=== PATIENT | female | born 1970 | race Caucasian/White ===

== ENCOUNTER 2017-06-13 10:42 | Inpatient (IN) | payer OTHER ==
--- NOTE | 2017-06-13 11:16 | PDOC ---
History of Present Illness - General History Source: Alf Records Exam Limitations: Clinical Condition (MR, Downs syndrome) - History of Present Illness Initial Comments: 06/13/17 12:10 The patient is a 47 year old female with a significant PMH of profound MR, Downs syndrome, OCD, pica, hypothyroidism, CKD III, non-alcoholic fatty liver disease, COPD, hypertriglyceridemia, osteopenia, GERD, and lactose intolerance who presents to the emergency department after being sent in from [facility] for evaluation of hypoxia. As per senior care and records, the patients O2 sat. was 84% in the senior care despite Duoneb treatment. As per records, the patients baseline O2 sat. is in the low 90s on room air. The patient also presents with a productive cough. The patient has severe MR and is nonverbal at baseline. Allergies: Cefuroxime axetil. Ceftin. Cephalosporins. Past surgical history: None reported. Social history: No reported cigarette, alcohol, or drug use. PCP: Dr. Erickson <Norris Lugo - Last Filed: 06/13/17 12:14> <Sydney Laird - Last Filed: 06/13/17 16:14> - General Chief Complaint: Shortness of Breath Stated Complaint: SOB Time Seen by Provider: 06/13/17 11:12 Past History <Norris Lugo - Last Filed: 06/13/17 12:14> - Past Medical History COPD: Yes Disorders: Yes (CHRONIC KIDNEY DISEASE, GERD) Hypercholesterolemia: Yes Thyroid Disease: Yes (Hypothyroidism) - Immunization History Immunization Up to Date: Yes - Suicide/Smoking/Psychosocial Hx Smoking Status: No Smoking History: Never smoked Number of Cigarettes Smoked Daily: 0 Hx Alcohol Use: No Substance Use Type: None <Sydney Laird - Last Filed: 06/13/17 16:14> - Past Medical History Allergies/Adverse Reactions: Allergies Allergy/AdvReac Type Severity Reaction Status Date / Time cefuroxime axetil Allergy Mild Rash Verified 06/13/17 10:59 [From Ceftin] Cephalosporins Allergy Mild Rash Verified 06/13/17 10:59 Home Medications: Ambulatory Orders Budesonide [Pulmicort] 0.5 mg NEB BID 11/28/12 Calcium Carb, Citrate/Vit D3 [Citracal + D ER Tablet] 1 tab PO BID 11/28/12 Escitalopram Oxalate [Lexapro] 20 mg PO DAILY 11/28/12 Ipratropium 0.02% Nebulizer [Atrovent *Nebulizer*] 0.5 mg IH TID 11/28/12 Levothyroxine [Synthroid] 125 mcg PO DAILY 11/28/12 Omeprazole Magnesium [Prilosec (OTC)] 20 mg PO BID 11/28/12 Fexofenadine HCl [Purvi] 180 mg PO HS 01/10/15 Cholecalciferol (Vitamin D3) [Vitamin D3] 400 unit PO DAILY 06/13/17 Ferrous Sulfate 325 mg PO DAILY 06/13/17 Fluticasone Furoate [Flonase Sensimist] 9.9 ml NS DAILY 06/13/17 Folic Acid/Mv,Fe,Min/Lutein [Certa Plus Tablet] 1 each PO DAILY 06/13/17 Review of Systems - Review of Systems Able to Perform ROS?: No Comments:: 06/13/17 12:10 As noted in HPI. <Norris Lugo - Last Filed: 06/13/17 12:14> *Physical Exam - Vital Signs Last Vital Signs Temp Pulse Resp BP Pulse Ox 101.2 F H 107 H 26 H 118/67 93 L 06/13/17 10:59 06/13/17 11:37 06/13/17 11:37 06/13/17 11:37 06/13/17 12:03 - Physical Exam Comments: 06/13/17 12:10 GENERAL: Awake, alert, and fully oriented, in no acute distress HEAD: No signs of trauma EYES: PERRLA, EOMI, sclera anicteric, conjunctiva clear ENT: (+) Micrognathia. Auricles normal inspection, hearing grossly normal, nares patent, oropharynx clear without exudates. Moist mucosa NECK: Normal ROM, supple, no lymphadenopathy, JVD, or masses LUNGS: Breath sounds equal, clear to auscultation bilaterally. No wheezes, and no crackles HEART: Regular rate and rhythm, normal S1 and S2, no murmurs, rubs or gallops ABDOMEN: Soft, nontender, normoactive bowel sounds. No guarding, no rebound. No masses EXTREMITIES: Normal range of motion, no edema. No clubbing or cyanosis. No cords, erythema, or tenderness NEUROLOGICAL: Cranial nerves II through XII grossly intact. SKIN: Warm, Dry, normal turgor, no rashes or lesions noted. <Norris Lugo - Last Filed: 06/13/17 12:14> - Vital Signs Last Vital Signs Temp Pulse Resp BP Pulse Ox 101.2 F H 125 H 38 H 118/69 78 L 06/13/17 10:59 06/13/17 10:59 06/13/17 10:59 06/13/17 10:59 06/13/17 10:59 <Sydney Laird - Last Filed: 06/13/17 16:14> ED Treatment Course - LABORATORY CBC & Chemistry Diagram: 06/13/17 11:20 06/13/17 11:20 - ADDITIONAL ORDERS Additional order review: Laboratory Results 06/13/17 06/13/17 11:20 11:20 Sodium 133 L Potassium 5.4 H D Chloride 98 Carbon Dioxide 30 Anion Gap 5 L BUN 13 Creatinine 1.1 H D Creat Clearance w eGFR 53.01 Random Glucose 128 H D Lactic Acid 2.3 H* Calcium 8.0 L Total Bilirubin 0.4 D AST 69 H D ALT 47 D Alkaline Phosphatase 156 H D Total Protein 7.7 Albumin 2.9 L 06/13/17 11:35 Influenza Types A,B Antigen (GENESIS) - Final Nasopharyngeal Swab - Final 06/13/17 11:20 RBC 3.95 MCV 101.1 H MCHC 33.4 RDW 15.2 MPV 7.7 Neutrophils % 81.0 Lymphocytes % 12.8 Monocytes % 5.8 Eosinophils % 0.0 D Basophils % 0.4 - Medications Given in the ED: ED Medications Discontinued Medications Generic Name Dose Route Start Last Admin Trade Name Erikq PRN Reason Stop Dose Admin Acetaminophen 1,000 mg 06/13/17 11:26 06/13/17 11:35 Ofirmev Injection - IVPB 06/13/17 11:27 1,000 mg ONCE ONE Administration Methylprednisolone Sodium Succinate 125 mg 06/13/17 11:18 06/13/17 11:24 Solu-Medrol - IVPUSH 06/13/17 11:19 125 mg ONCE ONE Administration <Norris Lugo - Last Filed: 06/13/17 12:14> - LABORATORY CBC & Chemistry Diagram: 06/13/17 11:20 06/13/17 11:20 <Sydney Laird - Last Filed: 06/13/17 16:14> Medical Decision Making - Medical Decision Making 06/13/17 13:02 Pt presents to the ED after sent in for hypoxia in her senior care. patient has a history of down syndrome and is chronically hypoxic, but oxygen saturation is lower than usual today. Febrile in the Ed. Labs show elevated WBC count. questionable PNA on cxr. Will admit to medicine for PNA, start levaquin. <Sydney Laird - Last Filed: 06/13/17 16:14> *DC/Admit/Observation/Transfer - Attestations Scribe Attestion: 06/13/17 12:11 Documentation prepared by Norris Lugo, acting as medical administrative specialist for Sydney Laird MD. <Norris Lugo - Last Filed: 06/13/17 12:14> - Discharge Dispostion Admit: Yes <Sydney Laird - Last Filed: 06/13/17 16:14> Diagnosis at time of Disposition: Pneumonia Qualifiers: Pneumonia type: due to unspecified organism Laterality: bilateral Lung location : lower lobe of lung Qualified Code(s): J18.9 - Pneumonia, unspecified organism - Discharge Dispostion Condition at time of disposition: Good
[2017-06-13] MEDS ORDERED: methylPREDNISolone NA SUCC 125 MG/2 ML VIAL IVPUSH ONE (11:18)
[2017-06-13] MEDS: ALBUTEROL SO4 2.5/IPRATROPIUM 0.5 INH SOL 3 ML VIAL.NEB. NEB SCH ×3 (11:24→17:15)
[2017-06-13] MEDS ORDERED: ACETAMINOPHEN 1000 MG/100 ML VIAL (NON FORMULARY) IVPB ONE (11:26)
[2017-06-13] MEDS ORDERED: methylPREDNISolone NA SUCC 125 MG/2 ML VIAL ONE (11:29)
[2017-06-13] MEDS ORDERED: ACETAMINOPHEN INJECTION 100 ML IVPB ONE (11:29)
[2017-06-13] MEDS ORDERED: LEVOFLOXACIN 500 MG IVPB 500 MG/100 ML BAG IVPB ONE ×2 (11:31→11:52)
[2017-06-13 11:37] LABS: BASOPHIL 0.4 % (0-2.0); MCH 33.7 pg (25.7-33.7); MCHC 33.4 g/dl (32.0-36.0); MEAN CELL VOLUME 101.1 fl (80-96); MEAN PLT VOLUME 7.7 fl (7.5-11.1); PLATELET COUNT 342 K/MM3 (134-434); RDW 15.2 % (11.6-15.6); WHITE BLOOD COUNT 18.8 K/mm3 (4.0-10.0)
[2017-06-13 11:53] LABS: ALBUMIN 2.9 g/dl (3.4-5.0); ALK PHOS 156 U/L (45-117); ANION GAP 5 (8-16); BILIRUBIN,TOTAL 0.4 mg/dL (0.2-1.0); CO2 30 mmol/L (21-32); CREATININE 1.1 mg/dL (0.55-1.02); GLUCOSE,RANDOM 128 mg/dL (74-106); SGPT/ALT 47 U/L (12-78); TOT PROT 7.7 g/dl (6.4-8.2)
[2017-06-13 11:57] LABS: SGOT/AST 69 U/L (15-37)
[2017-06-13] MEDS ORDERED: SODIUM CHLORIDE 250 ML IV ONE (13:35)
--- NOTE | 2017-06-13 13:39 | HP ---
CC: Sent from [place] for low O2 sat. 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 Patient is non- verbal at baseline but aid was at bedside and provided some limited information. Per chart from [place] and the aid, patient has chronic cough but never able to cough up the phlegm, at baseline she has good appetite and sleeps well at night. However, this morning nurse noted patient's eating less, tachypenic(30 pm), tachycardic (121bpm). Her O2 was 84% on ambient air and she' s unresponsive to O2 via NC and duoneb treatment. Patient was treated for pneumonia and E. coli UTI 1 year ago. Per chart and aid, patient does not have fever, chills, chest pain, n/v, hemoptysis, urinary, bowel symptoms. 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 Down's syndrome, CKD Stage III and COPD PSH: Vertical scar on abd but no surgical history in patient's chart Social History: resident at [facility]; Never smoked, drank or used drug Family History: non-contributory Allergy: cephalosporins - rash Home Meds: Budesonide [Pulmicort] 0.5 mg NEB BID 11/28/12 Calcium Carb, Citrate/Vit D3 [Citracal + D ER Tablet] 1 tab PO BID 11/28/12 Escitalopram Oxalate [Lexapro] 20 mg PO DAILY 11/28/12 Ipratropium 0.02% Nebulizer [Atrovent *Nebulizer*] 0.5 mg IH TID 11/28/12 Levothyroxine [Synthroid] 125 mcg PO DAILY 11/28/12 Omeprazole Magnesium [Prilosec (OTC)] 20 mg PO BID 11/28/12 Fexofenadine HCl [Purvi] 180 mg PO HS 01/10/15 Cholecalciferol (Vitamin D3) [Vitamin D3] 400 unit PO DAILY 06/13/17 Ferrous Sulfate 325 mg PO DAILY 06/13/17 Fluticasone Furoate [Flonase Sensimist] 9.9 ml NS DAILY 06/13/17 Folic Acid/Mv,Fe,Min/Lutein [Certa Plus Tablet] 1 each PO DAILY 06/13/17 ROS: Non-verbal and mentally retarded at baseline, unable to obtain Physical Examination Last Vital Signs Temp Pulse Resp BP Pulse Ox 101.2 F H 96 H 18 127/74 94 L 06/13/17 10:59 06/13/17 13:01 06/13/17 13:01 06/13/17 13:01 06/13/17 13:48 General: Patient wearing BiPAP, coughing and sitting up in bed in mild respiratory distress. Typical Down's facies. Eyes: Unable to perform due to baseline mental status ENT: Unable to perform due to baseline mental status. Neck: Supple with no LAD or masses. Lymph Nodes: No cervical or inguinal LAD. Cardiovascular: RRR, S1 and S2 normal, no m/g/r. Lungs: Coarse breath sounds due to BiPAP, occasional inspiratory wheezes in upper lung rodríguez Abdomen: Obese, moderately distended, Normoactive bowel sounds. No tenderness even upon deep palpation, no guarding/rebound Extremeties: No peripheral edema CBCD WBC 18.8 K/mm3 (4.0-10.0) H D 06/13/17 11:20 RBC 3.95 M/mm3 (3.60-5.2) 06/13/17 11:20 Hgb 13.3 GM/dL (10.7-15.3) 06/13/17 11:20 Hct 40.0 % (32.4-45.2) 06/13/17 11:20 MCV 101.1 fl (80-96) H 06/13/17 11:20 MCHC 33.4 g/dl (32.0-36.0) 06/13/17 11:20 RDW 15.2 % (11.6-15.6) 06/13/17 11:20 Plt Count 342 K/MM3 (134-434) 06/13/17 11:20 MPV 7.7 fl (7.5-11.1) 06/13/17 11:20 CMP Sodium 133 mmol/L (136-145) L 06/13/17 11:20 Potassium 5.4 mmol/L (3.5-5.1) H D 06/13/17 11:20 Chloride 98 mmol/L (98-107) 06/13/17 11:20 Carbon Dioxide 30 mmol/L (21-32) 06/13/17 11:20 Anion Gap 5 (8-16) L 06/13/17 11:20 BUN 13 mg/dL (7-18) 06/13/17 11:20 Creatinine 1.1 mg/dL (0.55-1.02) H D 06/13/17 11:20 Creat Clearance w eGFR 53.01 (>60) 06/13/17 11:20 Calcium 8.0 mg/dL (8.5-10.1) L 06/13/17 11:20 Total Bilirubin 0.4 mg/dL (0.2-1.0) D 06/13/17 11:20 AST 69 U/L (15-37) H D 06/13/17 11:20 ALT 47 U/L (12-78) D 06/13/17 11:20 Alkaline Phosphatase 156 U/L (45-117) H D 06/13/17 11:20 Total Protein 7.7 g/dl (6.4-8.2) 06/13/17 11:20 Albumin 2.9 g/dl (3.4-5.0) L 06/13/17 11:20 Microbiology 06/13/17 11:35 Nasopharyngeal Swab Influenza Types A,B Antigen negative Imaging: CXR on 06/13: bibasal and L mid to lower lobe atelectic change and infiltrate. A/P: 47 yo F admitted to med-surg for severe sepsis. Severe sepsis - Likely 2/2 pneumonia, cannot r/o urinary source - f/u UA, urine legionella ag and RSV ag - Received levaquin 500mg IV x 1 dose - Start zosyn to cover HAP * theoretically cross-reaction 3% with cephalosporin * closely monitor for allergic reaction - IV bolus NS 250ml x 1 * 1 more liter of NS at 100cc/hr - Trend lactate - ID consult Acute respiratory distress - Likely 2/2 severe sepsis in the setting of COPD and PNA - Chronic productive cough at baseline * Start chest PT - Supplemental O2 maintain sat > 90%, BiPAP PRN - Cont. atrovent and pulmicort - Pulmonary consult IRENA on CKD Stage IIIA - Normal baseline - Cont. gentle hydration Hyperkalemia - Mild, with no EKG change - Kayexalate 15mg - Recheck BMP Pica syndrome - 1:1 observation for foreign object ingestion risk Hypothyrodism - Cont. synthroid OCD - Cont. lexapro FEN - Received 1 bolus of 250ml, 1 more liter of NS @ 100cc/hr - Replete lytes prn, monitor Na+ and K+ - NPO on BiPAP ( Was on 1.5k calorie weight reduction low fat, low phos, ground diet, liquids regular consistency, lactaid milk) Prophylaxis - DVT: Heparin TID - GI: on home PPI Dispo - Cont. to monitor on med-surg [facility] PGY2 Pager: [phone] Visit type - Emergency Visit Emergency Visit: Yes ED Registration Date: 06/13/17 Care time: The patient presented to the Emergency Department on the above date and was hospitalized for further evaluation of their emergent condition. - New Patient This patient is new to me today: Yes Date on this admission: 06/13/17 - Critical Care Critical Care patient: No
[2017-06-13] MEDS ORDERED: AZITHROMYCIN IVPB 250 MG in DEXTROSE 5%-WATER - 250 ML IVPB SCH (13:45)
[2017-06-13] MEDS ORDERED: IPRATROPIUM BR 0.02% 0.5 MG/2.5 ML VIAL.NEB. NEB SCH ×2 (14:00→22:00)
[2017-06-13] MEDS ORDERED: SODIUM POLYSTYRENE SULFONATE 15 GM/60 ML BOTTLE PO ONE (14:12)
[2017-06-13] MEDS ORDERED: ALBUTEROL SO4 2.5/IPRATROPIUM 0.5 INH SOL 3 ML VIAL.NEB. NEB PRN (14:14)
[2017-06-13] MEDS ORDERED: SODIUM CHLORIDE 1,000 ML IV SCH (15:00)
[2017-06-13 15:38] LABS: URINE APPEARANCE CLEAR; URINE BILIRUBIN NEGATIVE (NEGATIVE); URINE BLOOD NEGATIVE (NEGATIVE); URINE COLOR LTYELLOW; URINE GLUCOSE (UA) NEGATIVE (NEGATIVE); URINE KETONE NEGATIVE (NEGATIVE); URINE LEUK ESTERASE NEGATIVE (NEGATIVE); URINE NITRITE POSITIVE (NEGATIVE); URINE PROTEIN NEGATIVE (NEGATIVE); URINE UROBILINOGEN NEGATIVE mg/dL (0.2-1.0)
[2017-06-13] MEDS ORDERED: SODIUM POLYSTYRENE SULFONATE 15 GM/60 ML BOTTLE ONE (15:41)
[2017-06-13] MEDS ORDERED: HEPARIN NA (PORCINE) 5,000 UNITS/ML 1ML VIAL ONE (15:41)
[2017-06-13 15:47] LABS: URINE BACTERIA MODERATE /hpf (NONE SEEN); URINE RBC <1 /hpf (0-3); URINE WBC 1 /hpf (3-5)
[2017-06-13] MEDS: HEPARIN NA (PORCINE) 5,000 UNITS/ML 1ML VIAL SQ SCH ×2 (15:47→21:27)
--- NOTE | 2017-06-13 16:32 | CONSULT ---
Consultation: REQUESTING PROVIDER: CONSULT REQUEST: We have been asked to medically evaluate this patient for respiratory distress 2/2 PNA. HISTORY OF PRESENT ILLNESS: 47F w/ hx of MR 2/2 Down's syndrome, CKD Stage III and COPD, [facility]. Patient is non-verbal at baseline. Per chart from [place] and the aid, patient has a chronic cough but is unable to cough up sputum. This morning, the nurse noted that the pt has had decreased po intake, tachypnea, and tachycardia, and her O2 was 84% on room air. Per chart and aid, patient does not have fever, chills, chest pain, n/v, hemoptysis, urinary, bowel symptoms. Patient was treated for pneumonia and E. coli UTI 1 year ago. 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 Down's syndrome, CKD Stage III and COPD PSH: no surgical history in patient's chart Social History: [facility]; no toxic habits Family History: non-contributory Allergy: cephalosporins - rash REVIEW OF SYSTEMS: CONSTITUTIONAL: Absent: fever, chills, diaphoresis, generalized weakness, malaise, weight change present: loss of appetite HEENT: Absent: rhinorrhea, nasal congestion, throat pain, throat swelling, difficulty swallowing, mouth swelling, ear pain, eye pain, visual changes CARDIOVASCULAR: Absent: chest pain, syncope, palpitations, lightheadedness, peripheral edema present: tachycardia RESPIRATORY: Absent: wheezing, stridor, hemoptysis present: cough, tachypnea GASTROINTESTINAL: Absent: abdominal pain, abdominal distension, nausea, vomiting, diarrhea, constipation, melena, hematochezia GENITOURINARY: Absent: dysuria, frequency, urgency, hesitancy, hematuria, flank pain, genital pain MUSCULOSKELETAL: Absent: myalgia, arthralgia, joint swelling, back pain, neck pain SKIN: Absent: rash, itching, pallor HEMATOLOGIC/IMMUNOLOGIC: Absent: easy bleeding, easy bruising, lymphadenopathy, frequent infections ENDOCRINE: Absent: unexplained weight gain, unexplained weight loss, heat intolerance, cold intolerance NEUROLOGIC: Absent: headache, focal weakness or paresthesias, dizziness, unsteady gait, seizure, mental status changes, bladder or bowel incontinence PSYCHIATRIC: Absent: anxiety, depression, suicidal or homicidal ideation, hallucinations. PHYSICAL EXAMINATION Vital Signs - 24 hr 06/13/17 06/13/17 06/13/17 10:59 11:35 11:36 Temperature 101.2 F H Pulse Rate 125 H Pulse Rate [ Apical] Respiratory 38 H Rate Blood Pressure 118/69 Blood Pressure [Right Arm] O2 Sat by Pulse 78 L 87 L 84 L Oximetry (%) 06/13/17 06/13/17 06/13/17 11:37 12:03 13:01 Temperature Pulse Rate Pulse Rate [ 107 H 96 H Apical] Respiratory 26 H 18 Rate Blood Pressure Blood Pressure 118/67 127/74 [Right Arm] O2 Sat by Pulse 84 L 93 L Oximetry (%) 06/13/17 06/13/17 06/13/17 13:48 15:31 15:34 Temperature 99.8 F H Pulse Rate Pulse Rate [ 90 Apical] Respiratory 20 Rate Blood Pressure Blood Pressure 97/51 [Right Arm] O2 Sat by Pulse 94 L 96 96 Oximetry (%) GENERAL: middle aged female with MR, on Bipap, lying down in NAD HEENT: NC, AT NECK: Normal range of motion, supple without lymphadenopathy, JVD, or masses. LUNGS: diffuse rhonchi HEART: Regular rate and rhythm, normal S1 and S2 without murmur, rub or gallop. ABDOMEN: Soft, nontender, not distended, normoactive bowel sounds, no guarding, no rebound, no masses. No hepatomegaly or splenomegaly. MUSCULOSKELETAL: trace LE edema SKIN: Warm, dry, normal turgor, no rashes or lesions noted. Laboratory Results - last 24 hr 06/13/17 06/13/17 06/13/17 11:20 11:20 11:20 WBC 18.8 H D RBC 3.95 Hgb 13.3 Hct 40.0 MCV 101.1 H MCH 33.7 MCHC 33.4 RDW 15.2 Plt Count 342 MPV 7.7 Neutrophils % 81.0 Lymphocytes % 12.8 Monocytes % 5.8 Eosinophils % 0.0 D Basophils % 0.4 Sodium 133 L Potassium 5.4 H D Chloride 98 Carbon Dioxide 30 Anion Gap 5 L BUN 13 Creatinine 1.1 H D Creat Clearance w eGFR 53.01 Random Glucose 128 H D Lactic Acid 2.3 H* Calcium 8.0 L Total Bilirubin 0.4 D AST 69 H D ALT 47 D Alkaline Phosphatase 156 H D Total Protein 7.7 Albumin 2.9 L Serum , Qual Urine Color Urine Appearance Urine pH Ur Specific [place] Urine Protein Urine Glucose (UA) Urine Ketones Urine Blood Urine Nitrite Urine Bilirubin Urine Urobilinogen Urine WBC (Auto) Urine RBC (Auto) Ur Epithelial Cells Urine Bacteria 06/13/17 06/13/17 06/13/17 11:35 15:15 15:20 WBC RBC Hgb Hct MCV MCH MCHC RDW Plt Count MPV Neutrophils % Lymphocytes % Monocytes % Eosinophils % Basophils % Sodium Potassium Chloride Carbon Dioxide Anion Gap BUN Creatinine Creat Clearance w eGFR Random Glucose Lactic Acid 3.0 H* Calcium Total Bilirubin AST ALT Alkaline Phosphatase Total Protein Albumin Serum , Qual Negative Urine Color Ltyellow Urine Appearance Clear Urine pH 6.0 Ur Specific [place] 1.006 Urine Protein Negative Urine Glucose (UA) Negative Urine Ketones Negative Urine Blood Negative Urine Nitrite Positive Urine Bilirubin Negative Urine Urobilinogen Negative Urine WBC (Auto) 1 Urine RBC (Auto) <1 Ur Epithelial Cells Rare Urine Bacteria Moderate Active Medications Generic Name Dose Route Start Last Admin Trade Name Freq PRN Reason Stop Dose Admin Budesonide 1 amp 06/13/17 22:00 Pulmicort 0.5 Mg Nebulizer - NEB BID CARLOS Cholecalciferol 400 unit 06/14/17 10:00 Vitamin D3 - PO DAILY [facility] Escitalopram Oxalate 20 mg 06/14/17 10:00 Lexapro - PO DAILY CARLOS Ferrous Sulfate 325 mg 06/14/17 10:00 Feosol - PO DAILY CARLOS Heparin Sodium (Porcine) 5,000 unit 06/13/17 14:15 06/13/17 15:47 Heparin - SQ 5,000 unit TID CARLOS Administration Sodium Chloride 1,000 mls @ 100 mls/hr 06/13/17 15:00 06/13/17 15:47 Normal Saline - IV 06/14/17 00:59 100 mls/hr ASDIR CARLOS Administration Ipratropium [place] 1 amp 06/13/17 22:00 Atrovent 0.02% Nebulizer - NEB TIDR CARLOS Levothyroxine Sodium 125 mcg 06/14/17 10:00 Synthroid - PO DAILY CARLOS Loratadine 10 mg 06/13/17 22:00 Claritin - PO HS CARLOS Non-Formulary Medication 1 tab 06/13/17 22:00 Calcium Carb, Citrate/Vit D3 [Citracal + D Er Tablet] PO BID CARLOS Non-Formulary Medication 9.9 ml 06/14/17 10:00 Fluticasone Furoate [Flonase Sensimist] NS DAILY CARLOS Non-Formulary Medication 1 each 06/14/17 10:00 Folic Acid/Mv,Fe,Min/Lutein [Certa Plus Tablet] PO DAILY CARLOS Pantoprazole Sodium 20 mg 06/13/17 22:00 Protonix - PO BID CARLOS CXR: interval bibasal and left mid to lower lung atelectatic changes with infiltrates. ASSESSMENT/PLAN: 47F w/ hx of MR 2/2 Down's syndrome, CKD Stage III and COPD, [facility]. #hypoxia -2/2 severe sepsis with fever, leukocytosis, and lactic acidosis likely 2/2 PNA -abx per ID -duonebs -incentive spirometry -O2 via Bipap -trend wbc count and temps Rest of care per medical team Plan discussed with attending, Dr. Almeida. Dispo: We will continue to follow the patient. Thank you for this consultative opportunity. -Isaac Jaramillo MD PGY1 Pulmonology Team Visit type - Emergency Visit Emergency Visit: Yes ED Registration Date: 06/13/17 Care time: The patient presented to the Emergency Department on the above date and was hospitalized for further evaluation of their emergent condition. - New Patient This patient is new to me today: Yes Date on this admission: 06/13/17 - Critical Care Critical Care patient: No
--- NOTE | 2017-06-13 17:19 | PN ---
Teaching Attending Note Name of Resident: Isaac Jaramillo ATTENDING PHYSICIAN STATEMENT I saw and evaluated the patient. I reviewed the resident's note and discussed the case with the resident. I agree with the resident's findings and plan as documented. PULMONARY IMP ACUTE HYPOXEMIC RESPIRATORY FAILURE PNEUMONIA SIRS DOWNS SYNDROME MENTAL RETARDATION HYPOTHYROIDISM GERD LACTIC ACIDOSIS PLAN O2 BIPAP ANTIBIOTICS SHORT COURSE OF STEROIDS INHALED BRONCHODILATORS CULTURES TREND LACTATE IVF F/U CHEST X-RAY DR CHENG Problem List - Problems (1) Acute hypoxemic respiratory failure Code(s): J96.01 - ACUTE RESPIRATORY FAILURE WITH HYPOXIA (2) Pneumonia Code(s): J18.9 - PNEUMONIA, UNSPECIFIED ORGANISM Qualifiers: Pneumonia type: due to unspecified organism Laterality: bilateral Lung location: lower lobe of lung Qualified Code(s): J18.9 - Pneumonia, unspecified organism (3) Down's syndrome Code(s): Q90.9 - DOWN SYNDROME, UNSPECIFIED (4) SIRS (systemic inflammatory response syndrome) Code(s): R65.10 - SIRS OF NON-INFECTIOUS ORIGIN W/O ACUTE ORGAN DYSFUNCTION (5) Mental retardation Code(s): F79 - UNSPECIFIED INTELLECTUAL DISABILITIES (6) Sepsis Code(s): A41.9 - SEPSIS, UNSPECIFIED ORGANISM (7) Lactate blood increased Code(s): R79.89 - OTHER SPECIFIED ABNORMAL FINDINGS OF BLOOD CHEMISTRY
[2017-06-13] MEDS ORDERED: ALBUTEROL SO4 0.083% IH SOL 2.5 MG/3 ML VIAL.NEB. NEB PRN (17:26)
--- NOTE | 2017-06-13 17:57 | PN ---
Teaching Attending Note Name of Resident: Praveen Cedeno ATTENDING PHYSICIAN STATEMENT I saw and evaluated the patient. I reviewed the resident's note and discussed the case with the resident. I agree with the resident's findings and plan as documented. SUBJECTIVE: Patient is a 47yo female with hx of mental retardation, Down's syndrome, CKD Stage III and COPD was sent from [facility] due to low O2 saturation. Patient is non-verbal at baseline. Patient was treated for pneumonia and E. coli UTI 1 year ago. Per chart and aid, patient does not have fever, chills, chest pain, n/v, hemoptysis, urinary, bowel symptoms. But patient is not eating and this is not her baseline, patient loves to eat in general. OBJECTIVE: Vital Signs Temperature 99.8 F H 06/13/17 15:31 Pulse Rate 90 06/13/17 15:31 Respiratory Rate 20 06/13/17 15:31 Blood Pressure 97/51 06/13/17 15:31 O2 Sat by Pulse Oximetry (%) 94 L 06/13/17 16:46 CBCD WBC 18.8 K/mm3 (4.0-10.0) H D 06/13/17 11:20 RBC 3.95 M/mm3 (3.60-5.2) 06/13/17 11:20 Hgb 13.3 GM/dL (10.7-15.3) 06/13/17 11:20 Hct 40.0 % (32.4-45.2) 06/13/17 11:20 MCV 101.1 fl (80-96) H 06/13/17 11:20 MCHC 33.4 g/dl (32.0-36.0) 06/13/17 11:20 RDW 15.2 % (11.6-15.6) 06/13/17 11:20 Plt Count 342 K/MM3 (134-434) 06/13/17 11:20 MPV 7.7 fl (7.5-11.1) 06/13/17 11:20 CMP Sodium 133 mmol/L (136-145) L 06/13/17 11:20 Potassium 5.4 mmol/L (3.5-5.1) H D 06/13/17 11:20 Chloride 98 mmol/L (98-107) 06/13/17 11:20 Carbon Dioxide 30 mmol/L (21-32) 06/13/17 11:20 Anion Gap 5 (8-16) L 06/13/17 11:20 BUN 13 mg/dL (7-18) 06/13/17 11:20 Creatinine 1.1 mg/dL (0.55-1.02) H D 06/13/17 11:20 Creat Clearance w eGFR 53.01 (>60) 06/13/17 11:20 Random Glucose 128 mg/dL (74-106) H D 06/13/17 11:20 Calcium 8.0 mg/dL (8.5-10.1) L 06/13/17 11:20 Total Bilirubin 0.4 mg/dL (0.2-1.0) D 06/13/17 11:20 AST 69 U/L (15-37) H D 06/13/17 11:20 ALT 47 U/L (12-78) D 06/13/17 11:20 Alkaline Phosphatase 156 U/L (45-117) H D 06/13/17 11:20 Total Protein 7.7 g/dl (6.4-8.2) 06/13/17 11:20 Albumin 2.9 g/dl (3.4-5.0) L 06/13/17 11:20 Current Medications Generic Name Dose Route Start Last Admin Trade Name Freq PRN Reason Stop Dose Admin Budesonide 1 amp 06/13/17 22:00 Pulmicort 0.5 Mg Nebulizer - NEB BID [facility] Cholecalciferol 400 unit 06/14/17 10:00 Vitamin D3 - PO DAILY [facility] Escitalopram Oxalate 20 mg 06/14/17 10:00 Lexapro - PO DAILY [facility] Ferrous Sulfate 325 mg 06/14/17 10:00 Feosol - PO DAILY [facility] Heparin Sodium (Porcine) 5,000 unit 06/13/17 14:15 06/13/17 15:47 Heparin - SQ 5,000 unit TID [facility] Administration Sodium Chloride 1,000 mls @ 100 mls/hr 06/13/17 15:00 06/13/17 15:47 Normal Saline - IV 06/14/17 00:59 100 mls/hr ASDIR [facility] Administration Ipratropium Balsam 1 amp 06/13/17 22:00 Atrovent 0.02% Nebulizer - NEB TIDR [facility] Levothyroxine Sodium 125 mcg 06/14/17 10:00 Synthroid - PO DAILY [facility] Loratadine 10 mg 06/13/17 22:00 Claritin - PO HS [facility] Non-Formulary Medication 1 tab 06/13/17 22:00 Calcium Carb, Citrate/Vit D3 [Citracal + D Er Tablet] PO BID [facility] Non-Formulary Medication 9.9 ml 06/14/17 10:00 Fluticasone Furoate [Flonase Sensimist] NS DAILY [facility] Non-Formulary Medication 1 each 06/14/17 10:00 Folic Acid/Mv,Fe,Min/Lutein [Certa Plus Tablet] PO DAILY [facility] Pantoprazole Sodium 20 mg 06/13/17 22:00 Protonix - PO BID [facility] Home Medications Medication Instructions Recorded Budesonide [Pulmicort] 0.5 mg NEB BID 11/28/12 Calcium Carb, Citrate/Vit D3 1 tab PO BID 11/28/12 [Citracal + D ER Tablet] Escitalopram Oxalate [Lexapro] 20 mg PO DAILY 11/28/12 Ipratropium 0.02% Nebulizer 0.5 mg IH TID 11/28/12 [Atrovent *Nebulizer*] Levothyroxine [Synthroid] 125 mcg PO DAILY 11/28/12 Omeprazole Magnesium [Prilosec 20 mg PO BID 11/28/12 (OTC)] Fexofenadine HCl [Purvi] 180 mg PO HS 01/10/15 Cholecalciferol (Vitamin D3) 400 unit PO DAILY 06/13/17 [Vitamin D3] Ferrous Sulfate 325 mg PO DAILY 06/13/17 Fluticasone Furoate [Flonase 9.9 ml NS DAILY 06/13/17 Sensimist] Folic Acid/Mv,Fe,Min/Lutein [Certa 1 each PO DAILY 06/13/17 Plus Tablet] PE: per resident's note Comfortable, down syndrome features CHEST: decreased BS at the basis, on Bipap Heart: S1S2 positive abdomen: soft, NT, positive for BS ASSESSMENT AND PLAN: Patient is a 47 yo female with PMHX of mental retardation; Down's syndrome, CKD Stage III and COPD ,was sent from [facility] for having low O2 saturation. # Acute respiratory failure on Bipap continue , Pulmonary consult. # Questionable Pneumonia on bipap, Patient is allergic to cephalosporin; panculture; on empiric vanco/ aztreonam/ zithromax, flu/rsv/sputum cs ordered. # ACute leukocytosis will monitor #Profound MR; down Syndrome DVT Px: Heparin
[2017-06-13] MEDS ORDERED: ALBUTEROL SO4 2.5/IPRATROPIUM 0.5 INH SOL 3 ML VIAL.NEB. NEB SCH (18:00)
--- NOTE | 2017-06-13 18:12 | PN ---
Progress Note (short form) - Note Progress Note: ID Consult dictated Viral pneumonitis with probable bacterial superinfection ? Staph Respiratory failure Marked leukocytosis Profound MR Cephalosporin allergy Await c/s Empiric vanco/ aztreonam/ zithromax
[2017-06-13 18:38] LABS: URINE LEUK ESTERASE Negative (NEGATIVE)
[2017-06-13] MEDS ORDERED: PT OWN MED DRAWER 7, Y5N ONE (21:09)
[2017-06-13] MEDS: methylPREDNISolone NA SUCC 40 MG/1 ML VIAL IVPUSH SCH (21:23)
[2017-06-13] MEDS: LORATADINE 10 MG TABLET PO SCH ×2 (21:27→22:59)
[2017-06-13] MEDS: PANTOPRAZOLE 20 MG TABLET (FP) PO SCH ×2 (21:27→22:58)
[2017-06-13] MEDS: AZTREONAM 1 GRAM SYRINGE 1 GM/10 ML DISP.SYRIN IVPUSH SCH (21:47)
[2017-06-13] MEDS: VANCOMYCIN 1,000 MG in DEXTROSE 5%-WATER - 250 ML IVPB SCH (22:35)
--- NOTE | 2017-06-13 23:01 | HOSP ---
Physical Examination Vital Signs: Vital Signs Temperature 99.8 F H 06/13/17 15:31 Pulse Rate 97 H 06/13/17 18:05 Respiratory Rate 20 06/13/17 18:05 Blood Pressure 107/72 06/13/17 18:05 O2 Sat by Pulse Oximetry (%) 92 L 06/13/17 18:44 Constitutional: Yes: Well Nourished, No Distress HENT: Yes: Atraumatic, Normocephalic Neck: Yes: Supple, Trachea Midline Cardiovascular: Yes: Regular Rate and Rhythm. No: Murmur Respiratory: Yes: On BiPap, Rhonchi (Mild in Right lower lung), Wheezes (Mild in danny upper lungs) Gastrointestinal: Yes: Soft. No: Tenderness Labs: CBC, BMP 06/13/17 11:20 06/13/17 11:20 Hospitalist Encounter Assessment: Nurse reported a critical value of Lactic Acid 2.9 at 20:00. Pt receiving NS @ 100 ml/hr x 1 bag currently, scheduled to end at 1am. Upon physical exam, pt appears stable as compared to earlier this evening. An additional Liter of NS @ 100 ml/hr ordered. F/u Lactic Acid ordered for midnight. Will follow. Visit type - Emergency Visit Emergency Visit: Yes ED Registration Date: 06/13/17 Care time: The patient presented to the Emergency Department on the above date and was hospitalized for further evaluation of their emergent condition. - New Patient This patient is new to me today: Yes Date on this admission: 06/13/17 - Critical Care Critical Care patient: No
[2017-06-14] MEDS: ALBUTEROL SO4 2.5/IPRATROPIUM 0.5 INH SOL 3 ML VIAL.NEB. NEB SCH ×5 (00:40→23:13)
[2017-06-14] MEDS ORDERED: SODIUM CHLORIDE 1,000 ML IV SCH (01:00)
[2017-06-14] MEDS: AZTREONAM 1 GRAM SYRINGE 1 GM/10 ML DISP.SYRIN IVPUSH SCH ×3 (01:41→17:52)
[2017-06-14] MEDS: methylPREDNISolone NA SUCC 40 MG/1 ML VIAL IVPUSH SCH ×4 (02:35→22:34)
[2017-06-14 03:10] VITALS: BMI 28.1
[2017-06-14] MEDS: HEPARIN NA (PORCINE) 5,000 UNITS/ML 1ML VIAL SQ SCH ×3 (06:10→22:34)
[2017-06-14] MEDS: VANCOMYCIN 1,000 MG in DEXTROSE 5%-WATER - 250 ML IVPB SCH ×2 (06:10→19:00)
[2017-06-14 09:10] LABS: BASOPHIL 0.4 % (0-2.0); EOSINOPHIL 0.2 % (0-4.5); MCH 33.2 pg (25.7-33.7); MCHC 33.1 g/dl (32.0-36.0); MEAN CELL VOLUME 100.4 fl (80-96); NEUTROPHILS 91.7 % (42.8-82.8); PLATELET COUNT 265 K/MM3 (134-434); RDW 15.2 % (11.6-15.6); WHITE BLOOD COUNT 18.8 K/mm3 (4.0-10.0)
--- NOTE | 2017-06-14 09:35 | PN ---
Physical Exam: SUBJECTIVE: Patient seen and examined Patient is feeling better today. more active. OBJECTIVE: Vital Signs Temperature 97.6 F 06/14/17 05:15 Pulse Rate 82 06/14/17 05:15 Respiratory Rate 18 06/14/17 05:15 Blood Pressure 106/64 06/14/17 05:15 O2 Sat by Pulse Oximetry (%) 96 06/14/17 03:00 GENERAL: The patient is awake, in no acute distress. MR with down syndrome HEAD: Normal with no signs of trauma. EYES: PERRL, extraocular movements intact, sclera anicteric, conjunctiva clear. ENT: moist mucous membranes. NECK: Trachea midline, full range of motion, supple. LUNGS: Breath sounds equal, positive for Rhonchi to auscultation bilaterally. HEART: Regular rate and rhythm, S1, S2 without murmur, rub or gallop. ABDOMEN: Soft, nontender, nondistended, normoactive bowel sounds, no guarding, no rebound, no hepatosplenomegaly, no masses. EXTREMITIES: 2+ pulses, warm, well-perfused, no edema. NEUROLOGICAL: Cranial nerves II through XII grossly intact. Normal speech, gait not observed. PSYCH: can't access due to MR; down syndrome SKIN: Warm, dry, normal turgor, no rashes or lesions noted CBCD WBC 18.8 K/mm3 (4.0-10.0) H 06/14/17 08:35 RBC 3.75 M/mm3 (3.60-5.2) 06/14/17 08:35 Hgb 12.5 GM/dL (10.7-15.3) 06/14/17 08:35 Hct 37.7 % (32.4-45.2) 06/14/17 08:35 MCV 100.4 fl (80-96) H 06/14/17 08:35 MCHC 33.1 g/dl (32.0-36.0) 06/14/17 08:35 RDW 15.2 % (11.6-15.6) 06/14/17 08:35 Plt Count 265 K/MM3 (134-434) D 06/14/17 08:35 MPV 8.0 fl (7.5-11.1) 06/14/17 08:35 CMP Sodium 133 mmol/L (136-145) L 06/13/17 11:20 Potassium 5.4 mmol/L (3.5-5.1) H D 06/13/17 11:20 Chloride 98 mmol/L (98-107) 06/13/17 11:20 Carbon Dioxide 30 mmol/L (21-32) 06/13/17 11:20 Anion Gap 5 (8-16) L 06/13/17 11:20 BUN 13 mg/dL (7-18) 06/13/17 11:20 Creatinine 1.1 mg/dL (0.55-1.02) H D 06/13/17 11:20 Creat Clearance w eGFR 53.01 (>60) 06/13/17 11:20 Random Glucose 128 mg/dL (74-106) H D 06/13/17 11:20 Calcium 8.0 mg/dL (8.5-10.1) L 06/13/17 11:20 Total Bilirubin 0.4 mg/dL (0.2-1.0) D 06/13/17 11:20 AST 69 U/L (15-37) H D 06/13/17 11:20 ALT 47 U/L (12-78) D 06/13/17 11:20 Alkaline Phosphatase 156 U/L (45-117) H D 06/13/17 11:20 Total Protein 7.7 g/dl (6.4-8.2) 06/13/17 11:20 Albumin 2.9 g/dl (3.4-5.0) L 06/13/17 11:20 Active Medications Generic Name Dose Route Start Last Admin Trade Name Freq PRN Reason Stop Dose Admin Albuterol Sulfate 1 amp 06/13/17 17:26 Ventolin 0.083% Nebulizer Soln - NEB Q4H PRN SHORT OF BREATH/WHEEZING Albuterol/Ipratropium 1 amp 06/13/17 18:00 06/14/17 06:00 Duoneb - NEB 1 amp QIDR [facility] Administration Budesonide 1 amp 06/13/17 22:00 06/14/17 00:00 Pulmicort 0.5 Mg Nebulizer - NEB 1 amp BID [facility] Administration Cholecalciferol 400 unit 06/14/17 10:00 Vitamin D3 - PO DAILY [facility] Escitalopram Oxalate 20 mg 06/14/17 10:00 Lexapro - PO DAILY [facility] Ferrous Sulfate 325 mg 06/14/17 10:00 Feosol - PO DAILY [facility] Heparin Sodium (Porcine) 5,000 unit 06/13/17 14:15 06/14/17 06:10 Heparin - SQ 5,000 unit TID [facility] Administration Vancomycin HCl 1,000 mg/ 250 mls @ 200 mls/hr 06/13/17 18:15 06/14/17 06:10 Dextrose IVPB 200 mls/hr Q12H [facility] Administration Aztreonam 1 gm in 10 mls @ 100 mls/hr 06/13/17 18:15 06/14/17 01:41 Azactam (Restricted To Id) - IVPUSH 100 mls/hr Q8H-IV [facility] Administration Protocol Azithromycin 500 mg/ Dextrose 250 mls @ 250 mls/hr 06/14/17 10:00 IVPB DAILY [facility] Sodium Chloride 1,000 mls @ 100 mls/hr 06/14/17 01:00 06/14/17 01:40 Normal Saline - IV 06/14/17 10:59 100 mls/hr ASDIR [facility]OS Administration Levothyroxine Sodium 125 mcg 06/14/17 10:00 Synthroid - PO DAILY [facility] Loratadine 10 mg 06/13/17 22:00 06/13/17 22:59 Claritin - PO Not Given HS [facility] Methylprednisolone Sodium Succinate 40 mg 06/13/17 21:00 06/14/17 02:35 Solu-Medrol - IVPUSH 40 mg Q6H-IV [facility] Administration Non-Formulary Medication 1 tab 06/13/17 22:00 Calcium Carb, Citrate/Vit D3 [Citracal + D Er Tablet] PO BID [facility] Non-Formulary Medication 9.9 ml 06/14/17 10:00 Fluticasone Furoate [Flonase Sensimist] NS DAILY [facility] Non-Formulary Medication 1 each 06/14/17 10:00 Folic Acid/Mv,Fe,Min/Lutein [Certa Plus Tablet] PO DAILY [facility] Pantoprazole Sodium 20 mg 06/13/17 22:00 06/13/17 22:58 Protonix - PO Not Given BID [facility] Home Medications Medication Instructions Recorded Budesonide [Pulmicort] 0.5 mg NEB BID 11/28/12 Calcium Carb, Citrate/Vit D3 1 tab PO BID 11/28/12 [Citracal + D ER Tablet] Escitalopram Oxalate [Lexapro] 20 mg PO DAILY 11/28/12 Ipratropium 0.02% Nebulizer 0.5 mg IH TID 11/28/12 [Atrovent *Nebulizer*] Levothyroxine [Synthroid] 125 mcg PO DAILY 11/28/12 Omeprazole Magnesium [Prilosec 20 mg PO BID 11/28/12 (OTC)] Fexofenadine HCl [Purvi] 180 mg PO HS 01/10/15 Cholecalciferol (Vitamin D3) 400 unit PO DAILY 06/13/17 [Vitamin D3] Ferrous Sulfate 325 mg PO DAILY 06/13/17 Fluticasone Furoate [Flonase 9.9 ml NS DAILY 06/13/17 Sensimist] Folic Acid/Mv,Fe,Min/Lutein [Certa 1 each PO DAILY 06/13/17 Plus Tablet] Laboratory Tests 06/13/17 06/14/17 06/15/17 11:20 08:35 07:00 WBC 18.8 H D 18.8 H 16.4 H Neutrophils % 81.0 91.7 H Neutrophils % (Manual) 84.0 H ASSESSMENT AND PLAN: Patient is a 47 yo female with PMHX of mental retardation; Down's syndrome, CKD Stage III and COPD ,was sent from [facility] for having low O2 saturation. # Acute respiratory failure improving on NC now off Bipap , Pulmonary consult. # RSV positive with questionable superimposed Pneumonia , Patient is allergic to cephalosporin; panculture; on empiric vanco/ aztreonam/zithromax. continue supportive care as well. Neubulizer txments, Soulmedrol IV # Acute leukocytosis improving also can be due to steroids IV , will monitor #Profound MR; down Syndrome # HX of Hypothyroidism continue l-thyroxine IV 62.5mcg IV= 125mcg po synthroid # Hx of depression on Lexapro continue DVT Px: Heparin Visit type - Emergency Visit Emergency Visit: Yes ED Registration Date: 06/13/17 Care time: The patient presented to the Emergency Department on the above date and was hospitalized for further evaluation of their emergent condition. - New Patient This patient is new to me today: No - Critical Care Critical Care patient: No
[2017-06-14] MEDS ORDERED: ESCITALOPRAM OXALATE 10 MG TABLET (FP) ONE (09:44)
[2017-06-14 09:48] LABS: ALBUMIN 2.7 g/dl (3.4-5.0); ANION GAP 11 (8-16); CALCIUM 7.9 mg/dL (8.5-10.1); CO2 28 mmol/L (21-32); GLUCOSE,RANDOM 130 mg/dL (74-106)
[2017-06-14 09:52] LABS: ALK PHOS 141 U/L (45-117); BILIRUBIN,TOTAL 0.3 mg/dL (0.2-1.0); CREATININE 0.9 mg/dL (0.55-1.02); PHOSPHOROUS 3.1 mg/dL (2.5-4.9); SGOT/AST 30 U/L (15-37); SGPT/ALT 66 U/L (12-78)
[2017-06-14] MEDS: ESCITALOPRAM OXALATE 20 MG TABLET (FP) PO SCH (09:56)
[2017-06-14] MEDS: CHOLECALCIFEROL (VITAMIN D3) 400 UNIT TABLET (FP) PO SCH ×2 (09:57→10:38)
[2017-06-14] MEDS: LEVOTHYROXINE NA 125 MCG TABLET (FP) PO SCH ×2 (09:57→11:00)
[2017-06-14] MEDS: FERROUS SO4 325 MG TABLET (FP) PO SCH ×2 (09:57→10:38)
[2017-06-14] MEDS: PANTOPRAZOLE 20 MG TABLET (FP) PO SCH ×2 (09:57→10:24)
[2017-06-14] MEDS ORDERED: DEXTROSE 5% IVPB SCH (10:00)
[2017-06-14] MEDS ORDERED: AZITHROMYCIN IVPB SCH (10:00)
[2017-06-14] MEDS ORDERED: LEVOFLOXACIN 500 MG IVPB 500 MG/100 ML BAG IVPB SCH (10:00)
[2017-06-14] MEDS ORDERED: WATER IVPB SCH (10:00)
[2017-06-14] MEDS: MULTIVITAMINS THER W-MINERALS COMBO TABLET (FP) PO SCH (10:24)
[2017-06-14] MEDS: BUDESONIDE 0.5 MG/2 ML INH SUSP VIAL NEB SCH ×3 (11:00→21:25)
--- NOTE | 2017-06-14 11:38 | CONS ---
INFECTIOUS DISEASE CONSULTATION DATE OF CONSULTATION: DATE OF DICTATION: 06/14/2017 HISTORY OF PRESENT ILLNESS: The patient is a 47-year-old female, resident of [facility], with a history of profound mental retardation, trisomy 21, COPD. She was admitted from the nursing facility with worsening shortness of breath and anorexia. She was found to be in respiratory distress at the center. Her O2 saturation was 84%. She was transferred to the emergency room where the patient was febrile to 101.2, white blood cell count elevated at 18,000. Chest x-ray shows bibasilar atelectasis and probable infiltrates. An RSV rapid antigen was performed and is positive. The patient is nonverbal at baseline. She normally ambulates independently at the center. No recent febrile illness or respiratory tract syndrome reported. PAST MEDICAL HISTORY: Positive for Down syndrome, mental retardation, hypothyroidism, chronic kidney disease, COPD. ALLERGIES: CEPHALOSPORINS (rash). MEDICATIONS: Pulmicort, Lexapro, Synthroid, Prilosec. SOCIAL HISTORY: She resides at a shelter facility. Nonsmoker, nondrinker. SYSTEMS REVIEW: Neurologic: Positive for mental retardation. Respiratory: As per HPI. Cardiac: Negative chest pain or palpitations. Gastrointestinal: Negative vomiting or diarrhea. Genitourinary: Negative for urinary tract infection. LABORATORY DATA: White count 18.8 with normal differential. BUN 13, creatinine 1.1. Lactic acid 2.3. Urinalysis: One white cell. PHYSICAL EXAMINATION: General: She is awake. She is in moderate respiratory distress on BiPAP mask. Vital Signs: Temperature 99.8, T-max 101.2; blood pressure 97/50; pulse 90, regular; respirations 22 per minute; O2 saturation 96%. HEENT: Sclerae are anicteric. Oropharynx not visualized secondary to BiPAP mask. Heart: Sounds S1, S2. Tachycardic. Lungs: Diminished breath sounds bilaterally. Abdomen: Obese, soft, nontender. Healed surgical scar. Extremities: Edema 1+. IMPRESSION: A 47-year-old female admitted from [facility] with respiratory distress, now found to have a fever, leukocytosis, and positive respiratory syncytial virus antigen. 1. Probable viral pneumonitis with secondary bacterial superinfection. 2. Respiratory failure. 3. Marked leukocytosis. 4. Profound mental retardation. 5. CEPHALOSPORIN ALLERGY. RECOMMENDATIONS: Await culture results; obtain sputum culture, urine, legionella, and pneumococcal antigens. Empiric antibiotic coverage for possible bacterial superinfection of viral pneumonitis with vancomycin, aztreonam, and Zithromax. Would continue empiric coverage for staphylococcus in light of probable post-viral pneumonitis. Continue ventilatory support. Will follow. Thank you for the kind referral. ALEX MA M.D. [id number]
[2017-06-14] MEDS: AZITHROMYCIN IVPB 500 MG in DEXTROSE 5%-WATER - 250 ML IVPB SCH (12:29)
--- NOTE | 2017-06-14 14:31 | PN ---
Progress Note (short form) - Note Progress Note: PULMONARY On BiPAP but poorly fitting. No fevers recorded since admission. Last Vital Signs Temp Pulse Resp BP Pulse Ox 97.5 F L 92 H 22 98/59 95 06/14/17 08:00 06/14/17 08:00 06/14/17 08:00 06/14/17 08:00 06/14/17 09:00 Gen: mildly tachypneic on BiPAP Heart: RRR Lung: bilateral rhonchi, wheezes Abd: soft, nontender Ext: no edema CBC, BMP 06/14/17 08:35 06/14/17 08:35 Active Medications Albuterol Sulfate (Ventolin 0.083% Nebulizer Soln -) 1 amp NEB Q4H PRN PRN Reason: SHORT OF BREATH/WHEEZING Albuterol/Ipratropium (Duoneb -) 1 amp NEB QIDR [facility] Last Admin: 06/14/17 12:40 Dose: 1 amp Budesonide (Pulmicort 0.5 Mg Nebulizer -) 1 amp NEB BID [facility] Last Admin: 06/14/17 11:00 Dose: 1 amp Cholecalciferol (Vitamin D3 -) 400 unit PO DAILY [facility] Last Admin: 06/14/17 10:38 Dose: Not Given Escitalopram Oxalate (Lexapro -) 20 mg PO DAILY [facility] Last Admin: 06/14/17 09:56 Dose: 20 mg Ferrous Sulfate (Feosol -) 325 mg PO DAILY [facility] Last Admin: 06/14/17 10:38 Dose: Not Given Heparin Sodium (Porcine) (Heparin -) 5,000 unit SQ TID [facility] Last Admin: 06/14/17 06:10 Dose: 5,000 unit Vancomycin HCl 1,000 mg/ (Dextrose) 250 mls @ 200 mls/hr IVPB Q12H [facility] Last Admin: 06/14/17 06:10 Dose: 200 mls/hr Aztreonam (Azactam (Restricted To Id) -) 1 gm in 10 mls @ 100 mls/hr IVPUSH Q8H -IV [facility] PRN Reason: Protocol Last Admin: 06/14/17 09:55 Dose: 100 mls/hr Azithromycin 500 mg/ Dextrose 250 mls @ 250 mls/hr IVPB DAILY [facility] Last Admin: 06/14/17 12:29 Dose: 250 mls/hr Levothyroxine Sodium (Synthroid Injection -) 62.5 mcg IVPUSH DAILY [facility] Loratadine (Claritin -) 10 mg PO HS [facility] Last Admin: 06/13/17 22:59 Dose: Not Given Methylprednisolone Sodium Succinate (Solu-Medrol -) 40 mg IVPUSH Q6H-IV [facility] Last Admin: 06/14/17 09:55 Dose: 40 mg Multivitamins/Minerals (Theragran-M) 1 each PO DAILY [facility] Last Admin: 06/14/17 10:24 Dose: Not Given Non-Formulary Medication (Calcium Carb, Citrate/Vit D3 [Citracal + D Er Tablet] ) 1 tab PO BID [facility] Non-Formulary Medication (Fluticasone Furoate [Flonase Sensimist]) 9.9 ml NS DAILY [facility] Pantoprazole Sodium (Protonix -) 20 mg PO BID [facility] Last Admin: 06/14/17 10:24 Dose: Not Given A/P Acute Hypoxic Respiratory Failure Pneumonia Sepsis Lactic Acidosis Down Syndrome Mental Retardation Hypothyroidism - continue antibiotics - f/u cultures - continue medrol at current dose - inhaled bronchodilators - O2 to keep SpO2 >90% - can change BiPAP to ventimask as mask is too large for her - DVT prophylaxis
--- NOTE | 2017-06-14 14:57 | PN ---
Progress Note (short form) - Note Progress Note: awake [facility] staff reports her behavior is at baseline Vital Signs Period Temp Pulse Resp BP Sys/[place]er Pulse Ox Last 24 Hr 97.5 F-99.8 F 79-97 18-22 97-111/51-72 92-97 cor-rrr lungs decreased bs at bases abd soft,nt ext no edema CBC, BMP 06/14/17 08:35 06/14/17 08:35 Microbiology 06/13/17 11:25 Blood - Peripheral Venous Blood Culture - Preliminary NO GROWTH OBTAINED AFTER 24 HOURS, INCUBATION TO CONTINUE FOR 4 DAYS. 06/13/17 11:20 Blood - Peripheral Venous Blood Culture - Preliminary NO GROWTH OBTAINED AFTER 24 HOURS, INCUBATION TO CONTINUE FOR 4 DAYS. 06/13/17 15:20 Urine - Urine - Catheterized Legionella Antigen - Final 06/13/17 15:20 Urine - Urine - Catheterized Streptococcus pneumoniae Antigen (M - Final 06/13/17 15:20 Nasopharyngeal Swab Respiratory Syncytial Virus Ag - Final 06/13/17 11:35 Nasopharyngeal Swab Influenza Types A,B Antigen (GENESIS) - Final 06/13/17 11:35 Nasopharyngeal Swab - Final a/p RSV infection possible secondary bacterial pneumonia cephalosporin allergy isolation vanco/azactam/zithromax f/u cultures vancomycin trough
[2017-06-14] MEDS ORDERED: PT OWN MED DRAWER 7, Y5N ONE (17:47)
[2017-06-14] MEDS: SODIUM CHLORIDE 1,000 ML IV SCH (19:20)
[2017-06-14] MEDS: LORATADINE 10 MG TABLET PO SCH (22:34)
[2017-06-15] MEDS ORDERED: PT OWN MED DRAWER 7, Y5N ONE ×3 (02:02→17:56)
[2017-06-15] MEDS: AZTREONAM 1 GRAM SYRINGE 1 GM/10 ML DISP.SYRIN IVPUSH SCH ×3 (02:12→17:58)
[2017-06-15] MEDS: methylPREDNISolone NA SUCC 40 MG/1 ML VIAL IVPUSH SCH ×4 (02:12→21:47)
[2017-06-15] MEDS: HEPARIN NA (PORCINE) 5,000 UNITS/ML 1ML VIAL SQ SCH ×3 (05:17→21:47)
[2017-06-15] MEDS: ALBUTEROL SO4 2.5/IPRATROPIUM 0.5 INH SOL 3 ML VIAL.NEB. NEB SCH ×3 (06:41→18:12)
--- NOTE | 2017-06-15 07:17 | PN ---
Physical Exam: SUBJECTIVE: Patient seen and examined by me this AM - Pt sleeping, difficult to wake up on exam. Interval hx obtained from aide. Pt intermittently agitated during stay, pulling at lines and removing o2 mask/ bipap. - No cough, pain in chest/abdomen, significant changes in MS. Afebrile overnight. OBJECTIVE: Vital Signs Intake & Output 06/12/17 06/13/17 06/14/17 06/15/17 23:59 23:59 23:59 23:59 Intake Total 2800 1200 Balance 2800 1200 Weight 62.777 kg 61.099 kg Period Temp Pulse Resp BP Sys/Houser Pulse Ox Last 24 Hr 97.3 F-97.6 F 92-104 20-22 98-110/59-82 90-95 GENERAL: The patient is somnolent, difficult to arouse from sleep. Nonverbal HEAD: Down syndrome facial morphology (flat facies, upslanting palpebral fissures) EYES: sclera anicteric, conjunctiva clear. No ptosis. ENT: Ears normal, nares patent, oropharynx clear without exudates, moist mucous membranes. NECK: Trachea midline, full range of motion, supple. LUNGS: Course breath sounds. Significant upper airway congestion. Mild inspiratory wheeze in upper lung rodríguez. Trace crackles at bases BL. no accessory muscle use. HEART: Difficult to appreciate given breath sounds. Regular rate and rhythm, S1 , S2 without murmur, rub or gallop. ABDOMEN: Globular. Soft, nontender, nondistended, normoactive bowel sounds, no guarding, no rebound, no hepatosplenomegaly, no masses. Upper EXTREMITIES: 2+ pulses, warm, well-perfused, no edema. Lower extremities: 2+ DP, PT pulses, wwp, no edema NEUROLOGICAL: Unable to assess. PSYCH: Normal mood, normal affect. SKIN: Warm, dry, normal turgor Laboratory Results - last 24 hr CBC, BMP CBC, BMP 06/15/17 07:00 06/14/17 08:35 06/14/17 08:35 06/14/17 06/14/17 06/14/17 08:35 08:35 08:35 WBC 18.8 H RBC 3.75 Hgb 12.5 Hct 37.7 MCV 100.4 H MCH 33.2 MCHC 33.1 RDW 15.2 Plt Count 265 D MPV 8.0 Neutrophils % 91.7 H Lymphocytes % 5.9 L D Monocytes % 1.8 L Eosinophils % 0.2 D Basophils % 0.4 Sodium 140 Potassium 3.6 D Chloride 101 Carbon Dioxide 28 Anion Gap 11 BUN 14 Creatinine 0.9 Creat Clearance w eGFR > 60 Random Glucose 130 H Lactic Acid 3.2 H* Calcium 7.9 L Phosphorus 3.1 Total Bilirubin 0.3 D AST 30 D ALT 66 D Alkaline Phosphatase 141 H Total Protein 7.0 Albumin 2.7 L Vancomycin Pre-Dose 06/14/17 06/14/17 17:15 19:00 WBC RBC Hgb Hct MCV MCH MCHC RDW Plt Count MPV Neutrophils % Lymphocytes % Monocytes % Eosinophils % Basophils % Sodium Potassium Chloride Carbon Dioxide Anion Gap BUN Creatinine Creat Clearance w eGFR Random Glucose Lactic Acid 1.7 Calcium Phosphorus Total Bilirubin AST ALT Alkaline Phosphatase Total Protein Albumin Vancomycin Pre-Dose 15.368 H* Active Medications Generic Name Dose Route Start Last Admin Trade Name Freq PRN Reason Stop Dose Admin Albuterol Sulfate 1 amp 06/13/17 17:26 Ventolin 0.083% Nebulizer Soln - NEB Q4H PRN SHORT OF BREATH/WHEEZING Albuterol/Ipratropium 1 amp 06/13/17 18:00 06/15/17 06:41 Duoneb - NEB 1 amp QIDR CARLOS Administration Budesonide 1 amp 06/13/17 22:00 06/14/17 21:25 Pulmicort 0.5 Mg Nebulizer - NEB 1 amp BID CARLOS Administration Calcium Carbonate/Cholecalciferol 1 tab 06/15/17 10:00 Os-Wellington 500+D - PO BID CARLOS Cholecalciferol 400 unit 06/14/17 10:00 06/14/17 10:38 Vitamin D3 - PO Not Given DAILY [facility] Escitalopram Oxalate 20 mg 06/14/17 10:00 06/14/17 09:56 Lexapro - PO 20 mg DAILY CARLOS Administration Ferrous Sulfate 325 mg 06/14/17 10:00 06/14/17 10:38 Feosol - PO Not Given DAILY CARLOS Fluticasone Propionate 2 spray 06/15/17 10:00 Flonase - NS DAILY CARLOS Heparin Sodium (Porcine) 5,000 unit 06/13/17 14:15 06/15/17 05:17 Heparin - SQ 5,000 unit TID CARLOS Administration Vancomycin HCl 1,000 mg/ 250 mls @ 200 mls/hr 06/13/17 18:15 06/14/17 06:10 Dextrose IVPB 200 mls/hr Q12H CARLOS Administration Aztreonam 1 gm in 10 mls @ 100 mls/hr 06/13/17 18:15 06/15/17 02:12 Azactam (Restricted To Id) - IVPUSH 100 mls/hr Q8H-IV CARLOS Administration Protocol Azithromycin 500 mg/ Dextrose 250 mls @ 250 mls/hr 06/14/17 10:00 06/14/17 12 :29 IVPB 250 mls/hr DAILY CARLOS Administration Sodium Chloride 1,000 mls @ 100 mls/hr 06/14/17 18:30 06/14/17 19:20 Normal Saline - IV 06/16/17 04:29 100 mls/hr ASDIR CARLOS Administration Levothyroxine Sodium 62.5 mcg 06/15/17 10:00 Synthroid Injection - IVPUSH DAILY CARLOS Loratadine 10 mg 06/13/17 22:00 06/14/17 22:34 Claritin - PO Not Given HS CARLOS Methylprednisolone Sodium Succinate 40 mg 06/13/17 21:00 06/15/17 02:12 Solu-Medrol - IVPUSH 40 mg Q6H-IV CARLOS Administration Multivitamins/Minerals 1 each 06/14/17 10:00 06/14/17 10:24 Theragran-M PO Not Given DAILY CARLOS Pantoprazole Sodium 20 mg 06/13/17 22:00 06/14/17 10:24 Protonix - PO Not Given BID [facility] Microbiology 06/13/17 11:25 Blood - Peripheral Venous Blood Culture - Preliminary NO GROWTH OBTAINED AFTER 24 HOURS, INCUBATION TO CONTINUE FOR 4 DAYS. 06/13/17 11:20 Blood - Peripheral Venous Blood Culture - Preliminary NO GROWTH OBTAINED AFTER 24 HOURS, INCUBATION TO CONTINUE FOR 4 DAYS. 06/13/17 15:20 Urine - Urine - Catheterized Legionella Antigen - Final 06/13/17 15:20 Urine - Urine - Catheterized Streptococcus pneumoniae Antigen (M - Final 06/13/17 15:20 Nasopharyngeal Swab Respiratory Syncytial Virus Ag - Final - Positive for RSV 06/13/17 11:35 Nasopharyngeal Swab Influenza Types A,B Antigen (GENESIS) - Final 06/13/17 11:35 Nasopharyngeal Swab - Final Imaging: CXR 06/13 - Interval mild bibasal and left mid to lower lung atelectatic changes with probable infiltrates. CXR 06/14 - Imaging reveals progression of bilateral infiltrates mainly seen in the bases as well as in the right upper lobe. ASSESSMENT/PLAN: 47 yo woman w/ pmh of down's syndrome, CKD stage 3, COPD, hypothyroidism, pica, GERD who presented to ED in acute respiratory distress and severe sepsis secondary to PNA and/or COPD exacerbation. Pt is hemodynamically stable, improving with downtrending WBC and no fevers, + RSV. Still with signficant upper airway congestion and o2 requirements w/ venti-mask. Lactate normalized yesterday 3.2 -> 1.7, however LFTs uptrending. CXR with BL infiltrates, all cultures negative to date. Will continue abx regimen per ID and provide respiratory/fluid support. #Sepsis 2/2 PNA - WBC downtrending 18.8 -> 16.4 today. Afebrile overnight. All cultures neg. CXR signficant for BL infiltrates. RSV+ - Lactate 1.7 yesterday - Monitor BP - Trend WBC, fever curve - Day 3 vanc/aztreonam, Day 2 zithromax per ID - Vanc trough 15 - isolation room - F/u all pending cultures - ID following. Recs appreciated. #Acute on chronic COPD exacerbation - 90% on venti mask overnight. - Pulm following. Recs appreciated. - Duoneb 1 amp QIDR -Budesonide 1amp neb BID - Medrol 40mg IV Q6h - Claritin/flonase - Maintain sat >88%. O2 support as needed. On venti-mask, can escalate to BiPap if required. - Monitor sats #Transaminitis - LFTs elevated today - Trend LFTs #CKD Stage III - Cr 0.8 today - daily bmps. Trend cr - IVFs 100cc NS/hr #Hypothroidism - Synthroid 62.5 IV daily #OCD - Cont lexapro #Osteopenia - Calcium carbonate 1tab BID #Pica - No loose objects at bedside - 1to1 #FEN Fluids - 100cc NS Electrolytes - Daily BMPs, trend Cr, K Nutrition - NPO PPX Heparin subQ Protonix 20mg BID IV Plan discussed with attending, Dr. Megan Cedeno, PGY1 Visit type - Emergency Visit Emergency Visit: Yes ED Registration Date: 06/13/17 Care time: The patient presented to the Emergency Department on the above date and was hospitalized for further evaluation of their emergent condition. - New Patient This patient is new to me today: No - Critical Care Critical Care patient: No
[2017-06-15 08:10] LABS: MCH 33.3 pg (25.7-33.7); MCHC 32.9 g/dl (32.0-36.0); MEAN PLT VOLUME 7.7 fl (7.5-11.1); PLATELET COUNT 286 K/MM3 (134-434); RDW 15.2 % (11.6-15.6); WHITE BLOOD COUNT 16.4 K/mm3 (4.0-10.0)
[2017-06-15 08:41] LABS: ALBUMIN 2.6 g/dl (3.4-5.0); ANION GAP 8 (8-16); CALCIUM 7.7 mg/dL (8.5-10.1); CO2 27 mmol/L (21-32); CREATININE 0.8 mg/dL (0.55-1.02); GLUCOSE,RANDOM 138 mg/dL (74-106); SGPT/ALT 139 U/L (12-78)
[2017-06-15 08:43] LABS: ALK PHOS 143 U/L (45-117); BILIRUBIN,TOTAL 0.2 mg/dL (0.2-1.0); TOT PROT 6.7 g/dl (6.4-8.2)
[2017-06-15 08:53] LABS: SGOT/AST 75 U/L (15-37)
[2017-06-15] MEDS ORDERED: ESCITALOPRAM OXALATE 10 MG TABLET (FP) ONE (09:31)
[2017-06-15] MEDS: SODIUM CHLORIDE 1,000 ML IV SCH (09:35)
[2017-06-15] MEDS: FLUTICASONE PROP 0.05% 16 GM NASAL SPRAY NS SCH (09:36)
[2017-06-15] MEDS: ESCITALOPRAM OXALATE 20 MG TABLET (FP) PO SCH (09:36)
[2017-06-15] MEDS: AZITHROMYCIN IVPB 500 MG in DEXTROSE 5%-WATER - 250 ML IVPB SCH (09:37)
[2017-06-15] MEDS: MULTIVITAMINS THER W-MINERALS COMBO TABLET (FP) PO SCH (09:37)
[2017-06-15] MEDS: CALCIUM 500MG/VIT-D 200 UNITS COMBO TABLET (FP) PO SCH ×2 (09:37→21:38)
[2017-06-15] MEDS: LEVOTHYROXINE SODIUM 100 MCG VIAL IVPUSH SCH (09:38)
[2017-06-15 10:52] LABS: TOTAL CELLS COUNTED 100
[2017-06-15 10:53] LABS: PLATELET ESTIMATE ADEQUATE; REACTIVE LYMPHOCYTES 1 % (0-80)
[2017-06-15] MEDS: BUDESONIDE 0.5 MG/2 ML INH SUSP VIAL NEB SCH ×2 (11:00→22:34)
--- NOTE | 2017-06-15 11:23 | PN ---
Teaching Attending Note Name of Resident: Praveen Cedeno ATTENDING PHYSICIAN STATEMENT I saw and evaluated the patient. I reviewed the resident's note and discussed the case with the resident. I agree with the resident's findings and plan as documented. SUBJECTIVE: Patient is looking better on NC . OBJECTIVE: Vital Signs Temperature 97.5 F L 06/15/17 05:19 Pulse Rate 102 H 06/15/17 05:19 Respiratory Rate 20 06/15/17 05:19 Blood Pressure 110/82 06/15/17 05:19 O2 Sat by Pulse Oximetry (%) 90 L 06/14/17 22:31 CBCD WBC 16.4 K/mm3 (4.0-10.0) H 06/15/17 07:00 RBC 3.55 M/mm3 (3.60-5.2) L 06/15/17 07:00 Hgb 11.8 GM/dL (10.7-15.3) 06/15/17 07:00 Hct 35.9 % (32.4-45.2) 06/15/17 07:00 MCV 101.0 fl (80-96) H 06/15/17 07:00 MCHC 32.9 g/dl (32.0-36.0) 06/15/17 07:00 RDW 15.2 % (11.6-15.6) 06/15/17 07:00 Plt Count 286 K/MM3 (134-434) 06/15/17 07:00 MPV 7.7 fl (7.5-11.1) 06/15/17 07:00 CMP Sodium 143 mmol/L (136-145) 06/15/17 07:00 Potassium 4.2 mmol/L (3.5-5.1) 06/15/17 07:00 Chloride 108 mmol/L (98-107) H 06/15/17 07:00 Carbon Dioxide 27 mmol/L (21-32) 06/15/17 07:00 Anion Gap 8 (8-16) 06/15/17 07:00 BUN 18 mg/dL (7-18) D 06/15/17 07:00 Creatinine 0.8 mg/dL (0.55-1.02) 06/15/17 07:00 Creat Clearance w eGFR > 60 (>60) 06/15/17 07:00 Random Glucose 138 mg/dL (74-106) H 06/15/17 07:00 Calcium 7.7 mg/dL (8.5-10.1) L 06/15/17 07:00 Total Bilirubin 0.2 mg/dL (0.2-1.0) D 06/15/17 07:00 AST 75 U/L (15-37) H D 06/15/17 07:00 ALT 139 U/L (12-78) H D 06/15/17 07:00 Alkaline Phosphatase 143 U/L (45-117) H 06/15/17 07:00 Total Protein 6.7 g/dl (6.4-8.2) 06/15/17 07:00 Albumin 2.6 g/dl (3.4-5.0) L 06/15/17 07:00 Current Medications Generic Name Dose Route Start Last Admin Trade Name Freq PRN Reason Stop Dose Admin Albuterol Sulfate 1 amp 06/13/17 17:26 Ventolin 0.083% Nebulizer Soln - NEB Q4H PRN SHORT OF BREATH/WHEEZING Albuterol/Ipratropium 1 amp 06/13/17 18:00 06/15/17 06:41 Duoneb - NEB 1 amp QIDR CARLOS Administration Budesonide 1 amp 06/13/17 22:00 06/14/17 21:25 Pulmicort 0.5 Mg Nebulizer - NEB 1 amp BID CARLOS Administration Calcium Carbonate/Cholecalciferol 1 tab 06/15/17 10:00 06/15/17 09:37 Os-Wellington 500+D - PO Not Given BID CARLOS Cholecalciferol 400 unit 06/14/17 10:00 06/14/17 10:38 Vitamin D3 - PO Not Given DAILY [facility]OS Escitalopram Oxalate 20 mg 06/14/17 10:00 06/15/17 09:36 Lexapro - PO 20 mg DAILY CARLOS Administration Ferrous Sulfate 325 mg 06/14/17 10:00 06/14/17 10:38 Feosol - PO Not Given DAILY [facility] Fluticasone Propionate 2 spray 06/15/17 10:00 06/15/17 09:36 Flonase - NS 2 sprays DAILY CARLOS Administration Heparin Sodium (Porcine) 5,000 unit 06/13/17 14:15 06/15/17 05:17 Heparin - SQ 5,000 unit TID CARLOS Administration Vancomycin HCl 1,000 mg/ 250 mls @ 200 mls/hr 06/13/17 18:15 06/14/17 06:10 Dextrose IVPB 200 mls/hr Q12H CARLOS Administration Aztreonam 1 gm in 10 mls @ 100 mls/hr 06/13/17 18:15 06/15/17 09:36 Azactam (Restricted To Id) - IVPUSH 100 mls/hr Q8H-IV CARLOS Administration Protocol Azithromycin 500 mg/ Dextrose 250 mls @ 250 mls/hr 06/14/17 10:00 06/15/17 09 :37 IVPB 250 mls/hr DAILY CARLOS Administration Sodium Chloride 1,000 mls @ 100 mls/hr 06/14/17 18:30 06/15/17 09:35 Normal Saline - IV 06/16/17 04:29 100 mls/hr ASDIR CARLOS Administration Levothyroxine Sodium 62.5 mcg 06/15/17 10:00 06/15/17 09:38 Synthroid Injection - IVPUSH 62.5 mcg DAILY CARLOS Administration Loratadine 10 mg 06/13/17 22:00 06/14/17 22:34 Claritin - PO Not Given HS CARLOS Methylprednisolone Sodium Succinate 40 mg 06/13/17 21:00 06/15/17 09:36 Solu-Medrol - IVPUSH 40 mg Q6H-IV CRALOS Administration Multivitamins/Minerals 1 each 06/14/17 10:00 06/15/17 09:37 Theragran-M PO Not Given DAILY [facility]OS Pantoprazole Sodium 20 mg 06/13/17 22:00 06/14/17 10:24 Protonix - PO Not Given BID [facility] Home Medications Medication Instructions Recorded Budesonide [Pulmicort] 0.5 mg NEB BID 11/28/12 Calcium Carb, Citrate/Vit D3 1 tab PO BID 11/28/12 [Citracal + D ER Tablet] Escitalopram Oxalate [Lexapro] 20 mg PO DAILY 11/28/12 Ipratropium 0.02% Nebulizer 0.5 mg IH TID 11/28/12 [Atrovent *Nebulizer*] Levothyroxine [Synthroid] 125 mcg PO DAILY 11/28/12 Omeprazole Magnesium [Prilosec 20 mg PO BID 05/25/13 (OTC)] Fexofenadine HCl [Purvi] 180 mg PO HS 01/10/15 Cholecalciferol (Vitamin D3) 400 unit PO DAILY 06/13/17 [Vitamin D3] Ferrous Sulfate 325 mg PO DAILY 06/13/17 Fluticasone Furoate [Flonase 9.9 ml NS DAILY 06/13/17 Sensimist] Folic Acid/Mv,Fe,Min/Lutein [Certa 1 each PO DAILY 06/13/17 Plus Tablet] PE: per resident's note Microbiology 06/13/17 11:25 Blood - Peripheral Venous Blood Culture - Preliminary NO GROWTH OBTAINED AFTER 24 HOURS, INCUBATION TO CONTINUE FOR 4 DAYS. 06/13/17 11:20 Blood - Peripheral Venous Blood Culture - Preliminary NO GROWTH OBTAINED AFTER 24 HOURS, INCUBATION TO CONTINUE FOR 4 DAYS. 06/13/17 15:20 Urine - Urine - Catheterized Legionella Antigen - Final 06/13/17 15:20 Urine - Urine - Catheterized Streptococcus pneumoniae Antigen (M - Final 06/13/17 15:20 Nasopharyngeal Swab Respiratory Syncytial Virus Ag - Final 06/13/17 11:35 Nasopharyngeal Swab Influenza Types A,B Antigen (GENESIS) - Final 06/13/17 11:35 Nasopharyngeal Swab - Final ASSESSMENT AND PLAN: Patient is a 47 yo female with PMHX of mental retardation; Down's syndrome, CKD Stage III and COPD ,was sent from [facility] for having low O2 saturation. # RSV positive with questionable superimposed Pneumonia , Patient is allergic to cephalosporin; on empiric vanco/ aztreonam/zithromax. continue supportive care as well. Neubulizer txments, Soulmedrol IV. Blood culture neg. so far. # Acute respiratory failure improving on NC continue off Bipap , Pulmonary consult/ID on the case appreciated , on Solu Medrol IV continue. # Acute leukocytosis improving , patient is on steroids IV which can cause elevated WBC , will monitor #Profound MR; down Syndrome # HX of Hypothyroidism continue l-thyroxine IV 62.5mcg IV= 125mcg po synthroid # Hx of depression on Lexapro continue DVT Px: Heparin
--- NOTE | 2017-06-15 12:23 | PN ---
Progress Note (short form) - Note Progress Note: PULMONARY Saturating 92% on ventimask. No fevers recorded. Last Vital Signs Temp Pulse Resp BP Pulse Ox 97.6 F 94 H 18 105/78 95 06/15/17 08:00 06/15/17 08:00 06/15/17 08:00 06/15/17 08:00 06/15/17 09:00 Gen: mildly tachypneic on ventimask Heart: RRR Lung: bilateral rhonchi, wheezes Abd: soft, nontender Ext: no edema CBC, BMP 06/15/17 07:00 06/15/17 07:00 Active Medications Albuterol Sulfate (Ventolin 0.083% Nebulizer Soln -) 1 amp NEB Q4H PRN PRN Reason: SHORT OF BREATH/WHEEZING Albuterol/Ipratropium (Duoneb -) 1 amp NEB QIDR [facility] Last Admin: 06/15/17 06:41 Dose: 1 amp Budesonide (Pulmicort 0.5 Mg Nebulizer -) 1 amp NEB BID [facility] Last Admin: 06/14/17 21:25 Dose: 1 amp Calcium Carbonate/Cholecalciferol (Os-Wellington 500+D -) 1 tab PO BID [facility] Last Admin: 06/15/17 09:37 Dose: Not Given Cholecalciferol (Vitamin D3 -) 400 unit PO DAILY [facility] Last Admin: 06/14/17 10:38 Dose: Not Given Escitalopram Oxalate (Lexapro -) 20 mg PO DAILY [facility] [place] Last Admin: 06/15/17 09:36 Dose: 20 mg Ferrous Sulfate (Feosol -) 325 mg PO DAILY [facility] Last Admin: 06/14/17 10:38 Dose: Not Given Fluticasone Propionate (Flonase -) 2 spray NS DAILY [facility] Last Admin: 06/15/17 09:36 Dose: 2 sprays Heparin Sodium (Porcine) (Heparin -) 5,000 unit SQ TID [facility] Last Admin: 06/15/17 05:17 Dose: 5,000 unit Aztreonam (Azactam (Restricted To Id) -) 1 gm in 10 mls @ 100 mls/hr IVPUSH Q8H -IV CARLOS PRN Reason: Protocol Last Admin: 06/15/17 09:36 Dose: 100 mls/hr Azithromycin 500 mg/ Dextrose 250 mls @ 250 mls/hr IVPB DAILY [facility] [place] Last Admin: 06/15/17 09:37 Dose: 250 mls/hr Sodium Chloride (Normal Saline -) 1,000 mls @ 100 mls/hr IV ASDIR CARLOS Stop: 06/16/17 04:29 Last Admin: 06/15/17 09:35 Dose: 100 mls/hr Levothyroxine Sodium (Synthroid Injection -) 62.5 mcg IVPUSH DAILY [facility] [place] Last Admin: 06/15/17 09:38 Dose: 62.5 mcg Loratadine (Claritin -) 10 mg PO HS [facility] [place] Last Admin: 06/14/17 22:34 Dose: Not Given Methylprednisolone Sodium Succinate (Solu-Medrol -) 40 mg IVPUSH Q6H-IV [facility] Last Admin: 06/15/17 09:36 Dose: 40 mg Multivitamins/Minerals (Theragran-M) 1 each PO DAILY [facility] [place] Last Admin: 06/15/17 09:37 Dose: Not Given Pantoprazole Sodium (Protonix -) 20 mg PO BID [facility] [place] Last Admin: 06/14/17 10:24 Dose: Not Given Vancomycin HCl (Vancomycin (Pre-Docked)) 1,000 mg IVPB DAILY [facility] PRN Reason: Protocol A/P Acute Hypoxic Respiratory Failure Pneumonia Sepsis Lactic Acidosis Down Syndrome Mental Retardation Hypothyroidism - continue antibiotics - continue medrol at current dose - inhaled bronchodilators - O2 to keep SpO2 >90% - DVT prophylaxis
[2017-06-15] MEDS: LORATADINE 10 MG TABLET PO SCH (21:38)
[2017-06-16] MEDS: ALBUTEROL SO4 2.5/IPRATROPIUM 0.5 INH SOL 3 ML VIAL.NEB. NEB SCH ×4 (00:21→18:15)
[2017-06-16] MEDS ORDERED: PT OWN MED DRAWER 7, Y5N ONE ×3 (02:30→16:12)
[2017-06-16] MEDS: AZTREONAM 1 GRAM SYRINGE 1 GM/10 ML DISP.SYRIN IVPUSH SCH ×3 (02:36→17:06)
[2017-06-16] MEDS: methylPREDNISolone NA SUCC 40 MG/1 ML VIAL IVPUSH SCH ×4 (03:10→20:45)
[2017-06-16] MEDS: HEPARIN NA (PORCINE) 5,000 UNITS/ML 1ML VIAL SQ SCH ×3 (05:48→22:00)
[2017-06-16 07:18] LABS: MCH 33.7 pg (25.7-33.7); MCHC 33.2 g/dl (32.0-36.0); MEAN CELL VOLUME 101.5 fl (80-96); MEAN PLT VOLUME 7.8 fl (7.5-11.1); PLATELET COUNT 268 K/MM3 (134-434); RDW 15.6 % (11.6-15.6)
[2017-06-16 08:24] LABS: ANION GAP 9 (8-16); CALCIUM 8.2 mg/dL (8.5-10.1); CO2 28 mmol/L (21-32); CREATININE 0.7 mg/dL (0.55-1.02); GLUCOSE,RANDOM 122 mg/dL (74-106)
[2017-06-16] MEDS ORDERED: ESCITALOPRAM OXALATE 10 MG TABLET (FP) ONE (08:53)
--- NOTE | 2017-06-16 09:10 | PN ---
Teaching Attending Note Name of Resident: Praveen Cedeno ATTENDING PHYSICIAN STATEMENT I saw and evaluated the patient. I reviewed the resident's note and discussed the case with the resident. I agree with the resident's findings and plan as documented. SUBJECTIVE: Patient is lying in bed with no acute distress. on VM saturating well. OBJECTIVE: Vital Signs Temperature 97.7 F 06/16/17 08:10 Pulse Rate 69 06/16/17 08:10 Respiratory Rate 18 06/16/17 08:10 Blood Pressure 118/66 06/16/17 08:10 O2 Sat by Pulse Oximetry (%) 95 06/15/17 20:22 CBCD WBC 15.0 K/mm3 (4.0-10.0) H 06/16/17 06:20 RBC 3.51 M/mm3 (3.60-5.2) L 06/16/17 06:20 Hgb 11.8 GM/dL (10.7-15.3) 06/16/17 06:20 Hct 35.7 % (32.4-45.2) 06/16/17 06:20 MCV 101.5 fl (80-96) H 06/16/17 06:20 MCHC 33.2 g/dl (32.0-36.0) 06/16/17 06:20 RDW 15.6 % (11.6-15.6) 06/16/17 06:20 Plt Count 268 K/MM3 (134-434) 06/16/17 06:20 MPV 7.8 fl (7.5-11.1) 06/16/17 06:20 CMP Sodium 147 mmol/L (136-145) H 06/16/17 06:20 Potassium 3.9 mmol/L (3.5-5.1) 06/16/17 06:20 Chloride 110 mmol/L (98-107) H 06/16/17 06:20 Carbon Dioxide 28 mmol/L (21-32) 06/16/17 06:20 Anion Gap 9 (8-16) 06/16/17 06:20 BUN 21 mg/dL (7-18) H 06/16/17 06:20 Creatinine 0.7 mg/dL (0.55-1.02) 06/16/17 06:20 Creat Clearance w eGFR > 60 (>60) 06/15/17 07:00 Random Glucose 122 mg/dL (74-106) H 06/16/17 06:20 Calcium 8.2 mg/dL (8.5-10.1) L 06/16/17 06:20 Total Bilirubin 0.2 mg/dL (0.2-1.0) D 06/15/17 07:00 AST 75 U/L (15-37) H D 06/15/17 07:00 ALT 139 U/L (12-78) H D 06/15/17 07:00 Alkaline Phosphatase 143 U/L (45-117) H 06/15/17 07:00 Total Protein 6.7 g/dl (6.4-8.2) 06/15/17 07:00 Albumin 2.6 g/dl (3.4-5.0) L 06/15/17 07:00 Home Medication List Medication Instructions Recorded Confirmed Type Budesonide [Pulmicort] 0.5 mg NEB BID 11/28/12 06/13/17 History Calcium Carb, Citrate/Vit D3 1 tab PO BID 11/28/12 06/13/17 History [Citracal + D ER Tablet] Escitalopram Oxalate [Lexapro] 20 mg PO DAILY 11/28/12 06/13/17 History Ipratropium 0.02% Nebulizer 0.5 mg IH TID 11/28/12 06/13/17 History [Atrovent *Nebulizer*] Levothyroxine [Synthroid] 125 mcg PO DAILY 11/28/12 06/13/17 History Omeprazole Magnesium [Prilosec 20 mg PO BID 11/28/12 06/13/17 History (OTC)] Fexofenadine HCl [Purvi] 180 mg PO HS 01/10/15 06/13/17 History Cholecalciferol (Vitamin D3) 400 unit PO DAILY 06/13/17 06/13/17 History [Vitamin D3] Ferrous Sulfate 325 mg PO DAILY 06/13/17 06/13/17 History Fluticasone Furoate [Flonase 9.9 ml NS DAILY 06/13/17 06/13/17 History Sensimist] Folic Acid/Mv,Fe,Min/Lutein [Certa 1 each PO DAILY 06/13/17 06/13/17 History Plus Tablet] Active Medications Generic Name Dose Route Start Last Admin Trade Name Freq PRN Reason Stop Dose Admin Albuterol Sulfate 1 amp 06/13/17 17:26 Ventolin 0.083% Nebulizer Soln - NEB Q4H PRN SHORT OF BREATH/WHEEZING Albuterol/Ipratropium 1 amp 06/13/17 18:00 06/16/17 06:43 Duoneb - NEB 1 amp QIDR CARLOS Administration Budesonide 1 amp 06/13/17 22:00 06/15/17 22:34 Pulmicort 0.5 Mg Nebulizer - NEB 1 amp BID CARLOS Administration Calcium Carbonate/Cholecalciferol 1 tab 06/15/17 10:00 06/15/17 21:38 Os-Wellington 500+D - PO Not Given BID [facility] Cholecalciferol 400 unit 06/14/17 10:00 06/14/17 10:38 Vitamin D3 - PO Not Given DAILY [facility] Escitalopram Oxalate 20 mg 06/14/17 10:00 06/15/17 09:36 Lexapro - PO 20 mg DAILY CARLOS Administration Ferrous Sulfate 325 mg 06/14/17 10:00 06/14/17 10:38 Feosol - PO Not Given DAILY [facility]LOS Fluticasone Propionate 2 spray 06/15/17 10:00 06/15/17 09:36 Flonase - NS 2 sprays DAILY CARLOS Administration Heparin Sodium (Porcine) 5,000 unit 06/13/17 14:15 06/16/17 05:48 Heparin - SQ 5,000 unit TID CARLOS Administration Aztreonam 1 gm in 10 mls @ 100 mls/hr 06/13/17 18:15 06/16/17 02:36 Azactam (Restricted To Id) - IVPUSH 100 mls/hr Q8H-IV CARLOS Administration Protocol Azithromycin 500 mg/ Dextrose 250 mls @ 250 mls/hr 06/14/17 10:00 06/15/17 09 :37 IVPB 250 mls/hr DAILY CARLOS Administration Levothyroxine Sodium 62.5 mcg 06/15/17 10:00 06/15/17 09:38 Synthroid Injection - IVPUSH 62.5 mcg DAILY CARLOS Administration Loratadine 10 mg 06/13/17 22:00 06/15/17 21:38 Claritin - PO Not Given HS [facility] Methylprednisolone Sodium Succinate 40 mg 06/13/17 21:00 06/16/17 03:10 Solu-Medrol - IVPUSH 40 mg Q6H-IV CARLOS Administration Multivitamins/Minerals 1 each 06/14/17 10:00 06/15/17 09:37 Theragran-M PO Not Given DAILY [facility] Pantoprazole Sodium 20 mg 06/13/17 22:00 06/14/17 10:24 Protonix - PO Not Given BID [facility] Vancomycin HCl 1,000 mg 06/16/17 10:00 Vancomycin (Pre-Docked) IVPB DAILY [facility] Protocol PE: per resident's note Chest: positive for Rhonchi Microbiology 06/13/17 11:25 Blood - Peripheral Venous Blood Culture - Preliminary NO GROWTH OBTAINED AFTER 24 HOURS, INCUBATION TO CONTINUE FOR 4 DAYS. 06/13/17 11:20 Blood - Peripheral Venous Blood Culture - Preliminary NO GROWTH OBTAINED AFTER 24 HOURS, INCUBATION TO CONTINUE FOR 4 DAYS. 06/13/17 15:20 Urine - Urine - Catheterized Legionella Antigen - Final 06/13/17 15:20 Urine - Urine - Catheterized Streptococcus pneumoniae Antigen (M - Final 06/13/17 15:20 Nasopharyngeal Swab Respiratory Syncytial Virus Ag - Final 06/13/17 11:35 Nasopharyngeal Swab Influenza Types A,B Antigen (GENESIS) - Final 06/13/17 11:35 Nasopharyngeal Swab - Final ASSESSMENT AND PLAN: Patient is a 47 yo female with PMHX of mental retardation; Down's syndrome, CKD Stage III and COPD ,was sent from [facility] for having low O2 saturation. # RSV positive with questionable superimposed Pneumonia , Patient is allergic to cephalosporin; continue empiric vanco/ aztreonam/zithromax. continue supportive care as well. Neubulizer txments, Soulmedrol IV will start to taper, Blood culture neg. so far. # Acute respiratory failure improving on NC continue , off Bipap , Pulmonary consult/ID on the case appreciated , on Solu Medrol IV continue. # Acute leukocytosis improving , patient is on steroids IV which can cause elevated WBC , will monitor #Profound MR; down Syndrome # HX of Hypothyroidism continue l-thyroxine IV 62.5mcg IV= 125mcg po synthroid # Hx of depression on Lexapro continue DVT Px: Heparin
[2017-06-16] MEDS: LEVOTHYROXINE SODIUM 100 MCG VIAL IVPUSH SCH (10:00)
[2017-06-16] MEDS: FLUTICASONE PROP 0.05% 16 GM NASAL SPRAY NS SCH (10:00)
[2017-06-16] MEDS: MULTIVITAMINS THER W-MINERALS COMBO TABLET (FP) PO SCH (10:01)
[2017-06-16] MEDS: CALCIUM 500MG/VIT-D 200 UNITS COMBO TABLET (FP) PO SCH ×2 (10:01→22:00)
[2017-06-16] MEDS: ESCITALOPRAM OXALATE 20 MG TABLET (FP) PO SCH (10:01)
[2017-06-16] MEDS: AZITHROMYCIN IVPB 500 MG in DEXTROSE 5%-WATER - 250 ML IVPB SCH (10:02)
[2017-06-16 10:06] LABS: ACANTHOCYTES 0; ANISOCYTOSIS 0; BURR CELLS 0; CABBOT RINGS 0; HELMET CELLS 0; HOWELL-JOLLY BODIES 0; HYPOCHROMIA 0; MACROCYTOSIS 0; METAMYELOCYTE 0 % (0-2); MICROCYTOSIS 0; MYELOCYTE 3 % (0-2); OVALOCYTE 0; PLATELET ESTIMATE NORMAL; POIKILOCYTOSIS 0; POLYCHROMASIA 0; REACTIVE LYMPHOCYTES 0 % (0-80); SCHISTOCYTES 0; SPHEROCYTE 0; STOMATOCYTE 0; TARGET CELLS 0; TEAR DROP CELLS 0; TOXIC GRANULATION 0
[2017-06-16] MEDS: BUDESONIDE 0.5 MG/2 ML INH SUSP VIAL NEB SCH ×2 (10:50→22:40)
--- NOTE | 2017-06-16 11:04 | PN ---
Physical Exam: SUBJECTIVE: Patient seen and examined by me this AM - No major events overnight. Pt more alert today, responsive to name, unable to follow commands. - Aide reports no issues. Denies any pain/discomfort, coughing, vomiting, gross AMS. - Ordered for feeding today. Voiding/stooling in diaper. Urine Cx + for e coli. Will adjust abx per ID recs. OBJECTIVE: Vital Signs Intake & Output 06/13/17 06/14/17 06/15/17 06/16/17 23:59 23:59 23:59 23:59 Intake Total 2800 2300 Balance 2800 2300 Weight 62.777 kg 61.099 kg Period Temp Pulse Resp BP Sys/Houser Pulse Ox Last 24 Hr 97.6 F-98.3 F 62-96 18-20 101-140/45-74 92-95 GENERAL: The patient is more alert today. Nonverbal. Still on venti mask HEAD: Down syndrome facial morphology (flat facies, upslanting palpebral fissures) EYES: sclera anicteric, conjunctiva clear. No ptosis. ENT: Ears normal, nares patent, oropharynx clear without exudates, moist mucous membranes. NECK: Trachea midline, full range of motion, supple. LUNGS: Diffuse course breath sounds. Bibasilar rhonchi. Prominent upper airway congestion. Inspiratory wheeze in upper lung rodríguez. No accessory muscle use. HEART: Difficult to appreciate. Regular rate and rhythm, S1, S2 without murmur, rub or gallop. ABDOMEN: Globular. Midline healed surgical incision. Soft, nontender, nondistended, normoactive bowel sounds, no guarding, no rebound, no hepatosplenomegaly, no masses. Upper EXTREMITIES: 2+ pulses, warm, well-perfused, no edema. Lower extremities: 2+ DP, PT pulses, wwp, no edema NEUROLOGICAL: Limited due to MS. No gross motor deficits. Reflexes 2+ BL biceps , patellar. responsive to touch in all extremities. PSYCH: Normal mood, normal affect. nonverbal SKIN: Warm, dry, normal turgor Laboratory Results - last 24 hr CBC, BMP 06/16/17 06:20 06/16/17 06:20 06/15/17 06/16/17 06/16/17 07:00 06:20 06:20 WBC 15.0 H RBC 3.51 L Hgb 11.8 Hct 35.7 MCV 101.5 H MCH 33.7 MCHC 33.2 RDW 15.6 Plt Count 268 MPV 7.8 Total Counted 100 Neutrophils % No Result Required. Neutrophils % (Manual) 84.0 H 84.9 H Band Neutrophils % 6.0 1.0 Lymphocytes % No Result Required. Lymphocytes % (Manual) 6.0 L 10.1 D Monocytes % (Manual) 3 L 1 L Basophils % (Manual) 0.0 Myelocytes % (Man) 3 H Metamyelocytes 0 Hypochromia 0 Toxic Granulation 0 Dohle Bodies 0 Platelet Estimate Adequate Normal Polychromasia 0 Poikilocytosis 0 Basophilic Stippling 0 Anisocytosis 0 Microcytosis 0 Macrocytosis 0 Spherocytes 0 Sickle Cells 0 Target Cells 0 Tear Drop Cells 0 Ovalocytes 0 Stomatocytes 0 Helmet Cells 0 Vu-Earl Bodies 0 [place] Rings 0 [place] Cells 0 Acanthocytes (Spur) 0 Fragmented RBCs 0 Schistocytes 0 Sodium 147 H Potassium 3.9 Chloride 110 H Carbon Dioxide 28 Anion Gap 9 BUN 21 H Creatinine 0.7 Random Glucose 122 H Calcium 8.2 L Active Medications Generic Name Dose Route Start Last Admin Trade Name Freq PRN Reason Stop Dose Admin Albuterol Sulfate 1 amp 06/13/17 17:26 Ventolin 0.083% Nebulizer Soln - NEB Q4H PRN SHORT OF BREATH/WHEEZING Albuterol/Ipratropium 1 amp 06/13/17 18:00 06/16/17 06:43 Duoneb - NEB 1 amp QIDR [facility] Administration Budesonide 1 amp 06/13/17 22:00 06/15/17 22:34 Pulmicort 0.5 Mg Nebulizer - NEB 1 amp BID [facility] Administration Calcium Carbonate/Cholecalciferol 1 tab 06/15/17 10:00 06/16/17 10:01 Os-Wellington 500+D - PO Not Given BID [facility] Cholecalciferol 400 unit 06/14/17 10:00 06/14/17 10:38 Vitamin D3 - PO Not Given DAILY [facility] Escitalopram Oxalate 20 mg 06/14/17 10:00 06/16/17 10:01 Lexapro - PO 20 mg DAILY [facility] Administration Ferrous Sulfate 325 mg 06/14/17 10:00 06/14/17 10:38 Feosol - PO Not Given DAILY [facility] Fluticasone Propionate 2 spray 06/15/17 10:00 06/16/17 10:00 Flonase - NS 2 sprays DAILY [facility] Administration Heparin Sodium (Porcine) 5,000 unit 06/13/17 14:15 06/16/17 05:48 Heparin - SQ 5,000 unit TID [facility] Administration Aztreonam 1 gm in 10 mls @ 100 mls/hr 06/13/17 18:15 06/16/17 09:56 Azactam (Restricted To Id) - IVPUSH 100 mls/hr Q8H-IV [facility] Administration Protocol Azithromycin 500 mg/ Dextrose 250 mls @ 250 mls/hr 06/14/17 10:00 06/16/17 10 :02 IVPB 250 mls/hr DAILY [facility] Administration Levothyroxine Sodium 62.5 mcg 06/15/17 10:00 06/16/17 10:00 Synthroid Injection - IVPUSH 62.5 mcg DAILY [facility] Administration Loratadine 10 mg 06/13/17 22:00 06/15/17 21:38 Claritin - PO Not Given HS [facility] Methylprednisolone Sodium Succinate 40 mg 06/13/17 21:00 06/16/17 10:00 Solu-Medrol - IVPUSH 40 mg Q6H-IV [facility] Administration Multivitamins/Minerals 1 each 06/14/17 10:00 06/16/17 10:01 Theragran-M PO Not Given DAILY [facility] Pantoprazole Sodium 20 mg 06/13/17 22:00 06/14/17 10:24 Protonix - PO Not Given BID [facility] Vancomycin HCl 1,000 mg 06/16/17 10:00 Vancomycin (Pre-Docked) IVPB DAILY [facility] Protocol Microbiology 06/13/17 15:20 Urine - Urine - Catheterized Urine Culture - Final Escherichia Coli 06/13/17 11:25 Blood - Peripheral Venous Blood Culture - Preliminary NO GROWTH OBTAINED AFTER 48 HOURS, INCUBATION TO CONTINUE FOR 3 DAYS. 06/13/17 11:20 Blood - Peripheral Venous Blood Culture - Preliminary NO GROWTH OBTAINED AFTER 48 HOURS, INCUBATION TO CONTINUE FOR 3 DAYS. 06/13/17 15:20 Urine - Urine - Catheterized Legionella Antigen - Final 06/13/17 15:20 Urine - Urine - Catheterized Streptococcus pneumoniae Antigen (M - Final 06/13/17 15:20 Nasopharyngeal Swab Respiratory Syncytial Virus Ag - Final 06/13/17 11:35 Nasopharyngeal Swab Influenza Types A,B Antigen (GENESIS) - Final 06/13/17 11:35 Nasopharyngeal Swab - Final Imaging: CXR 06/13 - Interval mild bibasal and left mid to lower lung atelectatic changes with probable infiltrates. CXR 06/14 - Imaging reveals progression of bilateral infiltrates mainly seen in the bases as well as in the right upper lobe. CXR 06/16 - Bibasilar infiltrates. R perihilar prominence. ASSESSMENT/PLAN: 47 yo woman w/ pmh of down's syndrome, CKD stage 3, COPD, hypothyroidism, pica, GERD who presented to ED in acute respiratory distress and severe sepsis secondary to PNA and/or COPD exacerbation. Pt remains afebrile w/ downtrending WBC, + RSV, now with + urine cx for e coli. Diffuse rhonchi/upper airway congestion and o2 requirements w/ venti-mask. CXR 06/16 with BL infiltrates still. Will adapt abx per ID recs. #Sepsis 2/2 PNA - WBC downtrending 16.4-> 15 today. Afebrile overnight. Urine cx + for e coli. CXR signficant for BL infiltrates. RSV+ - Lactate 1.7 on 06/14. Normalized - Monitor BP - Trend WBC, fever curve - Day 4 vanc/aztreonam, Day 3 zithromax per ID - Repeat Vanc trough tomorrow AM - isolation room - Urine cx + for E. coli. Plan to adjust Abx per ID recs - ID following. Recs appreciated. #Acute on chronic COPD exacerbation - 92-95% on venti mask overnight. - Pulm following. Recs appreciated. - Duoneb 1 amp QIDR - Budesonide 1amp neb BID - Medrol 40mg IV Q6h - Claritin/flonase - Maintain sat >88%. O2 support as needed. On venti-mask, can escalate to BiPap if required. - Monitor sats #Transaminitis - LFTs elevated 06/15 - Trend LFTs #Mild Hypernatremia - 147 - Trend BMPs #CKD Stage III - Cr 0.7 today - daily bmps. Trend cr - IVFs 100cc NS/hr #Hypothroidism - Synthroid 62.5 IV daily #OCD - Cont lexapro #Osteopenia - Calcium carbonate 1tab BID #Pica - No loose objects at bedside - 1to1 #FEN Fluids - PO hydration Electrolytes - Daily BMPs, trend Cr, K Nutrition - NPO PPX Heparin subQ Protonix 20mg BID IV Plan discussed with attending, Dr. Megan Cedeno, PGY1 Visit type - Emergency Visit Emergency Visit: Yes ED Registration Date: 06/13/17 Care time: The patient presented to the Emergency Department on the above date and was hospitalized for further evaluation of their emergent condition. - New Patient This patient is new to me today: No - Critical Care Critical Care patient: No
--- NOTE | 2017-06-16 11:24 | PN ---
Progress Note (short form) - Note Progress Note: PULMONARY Remains on ventimask 50%. No fevers recorded. Last Vital Signs Temp Pulse Resp BP Pulse Ox 97.7 F 69 18 118/66 95 06/16/17 08:10 06/16/17 08:10 06/16/17 08:10 06/16/17 08:10 06/15/17 20:22 Gen: mildly tachypneic on ventimask, somnolent Heart: RRR Lung: bilateral rhonchi, wheezes Abd: soft, nontender Ext: no edema CBC, BMP 06/16/17 06:20 06/16/17 06:20 Active Medications Albuterol Sulfate (Ventolin 0.083% Nebulizer Soln -) 1 amp NEB Q4H PRN PRN Reason: SHORT OF BREATH/WHEEZING Albuterol/Ipratropium (Duoneb -) 1 amp NEB QIDR [facility] Last Admin: 06/16/17 06:43 Dose: 1 amp Budesonide (Pulmicort 0.5 Mg Nebulizer -) 1 amp NEB BID [facility] Last Admin: 06/15/17 22:34 Dose: 1 amp Calcium Carbonate/Cholecalciferol (Os-Wellington 500+D -) 1 tab PO BID [facility] Last Admin: 06/16/17 10:01 Dose: Not Given Cholecalciferol (Vitamin D3 -) 400 unit PO DAILY [facility] Last Admin: 06/14/17 10:38 Dose: Not Given Escitalopram Oxalate (Lexapro -) 20 mg PO DAILY [facility] Last Admin: 06/16/17 10:01 Dose: 20 mg Ferrous Sulfate (Feosol -) 325 mg PO DAILY [facility] Last Admin: 06/14/17 10:38 Dose: Not Given Fluticasone Propionate (Flonase -) 2 spray NS DAILY [facility] Last Admin: 06/16/17 10:00 Dose: 2 sprays Heparin Sodium (Porcine) (Heparin -) 5,000 unit SQ TID [facility] Last Admin: 06/16/17 05:48 Dose: 5,000 unit Aztreonam (Azactam (Restricted To Id) -) 1 gm in 10 mls @ 100 mls/hr IVPUSH Q8H -IV [facility] PRN Reason: Protocol Last Admin: 06/16/17 09:56 Dose: 100 mls/hr Azithromycin 500 mg/ Dextrose 250 mls @ 250 mls/hr IVPB DAILY [facility] Last Admin: 06/16/17 10:02 Dose: 250 mls/hr Levothyroxine Sodium (Synthroid Injection -) 62.5 mcg IVPUSH DAILY [facility] Last Admin: 06/16/17 10:00 Dose: 62.5 mcg Loratadine (Claritin -) 10 mg PO HS [facility] Last Admin: 06/15/17 21:38 Dose: Not Given Methylprednisolone Sodium Succinate (Solu-Medrol -) 40 mg IVPUSH Q6H-IV [facility] Last Admin: 06/16/17 10:00 Dose: 40 mg Multivitamins/Minerals (Theragran-M) 1 each PO DAILY [facility] Last Admin: 06/16/17 10:01 Dose: Not Given Pantoprazole Sodium (Protonix -) 20 mg PO BID [facility] Last Admin: 06/14/17 10:24 Dose: Not Given Vancomycin HCl (Vancomycin (Pre-Docked)) 1,000 mg IVPB DAILY [facility] PRN Reason: Protocol A/P Acute Hypoxic Respiratory Failure Pneumonia +RSV Sepsis Lactic Acidosis Down Syndrome Mental Retardation Hypothyroidism - continue antibiotics - continue medrol at current dose - inhaled bronchodilators - O2 to keep SpO2 >90% - DVT prophylaxis
[2017-06-16 11:35] LABS: TOTAL CELLS COUNTED 99
[2017-06-16] MEDS: VANCOMYCIN 1 GRAM (PRE-DOCKED) 1,000 MG/250 ML BAG IVPB SCH (11:59)
--- NOTE | 2017-06-16 12:11 | PN ---
Progress Note, Physician History of Present Illness: Awake, alert Breathing non-labored on room air Eating well- being fed by aide Hiral down- afebrile WBC improved Tolerating aztreonam - Current Medication List Current Medications: Active Medications Albuterol Sulfate (Ventolin 0.083% Nebulizer Soln -) 1 amp NEB Q4H PRN PRN Reason: SHORT OF BREATH/WHEEZING Albuterol/Ipratropium (Duoneb -) 1 amp NEB QIDR [facility] Last Admin: 06/16/17 06:43 Dose: 1 amp Budesonide (Pulmicort 0.5 Mg Nebulizer -) 1 amp NEB BID [facility] Last Admin: 06/15/17 22:34 Dose: 1 amp Calcium Carbonate/Cholecalciferol (Os-Wellington 500+D -) 1 tab PO BID [facility] Last Admin: 06/16/17 10:01 Dose: Not Given Cholecalciferol (Vitamin D3 -) 400 unit PO DAILY [facility] Last Admin: 06/14/17 10:38 Dose: Not Given Escitalopram Oxalate (Lexapro -) 20 mg PO DAILY [facility] Last Admin: 06/16/17 10:01 Dose: 20 mg Ferrous Sulfate (Feosol -) 325 mg PO DAILY [facility] Last Admin: 06/14/17 10:38 Dose: Not Given Fluticasone Propionate (Flonase -) 2 spray NS DAILY [facility] Last Admin: 06/16/17 10:00 Dose: 2 sprays Heparin Sodium (Porcine) (Heparin -) 5,000 unit SQ TID [facility] Last Admin: 06/16/17 05:48 Dose: 5,000 unit Aztreonam (Azactam (Restricted To Id) -) 1 gm in 10 mls @ 100 mls/hr IVPUSH Q8H -IV [facility] PRN Reason: Protocol Last Admin: 06/16/17 09:56 Dose: 100 mls/hr Levothyroxine Sodium (Synthroid Injection -) 62.5 mcg IVPUSH DAILY [facility] Last Admin: 06/16/17 10:00 Dose: 62.5 mcg Loratadine (Claritin -) 10 mg PO HS [facility] Last Admin: 06/15/17 21:38 Dose: Not Given Methylprednisolone Sodium Succinate (Solu-Medrol -) 40 mg IVPUSH Q6H-IV [facility] Last Admin: 06/16/17 10:00 Dose: 40 mg Multivitamins/Minerals (Theragran-M) 1 each PO DAILY [facility] Last Admin: 06/16/17 10:01 Dose: Not Given Pantoprazole Sodium (Protonix -) 20 mg PO BID [facility] Last Admin: 06/14/17 10:24 Dose: Not Given Vancomycin HCl (Vancomycin (Pre-Docked)) 1,000 mg IVPB DAILY [facility] PRN Reason: Protocol Last Admin: 06/16/17 11:59 Dose: 1,000 mg - Objective Vital Signs: Vital Signs Temperature 97.7 F 06/16/17 08:10 Pulse Rate 69 06/16/17 08:10 Respiratory Rate 18 06/16/17 08:10 Blood Pressure 118/66 06/16/17 08:10 O2 Sat by Pulse Oximetry (%) 95 06/15/17 20:22 Constitutional: Yes: No Distress, Obese Eyes: Yes: Conjunctiva Clear Cardiovascular: Yes: Regular Rate and Rhythm, S1, S2 Respiratory: Yes: Rhonchi, Other (mild wheeze bilaterally) Gastrointestinal: Yes: Normal Bowel Sounds, Soft, Abdomen, Obese. No: Tenderness Edema: Yes Labs: CBC, BMP 06/16/17 06:20 06/16/17 06:20 Assessment/Plan Bibasilar HCAP, possible bacterial superinfection Fever/ leukocytosis- improved + RSV ag Cephalosporin allergy Down's Syndrome Clinically improved Continue vanco/ aztreonam D/C zithromax
[2017-06-16] MEDS: LORATADINE 10 MG TABLET PO SCH (22:00)
[2017-06-16] MEDS: PANTOPRAZOLE 20 MG TABLET (FP) PO SCH (22:27)
[2017-06-17] MEDS ORDERED: PT OWN MED DRAWER 7, Y5N ONE ×4 (01:55→19:21)
[2017-06-17] MEDS: methylPREDNISolone NA SUCC 40 MG/1 ML VIAL IVPUSH SCH ×4 (02:28→22:06)
[2017-06-17] MEDS: AZTREONAM 1 GRAM SYRINGE 1 GM/10 ML DISP.SYRIN IVPUSH SCH ×3 (02:28→19:21)
[2017-06-17] MEDS: HEPARIN NA (PORCINE) 5,000 UNITS/ML 1ML VIAL SQ SCH ×3 (06:09→22:06)
[2017-06-17] MEDS: ALBUTEROL SO4 2.5/IPRATROPIUM 0.5 INH SOL 3 ML VIAL.NEB. NEB SCH ×5 (06:20→23:15)
--- NOTE | 2017-06-17 06:32 | PN ---
Physical Exam: SUBJECTIVE: Patient seen and examined by me this AM - No major overnight events. Pt more active this AM, responds to name, unable to follow commands. Started on regular diet yesterday. Seen by nutrition, recommend changing to soft diet -Afebrile, hemodynamically stable. Per aide, no cough, N/V, diarrhea, or changes in mental status. Still on venti mask, satting well (94-95%) OBJECTIVE: Vital Signs Intake & Output 06/14/17 06/15/17 06/16/17 06/17/17 23:59 23:59 23:59 23:59 Intake Total 2800 2300 850 Balance 2800 2300 850 Weight 61.099 kg Period Temp Pulse Resp BP Sys/Houser Pulse Ox Last 24 Hr 97.2 F-98.7 F 69-89 18-20 118-150/64-73 94-95 GENERAL: Patient is more active today. Nonverbal. Still on venti mask HEAD: Down syndrome facial morphology (flat facies, upslanting palpebral fissures) EYES: sclera anicteric, conjunctiva clear. No ptosis. ENT: Ears normal, nares patent, oropharynx clear without exudates, moist mucous membranes. NECK: Trachea midline, supple. LUNGS: Course breath sounds BL. Still w/ bibasilar rhonchi. Prominent upper airway congestion. No accessory muscle use. HEART: Regular rate and rhythm, S1, S2 without murmur, rub or gallop. ABDOMEN: Globular. Midline healed surgical incision. Soft, nontender, nondistended, hypoactive bowel sounds, no guarding, no rebound, no hepatosplenomegaly, no masses. Upper EXTREMITIES: 2+ pulses, warm, well-perfused, no edema. Lower extremities: 2+ DP, PT pulses, wwp, no edema NEUROLOGICAL: Limited due to MS. No gross motor deficits. Reflexes 2+ BL biceps , patellar. responsive to touch in all extremities. PSYCH: Normal mood, normal affect. Nonverbal SKIN: Warm, dry, normal turgor Laboratory Results - last 24 hr CBC, BMP CBC, BMP 06/17/17 07:45 06/17/17 07:45 06/16/17 06/16/17 06:20 06:20 WBC 15.0 H RBC 3.51 L Hgb 11.8 Hct 35.7 MCV 101.5 H MCH 33.7 MCHC 33.2 RDW 15.6 Plt Count 268 MPV 7.8 Total Counted 99 Neutrophils % No Result Required. Neutrophils % (Manual) 84.9 H Band Neutrophils % 1.0 Lymphocytes % No Result Required. Lymphocytes % (Manual) 10.1 D Monocytes % (Manual) 1 L Basophils % (Manual) 0.0 Myelocytes % (Man) 3 H Metamyelocytes 0 Hypochromia 0 Toxic Granulation 0 Dohle Bodies 0 Platelet Estimate Normal Polychromasia 0 Poikilocytosis 0 Basophilic Stippling 0 Anisocytosis 0 Microcytosis 0 Macrocytosis 0 Spherocytes 0 Sickle Cells 0 Target Cells 0 Tear Drop Cells 0 Ovalocytes 0 Stomatocytes 0 Helmet Cells 0 Vu-[place] Bodies 0 [place] Rings 0 [place] Cells 0 Acanthocytes (Spur) 0 Fragmented RBCs 0 Schistocytes 0 Sodium 147 H Potassium 3.9 Chloride 110 H Carbon Dioxide 28 Anion Gap 9 BUN 21 H Creatinine 0.7 Random Glucose 122 H Calcium 8.2 L Active Medications Generic Name Dose Route Start Last Admin Trade Name Freq PRN Reason Stop Dose Admin Albuterol Sulfate 1 amp 06/13/17 17:26 Ventolin 0.083% Nebulizer Soln - NEB Q4H PRN SHORT OF BREATH/WHEEZING Albuterol/Ipratropium 1 amp 06/13/17 18:00 06/17/17 00:00 Duoneb - NEB 1 amp QIDR [facility] Administration Budesonide 1 amp 06/13/17 22:00 06/16/17 22:40 Pulmicort 0.5 Mg Nebulizer - NEB 1 amp BID [facility] Administration Calcium Carbonate/Cholecalciferol 1 tab 06/15/17 10:00 06/16/17 22:00 Os-[place] 500+D - PO 1 tab BID [facility] Administration Cholecalciferol 400 unit 06/14/17 10:00 06/14/17 10:38 Vitamin D3 - PO Not Given DAILY [facility] Escitalopram Oxalate 20 mg 06/14/17 10:00 06/16/17 10:01 Lexapro - PO 20 mg DAILY [facility] Administration Ferrous Sulfate 325 mg 06/14/17 10:00 06/14/17 10:38 Feosol - PO Not Given DAILY [facility] Fluticasone Propionate 2 spray 06/15/17 10:00 06/16/17 10:00 Flonase - NS 2 sprays DAILY [facility] Administration Heparin Sodium (Porcine) 5,000 unit 06/13/17 14:15 06/17/17 06:09 Heparin - SQ 5,000 unit TID [facility] Administration Aztreonam 1 gm in 10 mls @ 100 mls/hr 06/13/17 18:15 06/17/17 02:28 Azactam (Restricted To Id) - IVPUSH 100 mls/hr Q8H-IV [facility] Administration Protocol Levothyroxine Sodium 62.5 mcg 06/15/17 10:00 06/16/17 10:00 Synthroid Injection - IVPUSH 62.5 mcg DAILY [facility] Administration Loratadine 10 mg 06/13/17 22:00 06/16/17 22:00 Claritin - PO 10 mg HS [facility] Administration Methylprednisolone Sodium Succinate 40 mg 06/13/17 21:00 06/17/17 02:28 Solu-Medrol - IVPUSH 40 mg Q6H-IV [facility] Administration Multivitamins/Minerals 1 each 06/14/17 10:00 06/16/17 10:01 Theragran-M PO Not Given DAILY [facility] Pantoprazole Sodium 20 mg 06/13/17 22:00 06/16/17 22:27 Protonix - PO 20 mg BID [facility] Administration Vancomycin HCl 1,000 mg 06/16/17 10:00 06/16/17 11:59 Vancomycin (Pre-Docked) IVPB 1,000 mg DAILY [facility] Administration Protocol Microbiology 06/13/17 11:25 Blood - Peripheral Venous Blood Culture - Preliminary NO GROWTH OBTAINED AFTER 72 HOURS, INCUBATION TO CONTINUE FOR 2 DAYS. 06/13/17 11:20 Blood - Peripheral Venous Blood Culture - Preliminary NO GROWTH OBTAINED AFTER 72 HOURS, INCUBATION TO CONTINUE FOR 2 DAYS. 06/13/17 15:20 Urine - Urine - Catheterized Urine Culture - Final Escherichia Coli 06/13/17 15:20 Urine - Urine - Catheterized Legionella Antigen - Final 06/13/17 15:20 Urine - Urine - Catheterized Streptococcus pneumoniae Antigen (M - Final 06/13/17 15:20 Nasopharyngeal Swab Respiratory Syncytial Virus Ag - Final 06/13/17 11:35 Nasopharyngeal Swab Influenza Types A,B Antigen (GENESIS) - Final 06/13/17 11:35 Nasopharyngeal Swab - Final Imaging: CXR 06/13 - Interval mild bibasal and left mid to lower lung atelectatic changes with probable infiltrates. CXR 06/14 - Imaging reveals progression of bilateral infiltrates mainly seen in the bases as well as in the right upper lobe. CXR 06/16 - Bibasilar infiltrates. R perihilar prominence. ASSESSMENT/PLAN: 47 yo woman w/ pmh of down's syndrome, CKD stage 3, COPD, hypothyroidism, pica, GERD who presented to ED in acute respiratory distress and severe sepsis secondary to PNA and/or COPD exacerbation. Pt still afebrile w/ elevated WBC count on steroids, tolerating venti-mask. CXR 06/16 with BL infiltrates still. Urine cx + for E. Coli. Per ID, d/c azithromycin, cont regimen. #Sepsis 2/ PNA - WBC stable (15.3) today on steroids. Afebrile overnight. Urine cx + for e coli. CXR signficant for BL infiltrates. RSV+ - Lactate 1.7 on 06/14. Normalized - Monitor BP - Trend WBC, fever curve - Day 5 vanc/aztreonam, zithromax d/c'ed - Vanc trough 7.2 this AM - isolation room - Urine cx + for E. coli. Continue current abx regimen - ID following. Recs appreciated. #Acute on chronic COPD exacerbation - 92-95% on venti mask overnight. - Pulm following. Recs appreciated. - Duoneb 1 amp QIDR - Budesonide 1amp neb BID - Medrol 40mg IV Q6h. Taper tomorrow per Pulm. - Claritin/flonase - Maintain sat >88%. O2 support as needed. On venti-mask, can escalate to BiPap if required. - Monitor sats #Transaminitis - LFTs elevated 06/15 - Trend LFTs #Mild Hypernatremia - 147 - Trend BMPs #CKD Stage III - Cr 0.7-> 1.0 today - daily bmps. Trend cr - fluids d/c'ed. PO hydration - K 3.6. f/u bmp tomorrow. #Hypothroidism - Synthroid 62.5 IV daily #OCD - Cont lexapro #Osteopenia - Calcium carbonate 1tab BID #Pica - No loose objects at bedside - 1to1 #FEN Fluids - PO hydration Electrolytes - Daily BMPs, trend Cr, K Nutrition - Soft Diet per nutrition PPX Heparin subQ Protonix 20mg BID IV Plan discussed with attending, Dr. Megan Cedeno, PGY1 Visit type - Emergency Visit Emergency Visit: Yes ED Registration Date: 06/13/17 Care time: The patient presented to the Emergency Department on the above date and was hospitalized for further evaluation of their emergent condition. - New Patient This patient is new to me today: No - Critical Care Critical Care patient: No
[2017-06-17] MEDS: PANTOPRAZOLE 20 MG TABLET (FP) PO SCH ×2 (09:10→22:05)
[2017-06-17] MEDS: CALCIUM 500MG/VIT-D 200 UNITS COMBO TABLET (FP) PO SCH ×2 (09:10→22:05)
[2017-06-17] MEDS: LACTOBACILLUS ACIDOPHILUS 1 EACH TAB (FP) PO SCH (09:10)
[2017-06-17] MEDS: MULTIVITAMINS THER W-MINERALS COMBO TABLET (FP) PO SCH (09:10)
[2017-06-17] MEDS: LEVOTHYROXINE SODIUM 100 MCG VIAL IVPUSH SCH (09:10)
[2017-06-17] MEDS: FLUTICASONE PROP 0.05% 16 GM NASAL SPRAY NS SCH (09:10)
[2017-06-17] MEDS: ESCITALOPRAM OXALATE 20 MG TABLET (FP) PO SCH (09:10)
[2017-06-17] MEDS: CHOLECALCIFEROL (VITAMIN D3) 400 UNIT TABLET (FP) PO SCH (09:10)
[2017-06-17] MEDS: FERROUS SO4 325 MG TABLET (FP) PO SCH (09:10)
[2017-06-17 09:16] LABS: MCH 33.4 pg (25.7-33.7); MEAN CELL VOLUME 101.2 fl (80-96); MEAN PLT VOLUME 7.7 fl (7.5-11.1); PLATELET COUNT 268 K/MM3 (134-434); RDW 15.6 % (11.6-15.6); WHITE BLOOD COUNT 15.3 K/mm3 (4.0-10.0)
[2017-06-17 10:01] LABS: ALBUMIN 2.7 g/dl (3.4-5.0); ALK PHOS 126 U/L (45-117); ANION GAP 7 (8-16); BILIRUBIN,TOTAL 0.1 mg/dL (0.2-1.0); CALCIUM 8.2 mg/dL (8.5-10.1); CO2 31 mmol/L (21-32); GLUCOSE,RANDOM 156 mg/dL (74-106); SGOT/AST 35 U/L (15-37); SGPT/ALT 191 U/L (12-78); TOT PROT 6.6 g/dl (6.4-8.2)
[2017-06-17] MEDS: BUDESONIDE 0.5 MG/2 ML INH SUSP VIAL NEB SCH ×2 (10:12→21:45)
--- NOTE | 2017-06-17 12:47 | PN ---
Progress Note (short form) - Note Progress Note: PULMONARY Remains on ventimask 50%. No fevers recorded. More alert, awake today. Last Vital Signs Temp Pulse Resp BP Pulse Ox 97.7 F 92 H 18 129/83 97 06/17/17 09:00 06/17/17 10:11 06/17/17 09:00 06/17/17 09:00 06/17/17 10:11 Gen: mildly tachypneic on ventimask, more alert, awake Heart: RRR Lung: bilateral rhonchi, wheezes Abd: soft, nontender Ext: no edema CBC, BMP 06/17/17 07:45 06/17/17 07:45 Active Medications Albuterol Sulfate (Ventolin 0.083% Nebulizer Soln -) 1 amp NEB Q4H PRN PRN Reason: SHORT OF BREATH/WHEEZING Albuterol/Ipratropium (Duoneb -) 1 amp NEB QIDR [facility] Last Admin: 06/17/17 11:44 Dose: 1 amp Budesonide (Pulmicort 0.5 Mg Nebulizer -) 1 amp NEB BID [facility] Last Admin: 06/17/17 10:12 Dose: 1 amp Calcium Carbonate/Cholecalciferol (Os-[place] 500+D -) 1 tab PO BID [facility] Last Admin: 06/17/17 09:10 Dose: 1 tab Cholecalciferol (Vitamin D3 -) 400 unit PO DAILY [facility] Last Admin: 06/17/17 09:10 Dose: 400 unit Escitalopram Oxalate (Lexapro -) 20 mg PO DAILY [facility] Last Admin: 06/17/17 09:10 Dose: 20 mg Ferrous Sulfate (Feosol -) 325 mg PO DAILY [facility] Last Admin: 06/17/17 09:10 Dose: 325 mg Fluticasone Propionate (Flonase -) 2 spray NS DAILY [facility] Last Admin: 06/17/17 09:10 Dose: 2 sprays Heparin Sodium (Porcine) (Heparin -) 5,000 unit SQ TID [facility] Last Admin: 06/17/17 06:09 Dose: 5,000 unit Aztreonam (Azactam (Restricted To Id) -) 1 gm in 10 mls @ 100 mls/hr IVPUSH Q8H -IV [facility] PRN Reason: Protocol Last Admin: 06/17/17 09:10 Dose: 100 mls/hr Lactobacillus Acidophilus (Bacid -) 1 tab PO DAILY [facility] Last Admin: 06/17/17 09:10 Dose: 1 tab Levothyroxine Sodium (Synthroid Injection -) 62.5 mcg IVPUSH DAILY [facility] Last Admin: 06/17/17 09:10 Dose: 62.5 mcg Loratadine (Claritin -) 10 mg PO HS [facility] Last Admin: 06/16/17 22:00 Dose: 10 mg Methylprednisolone Sodium Succinate (Solu-Medrol -) 40 mg IVPUSH Q6H-IV [facility] Last Admin: 06/17/17 09:10 Dose: 40 mg Multivitamins/Minerals (Theragran-M) 1 each PO DAILY [facility] Last Admin: 06/17/17 09:10 Dose: 1 each Pantoprazole Sodium (Protonix -) 20 mg PO BID [facility] Last Admin: 06/17/17 09:10 Dose: 20 mg Vancomycin HCl (Vancomycin (Pre-Docked)) 1,000 mg IVPB DAILY [facility] PRN Reason: Protocol Last Admin: 06/16/17 11:59 Dose: 1,000 mg A/P Acute Hypoxic Respiratory Failure Pneumonia +RSV Sepsis improving Lactic Acidosis improved Down Syndrome Mental Retardation Hypothyroidism - continue antibiotics - continue medrol at current dose - can decrease in AM if continues to improve - inhaled bronchodilators - taper FiO2 to keep SpO2 >90% - DVT prophylaxis
--- NOTE | 2017-06-17 14:43 | EKG ---
Test Reason : Blood Pressure : / mmHG Vent. Rate : 095 BPM Atrial Rate : 095 BPM P-R Int : 146 ms QRS Dur : 074 ms QT Int : 362 ms P-R-T Axes : 073 055 056 degrees QTc Int : 454 ms NORMAL SINUS RHYTHM POSSIBLE LEFT ATRIAL ENLARGEMENT BORDERLINE ECG WHEN COMPARED WITH ECG OF 13-APR-2016 12:52, FUSION COMPLEXES ARE NO LONGER PRESENT Confirmed by PLACIDO ZAMBRANO, KAYKAY ([id number]) on 06/17/2017 2:43:24 PM Referred By: Confirmed By:KAYKAY CUMMINS MD
[2017-06-17 14:46] LABS: ACANTHOCYTES 0; ANISOCYTOSIS 0; BURR CELLS 0; CABBOT RINGS 0; HELMET CELLS 0; HOWELL-JOLLY BODIES 0; HYPOCHROMIA 0; MACROCYTOSIS 0; METAMYELOCYTE 4 % (0-2); MICROCYTOSIS 0; MYELOCYTE 1 % (0-2); OVALOCYTE 0; PLATELET ESTIMATE NORMAL; POIKILOCYTOSIS 0; POLYCHROMASIA 0; REACTIVE LYMPHOCYTES 0 % (0-80); SCHISTOCYTES 0; SPHEROCYTE 0; STOMATOCYTE 0; TARGET CELLS 0; TEAR DROP CELLS 0; TOXIC GRANULATION 0
[2017-06-17 15:31] LABS: TOTAL CELLS COUNTED 100
--- NOTE | 2017-06-17 16:54 | PN ---
Progress Note, Physician History of Present Illness: Awake, alert Breathing non-labored on ventimask Temps down- afebrile WBC improved Tolerating aztreonam - Current Medication List Current Medications: Active Medications Albuterol Sulfate (Ventolin 0.083% Nebulizer Soln -) 1 amp NEB Q4H PRN PRN Reason: SHORT OF BREATH/WHEEZING Albuterol/Ipratropium (Duoneb -) 1 amp NEB QIDR [facility] Last Admin: 06/17/17 11:44 Dose: 1 amp Budesonide (Pulmicort 0.5 Mg Nebulizer -) 1 amp NEB BID [facility] Last Admin: 06/17/17 10:12 Dose: 1 amp Calcium Carbonate/Cholecalciferol (Os-W[place] 500+D -) 1 tab PO BID [facility] Last Admin: 06/17/17 09:10 Dose: 1 tab Cholecalciferol (Vitamin D3 -) 400 unit PO DAILY [facility] Last Admin: 06/17/17 09:10 Dose: 400 unit Escitalopram Oxalate (Lexapro -) 20 mg PO DAILY [facility] Last Admin: 06/17/17 09:10 Dose: 20 mg Ferrous Sulfate (Feosol -) 325 mg PO DAILY [facility] Last Admin: 06/17/17 09:10 Dose: 325 mg Fluticasone Propionate (Flonase -) 2 spray NS DAILY [facility] Last Admin: 06/17/17 09:10 Dose: 2 sprays Heparin Sodium (Porcine) (Heparin -) 5,000 unit SQ TID [facility] Last Admin: 06/17/17 14:44 Dose: 5,000 unit Aztreonam (Azactam (Restricted To Id) -) 1 gm in 10 mls @ 100 mls/hr IVPUSH Q8H -IV [facility] PRN Reason: Protocol Last Admin: 06/17/17 09:10 Dose: 100 mls/hr Lactobacillus Acidophilus (Bacid -) 1 tab PO DAILY [facility] Last Admin: 06/17/17 09:10 Dose: 1 tab Levothyroxine Sodium (Synthroid Injection -) 62.5 mcg IVPUSH DAILY [facility] Last Admin: 06/17/17 09:10 Dose: 62.5 mcg Loratadine (Claritin -) 10 mg PO HS [facility] Last Admin: 06/16/17 22:00 Dose: 10 mg Methylprednisolone Sodium Succinate (Solu-Medrol -) 40 mg IVPUSH Q6H-IV [facility] Last Admin: 06/17/17 14:44 Dose: 40 mg Multivitamins/Minerals (Theragran-M) 1 each PO DAILY [facility] Last Admin: 06/17/17 09:10 Dose: 1 each Pantoprazole Sodium (Protonix -) 20 mg PO BID [facility] Last Admin: 06/17/17 09:10 Dose: 20 mg Vancomycin HCl (Vancomycin (Pre-Docked)) 1,000 mg IVPB DAILY [facility] PRN Reason: Protocol Last Admin: 06/16/17 11:59 Dose: 1,000 mg - Objective Vital Signs: Vital Signs Temperature 97.7 F 06/17/17 14:00 Pulse Rate 87 06/17/17 14:00 Respiratory Rate 20 06/17/17 14:00 Blood Pressure 113/66 06/17/17 14:00 O2 Sat by Pulse Oximetry (%) 97 06/17/17 10:11 Constitutional: Yes: Obese Cardiovascular: Yes: Regular Rate and Rhythm, S1, S2 Respiratory: Yes: Rhonchi Gastrointestinal: Yes: Normal Bowel Sounds, Soft. No: Tenderness Labs: CBC, BMP 06/17/17 07:45 06/17/17 07:45 Assessment/Plan Bibasilar HCAP, possible bacterial superinfection Fever/ leukocytosis- improved + RSV ag Cephalosporin allergy Down's Syndrome Clinically improved
[2017-06-17] MEDS: VANCOMYCIN 1 GRAM (PRE-DOCKED) 1,000 MG/250 ML BAG IVPB SCH (17:13)
[2017-06-17] MEDS: LORATADINE 10 MG TABLET PO SCH (22:05)
--- NOTE | 2017-06-17 23:58 | PN ---
Teaching Attending Note Name of Resident: Praveen Cedeno ATTENDING PHYSICIAN STATEMENT I saw and evaluated the patient. I reviewed the resident's note and discussed the case with the resident. I agree with the resident's findings and plan as documented. SUBJECTIVE: Patient is feeling better , breathing better on nc continue. OBJECTIVE: Vital Signs Temperature 97.9 F 06/17/17 22:00 Pulse Rate 87 06/17/17 22:00 Respiratory Rate 20 06/17/17 22:00 Blood Pressure 111/62 06/17/17 22:00 O2 Sat by Pulse Oximetry (%) 97 06/17/17 10:11 CBCD WBC 15.3 K/mm3 (4.0-10.0) H 06/17/17 07:45 RBC 3.49 M/mm3 (3.60-5.2) L 06/17/17 07:45 Hgb 11.7 GM/dL (10.7-15.3) 06/17/17 07:45 Hct 35.3 % (32.4-45.2) 06/17/17 07:45 MCV 101.2 fl (80-96) H 06/17/17 07:45 MCHC 33.0 g/dl (32.0-36.0) 06/17/17 07:45 RDW 15.6 % (11.6-15.6) 06/17/17 07:45 Plt Count 268 K/MM3 (134-434) 06/17/17 07:45 MPV 7.7 fl (7.5-11.1) 06/17/17 07:45 CMP Sodium 147 mmol/L (136-145) H 06/17/17 07:45 Potassium 3.6 mmol/L (3.5-5.1) 06/17/17 07:45 Chloride 109 mmol/L (98-107) H 06/17/17 07:45 Carbon Dioxide 31 mmol/L (21-32) 06/17/17 07:45 Anion Gap 7 (8-16) L 06/17/17 07:45 BUN 20 mg/dL (7-18) H 06/17/17 07:45 Creatinine 1.0 mg/dL (0.55-1.02) D 06/17/17 07:45 Creat Clearance w eGFR 59.18 (>60) 06/17/17 07:45 Random Glucose 156 mg/dL (74-106) H D 06/17/17 07:45 Calcium 8.2 mg/dL (8.5-10.1) L 06/17/17 07:45 Total Bilirubin 0.1 mg/dL (0.2-1.0) L D 06/17/17 07:45 AST 35 U/L (15-37) D 06/17/17 07:45 ALT 191 U/L (12-78) H D 06/17/17 07:45 Alkaline Phosphatase 126 U/L (45-117) H 06/17/17 07:45 Total Protein 6.6 g/dl (6.4-8.2) 06/17/17 07:45 Albumin 2.7 g/dl (3.4-5.0) L 06/17/17 07:45 Current Medications Generic Name Dose Route Start Last Admin Trade Name Freq PRN Reason Stop Dose Admin Albuterol Sulfate 1 amp 06/13/17 17:26 Ventolin 0.083% Nebulizer Soln - NEB Q4H PRN SHORT OF BREATH/WHEEZING Albuterol/Ipratropium 1 amp 06/13/17 18:00 06/17/17 18:02 Duoneb - NEB 1 amp QIDR [facility] Administration Budesonide 1 amp 06/13/17 22:00 06/17/17 21:45 Pulmicort 0.5 Mg Nebulizer - NEB 1 amp BID [facility] Administration Calcium Carbonate/Cholecalciferol 1 tab 06/15/17 10:00 06/17/17 22:05 Os-Wellington 500+D - PO 1 tab BID [facility] Administration Cholecalciferol 400 unit 06/14/17 10:00 06/17/17 09:10 Vitamin D3 - PO 400 unit DAILY [facility] Administration Escitalopram Oxalate 20 mg 06/14/17 10:00 06/17/17 09:10 Lexapro - PO 20 mg DAILY [facility] Administration Ferrous Sulfate 325 mg 06/14/17 10:00 06/17/17 09:10 Feosol - PO 325 mg DAILY [facility] Administration Fluticasone Propionate 2 spray 06/15/17 10:00 06/17/17 09:10 Flonase - NS 2 sprays DAILY [facility] Administration Heparin Sodium (Porcine) 5,000 unit 06/13/17 14:15 06/17/17 22:06 Heparin - SQ 5,000 unit TID [facility] Administration Aztreonam 1 gm in 10 mls @ 100 mls/hr 06/13/17 18:15 06/17/17 19:21 Azactam (Restricted To Id) - IVPUSH 100 mls/hr Q8H-IV [facility] Administration Protocol Lactobacillus Acidophilus 1 tab 06/17/17 10:00 06/17/17 09:10 Bacid - PO 1 tab DAILY [facility] Administration Levothyroxine Sodium 62.5 mcg 06/15/17 10:00 06/17/17 09:10 Synthroid Injection - IVPUSH 62.5 mcg DAILY [facility] Administration Loratadine 10 mg 06/13/17 22:00 06/17/17 22:05 Claritin - PO 10 mg HS [facility] Administration Methylprednisolone Sodium Succinate 40 mg 06/13/17 21:00 06/17/17 22:06 Solu-Medrol - IVPUSH 40 mg Q6H-IV [facility] Administration Multivitamins/Minerals 1 each 06/14/17 10:00 06/17/17 09:10 Theragran-M PO 1 each DAILY [facility] Administration Pantoprazole Sodium 20 mg 06/13/17 22:00 06/17/17 22:05 Protonix - PO 20 mg BID [facility] Administration Vancomycin HCl 1,000 mg 06/16/17 10:00 06/17/17 17:13 Vancomycin (Pre-Docked) IVPB 1,000 mg DAILY [facility] Administration Protocol Home Medications Medication Instructions Recorded Budesonide [Pulmicort] 0.5 mg NEB BID 11/28/12 Calcium Carb, Citrate/Vit D3 1 tab PO BID 11/28/12 [Citracal + D ER Tablet] Escitalopram Oxalate [Lexapro] 20 mg PO DAILY 11/28/12 Ipratropium 0.02% Nebulizer 0.5 mg IH TID 11/28/12 [Atrovent *Nebulizer*] Levothyroxine [Synthroid] 125 mcg PO DAILY 11/28/12 Omeprazole Magnesium [Prilosec 20 mg PO BID 11/28/12 (OTC)] Fexofenadine HCl [Purvi] 180 mg PO HS 01/10/15 Cholecalciferol (Vitamin D3) 400 unit PO DAILY 06/13/17 [Vitamin D3] Ferrous Sulfate 325 mg PO DAILY 06/13/17 Fluticasone Furoate [Flonase 9.9 ml NS DAILY 06/13/17 Sensimist] Folic Acid/Mv,Fe,Min/Lutein [Certa 1 each PO DAILY 06/13/17 Plus Tablet] PE: per resident's note Chest: positive for Rhonchi Microbiology 06/13/17 11:25 Blood - Peripheral Venous Blood Culture - Preliminary NO GROWTH OBTAINED AFTER 24 HOURS, INCUBATION TO CONTINUE FOR 4 DAYS. 06/13/17 11:20 Blood - Peripheral Venous Blood Culture - Preliminary NO GROWTH OBTAINED AFTER 24 HOURS, INCUBATION TO CONTINUE FOR 4 DAYS. 06/13/17 15:20 Urine - Urine - Catheterized Legionella Antigen - Final 06/13/17 15:20 Urine - Urine - Catheterized Streptococcus pneumoniae Antigen (M - Final 06/13/17 15:20 Nasopharyngeal Swab Respiratory Syncytial Virus Ag - Final 06/13/17 11:35 Nasopharyngeal Swab Influenza Types A,B Antigen (GENESIS) - Final 06/13/17 11:35 Nasopharyngeal Swab - Final ASSESSMENT AND PLAN: Patient is a 47 yo female with PMHX of mental retardation; Down's syndrome, CKD Stage III and COPD ,was sent from [facility] for having low O2 saturation. # RSV positive with questionable superimposed Pneumonia , Patient is allergic to cephalosporin; continue empiric vanco/ aztreonam/zithromax. continue supportive care as well. Neubulizer txments,will start to taper Soulmedrol IV, Blood culture neg. so far. # Acute respiratory failure improving on NC continue Solu medrol on tapered dose , off Bipap , Pulmonary consult/ID on the case appreciated. # Acute leukocytosis improving , patient is on steroids IV which can cause elevated WBC , will monitor #Profound MR; down Syndrome # HX of Hypothyroidism will change back to po synthroid 125mcg daily since able to swallow, not lethargic # Hx of depression on Lexapro continue DVT Px: Heparin
[2017-06-18] MEDS ORDERED: PT OWN MED DRAWER 7, Y5N ONE ×4 (03:02→17:46)
[2017-06-18] MEDS: methylPREDNISolone NA SUCC 40 MG/1 ML VIAL IVPUSH SCH ×3 (03:07→17:43)
[2017-06-18] MEDS: AZTREONAM 1 GRAM SYRINGE 1 GM/10 ML DISP.SYRIN IVPUSH SCH ×3 (03:08→17:47)
[2017-06-18] MEDS: HEPARIN NA (PORCINE) 5,000 UNITS/ML 1ML VIAL SQ SCH ×3 (05:43→21:44)
--- NOTE | 2017-06-18 05:52 | PN ---
Physical Exam: SUBJECTIVE: Patient seen and examined by me this AM - No overnight events. Pt eating well, no cough, vomiting. Stooling/voiding in diaper. - ID contacted regarding transition to PO abx. Will f/u again tomorrow. - Attempt to taper O2, steroids. - Will need to contact [facility] for coordination of transfer back on D/c OBJECTIVE: Vital Signs Intake & Output 06/15/17 06/16/17 06/17/17 06/18/17 23:59 23:59 23:59 23:59 Intake Total 2300 850 900 Balance 2300 850 900 Period Temp Pulse Resp BP Sys/Houser Pulse Ox Last 24 Hr 97.7 F-97.9 F 87-92 18-20 111-129/62-83 92-97 GENERAL: Patient drowsy, seen early in AM. Nonverbal. Still on venti mask HEAD: Down syndrome facial morphology (flat facies, upslanting palpebral fissures) EYES: Sclera anicteric, conjunctiva clear. No ptosis. ENT: Ears normal, nares patent, oropharynx clear without exudates, moist mucous membranes. NECK: Trachea midline, supple. LUNGS: Course rales BL Still w/ significant upper airway congestion. No accessory muscle use. HEART: Regular rate and rhythm, S1, S2 without murmur, rub or gallop. ABDOMEN: Globular. Midline healed surgical incision. Soft, nontender, nondistended, hypoactive bowel sounds, no guarding, no rebound, no hepatosplenomegaly, no masses. Upper EXTREMITIES: 2+ pulses, warm, well-perfused, no edema. Lower extremities: 2+ DP, PT pulses, wwp, no edema NEUROLOGICAL: No gross motor deficits. Reflexes 2+ BL biceps, patellar. Responsive to touch in all extremities. PSYCH: Normal mood, normal affect. Nonverbal SKIN: Warm, dry, normal turgor Laboratory Results - last 24 hr CBC, BMP 06/18/17 08:10 06/18/17 08:10 06/17/17 06/17/17 06/17/17 07:45 07:45 07:45 WBC 15.3 H RBC 3.49 L Hgb 11.7 Hct 35.3 MCV 101.2 H MCH 33.4 MCHC 33.0 RDW 15.6 Plt Count 268 MPV 7.7 Total Counted 100 Neutrophils % No Result Required. Neutrophils % (Manual) 82.0 Band Neutrophils % 1.0 Lymphocytes % No Result Required. Lymphocytes % (Manual) 6.0 L D Monocytes % (Manual) 6 D Eosinophils % (Manual) 0.0 Basophils % (Manual) 0.0 Myelocytes % (Man) 1 D Metamyelocytes 4 H D Hypochromia 0 Toxic Granulation 0 Dohle Bodies 0 Platelet Estimate Normal Polychromasia 0 Poikilocytosis 0 Basophilic Stippling 0 Anisocytosis 0 Microcytosis 0 Macrocytosis 0 Spherocytes 0 Sickle Cells 0 Target Cells 0 Tear Drop Cells 0 Ovalocytes 0 Stomatocytes 0 Helmet Cells 0 Vu-[place] Bodies 0 Dierks Rings 0 [place] Cells 0 Acanthocytes (Spur) 0 Fragmented RBCs 0 Schistocytes 0 Sodium 147 H Potassium 3.6 Chloride 109 H Carbon Dioxide 31 Anion Gap 7 L BUN 20 H Creatinine 1.0 D Creat Clearance w eGFR 59.18 Random Glucose 156 H D Calcium 8.2 L Total Bilirubin 0.1 L D AST 35 D ALT 191 H D Alkaline Phosphatase 126 H Total Protein 6.6 Albumin 2.7 L Vancomycin Pre-Dose 7.235 Active Medications Generic Name Dose Route Start Last Admin Trade Name Freq PRN Reason Stop Dose Admin Albuterol Sulfate 1 amp 06/13/17 17:26 Ventolin 0.083% Nebulizer Soln - NEB Q4H PRN SHORT OF BREATH/WHEEZING Albuterol/Ipratropium 1 amp 06/13/17 18:00 06/17/17 23:15 Duoneb - NEB 1 amp QIDR [facility] Administration Budesonide 1 amp 06/13/17 22:00 06/17/17 21:45 Pulmicort 0.5 Mg Nebulizer - NEB 1 amp BID [facility] Administration Calcium Carbonate/Cholecalciferol 1 tab 06/15/17 10:00 06/17/17 22:05 Os-Wellington 500+D - PO 1 tab BID [facility] Administration Cholecalciferol 400 unit 06/14/17 10:00 06/17/17 09:10 Vitamin D3 - PO 400 unit DAILY [facility] Administration Escitalopram Oxalate 20 mg 06/14/17 10:00 06/17/17 09:10 Lexapro - PO 20 mg DAILY [facility] Administration Ferrous Sulfate 325 mg 06/14/17 10:00 06/17/17 09:10 Feosol - PO 325 mg DAILY [facility] Administration Fluticasone Propionate 2 spray 06/15/17 10:00 06/17/17 09:10 Flonase - NS 2 sprays DAILY [facility] Administration Heparin Sodium (Porcine) 5,000 unit 06/13/17 14:15 06/18/17 05:43 Heparin - SQ 5,000 unit TID [facility] Administration Aztreonam 1 gm in 10 mls @ 100 mls/hr 06/13/17 18:15 06/18/17 03:08 Azactam (Restricted To Id) - IVPUSH 100 mls/hr Q8H-IV [facility] Administration Protocol Lactobacillus Acidophilus 1 tab 06/17/17 10:00 06/17/17 09:10 Bacid - PO 1 tab DAILY [facility] Administration Levothyroxine Sodium 125 mcg 06/18/17 07:00 Synthroid - PO DAILY@0700 [facility] Loratadine 10 mg 06/13/17 22:00 06/17/17 22:05 Claritin - PO 10 mg HS [facility] Administration Methylprednisolone Sodium Succinate 40 mg 06/18/17 02:00 06/18/17 03:07 Solu-Medrol - IVPUSH 40 mg Q8H-IV [facility] Administration Multivitamins/Minerals 1 each 06/14/17 10:00 06/17/17 09:10 Theragran-M PO 1 each DAILY [facility] Administration Pantoprazole Sodium 20 mg 06/13/17 22:00 06/17/17 22:05 Protonix - PO 20 mg BID [facility] Administration Vancomycin HCl 1,000 mg 06/16/17 10:00 06/17/17 17:13 Vancomycin (Pre-Docked) IVPB 1,000 mg DAILY [facility] Administration Protocol Microbiology 06/13/17 11:25 Blood - Peripheral Venous Blood Culture - Preliminary NO GROWTH OBTAINED AFTER 96 HOURS, INCUBATION TO CONTINUE FOR 1 DAYS. 06/13/17 11:20 Blood - Peripheral Venous Blood Culture - Preliminary NO GROWTH OBTAINED AFTER 96 HOURS, INCUBATION TO CONTINUE FOR 1 DAYS. 06/13/17 15:20 Urine - Urine - Catheterized Urine Culture - Final Escherichia Coli 06/13/17 15:20 Urine - Urine - Catheterized Legionella Antigen - Final 06/13/17 15:20 Urine - Urine - Catheterized Streptococcus pneumoniae Antigen (M - Final 06/13/17 15:20 Nasopharyngeal Swab Respiratory Syncytial Virus Ag - Final 06/13/17 11:35 Nasopharyngeal Swab Influenza Types A,B Antigen (GENESIS) - Final 06/13/17 11:35 Nasopharyngeal Swab - Final Imaging: CXR 06/13 - Interval mild bibasal and left mid to lower lung atelectatic changes with probable infiltrates. CXR 06/14 - Imaging reveals progression of bilateral infiltrates mainly seen in the bases as well as in the right upper lobe. CXR 06/16 - Bibasilar infiltrates. R perihilar prominence. ASSESSMENT/PLAN: 47 yo woman w/ pmh of down's syndrome, CKD stage 3, COPD, hypothyroidism, pica, GERD who presented to ED in acute respiratory distress and severe sepsis secondary to PNA and/or COPD exacerbation. Pt afebrile, downtrending WBC (12.7) today on steroids, stable, no longer in respiratory distress. Will finish IV abx course tomorrow. F/u w/ ID as further tx. Will wean down O2 support today. #Sepsis 2/2 PNA - WBC downtrending 15.3 -> 12.7 today on steroids. Afebrile overnight. Urine cx + for e coli. CXR signficant for BL infiltrates. RSV+ - Monitor BP - Trend WBC, fever curve - Day 6 vanc/aztreonam, zithromax d/c'ed. Last dose tomorrow. - Isolation room - Urine cx + for E. coli. Continue current abx regimen - ID following. Recs appreciated. Will f/u for need for further abx or not. #Acute on chronic COPD exacerbation - 92-95% on venti mask overnight. - Pulm following. Recs appreciated. - Duoneb 1 amp QIDR - Budesonide 1amp neb BID - Medrol 40mg IV Q8h. F/u with pulm on PO meds for d/c - Claritin/flonase - Maintain sat >88% - Wean down o2 support. 3L NC today. monitor sats #Transaminitis - LFTs elevated 06/15 - Trend LFTs #CKD Stage III - Cr 0.7 today - daily bmps. Trend cr - PO hydration #Hypothroidism - Synthroid 125 PO daily #OCD - Cont lexapro #Osteopenia - Calcium carbonate 1tab BID #Pica/anemia - Ferrous sulfate 325 PO daily - No loose objects at bedside - 1to1 #FEN Fluids - PO hydration Electrolytes - Daily BMPs Nutrition - Soft Diet per nutrition PPX Heparin subQ Protonix 20mg BID IV Plan discussed with attending, Dr. Whitney Cedeno, PGY1 Visit type - Emergency Visit Emergency Visit: Yes ED Registration Date: 06/13/17 Care time: The patient presented to the Emergency Department on the above date and was hospitalized for further evaluation of their emergent condition. - New Patient This patient is new to me today: No - Critical Care Critical Care patient: No
[2017-06-18] MEDS: LEVOTHYROXINE NA 125 MCG TABLET (FP) PO SCH (06:05)
[2017-06-18] MEDS: ALBUTEROL SO4 2.5/IPRATROPIUM 0.5 INH SOL 3 ML VIAL.NEB. NEB SCH ×2 (06:56→11:11)
[2017-06-18 08:42] LABS: MCH 33.1 pg (25.7-33.7); MCHC 32.7 g/dl (32.0-36.0); MEAN CELL VOLUME 101.2 fl (80-96); MEAN PLT VOLUME 7.6 fl (7.5-11.1); PLATELET COUNT 227 K/MM3 (134-434); RDW 15.3 % (11.6-15.6); WHITE BLOOD COUNT 12.7 K/mm3 (4.0-10.0)
[2017-06-18 09:09] LABS: ALBUMIN 2.7 g/dl (3.4-5.0); ANION GAP 9 (8-16); CALCIUM 8.1 mg/dL (8.5-10.1); CO2 30 mmol/L (21-32); GLUCOSE,RANDOM 139 mg/dL (74-106)
[2017-06-18 09:13] LABS: ALK PHOS 101 U/L (45-117); BILIRUBIN,TOTAL 0.3 mg/dL (0.2-1.0); CREATININE 0.7 mg/dL (0.55-1.02); SGPT/ALT 178 U/L (12-78); TOT PROT 6.7 g/dl (6.4-8.2)
[2017-06-18 09:15] LABS: SGOT/AST 46 U/L (15-37)
[2017-06-18] MEDS: BUDESONIDE 0.5 MG/2 ML INH SUSP VIAL NEB SCH ×2 (10:00→23:43)
[2017-06-18] MEDS ORDERED: ESCITALOPRAM OXALATE 10 MG TABLET (FP) ONE ×2 (10:36→10:50)
[2017-06-18] MEDS: LACTOBACILLUS ACIDOPHILUS 1 EACH TAB (FP) PO SCH (10:42)
[2017-06-18] MEDS: CALCIUM 500MG/VIT-D 200 UNITS COMBO TABLET (FP) PO SCH ×2 (10:43→21:44)
[2017-06-18] MEDS: FERROUS SO4 325 MG TABLET (FP) PO SCH (10:43)
[2017-06-18] MEDS: MULTIVITAMINS THER W-MINERALS COMBO TABLET (FP) PO SCH (10:43)
[2017-06-18] MEDS: PANTOPRAZOLE 20 MG TABLET (FP) PO SCH ×2 (10:43→21:44)
[2017-06-18] MEDS: FLUTICASONE PROP 0.05% 16 GM NASAL SPRAY NS SCH (10:44)
[2017-06-18] MEDS: CHOLECALCIFEROL (VITAMIN D3) 400 UNIT TABLET (FP) PO SCH (10:44)
[2017-06-18] MEDS: ESCITALOPRAM OXALATE 20 MG TABLET (FP) PO SCH (10:51)
[2017-06-18] MEDS: VANCOMYCIN 1,000 MG in DEXTROSE 5%-WATER - 250 ML IVPB SCH (12:08)
--- NOTE | 2017-06-18 16:12 | PN ---
Progress Note, Physician History of Present Illness: PULMONARY AWAKE,ON 40% VM ,-RESP DISTRESS - Current Medication List Current Medications: Active Medications Albuterol Sulfate (Ventolin 0.083% Nebulizer Soln -) 1 amp NEB Q4H PRN PRN Reason: SHORT OF BREATH/WHEEZING Albuterol/Ipratropium (Duoneb -) 1 amp NEB QIDR [facility] Last Admin: 06/18/17 11:11 Dose: 1 amp Budesonide (Pulmicort 0.5 Mg Nebulizer -) 1 amp NEB BID [facility] Last Admin: 06/18/17 10:00 Dose: 1 amp Calcium Carbonate/Cholecalciferol (Os-Wellington 500+D -) 1 tab PO BID [facility] Last Admin: 06/18/17 10:43 Dose: 1 tab Cholecalciferol (Vitamin D3 -) 400 unit PO DAILY [facility] Last Admin: 06/18/17 10:44 Dose: 400 unit Escitalopram Oxalate (Lexapro -) 20 mg PO DAILY [facility] Last Admin: 06/18/17 10:51 Dose: 20 mg Ferrous Sulfate (Feosol -) 325 mg PO DAILY [facility] Last Admin: 06/18/17 10:43 Dose: 325 mg Fluticasone Propionate (Flonase -) 2 spray NS DAILY [facility] Last Admin: 06/18/17 10:44 Dose: 2 sprays Heparin Sodium (Porcine) (Heparin -) 5,000 unit SQ TID [facility] Last Admin: 06/18/17 15:03 Dose: 5,000 unit Aztreonam (Azactam (Restricted To Id) -) 1 gm in 10 mls @ 100 mls/hr IVPUSH Q8H -IV [facility] PRN Reason: Protocol Last Admin: 06/18/17 10:43 Dose: 100 mls/hr Vancomycin HCl 1,000 mg/ (Dextrose) 250 mls @ 166.667 mls/hr IVPB DAILY [facility] Last Admin: 06/18/17 12:08 Dose: 166.667 mls/hr Lactobacillus Acidophilus (Bacid -) 1 tab PO DAILY [facility] Last Admin: 06/18/17 10:42 Dose: 1 tab Levothyroxine Sodium (Synthroid -) 125 mcg PO DAILY@0700 [facility] Last Admin: 06/18/17 06:05 Dose: 125 mcg Loratadine (Claritin -) 10 mg PO HS [facility] Last Admin: 06/17/17 22:05 Dose: 10 mg Methylprednisolone Sodium Succinate (Solu-Medrol -) 40 mg IVPUSH Q8H-IV [facility] Last Admin: 06/18/17 10:43 Dose: 40 mg Multivitamins/Minerals (Theragran-M) 1 each PO DAILY [facility] Last Admin: 06/18/17 10:43 Dose: 1 each Pantoprazole Sodium (Protonix -) 20 mg PO BID [facility] Last Admin: 06/18/17 10:43 Dose: 20 mg - Objective Vital Signs: Vital Signs Temperature 97.5 F L 06/18/17 14:00 Pulse Rate 88 06/18/17 14:00 Respiratory Rate 20 06/18/17 14:00 Blood Pressure 112/85 06/18/17 14:00 O2 Sat by Pulse Oximetry (%) 97 06/18/17 10:56 Constitutional: Yes: Well Nourished, Calm Eyes: Yes: WNL HENT: Yes: WNL Neck: Yes: WNL Cardiovascular: Yes: Regular Rate and Rhythm, S1, S2 Respiratory: Yes: Rhonchi (FEW RHONCHI) Gastrointestinal: Yes: Normal Bowel Sounds, Soft Extremities: Yes: WNL Edema: No Labs: CBC, BMP 06/18/17 08:10 06/18/17 08:10 Problem List - Problems (1) Acute hypoxemic respiratory failure Code(s): J96.01 - ACUTE RESPIRATORY FAILURE WITH HYPOXIA (2) Pneumonia Code(s): J18.9 - PNEUMONIA, UNSPECIFIED ORGANISM Qualifiers: Pneumonia type: due to unspecified organism Laterality: bilateral Lung location: lower lobe of lung Qualified Code(s): J18.9 - Pneumonia, unspecified organism (3) Down's syndrome Code(s): Q90.9 - DOWN SYNDROME, UNSPECIFIED (4) SIRS (systemic inflammatory response syndrome) Code(s): R65.10 - SIRS OF NON-INFECTIOUS ORIGIN W/O ACUTE ORGAN DYSFUNCTION (5) Mental retardation Code(s): F79 - UNSPECIFIED INTELLECTUAL DISABILITIES (6) Sepsis Code(s): A41.9 - SEPSIS, UNSPECIFIED ORGANISM (7) Lactate blood increased Code(s): R79.89 - OTHER SPECIFIED ABNORMAL FINDINGS OF BLOOD CHEMISTRY Assessment/Plan IMP ACUTE HYPOXEMIC RESPIRATORY FAILURE IMPROVING PNEUMONIA SIRS DOWNS SYNDROME MENTAL RETARDATION HYPOTHYROIDISM GERD LACTIC ACIDOSIS IMPROVED PLAN O2 BIPAP PRN ANTIBIOTICS MEDROL SAME DOSE INHALED BRONCHODILATORS F/U CHEST X-RAYS DR CHENG Problem List - Problems (1) Acute hypoxemic respiratory failure Code(s): J96.01 - ACUTE RESPIRATORY FAILURE WITH HYPOXIA (2) Pneumonia Code(s): J18.9 - PNEUMONIA, UNSPECIFIED ORGANISM Qualifiers: Pneumonia type: due to unspecified organism Laterality: bilateral Lung location: lower lobe of lung Qualified Code(s): J18.9 - Pneumonia, unspecified organism (3) Down's syndrome Code(s): Q90.9 - DOWN SYNDROME, UNSPECIFIED (4) SIRS (systemic inflammatory response syndrome) Code(s): R65.10 - SIRS OF NON-INFECTIOUS ORIGIN W/O ACUTE ORGAN DYSFUNCTION (5) Mental retardation Code(s): F79 - UNSPECIFIED INTELLECTUAL DISABILITIES (6) Sepsis Code(s): A41.9 - SEPSIS, UNSPECIFIED ORGANISM (7) Lactate blood increased Code(s): R79.89 - OTHER SPECIFIED ABNORMAL FINDINGS OF BLOOD CHEMISTRY
--- NOTE | 2017-06-18 19:30 | PN ---
Teaching Attending Note Name of Resident: Praveen Cedeno ATTENDING PHYSICIAN STATEMENT I saw and evaluated the patient. I reviewed the resident's note and discussed the case with the resident. I agree with the resident's findings and plan as documented. SUBJECTIVE: No events over night OBJECTIVE: NAd, non verba; CV: RRR Lungs: course rales b/l lung rodríguez Abd: sfot, obese, NT, NL BS Ext: no edema ASSESSMENT AND PLAN: 47 y/o lady withh/o Down's sx and MR , , CKDIII, and COPD who presented with hypoxia and was found to have acute hypoxic resp failure 1- Acute hypoxic resp failure , due to aspiration PNA and possible COPD exacerbation - cont steroids , hopefully can swithc to po soon - day 6 of Abx, lekucotosis improved. off BIPAP . will cont probably 1-2 days - try to wean down Oxygen 2- h/o Hypothyroidism: cont synthroid 3- DVT PX dispo : possible dc in 1-2 days
[2017-06-18] MEDS: LORATADINE 10 MG TABLET PO SCH (21:44)
[2017-06-19] MEDS ORDERED: PT OWN MED DRAWER 7, Y5N ONE ×2 (01:18→10:19)
[2017-06-19] MEDS: AZTREONAM 1 GRAM SYRINGE 1 GM/10 ML DISP.SYRIN IVPUSH SCH ×2 (02:30→17:31)
[2017-06-19] MEDS: methylPREDNISolone NA SUCC 40 MG/1 ML VIAL IVPUSH SCH ×2 (02:30→10:44)
[2017-06-19] MEDS: LEVOTHYROXINE NA 125 MCG TABLET (FP) PO SCH (06:09)
[2017-06-19] MEDS: HEPARIN NA (PORCINE) 5,000 UNITS/ML 1ML VIAL SQ SCH ×3 (06:09→21:17)
--- NOTE | 2017-06-19 08:16 | PN ---
Physical Exam: SUBJECTIVE: Patient seen and examined by me this AM - No major overnight events. Pt calm, not agitated. No cough, vomiting. Breathing improved. Refusing NC, does not tolerated, on simple face mask currently. OBJECTIVE: Vital Signs Intake & Output 06/16/17 06/17/17 06/18/17 06/19/17 23:59 23:59 23:59 23:59 Intake Total 850 900 690 Balance 850 900 690 Period Temp Pulse Resp BP Sys/Houser Pulse Ox Last 24 Hr 97.2 F-98.3 F 70-90 18-20 112-138/62-85 97-97 GENERAL: Patient more alert in AM. Nonverbal. Still on venti mask HEAD: Down syndrome facial morphology (flat facies, upslanting palpebral fissures) EYES: Sclera anicteric, conjunctiva clear. No ptosis. ENT: Ears normal, nares patent, oropharynx clear without exudates, moist mucous membranes. NECK: Trachea midline, supple. LUNGS: Course rales BL. MIld upper airway congestion, improved since yesterday. No accessory muscle use. HEART: Regular rate and rhythm, S1, S2 without murmur, rub or gallop. ABDOMEN: protuberant. Midline healed surgical incision. Soft, nontender, nondistended, hypoactive bowel sounds, no guarding, no rebound, no hepatosplenomegaly, no masses. Upper EXTREMITIES: 2+ pulses, warm, well-perfused, no edema. Lower extremities: 2+ DP, PT pulses, wwp, no edema NEUROLOGICAL: No gross motor deficits. Reflexes 2+ BL biceps, patellar. Responsive to touch in all extremities. PSYCH: Normal mood, normal affect. Nonverbal SKIN: Warm, dry, normal turgor Laboratory Results - last 24 hr CBC, BMP 06/19/17 07:15 06/18/17 06/18/17 08:10 08:10 WBC 12.7 H RBC 3.66 Hgb 12.1 Hct 37.0 MCV 101.2 H MCH 33.1 MCHC 32.7 RDW 15.3 Plt Count 227 MPV 7.6 Sodium 142 Potassium 4.1 Chloride 103 Carbon Dioxide 30 Anion Gap 9 BUN 19 H Creatinine 0.7 D Creat Clearance w eGFR > 60 Random Glucose 139 H Calcium 8.1 L Total Bilirubin 0.3 D AST 46 H D ALT 178 H Alkaline Phosphatase 101 Total Protein 6.7 Albumin 2.7 L Active Medications Generic Name Dose Route Start Last Admin Trade Name Monty PRN Reason Stop Dose Admin Budesonide 1 amp 06/13/17 22:00 06/18/17 23:43 Pulmicort 0.5 Mg Nebulizer - NEB 1 amp BID CARLOS Administration Calcium Carbonate/Cholecalciferol 1 tab 06/15/17 10:00 06/18/17 21:44 Os-Wellington 500+D - PO 1 tab BID CARLOS Administration Cholecalciferol 400 unit 06/14/17 10:00 06/18/17 10:44 Vitamin D3 - PO 400 unit DAILY CARLOS Administration Escitalopram Oxalate 20 mg 06/14/17 10:00 06/18/17 10:51 Lexapro - PO 20 mg DAILY CARLOS Administration Ferrous Sulfate 325 mg 06/14/17 10:00 06/18/17 10:43 Feosol - PO 325 mg DAILY CARLOS Administration Fluticasone Propionate 2 spray 06/15/17 10:00 06/18/17 10:44 Flonase - NS 2 sprays DAILY CARLOS Administration Heparin Sodium (Porcine) 5,000 unit 06/13/17 14:15 06/19/17 06:09 Heparin - SQ 5,000 unit TID CARLOS Administration Aztreonam 1 gm in 10 mls @ 100 mls/hr 06/13/17 18:15 06/19/17 02:30 Azactam (Restricted To Id) - IVPUSH 100 mls/hr Q8H-IV CARLOS Administration Protocol Vancomycin HCl 1,000 mg/ 250 mls @ 166.667 mls/hr 06/18/17 11:30 06/18/17 12: 08 Dextrose IVPB 166.667 mls/hr DAILY CARLOS Administration Lactobacillus Acidophilus 1 tab 06/17/17 10:00 06/18/17 10:42 Bacid - PO 1 tab DAILY CARLOS Administration Levothyroxine Sodium 125 mcg 06/18/17 07:00 06/19/17 06:09 Synthroid - PO 125 mcg DAILY@0700 CARLOS Administration Loratadine 10 mg 06/13/17 22:00 06/18/17 21:44 Claritin - PO 10 mg HS CARLOS Administration Methylprednisolone Sodium Succinate 40 mg 06/18/17 02:00 06/19/17 02:30 Solu-Medrol - IVPUSH 40 mg Q8H-IV CARLOS Administration Multivitamins/Minerals 1 each 06/14/17 10:00 06/18/17 10:43 Theragran-M PO 1 each DAILY CARLOS Administration Pantoprazole Sodium 20 mg 06/13/17 22:00 06/18/17 21:44 Protonix - PO 20 mg BID CARLOS Administration Microbiology 06/13/17 11:25 Blood - Peripheral Venous Blood Culture - Final NO GROWTH AFTER 5 DAYS INCUBATION 06/13/17 11:20 Blood - Peripheral Venous Blood Culture - Final NO GROWTH AFTER 5 DAYS INCUBATION 06/13/17 15:20 Urine - Urine - Catheterized Urine Culture - Final Escherichia Coli 06/13/17 15:20 Urine - Urine - Catheterized Legionella Antigen - Final 06/13/17 15:20 Urine - Urine - Catheterized Streptococcus pneumoniae Antigen (M - Final 06/13/17 15:20 Nasopharyngeal Swab Respiratory Syncytial Virus Ag - Final 06/13/17 11:35 Nasopharyngeal Swab Influenza Types A,B Antigen (GENESIS) - Final 06/13/17 11:35 Nasopharyngeal Swab - Final Imaging: CXR 06/13 - Interval mild bibasal and left mid to lower lung atelectatic changes with probable infiltrates. CXR 06/14 - Imaging reveals progression of bilateral infiltrates mainly seen in the bases as well as in the right upper lobe. CXR 06/16 - Bibasilar infiltrates. R perihilar prominence. CXR: 06/19 - Since the prior study of 06/16/2017, there is still bibasilar increased markings but not quite to the same extent. There is also some increased markings noted in the right upper lobe. These are again suggestive of infiltrative changes. Follow-up recommended ASSESSMENT/PLAN: 47 yo woman w/ pmh of down's syndrome, CKD stage 3, COPD, hypothyroidism, pica, GERD who presented to ED in acute respiratory distress and severe sepsis secondary to PNA and/or COPD exacerbation. Pt clinically improved, with improved lung exam, afebrile, with mild WBC count on steroids. Per pulm, hypoxic on RA at rest to low 80s, recommend one more day in hospital and discharge on PO two week steroid taper. Finished 7 day course of vanc/aztreonam , transition to 3 day course of PO levaquin per ID. Likely discharge to [facility] tomorrow. #Sepsis 2/2 PNA - WBC downtrending 12.7 -> 13.6 today on steroids. Afebrile overnight. Urine cx + for e coli. CXR signficant for infiltrative changes. RSV+ - Monitor BP - Trend WBC, fever curve - last day of vanc/aztreonam, zithromax d/c'ed. 3 day course of levaquin starting tomorrow per ID - Isolation room - Urine cx + for E. coli. Continue current abx regimen - ID following. Recs appreciated #Acute on chronic COPD exacerbation - 92-95% on venti mask overnight. - Pre and post wiht sat of 91% at rest, desat to 84% on ambulation. Will require 3L O2 NC at home when ambulating. Dr. Taylor at [facility] informed, will notify again in AM. - Pulm following. Recs appreciated. - Duoneb 1 amp QIDR - Budesonide 1amp neb BID - Switched to PO prednisone today. Plan for two week taper per pulm recs - Claritin/flonase - Maintain sat >88% - Off O2 today. Tolerating moderately well. Pulm recommends one more day of inpt management #CKD Stage III - Cr 0.6 today - resolved #Hypothroidism - Synthroid 125 PO daily #OCD - Cont lexapro #Osteopenia - Calcium carbonate 1tab BID #Pica/anemia - Ferrous sulfate 325 PO daily - No loose objects at bedside - 1to1 #FEN Fluids - PO hydration Electrolytes - Daily BMPs Nutrition - Soft Diet per nutrition PPX Heparin subQ Protonix 20mg BID IV Dispo: Presumptive discharge to [facility] tomorrow. Plan discussed with attending, Dr. Whitney Cedeno, PGY1 Visit type - Emergency Visit Emergency Visit: Yes ED Registration Date: 06/13/17 Care time: The patient presented to the Emergency Department on the above date and was hospitalized for further evaluation of their emergent condition. - New Patient This patient is new to me today: No - Critical Care Critical Care patient: No
[2017-06-19 08:19] LABS: MCH 32.9 pg (25.7-33.7); MCHC 32.8 g/dl (32.0-36.0); MEAN CELL VOLUME 100.3 fl (80-96); MEAN PLT VOLUME 7.5 fl (7.5-11.1); PLATELET COUNT 227 K/MM3 (134-434); RDW 14.8 % (11.6-15.6); WHITE BLOOD COUNT 13.6 K/mm3 (4.0-10.0)
[2017-06-19 08:43] LABS: ANION GAP 7 (8-16); CALCIUM 8.3 mg/dL (8.5-10.1); CO2 35 mmol/L (21-32); CREATININE 0.6 mg/dL (0.55-1.02); GLUCOSE,RANDOM 111 mg/dL (74-106)
[2017-06-19] MEDS: BUDESONIDE 0.5 MG/2 ML INH SUSP VIAL NEB SCH ×2 (10:15→21:45)
[2017-06-19] MEDS: FLUTICASONE PROP 0.05% 16 GM NASAL SPRAY NS SCH (10:43)
[2017-06-19] MEDS: MULTIVITAMINS THER W-MINERALS COMBO TABLET (FP) PO SCH (10:44)
[2017-06-19] MEDS: LACTOBACILLUS ACIDOPHILUS 1 EACH TAB (FP) PO SCH (10:44)
[2017-06-19] MEDS: CALCIUM 500MG/VIT-D 200 UNITS COMBO TABLET (FP) PO SCH ×2 (10:44→21:18)
[2017-06-19] MEDS: VANCOMYCIN 1,000 MG in DEXTROSE 5%-WATER - 250 ML IVPB SCH (10:44)
[2017-06-19] MEDS: FERROUS SO4 325 MG TABLET (FP) PO SCH (10:44)
[2017-06-19] MEDS: PANTOPRAZOLE 20 MG TABLET (FP) PO SCH ×2 (10:44→21:18)
[2017-06-19] MEDS: ESCITALOPRAM OXALATE 20 MG TABLET (FP) PO SCH (10:44)
[2017-06-19] MEDS: CHOLECALCIFEROL (VITAMIN D3) 400 UNIT TABLET (FP) PO SCH (10:45)
[2017-06-19 12:59] LABS: PLATELET ESTIMATE ADEQUATE; TOTAL CELLS COUNTED 100
--- NOTE | 2017-06-19 15:27 | PN ---
Teaching Attending Note Name of Resident: Praveen Cedeno ATTENDING PHYSICIAN STATEMENT I saw and evaluated the patient. I reviewed the resident's note and discussed the case with the resident. I agree with the resident's findings and plan as documented. SUBJECTIVE: No events over night . Not able ot obtain hx OBJECTIVE: NAD, non verbal CV: RRR Lungs: course rales b/l lung rodríguez. Abd: soft, obese, NT, NL BS Ext: no edema ASSESSMENT AND PLAN: 47 y/o lady with h/o Down's sx and MR , , CKDIII, and COPD who presented with hypoxia and was found to have acute hypoxic resp failure 1- Acute hypoxic resp failure , due to aspiration PNA and possible COPD exacerbation - cont steroids ,will d/w Pulm to switch to po - day 7 of Abx, lekucotosis is likely due to steroids . off BIPAP . will d/w Id the possibility of stopping abx - pre-post amulatory pulse ox, with Sat 91 % on Ra at rest and 84 % with ambulation needing 3 L of O2 Via NC 2- h/o Hypothyroidism: cont synthroid 3- DVT PX Dispo : one we are able to switch to po steroids, and po or stop Abx , then can dc . hopefully today or in 24 hr
--- NOTE | 2017-06-19 15:32 | PN ---
Physical Exam: SUBJECTIVE: Patient seen and examined. Per direct care provider, pt has been comfortable without any abnormal behavior this am. Pt is non-verbal. She was found sitting up and eating a snack in NAD. OBJECTIVE: Vital Signs Period Temp Pulse Resp BP Sys/Houser Pulse Ox Last 24 Hr 97.2 F-98.3 F 74-100 18-20 113-138/60-75 91-97 GENERAL: non-verbal female, sitting up eating snack in NAD HEENT: EOMI NECK: Trachea midline, full range of motion, supple. LUNGS: harsh breath sounds, rhonchi, satting 80% on RA HEART: Regular rate and rhythm, S1, S2 without murmur, rub or gallop. ABDOMEN: Soft, nontender, nondistended, normoactive bowel sounds, no guarding, no rebound, no hepatosplenomegaly, no masses. EXTREMITIES: 2+ pulses, warm, well-perfused, no edema. SKIN: Warm, dry, normal turgor, no rashes or lesions noted Laboratory Results - last 24 hr 06/19/17 06/19/17 07:15 07:15 WBC 13.6 H RBC 3.69 Hgb 12.1 Hct 37.0 MCV 100.3 H MCH 32.9 MCHC 32.8 RDW 14.8 Plt Count 227 MPV 7.5 Total Counted 100 Neutrophils % No Result Required. Neutrophils % (Manual) 91.0 H* Lymphocytes % No Result Required. Lymphocytes % (Manual) 5.0 L Monocytes % (Manual) 4 Platelet Estimate Adequate Sodium 140 Potassium 4.0 Chloride 98 Carbon Dioxide 35 H Anion Gap 7 L BUN 21 H Creatinine 0.6 Random Glucose 111 H D Calcium 8.3 L Active Medications Generic Name Dose Route Start Last Admin Trade Name Freq PRN Reason Stop Dose Admin Budesonide 1 amp 06/13/17 22:00 06/19/17 10:15 Pulmicort 0.5 Mg Nebulizer - NEB 1 amp BID CARLOS Administration Calcium Carbonate/Cholecalciferol 1 tab 06/15/17 10:00 06/19/17 10:44 Os-Wellington 500+D - PO 1 tab BID CARLOS Administration Cholecalciferol 400 unit 06/14/17 10:00 06/19/17 10:45 Vitamin D3 - PO 400 unit DAILY CARLOS Administration Escitalopram Oxalate 20 mg 06/14/17 10:00 06/19/17 10:44 Lexapro - PO 20 mg DAILY CARLOS Administration Ferrous Sulfate 325 mg 06/14/17 10:00 06/19/17 10:44 Feosol - PO 325 mg DAILY CARLOS Administration Fluticasone Propionate 2 spray 06/15/17 10:00 06/19/17 10:43 Flonase - NS 2 sprays DAILY CARLOS Administration Heparin Sodium (Porcine) 5,000 unit 06/13/17 14:15 06/19/17 14:55 Heparin - SQ 5,000 unit TID CARLOS Administration Aztreonam 1 gm in 10 mls @ 100 mls/hr 06/13/17 18:15 06/19/17 02:30 Azactam (Restricted To Id) - IVPUSH 100 mls/hr Q8H-IV CARLOS Administration Protocol Vancomycin HCl 1,000 mg/ 250 mls @ 166.667 mls/hr 06/18/17 11:30 06/19/17 10: 44 Dextrose IVPB 166.667 mls/hr DAILY CARLOS Administration Lactobacillus Acidophilus 1 tab 06/17/17 10:00 06/19/17 10:44 Bacid - PO 1 tab DAILY CARLOS Administration Levothyroxine Sodium 125 mcg 06/18/17 07:00 06/19/17 06:09 Synthroid - PO 125 mcg DAILY@0700 CARLOS Administration Loratadine 10 mg 06/13/17 22:00 06/18/17 21:44 Claritin - PO 10 mg HS CARLOS Administration Methylprednisolone Sodium Succinate 40 mg 06/18/17 02:00 06/19/17 10:44 Solu-Medrol - IVPUSH 40 mg Q8H-IV CARLOS Administration Multivitamins/Minerals 1 each 06/14/17 10:00 06/19/17 10:44 Theragran-M PO 1 each DAILY CARLOS Administration Pantoprazole Sodium 20 mg 06/13/17 22:00 06/19/17 10:44 Protonix - PO 20 mg BID CARLOS Administration CXR: bibasilar increased markings, some increased markings in RUL. ASSESSMENT/PLAN: 47F w/ hx of Down's sx and MR, CKDIII, and COPD who presented with hypoxia and was found to have acute hypoxic resp failure. #acute hypoxic resp failure -improving, but still with b/l rhonchi, CXR showing persistent increased b/l markings, and pt desatted to 80% on RA -abx per ID -steroids -continue BD -O2 via BiPAP PRN -chest PT -pt would likely benefit from another 24 to 48 hours in the hospital. Rest of care per medical team. Plan discussed with attending, Dr. Wiley. -Isaac Jaramillo MD PGY1 Pulmonology Team Visit type - Emergency Visit Emergency Visit: Yes ED Registration Date: 06/13/17 Care time: The patient presented to the Emergency Department on the above date and was hospitalized for further evaluation of their emergent condition. - New Patient This patient is new to me today: Yes Date on this admission: 06/19/17 - Critical Care Critical Care patient: No
--- NOTE | 2017-06-19 15:44 | PN ---
Teaching Attending Note Name of Resident: Isaac Jaramillo ATTENDING PHYSICIAN STATEMENT I saw and evaluated the patient. I reviewed the resident's note and discussed the case with the resident. I agree with the resident's findings and plan as documented. Arslan CANO MD
--- NOTE | 2017-06-19 16:38 | PN ---
Progress Note, Physician History of Present Illness: Awake, alert Breathing non-labored Temps down- afebrile WBC improved Tolerating aztreonam - Current Medication List Current Medications: Active Medications Budesonide (Pulmicort 0.5 Mg Nebulizer -) 1 amp NEB BID [facility] Last Admin: 06/19/17 10:15 Dose: 1 amp Calcium Carbonate/Cholecalciferol (Os-Wellington 500+D -) 1 tab PO BID [facility] Last Admin: 06/19/17 10:44 Dose: 1 tab Cholecalciferol (Vitamin D3 -) 400 unit PO DAILY [facility] Last Admin: 06/19/17 10:45 Dose: 400 unit Escitalopram Oxalate (Lexapro -) 20 mg PO DAILY [facility] Last Admin: 06/19/17 10:44 Dose: 20 mg Ferrous Sulfate (Feosol -) 325 mg PO DAILY [facility] Last Admin: 06/19/17 10:44 Dose: 325 mg Fluticasone Propionate (Flonase -) 2 spray NS DAILY [facility] Last Admin: 06/19/17 10:43 Dose: 2 sprays Heparin Sodium (Porcine) (Heparin -) 5,000 unit SQ TID [facility] Last Admin: 06/19/17 14:55 Dose: 5,000 unit Aztreonam (Azactam (Restricted To Id) -) 1 gm in 10 mls @ 100 mls/hr IVPUSH Q8H -IV [facility] PRN Reason: Protocol Last Admin: 06/19/17 02:30 Dose: 100 mls/hr Vancomycin HCl 1,000 mg/ (Dextrose) 250 mls @ 166.667 mls/hr IVPB DAILY [facility] Last Admin: 06/19/17 10:44 Dose: 166.667 mls/hr Lactobacillus Acidophilus (Bacid -) 1 tab PO DAILY [facility] Last Admin: 06/19/17 10:44 Dose: 1 tab Levothyroxine Sodium (Synthroid -) 125 mcg PO DAILY@0700 [facility] Last Admin: 06/19/17 06:09 Dose: 125 mcg Loratadine (Claritin -) 10 mg PO HS [facility] Last Admin: 06/18/17 21:44 Dose: 10 mg Methylprednisolone Sodium Succinate (Solu-Medrol -) 40 mg IVPUSH Q8H-IV [facility] Last Admin: 06/19/17 10:44 Dose: 40 mg Multivitamins/Minerals (Theragran-M) 1 each PO DAILY [facility] Last Admin: 06/19/17 10:44 Dose: 1 each Pantoprazole Sodium (Protonix -) 20 mg PO BID [facility] Last Admin: 06/19/17 10:44 Dose: 20 mg - Objective Vital Signs: Vital Signs Temperature 97.3 F L 06/19/17 14:00 Pulse Rate 74 06/19/17 14:00 Respiratory Rate 20 06/19/17 14:00 Blood Pressure 125/75 06/19/17 14:00 O2 Sat by Pulse Oximetry (%) 91 L 06/19/17 12:48 Constitutional: Yes: No Distress, Obese Cardiovascular: Yes: Regular Rate and Rhythm, S1, S2 Respiratory: Yes: Rhonchi Gastrointestinal: Yes: Normal Bowel Sounds, Soft, Abdomen, Obese. No: Tenderness Labs: CBC, BMP 06/19/17 07:15 06/19/17 07:15 Assessment/Plan Bibasilar HCAP, possible bacterial superinfection Fever/ leukocytosis- improved + RSV ag Cephalosporin allergy Down's Syndrome E coli UTI-treated Clinically improved Substitute levaquin 500mg po qd x 3d
[2017-06-19] MEDS: predniSONE 20 MG TABLET (UD) PO SCH (21:18)
[2017-06-19] MEDS: LORATADINE 10 MG TABLET PO SCH (21:18)
[2017-06-20] MEDS: predniSONE 20 MG TABLET (UD) PO SCH ×2 (05:58→13:23)
[2017-06-20] MEDS: HEPARIN NA (PORCINE) 5,000 UNITS/ML 1ML VIAL SQ SCH ×2 (05:59→13:23)
[2017-06-20] MEDS: LEVOTHYROXINE NA 125 MCG TABLET (FP) PO SCH (06:02)
--- NOTE | 2017-06-20 08:50 | PN ---
Physical Exam: SUBJECTIVE: Patient seen and examined by me this AM - No overnight events. Tolerating being off O2. No cough, N/V, AMS, respiratory distress, diarrhea. Tolerating feeds OBJECTIVE: Vital Signs Intake & Output 06/17/17 06/18/17 06/19/17 06/20/17 23:59 23:59 23:59 23:59 Intake Total 900 690 550 Balance 900 690 550 Period Temp Pulse Resp BP Sys/Houser Pulse Ox Last 24 Hr 97.3 F-98.9 F 68-100 16-20 108-131/62-75 91-92 GENERAL: Lying in bed comfortably, off O2 HEAD: Down syndrome facial morphology (flat facies, upslanting palpebral fissures) EYES: Sclera anicteric, conjunctiva clear. No ptosis. ENT: Ears normal, nares patent, oropharynx clear without exudates, moist mucous membranes. NECK: Trachea midline, supple. LUNGS: Course rales BL, improved today. No accessory muscle use. HEART: Regular rate and rhythm, S1, S2 without murmur, rub or gallop. ABDOMEN: protuberant. Midline healed surgical incision. Soft, nontender, nondistended, hypoactive bowel sounds, no guarding, no rebound, no hepatosplenomegaly, no masses. Upper EXTREMITIES: 2+ pulses, warm, well-perfused, no edema. Lower extremities: 2+ DP, PT pulses, wwp, no edema. Frog-leg posturing NEUROLOGICAL: No gross motor deficits. Reflexes 2+ BL biceps, patellar. Responsive to touch in all extremities. PSYCH: Normal mood, normal affect. Nonverbal SKIN: Warm, dry, normal turgor Laboratory Results - last 24 hr CBC, BMP 06/19/17 07:15 06/19/17 07:15 06/19/17 06/19/17 07:15 07:15 Total Counted 100 Neutrophils % (Manual) 91.0 H* Lymphocytes % (Manual) 5.0 L Monocytes % (Manual) 4 Platelet Estimate Adequate Sodium 140 Potassium 4.0 Chloride 98 Carbon Dioxide 35 H Anion Gap 7 L BUN 21 H Creatinine 0.6 Random Glucose 111 H D Calcium 8.3 L Active Medications Generic Name Dose Route Start Last Admin Trade Name Freq PRN Reason Stop Dose Admin Budesonide 1 amp 06/13/17 22:00 06/19/17 21:45 Pulmicort 0.5 Mg Nebulizer - NEB 1 amp BID CARLOS Administration Calcium Carbonate/Cholecalciferol 1 tab 06/15/17 10:00 06/19/17 21:18 Os-Wellington 500+D - PO 1 tab BID CARLOS Administration Cholecalciferol 400 unit 06/14/17 10:00 06/19/17 10:45 Vitamin D3 - PO 400 unit DAILY CARLOS Administration Escitalopram Oxalate 20 mg 06/14/17 10:00 06/19/17 10:44 Lexapro - PO 20 mg DAILY CARLOS Administration Ferrous Sulfate 325 mg 06/14/17 10:00 06/19/17 10:44 Feosol - PO 325 mg DAILY CARLOS Administration Fluticasone Propionate 2 spray 06/15/17 10:00 06/19/17 10:43 Flonase - NS 2 sprays DAILY CARLOS Administration Heparin Sodium (Porcine) 5,000 unit 06/13/17 14:15 06/20/17 05:59 Heparin - SQ 5,000 unit TID CARLOS Administration Lactobacillus Acidophilus 1 tab 06/17/17 10:00 06/19/17 10:44 Bacid - PO 1 tab DAILY CARLOS Administration Levofloxacin 500 mg 06/20/17 11:00 Levaquin - PO DAILY@1100 CARLOS Levothyroxine Sodium 125 mcg 06/18/17 07:00 06/20/17 06:02 Synthroid - PO 125 mcg DAILY@0700 CARLOS Administration Loratadine 10 mg 06/13/17 22:00 06/19/17 21:18 Claritin - PO 10 mg HS CARLOS Administration Multivitamins/Minerals 1 each 06/14/17 10:00 06/19/17 10:44 Theragran-M PO 1 each DAILY CARLOS Administration Pantoprazole Sodium 20 mg 06/13/17 22:00 06/19/17 21:18 Protonix - PO 20 mg BID CARLOS Administration Prednisone 40 mg 06/19/17 22:00 06/20/17 05:58 Deltasone - PO 40 mg TID CARLOS Administration Microbiology 06/13/17 11:25 Blood - Peripheral Venous Blood Culture - Final NO GROWTH AFTER 5 DAYS INCUBATION 06/13/17 11:20 Blood - Peripheral Venous Blood Culture - Final NO GROWTH AFTER 5 DAYS INCUBATION 06/13/17 15:20 Urine - Urine - Catheterized Urine Culture - Final Escherichia Coli 12/08/17 15:20 Urine - Urine - Catheterized Legionella Antigen - Final 06/13/17 15:20 Urine - Urine - Catheterized Streptococcus pneumoniae Antigen (M - Final 06/13/17 15:20 Nasopharyngeal Swab Respiratory Syncytial Virus Ag - Final 06/13/17 11:35 Nasopharyngeal Swab Influenza Types A,B Antigen (GENESIS) - Final 06/13/17 11:35 Nasopharyngeal Swab - Final Imaging: CXR 06/13 - Interval mild bibasal and left mid to lower lung atelectatic changes with probable infiltrates. CXR 06/14 - Imaging reveals progression of bilateral infiltrates mainly seen in the bases as well as in the right upper lobe. CXR 06/16 - Bibasilar infiltrates. R perihilar prominence. CXR: 06/19 - Since the prior study of 06/16/2017, there is still bibasilar increased markings but not quite to the same extent. There is also some increased markings noted in the right upper lobe. These are again suggestive of infiltrative changes. Follow-up recommended ASSESSMENT/PLAN: 47 yo woman w/ pmh of down's syndrome, CKD stage 3, COPD, hypothyroidism, pica, GERD who presented to ED in acute respiratory distress and severe sepsis secondary to PNA and/or COPD exacerbation. Pt clinically improved, with improved lung exam, afebrile, with mild WBC count on steroids. Tolerating off O2 at rest, with sats in low 90s. Respiratory status improved, but will require 3L home O2 with ambulation. Junior wood MD informed of O2 requirements, cleared for transfer back today. Will receive oral steroid taper per pulm. Day 2 /3 of PO levaquin. #Sepsis 2/2 PNA - WBC 13.6 yesterday. Afebrile overnight again. - Monitor for signs of infection - Trend WBC, fever curve - Discharge with 3 day course of augmentin. EKG today with QTc of 464, recommend again levaquin. Completed 7 day course of vanc/aztreonam. - Isolation room - Urine cx + for E. coli. - Transfer today on 3 day course of augmentin. #Acute on chronic COPD exacerbation - High 80s to low 90s off O2 at rest. - Pre and post wiht sat of 91% at rest, desat to 84% on ambulation. Will require 3L O2 NC at home when ambulating. Covering at [facility] informed (Dr. Zeyad Zavala) - Duoneb 1 amp QIDR - Budesonide 1amp neb BID - Two week prednisone taper as outpt - Claritin/flonase - Maintain sat >88% #Hypothroidism - Synthroid 125 PO daily #OCD - Cont lexapro #Osteopenia - Calcium carbonate 1tab BID #Pica/anemia - Ferrous sulfate 325 PO daily - No loose objects at bedside #FEN Fluids - PO hydration Electrolytes - Daily BMPs Nutrition - Soft Diet per nutrition Dispo: Discharge to [facility] today. Plan discussed with attending, Dr. Whitney Cedeno, PGY1 Visit type - Emergency Visit Emergency Visit: Yes ED Registration Date: 06/13/17 Care time: The patient presented to the Emergency Department on the above date and was hospitalized for further evaluation of their emergent condition. - New Patient This patient is new to me today: No - Critical Care Critical Care patient: No
[2017-06-20] MEDS: BUDESONIDE 0.5 MG/2 ML INH SUSP VIAL NEB SCH (10:04)
[2017-06-20] MEDS ORDERED: AMOX TR/POT CLAV 875MG/125MG TABLETS (FP) PO ONE (10:15)
[2017-06-20] MEDS ORDERED: ESCITALOPRAM OXALATE 10 MG TABLET (FP) ONE (10:18)
[2017-06-20] MEDS ORDERED: PT OWN MED DRAWER 7, Y5N ONE (10:19)
[2017-06-20] MEDS: PANTOPRAZOLE 20 MG TABLET (FP) PO SCH (10:21)
[2017-06-20] MEDS: MULTIVITAMINS THER W-MINERALS COMBO TABLET (FP) PO SCH (10:21)
[2017-06-20] MEDS: CHOLECALCIFEROL (VITAMIN D3) 400 UNIT TABLET (FP) PO SCH (10:21)
[2017-06-20] MEDS: FERROUS SO4 325 MG TABLET (FP) PO SCH (10:21)
[2017-06-20] MEDS: ESCITALOPRAM OXALATE 20 MG TABLET (FP) PO SCH (10:21)
[2017-06-20] MEDS: LACTOBACILLUS ACIDOPHILUS 1 EACH TAB (FP) PO SCH (10:22)
[2017-06-20] MEDS: CALCIUM 500MG/VIT-D 200 UNITS COMBO TABLET (FP) PO SCH (10:22)
[2017-06-20] MEDS: FLUTICASONE PROP 0.05% 16 GM NASAL SPRAY NS SCH (10:22)
[2017-06-20] MEDS ORDERED: LEVOFLOXACIN 500 MG TABLET (FP) PO SCH (11:00)
[2017-06-20 14:18] VITALS: PULSE 91
[2017-06-20 15:33] VITALS: BP 128/72; TEMP 98.4
--- NOTE | 2017-06-20 15:55 | PN ---
Physical Exam: SUBJECTIVE: Patient seen and examined. Per direct care provider, pt appears comfortable, without cough or SOB. OBJECTIVE: Vital Signs Period Temp Pulse Resp BP Sys/Houser Pulse Ox Last 24 Hr 98.0 F-98.9 F 68-91 16-20 108-131/62-74 87-94 GENERAL: non-verbal female, sitting up in NAD HEENT: EOMI NECK: Trachea midline, full range of motion, supple. LUNGS: transmitted upper airway sounds HEART: Regular rate and rhythm, S1, S2 without murmur, rub or gallop. ABDOMEN: Soft, nontender, nondistended, normoactive bowel sounds, no guarding, no rebound, no hepatosplenomegaly, no masses. EXTREMITIES: 2+ pulses, warm, well-perfused, no edema. SKIN: Warm, dry, normal turgor, no rashes or lesions noted Active Medications Generic Name Dose Route Start Last Admin Trade Name Freq PRN Reason Stop Dose Admin Budesonide 1 amp 06/13/17 22:00 06/20/17 10:04 Pulmicort 0.5 Mg Nebulizer - NEB 1 amp BID CARLOS Administration Calcium Carbonate/Cholecalciferol 1 tab 06/15/17 10:00 06/20/17 10:22 Os-[place] 500+D - PO 1 tab BID CARLOS Administration Cholecalciferol 400 unit 06/14/17 10:00 06/20/17 10:21 Vitamin D3 - PO 400 unit DAILY CARLOS Administration Escitalopram Oxalate 20 mg 06/14/17 10:00 06/20/17 10:21 Lexapro - PO 20 mg DAILY CARLOS Administration Ferrous Sulfate 325 mg 06/14/17 10:00 06/20/17 10:21 Feosol - PO 325 mg DAILY CARLOS Administration Fluticasone Propionate 2 spray 06/15/17 10:00 06/20/17 10:22 Flonase - NS 2 sprays DAILY CARLOS Administration Lactobacillus Acidophilus 1 tab 06/17/17 10:00 06/20/17 10:22 Bacid - PO 1 tab DAILY CARLOS Administration Levofloxacin 500 mg 06/20/17 11:00 06/20/17 10:21 Levaquin - PO 500 mg DAILY@1100 CARLOS Administration Levothyroxine Sodium 125 mcg 06/18/17 07:00 06/20/17 06:02 Synthroid - PO 125 mcg DAILY@0700 CARLOS Administration Loratadine 10 mg 06/13/17 22:00 06/19/17 21:18 Claritin - PO 10 mg HS CARLOS Administration Multivitamins/Minerals 1 each 06/14/17 10:00 06/20/17 10:21 Theragran-M PO 1 each DAILY CARLOS Administration Pantoprazole Sodium 20 mg 06/13/17 22:00 06/20/17 10:21 Protonix - PO 20 mg BID CARLOS Administration Prednisone 40 mg 06/19/17 22:00 06/20/17 13:23 Deltasone - PO 40 mg TID CARLOS Administration ASSESSMENT/PLAN: 47F w/ hx of Down's sx and MR, CKDIII, and COPD who presented with hypoxia and was found to have acute hypoxic resp failure. #acute hypoxic resp failure -improving -abx per ID -steroid taper -BD -O2 PRN Rest of care per medical team. Plan discussed with attending, Dr. Wiley. -Isaac Jaramillo MD PGY1 Pulmonology Team Visit type - Emergency Visit Emergency Visit: Yes ED Registration Date: 06/13/17 Care time: The patient presented to the Emergency Department on the above date and was hospitalized for further evaluation of their emergent condition. - New Patient This patient is new to me today: No - Critical Care Critical Care patient: No
--- NOTE | 2017-06-20 18:47 | PN ---
Teaching Attending Note Name of Resident: Praveen Cedeno ATTENDING PHYSICIAN STATEMENT I saw and evaluated the patient. I reviewed the resident's note and discussed the case with the resident. I agree with the resident's findings and plan as documented. SUBJECTIVE: No events over nights OBJECTNAD, non verbal CV: RRR Lungs: course rales b/l lung rodríguez( improved ) Abd: soft, obese, NT, NL BS Ext: no edema ASSESSMENT AND PLAN: 47 y/o lady with h/o Down's sx and MR , , CKDIII, and COPD who presented with hypoxia and was found to have acute hypoxic resp failure 1- Acute hypoxic resp failure , due to aspiration PNA and possible COPD exacerbation - cont steroids taper - repeat EKG with prolonged Qtc, risky to give levaquin . will give augmentin x 3 more adys after dc - pre-post ambulatory pulse ox, repeated . she neds 2 L at rest and 3 with ambulation 2- h/o Hypothyroidism: cont synthroid 3-DC to [place]. dr. Zeyad Damon updated and accepted pt
--- NOTE | 2017-06-20 23:00 | DS ---
Physical Exam: SUBJECTIVE: Patient seen and examined by me this AM - No overnight events. Tolerating being off O2. No cough, N/V, AMS, respiratory distress, diarrhea. Tolerating feeds OBJECTIVE: Vital Signs Period Temp Pulse Resp BP Sys/Houser Pulse Ox Last 24 Hr 98.4 F-98.9 F 72-91 20-20 128-131/72-74 87-96 PHYSICAL EXAM GENERAL: Lying in bed comfortably, off O2 HEAD: Down syndrome facial morphology (flat facies, upslanting palpebral fissures) EYES: Sclera anicteric, conjunctiva clear. No ptosis. ENT: Ears normal, nares patent, oropharynx clear without exudates, moist mucous membranes. NECK: Trachea midline, supple. LUNGS: Course rales BL, improved today. No accessory muscle use. HEART: Regular rate and rhythm, S1, S2 without murmur, rub or gallop. ABDOMEN: protuberant. Midline healed surgical incision. Soft, nontender, nondistended, hypoactive bowel sounds, no guarding, no rebound, no hepatosplenomegaly, no masses. Upper EXTREMITIES: 2+ pulses, warm, well-perfused, no edema. Lower extremities: 2+ DP, PT pulses, wwp, no edema. Frog-leg posturing NEUROLOGICAL: No gross motor deficits. Reflexes 2+ BL biceps, patellar. Responsive to touch in all extremities. PSYCH: Normal mood, normal affect. Nonverbal SKIN: Warm, dry, normal turgor LABS CBC, BMP 06/19/17 07:15 06/19/17 07:15 Laboratory Last Values WBC 13.6 K/mm3 (4.0-10.0) H 06/19/17 07:15 RBC 3.69 M/mm3 (3.60-5.2) 06/19/17 07:15 Hgb 12.1 GM/dL (10.7-15.3) 06/19/17 07:15 Hct 37.0 % (32.4-45.2) 06/19/17 07:15 MCV 100.3 fl (80-96) H 06/19/17 07:15 MCH 32.9 pg (25.7-33.7) 06/19/17 07:15 MCHC 32.8 g/dl (32.0-36.0) 06/19/17 07:15 RDW 14.8 % (11.6-15.6) 06/19/17 07:15 Plt Count 227 K/MM3 (134-434) 06/19/17 07:15 MPV 7.5 fl (7.5-11.1) 06/19/17 07:15 Total Counted 100 06/19/17 07:15 Neutrophils % No Result Required. 06/19/17 07:15 Neutrophils % (Manual) 91.0 % (42.8-82.8) H* 06/19/17 07:15 Band Neutrophils % 1.0 % 06/17/17 07:45 Lymphocytes % No Result Required. 06/19/17 07:15 Lymphocytes % (Manual) 5.0 % (8-40) L 06/19/17 07:15 Monocytes % 1.8 % (3.8-10.2) L 06/14/17 08:35 Monocytes % (Manual) 4 % (3.8-10.2) 06/19/17 07:15 Eosinophils % 0.2 % (0-4.5) D 06/14/17 08:35 Eosinophils % (Manual) 0.0 % (0-4.5) 06/17/17 07:45 Basophils % 0.4 % (0-2.0) 06/14/17 08:35 Basophils % (Manual) 0.0 % (0-2.0) 06/17/17 07:45 Myelocytes % (Man) 1 % (0-2) D 06/17/17 07:45 Metamyelocytes 4 % (0-2) H D 06/17/17 07:45 Hypochromia 0 06/17/17 07:45 Toxic Granulation 0 06/17/17 07:45 Dohle Bodies 0 06/17/17 07:45 Platelet Estimate Adequate 06/19/17 07:15 Polychromasia 0 06/17/17 07:45 Poikilocytosis 0 06/17/17 07:45 Basophilic Stippling 0 06/17/17 07:45 Anisocytosis 0 06/17/17 07:45 Microcytosis 0 06/17/17 07:45 Macrocytosis 0 06/17/17 07:45 Spherocytes 0 06/17/17 07:45 Sickle Cells 0 06/17/17 07:45 Target Cells 0 06/17/17 07:45 Tear Drop Cells 0 06/17/17 07:45 Ovalocytes 0 06/17/17 07:45 Stomatocytes 0 06/17/17 07:45 Helmet Cells 0 06/17/17 07:45 [place] Bodies 0 06/17/17 07:45 [place] Rings 0 06/17/17 07:45 [place] Cells 0 06/17/17 07:45 Acanthocytes (Spur) 0 06/17/17 07:45 Fragmented RBCs 0 06/17/17 07:45 Schistocytes 0 06/17/17 07:45 Sodium 140 mmol/L (136-145) 06/19/17 07:15 Potassium 4.0 mmol/L (3.5-5.1) 06/19/17 07:15 Chloride 98 mmol/L (98-107) 06/19/17 07:15 Carbon Dioxide 35 mmol/L (21-32) H 06/19/17 07:15 Anion Gap 7 (8-16) L 06/19/17 07:15 BUN 21 mg/dL (7-18) H 06/19/17 07:15 Creatinine 0.6 mg/dL (0.55-1.02) 06/19/17 07:15 Creat Clearance w eGFR > 60 (>60) 06/18/17 08:10 Random Glucose 111 mg/dL (74-106) H D 06/19/17 07:15 Hemoglobin A1c % 5.2 % (4.8-6.0) 06/15/17 07:00 Lactic Acid 1.7 mmol/L (0.4-2.0) 06/14/17 19:00 Calcium 8.3 mg/dL (8.5-10.1) L 06/19/17 07:15 Phosphorus 3.1 mg/dL (2.5-4.9) 06/14/17 08:35 Total Bilirubin 0.3 mg/dL (0.2-1.0) D 06/18/17 08:10 AST 46 U/L (15-37) H D 06/18/17 08:10 ALT 178 U/L (12-78) H 06/18/17 08:10 Alkaline Phosphatase 101 U/L (45-117) 06/18/17 08:10 Total Protein 6.7 g/dl (6.4-8.2) 06/18/17 08:10 Albumin 2.7 g/dl (3.4-5.0) L 06/18/17 08:10 Serum , Qual Negative 06/13/17 11:35 Urine Color Ltyellow 06/13/17 15:20 Urine Appearance Clear 06/13/17 15:20 Urine pH 6.0 (5.0-8.0) 06/13/17 15:20 Ur Specific [place] 1.006 (1.001-1.035) 06/13/17 15:20 Urine Protein Negative (NEGATIVE) 06/13/17 15:20 Urine Glucose (UA) Negative (NEGATIVE) 06/13/17 15:20 Urine Ketones Negative (NEGATIVE) 06/13/17 15:20 Urine Blood Negative (NEGATIVE) 06/13/17 15:20 Urine Nitrite Positive (NEGATIVE) 06/13/17 15:20 Urine Bilirubin Negative (NEGATIVE) 06/13/17 15:20 Urine Urobilinogen Negative mg/dL (0.2-1.0) 06/13/17 15:20 Ur Leukocyte Esterase Negative (NEGATIVE) 06/13/17 15:20 Urine WBC (Auto) 1 /hpf (3-5) 06/13/17 15:20 Urine RBC (Auto) <1 /hpf (0-3) 06/13/17 15:20 Ur Epithelial Cells Rare /HPF (FEW) 06/13/17 15:20 Urine Bacteria Moderate /hpf (NONE SEEN) 06/13/17 15:20 Vancomycin Pre-Dose 7.235 ug/ml (5.0-10.0) 06/17/17 07:45 Microbiology 06/13/17 11:25 Blood - Peripheral Venous Blood Culture - Final NO GROWTH AFTER 5 DAYS INCUBATION 06/13/17 11:20 Blood - Peripheral Venous Blood Culture - Final NO GROWTH AFTER 5 DAYS INCUBATION 06/13/17 15:20 Urine - Urine - Catheterized Urine Culture - Final Escherichia Coli 06/13/17 15:20 Urine - Urine - Catheterized Legionella Antigen - Final 06/13/17 15:20 Urine - Urine - Catheterized Streptococcus pneumoniae Antigen (M - Final 06/13/17 15:20 Nasopharyngeal Swab Respiratory Syncytial Virus Ag - Final 06/13/17 11:35 Nasopharyngeal Swab Influenza Types A,B Antigen (GENESIS) - Final 06/13/17 11:35 Nasopharyngeal Swab - Final Imaging: CXR 06/13 - Interval mild bibasal and left mid to lower lung atelectatic changes with probable infiltrates. CXR 06/14 - Imaging reveals progression of bilateral infiltrates mainly seen in the bases as well as in the right upper lobe. CXR 06/16 - Bibasilar infiltrates. R perihilar prominence. CXR: 06/19 - Since the prior study of 06/16/2017, there is still bibasilar increased markings but not quite to the same extent. There is also some increased markings noted in the right upper lobe. These are again suggestive of infiltrative changes. Follow-up recommended HOSPITAL COURSE: Date of Admission:06/13/17 Date of Discharge: 06/20/17 47 yo woman w/ pmh of down's syndrome, CKD stage 3, COPD, hypothyroidism, pica, GERD who presented to ED in acute respiratory distress and severe sepsis secondary to PNA and/or COPD exacerbation from [facility]. On presentation to ED, pt with WBC of 18.8, lactate of 3.0, fever of 101.2, tachycardia of 125, w/ CXR notable for suspected LLL infiltrates. Given IVFs, ID and pulmonology consulted, pt placed on bipap w/ resolution of respiratory distress. Pt started on Vanc/aztreonam/azithromycin for empiric coverage of suspected PNA per ID recs (cephalosporin allergy). Pt also with K 5.4, given kayexylate w/ resolution. Pt started on IV medrol 125, pulmicort, atrovent, claritin, and duonebs w/ albuterol rescue tx per pulm recs. Urine, blood cx's sent. Pt found to be RSV+, placed on isolation. Pt clinically improved on tx, O2 de-escalated to venti mask w/ sats in 93-95% on 50% O2 on day 2 of hospital admission. Pt continued to improve during stay, with slowly downtrending WBC count, no further episodes of fever/tachycardia and stable BPs. F/u urine cx + for E. Coli , sensitive to Aztreonam. Pt continued on original abx course per ID, w/ d/c of azithro of day 3 of tx. Pt O2 tx decrease progressively with clinical improvement. Received Pre and post-exercise o2 assessment by PT, notable for 3L O2 requirement w/ ambulation as pt desats to low 80s with walking, however no O2 requirement at rest with sats in low 90s. Pt completed 7 day course of vanc/ aztreonam on 06/19, switched to PO levaquin per ID recs and switched to PO steroids for continuation of taper per pulmonology team. 06/20 pt cleared for d/ c to [place] with home O2 3L during ambulation, continued COPD tx, PO steroid taper over two weeks and 3 days of augmentin, as EKG on discharge notable for QTc 464 -> augmentin better than levaquin / no QTc prolongation. Dr. Zeyad Zavala (receiving physician) made aware. Pt discharge 06/20 PM. Consults: ID Plan on discharge: Clinically improved Substitute levaquin 500mg po qd x 3d Pulmonology Plan on d/c- -improving -abx per ID -steroid taper -BD -O2 PRN Pt is stable and medically cleared for discharged back to [facility]. Will require home oxygen therapy for ambulation (3L), duonebs and a short course (3 days) of augmentin for PO continued coverage of CAP. Minutes to complete discharge: 35 Discharge Summary Reason For Visit: PNEUMONIA Condition: Good - Instructions Diet, Activity, Other Instructions: You treated for pneumonia and a UTI with IV antibiotics from 06/13 - 06/19, with vancomycin, aztreonam, and zithromax. Please continue the following medications to complete your treatment: Levoquin 500mg 1 tablet by mouth for two more days, 06/21 and 06/22. She has one dose on 06/20 at [facility]. Prednisone Taper 40mg q12hr 06/20 - 06/23 40 once daily x 3 days , then 30 daily x 3 days , tehn 20 daily x 3 days , then 10 daily x 3 days Follow-up with Dr. Wick at [place] for your chronic conditions. Recommendations: You were evaluated by our respiratory therapy team and the following recommendations were made regarding your home oxygen therapy: Please use 3L Oxygen via nasal cannula when you walk. You require no oxygen at rest. Activity: resume as tolerated Return to the hospital if you experience any of the following symptoms: - Worsening shortness of breath - Fevers >100 F - Increased chest pain - Pain with urination Referrals: Emir Bowen MD [Staff Physician] - Disposition: HOME - Home Medications Comprehensive Discharge Medication List: Ambulatory Orders Budesonide [Pulmicort] 0.5 mg NEB BID 11/28/12 Calcium Carb, Citrate/Vit D3 [Citracal + D ER Tablet] 1 tab PO BID 11/28/12 Escitalopram Oxalate [Lexapro -] 20 mg PO DAILY 11/28/12 Levothyroxine [Synthroid -] 125 mcg PO DAILY 11/28/12 Omeprazole Magnesium [Prilosec (OTC)] 20 mg PO BID 11/28/12 Fexofenadine HCl [Purvi] 180 mg PO HS 01/10/15 Cholecalciferol (Vitamin D3) [Vitamin D3] 400 unit PO DAILY 06/13/17 Ferrous Sulfate 325 mg PO DAILY 06/13/17 Folic Acid/Mv,Fe,Min/Lutein [Certa Plus Tablet] 1 each PO DAILY 06/13/17 Albuterol 2.5/Ipratropium 0.5 [Duoneb -] 1 neb IH QID PRN #100 vial.neb. Amoxicillin/Potassium Clav [Augmentin 875-125 Tablet] 1 each PO Q12H #5 tablet 06/20/17 Lactobacillus Acidophilus [Bacid -] 1 tab PO DAILY #30 tab 06/20/17 Prednisone See Taper PO ASDIR #62 tablet 06/20/17 This patient is new to me today: No Emergency Visit: Yes ED Registration Date: 06/13/17 Care time: The patient presented to the Emergency Department on the above date and was hospitalized for further evaluation of their emergent condition. Critical Care patient: No - Discharge Referral Referred to [facility] No
--- NOTE | 2017-06-24 01:54 | EKG ---
Test Reason : Blood Pressure : / mmHG Vent. Rate : 075 BPM Atrial Rate : 075 BPM P-R Int : 144 ms QRS Dur : 074 ms QT Int : 386 ms P-R-T Axes : 077 041 049 degrees QTc Int : 431 ms NORMAL SINUS RHYTHM POSSIBLE LEFT ATRIAL ENLARGEMENT BORDERLINE ECG WHEN COMPARED WITH ECG OF 13-JUN-2017 12:34, NO SIGNIFICANT CHANGE WAS FOUND Confirmed by VETO PUGA MD ([id number]) on 06/24/2017 1:54:02 AM Referred By: Confirmed By:VETO PUGA MD
== END 2017-06-20 18:04 | disposition home or self-care (01) | DRG 871 ==
LOC: JER 10:42 → JERBED 13:10 → J6S 18:19
PROVIDERS: ADMIT Internal Medicine; ATTEND Internal Medicine
PROC: 5A09557 Assistance with Respiratory Ventilation, Greater than 96 Consecutive Hours, Continuous Positive Airway Pressure (ICD-10-PCS; principal; 2017-06-13)
DX: A41.89 Other specified sepsis (principal); J96.01 Acute respiratory failure with hypoxia; J12.1 Respiratory syncytial virus pneumonia; J44.1 Chronic obstructive pulmonary disease with (acute) exacerbation; E87.0 Hyperosmolality and hypernatremia; E87.2 Acidosis; F73 Profound intellectual disabilities; N17.9 Acute kidney failure, unspecified; N39.0 Urinary tract infection, site not specified; E03.9 Hypothyroidism, unspecified; K21.9 Gastro-esophageal reflux disease without esophagitis; F98.3 Pica of infancy and childhood; I12.9 Hypertensive chronic kidney disease with stage 1 through stage 4 chronic kidney disease, or unspecified chronic kidney disease; N18.3 Chronic kidney disease, stage 3 (moderate); Q90.9 Down syndrome, unspecified; R74.0 Nonspecific elevation of levels of transaminase and lactic acid dehydrogenase [LDH]; F42.8 Other obsessive-compulsive disorder; M85.88 Other specified disorders of bone density and structure, other site; E73.8 Other lactose intolerance; F32.89 Other specified depressive episodes; B97.4 Respiratory syncytial virus as the cause of diseases classified elsewhere; B96.29 Other Escherichia coli [E. coli] as the cause of diseases classified elsewhere
CPT/HCPCS: 36415; 71010-TC; 80048; 80053; 81003; 81015; 83036; 83605; 84100; 84703; 85025; 85027; 87040; 87086; 87186; 87420; 87804; 87899; 93005; 93010; 94640; 94660; 94761; 97116-GP; 97161-GP; 99285-25; G0480; J1644

== ENCOUNTER 2017-08-19 15:01 | Inpatient (IN) | payer OTHER ==
--- NOTE | 2017-08-19 15:20 | PDOC ---
History of Present Illness - General Chief Complaint: SIRS, Suspected/Possible Stated Complaint: FEVER Time Seen by Provider: 08/19/17 15:11 History Source: Care Provider Exam Limitations: Clinical Condition - History of Present Illness Initial Comments: 08/19/17 16:02 47 y/o F with PMH Down's syndrome, CKD stage 3, COPD (on 3L 02 at baseline), hypothyroidism, pica, GERD, recent admission 06/2017 for bibasilar HCAP, +RSV, possible bacterial superinfection (tx with aztreonam/vancomycin/azithromycin - substituted with levaquin) who presents to the ED from [facility] with fever at noon today. As per pt's custodian manager, early this afternoon, pt was crying so her temperature was checked. Pt was febrile to 102.5F, with a pulse rate of 118 and tachypnea 24. Slat Basket Maker Machine also states that pt has had decreased frequency in BM's over the last 1-2 days, as well as a nonproductive cough. While in ED, pt with rectal temp of 102F. Otherwise, pt without SOB, chills, or changes in urinary function. Past History - Travel Traveled outside of the country in the last 30 days: No - Past Medical History Allergies/Adverse Reactions: Allergies Allergy/AdvReac Type Severity Reaction Status Date / Time cefuroxime axetil Allergy Mild Rash Verified 08/19/17 15:04 [From Ceftin] Cephalosporins Allergy Mild Rash Verified 08/19/17 15:04 lactose AdvReac Verified 08/19/17 15:04 Home Medications: Ambulatory Orders Budesonide [Pulmicort] 0.5 mg NEB BID 11/28/12 Calcium Carb, Citrate/Vit D3 [Citracal + D ER Tablet] 1 tab PO BID 11/28/12 Escitalopram Oxalate [Lexapro -] 20 mg PO DAILY 11/28/12 Levothyroxine [Synthroid -] 125 mcg PO DAILY 11/28/12 Omeprazole Magnesium [Prilosec (OTC)] 20 mg PO BID 11/28/12 Fexofenadine HCl [Purvi] 180 mg PO HS 01/10/15 Cholecalciferol (Vitamin D3) [Vitamin D3] 400 unit PO DAILY 06/13/17 Ferrous Sulfate 325 mg PO DAILY 06/13/17 Folic Acid/Mv,Iron,Min/Lutein [Certa Plus Tablet] 1 each PO DAILY 06/13/17 Albuterol 2.5/Ipratropium 0.5 [Duoneb -] 1 neb IH QID PRN #100 vial.neb. Amoxicillin/Potassium Clav [Augmentin 875-125 Tablet] 1 each PO Q12H #5 tablet 06/20/17 Lactobacillus Acidophilus [Bacid -] 1 tab PO DAILY #30 tab 06/20/17 Prednisone See Taper PO ASDIR #62 tablet 06/20/17 COPD: Yes Disorders: Yes (CHRONIC KIDNEY DISEASE, GERD) Hypercholesterolemia: Yes Thyroid Disease: Yes (Hypothyroidism) - Immunization History Immunization Up to Date: Yes - Suicide/Smoking/Psychosocial Hx Smoking Status: No Smoking History: Never smoked Number of Cigarettes Smoked Daily: 0 Hx Alcohol Use: No Substance Use Type: None Review of Systems - Review of Systems Able to Perform ROS?: No Is the patient limited Taiwanese proficient: Yes Respiratory: Yes: Cough *Physical Exam - Physical Exam General Appearance: Yes: Nourished HEENT: positive: EOMI, NELY Neck: positive: Supple Respiratory/Chest: positive: Rhonchi Cardiovascular: positive: Regular Rhythm Vascular Pulses: Carotid (R): 2+ Musculoskeletal: positive: Normal Inspection Extremity: positive: Normal Inspection ED Treatment Course - LABORATORY CBC & Chemistry Diagram: 08/19/17 16:55 08/19/17 16:55 Medical Decision Making - Medical Decision Making 08/19/17 16:29 47 y/o F with PMH Down's syndrome, CKD stage 3, COPD (on 3L 02 at baseline), hypothyroidism, pica, GERD, who presents to the ED from [facility] with fever at noon today. Pt currently afebrile, hemodynamically stable. Current differentials: sepsis 2/2 respiratory causes -PNA, influenza. Will check the following: CBC CMP Lactate CXR 08/19/17 17:48 Pt with rectal temp ~ 102F. Ofirmev 1g stat given 08/19/17 18:00 Pt still febrile, WBC count returned 22k. CXR with developing R sided infiltrate. Microblog sent to hospitalist team 08/19/17 18:[address] Spencer. Agreed to admit *DC/Admit/Observation/Transfer Diagnosis at time of Disposition: Sepsis Qualifiers: Sepsis type: sepsis due to unspecified organism Qualified Code(s): A41.9 - Sepsis, unspecified organism - Discharge Dispostion Condition at time of disposition: Guarded Admit: Yes - Referrals - Patient Instructions - Post Discharge Activity
[2017-08-19 15:21] VITALS: BMI 28.6
[2017-08-19 17:41] LABS: HEMOGLOBIN 10.6 GM/dL (10.7-15.3); MCH 34.4 pg (25.7-33.7); MCHC 33.1 g/dl (32.0-36.0); MEAN CELL VOLUME 103.8 fl (80-96); MEAN PLT VOLUME 7.5 fl (7.5-11.1); PLATELET COUNT 344 K/MM3 (134-434); RBC 3.08 M/mm3 (3.60-5.2); RDW 17.4 % (11.6-15.6); WHITE BLOOD COUNT 22.1 K/mm3 (4.0-10.0)
[2017-08-19 18:16] LABS: ALBUMIN 2.7 g/dl (3.4-5.0); ANION GAP 9 (8-16); BLOOD UREA NITROGEN 17 mg/dL (7-18); CALCIUM 7.5 mg/dL (8.5-10.1); CHLORIDE 97 mmol/L (98-107); CO2 30 mmol/L (21-32); CREATININE 1.2 mg/dL (0.55-1.02); GLUCOSE,RANDOM 104 mg/dL (74-106); SGPT/ALT 38 U/L (12-78); SODIUM 136 mmol/L (136-145)
--- NOTE | 2017-08-19 18:16 | PDOC ---
Attending Attestation - Resident Resident Name: Lana Dahl - ED Attending Attestation I have performed the following: I have examined & evaluated the patient, The case was reviewed & discussed with the resident, I agree w/resident's findings & plan, Exceptions are as noted - HPI HPI: 08/20/17 17:17 Darlene is a 47 yo F with a history of Down's syndrome, CKD stage 3, COPD (on 3L 02 at baseline), hypothyroidism, pica, GERD, h/o recent HCAP in 06/2017 who presents to the ED from [facility] with fever at noon - 102.5. (+) non productive cough No respiratory distress NO other complaints - Physicial Exam PE: 08/19/17 18:16 GENERAL: The patient is in no acute distress. NECK: Normal range of motion, supple LUNGS: Rhoncherous breath sounds through out HEART:Regular rate and rhythm, normal S1 and S2 without murmur, rub or gallop. ABDOMEN: Soft, nontender, EXTREMITIES: Normal range of motion, no edema. No clubbing or cyanosis. No erythema, or tenderness. NEUROLOGICAL: Cranial nerves II through XII grossly intact. Normal speech. No focal neurological deficits. 08/20/17 17:19 - Medical Decision Making 08/19/17 19:06 EKG: SR, Rate of 98 bpm, axis is nml, intervals nml 08/19/17 19:07 Laboratory Tests 08/19/17 08/19/17 16:55 16:55 WBC 22.1 H D Hgb 10.6 L D Hct 32.0 L Plt Count 344 D Sodium 136 Potassium 4.2 Chloride 97 L Carbon Dioxide 30 BUN 17 Creatinine 1.2 H Random Glucose 104 CXR concerning for multi focal pneumonia Will Admit for pneumonia Case reviewed with hospitalist for assistance in antibiotic choice (given complicated history) Clinical Impression: Pneumonia, initial presentation 08/20/17 17:20
[2017-08-19 18:18] LABS: ALK PHOS 124 U/L (45-117); BILIRUBIN,TOTAL 0.3 mg/dL (0.2-1.0); TOT PROT 6.4 g/dl (6.4-8.2)
[2017-08-19] MEDS ORDERED: ACETAMINOPHEN INJECTION 100 ML IVPB ONE (18:18)
[2017-08-19 18:19] LABS: POTASSIUM 4.2 mmol/L (3.5-5.1); SGOT/AST 28 U/L (15-37)
[2017-08-19] MEDS: ACETAMINOPHEN 1000 MG/100 ML VIAL (NON FORMULARY) IVPB ONE (18:24)
[2017-08-19] MEDS ORDERED: SODIUM CHLORIDE 1,000 ML IV STA (19:45)
--- NOTE | 2017-08-19 19:46 | HP ---
CHIEF COMPLAINT: Fever and tachypnea x1 day PCP: HISTORY OF PRESENT ILLNESS: Pt is a 47 year old non verbal F from [facility] with PMHx of profound MR, Down's syndrome, CKD (stage 3), COPD (3L home oxygen), PICA, Gerd, OCD, hypothyroidism, non-alcoholic fatty disease, HLD, osteopenia, lactose intolerance, presenting today for distress (yelling), found to be febrile -Tmax- 102.5, tachypneic and tachycardic on presentation. Patient was recently discharged 06/2017 for PNA, treated with vanc/aztreonam/ azithromycin as pt is allergic to cephalosporins for CXR findings of LLL infiltrates. The patient aide by the bedside said when pt was brought in she was more lethargic, but post tylenol she is able to smile and appears improved. Pt aide could not provide much by way of history other than that due to PICA the patient was off oxygen and would probably not do well on BIPAP. No change in bowel habit or urinary symptoms noted. No new history of SOB or cough and no contact with someone with the flu. ER course was notable for: (1)WBC-22 (2)Acetaminophen iv (3)CXR- bilateral lung infiltrates (my reading) Recent Travel: PAST MEDICAL HISTORY: profound MR 2/2 Down's syndrome, CKD (stage 3), COPD (3L home oxygen), PICA, Gerd, OCD, hypothyroidism, non-alcoholic fatty disease, HLD, osteopenia, lactose intolerance PAST SURGICAL HISTORY: Social History: Smoking: Alcohol: Drugs: Family History: Allergies cefuroxime axetil [From Ceftin] Allergy (Mild, Verified 08/19/17 15:04) Rash Cephalosporins Allergy (Mild, Verified 08/19/17 15:04) Rash lactose Adverse Reaction (Verified 08/19/17 15:04) HOME MEDICATIONS: Home Medications Medication Instructions Recorded Budesonide [Pulmicort] 0.5 mg NEB BID 11/28/12 Calcium Carb, Citrate/Vit D3 1 tab PO BID 11/28/12 [Citracal + D ER Tablet] Escitalopram Oxalate [Lexapro -] 20 mg PO DAILY 11/28/12 Levothyroxine [Synthroid -] 125 mcg PO DAILY 11/28/12 Omeprazole Magnesium [Prilosec 20 mg PO BID 11/28/12 (OTC)] Fexofenadine HCl [Purvi] 180 mg PO HS 01/10/15 Cholecalciferol (Vitamin D3) 400 unit PO DAILY 06/13/17 [Vitamin D3] Ferrous Sulfate 325 mg PO DAILY 06/13/17 Folic Acid/Mv,Iron,Min/Lutein 1 each PO DAILY 06/13/17 [Certa Plus Tablet] Albuterol 2.5/Ipratropium 0.5 1 neb IH QID PRN #100 vial.neb. 06/20/17 [Duoneb -] Amoxicillin/Potassium Clav 1 each PO Q12H #5 tablet 06/20/17 [Augmentin 875-125 Tablet] Lactobacillus Acidophilus [Bacid -] 1 tab PO DAILY #30 tab 06/20/17 Prednisone See Taper PO ASDIR #62 tablet 06/20/17 REVIEW OF SYSTEMS: Pt is averbal at baseline CONSTITUTIONAL: Absent: fever+, chills, diaphoresis, generalized weakness, malaise, loss of appetite, weight change HEENT: Absent: rhinorrhea, nasal congestion, throat pain, throat swelling, difficulty swallowing, mouth swelling, ear pain, eye pain, visual changes CARDIOVASCULAR: Absent: chest pain, syncope, palpitations, irregular heart rate, lightheadedness , peripheral edema RESPIRATORY: Absent: cough, shortness of breath, dyspnea with exertion, orthopnea, wheezing, stridor, hemoptysis GASTROINTESTINAL: Absent: abdominal pain, abdominal distension, nausea, vomiting, diarrhea, constipation, melena, hematochezia GENITOURINARY: Absent: dysuria, frequency, urgency, hesitancy, hematuria, flank pain, genital pain MUSCULOSKELETAL: Absent: myalgia, arthralgia, joint swelling, back pain, neck pain SKIN: Absent: rash, itching, pallor HEMATOLOGIC/IMMUNOLOGIC: Absent: easy bleeding, easy bruising, lymphadenopathy, frequent infections ENDOCRINE: Absent: unexplained weight gain, unexplained weight loss, heat intolerance, cold intolerance NEUROLOGIC: Absent: headache, focal weakness or paresthesias, dizziness, unsteady gait, seizure, mental status changes, bladder or bowel incontinence PSYCHIATRIC: Absent: anxiety, depression, suicidal or homicidal ideation, hallucinations. PHYSICAL EXAMINATION Vital Signs - 24 hr 08/19/17 08/19/17 15:05 17:14 Temperature 97.8 F 102.2 F H Pulse Rate 89 Respiratory 18 Rate Blood Pressure 114/73 O2 Sat by Pulse 97 Oximetry (%) GENERAL: Awake, alert, and fully oriented, in no obvious respiratory distress. Patient not on NC as she was biting it and did not keep the pulse ox on to asess 2 saturation. Pt seen smiling and biting on iv line tube. Was able to sit up with assistance for chest exam. HEAD: Normal with no signs of trauma. EYES: Pupils equal, round and reactive to light, sclera anicteric, conjunctiva clear. EARS, NOSE, THROAT: oropharynx clear without exudates. Moist mucous membranes. Missing and poor dentition. NECK: Normal range of motion, supple LUNGS: Breath sounds slightly reduced lung bases, with fine creps>R. Few scattered wheezes bilaterally HEART: Regular rate and rhythm, normal S1 and S2 ABDOMEN: Firm, full, nontender, normoactive bowel sounds, no guarding, no rebound, no masses. MUSCULOSKELETAL: Normal range of motion at all joints. UPPER EXTREMITIES: 2+ pulses, warm, well-perfused. No cyanosis. No clubbing. No peripheral edema. LOWER EXTREMITIES: 2+ pulses, warm, well-perfused. No calf tenderness. No peripheral edema. NEUROLOGICAL: Awake, alert, smiling PSYCHIATRIC: Unable to assess Laboratory Results - last 24 hr CBC, BMP 08/19/17 16:55 08/19/17 16:55 08/19/17 08/19/17 08/19/17 16:55 16:55 16:55 WBC 22.1 H D RBC 3.08 L Hgb 10.6 L D Hct 32.0 L MCV 103.8 H MCH 34.4 H MCHC 33.1 RDW 17.4 H D Plt Count 344 D MPV 7.5 Neutrophils % No Result Required. Lymphocytes % No Result Required. Sodium 136 Potassium 4.2 Chloride 97 L Carbon Dioxide 30 Anion Gap 9 BUN 17 Creatinine 1.2 H Creat Clearance w eGFR 47.95 Random Glucose 104 Lactic Acid 1.4 Calcium 7.5 L Total Bilirubin 0.3 AST 28 ALT 38 Alkaline Phosphatase 124 H Total Protein 6.4 Albumin 2.7 L ASSESSMENT/PLAN: 47 year old non verbal F from [facility] with PMHx of profound MR, Down's syndrome, CKD (stage 3), COPD (3L home oxygen), PICA, Gerd, OCD, hypothyroidism , non-alcoholic fatty disease, HLD, osteopenia, lactose intolerance, presenting today with fever -Tmax- 102.5, tachypnea and tachycardia and found to have chest infiltrates after recent treatment for PNA and UTI 06/22. Sepsis 2/2 HCAP R/O Aspiration PNA SIRS- WBC-22, T-102.5, tachypnea, tachycardia and CXR- findings Recent hospitalization 06/2017 and treatment for PNA Background COPD (O2 dependent) Profound MR 2/2 to Down Syndrome Lactic acid-not elevated Iv tylenol 1 g- given in ED Iv Normal saline 1L stat Iv NS @ 83/hr Iv vancomycin 1 g daily Iv aztreonam 2g daily Iv azithromycin 500mg daily ID consult Sepsis screen- UA, Urine Cx, Blood Cx, Urine AG CXR ABG Duonebs ABG profound MR 2/2 Down's syndrome Aspiration precautions Elevate head of bed CKD (stage 3) CR-1.2 Avoid nephrotoxic drugs follow bmp Replete lytes as needed IV normal saline COPD (3L home oxygen) Duonebs Q4H NC 02 as tolerated ABGs CXR Home budenoside 0.5mg neb bid PICA/Chronic anemia: Possey mittens as needed Ferrous sulphate 325mg PO daily Certa Plus tablet 1 each PO daily Gerd On home omeprazole 20mg PO bid OCD Escitalopram 20mg PO daily Hypothyroidism Synthroid 125mcg PO daily Osteopenia Certa Plus tablet 1 each PO daily Vit D3 400unit Caltrical + D ER tab PO bid FEN IV Normal saline @83/hr Monitor lytes and replete as needed Renal diet Prophylaxis GIT- omeprazole DVT- heparin SQ 500mg bid Dispo: Admit to Med Surg Visit type - Emergency Visit Emergency Visit: Yes ED Registration Date: 08/19/17 Care time: The patient presented to the Emergency Department on the above date and was hospitalized for further evaluation of their emergent condition. - New Patient This patient is new to me today: Yes Date on this admission: 08/20/17 - Critical Care Critical Care patient: No
--- NOTE | 2017-08-19 20:05 | PN ---
Teaching Attending Note Name of Resident: Amee Seaman ATTENDING PHYSICIAN STATEMENT I saw and evaluated the patient. I reviewed the resident's note and discussed the case with the resident. I agree with the resident's findings and plan as documented. SUBJECTIVE: 47 F From [facility] with CKD III, Hypothyriodism, ZAMORA, HLDm GERD COPD, Down's Syndrome with MR, Sent from [facility] due to agitation and yelliing. At [place] foudn to be febrile to 102.. Recently D/C'd 06/22 for pna. Pt. is unable to give a history OBJECTIVE: Physical: VS: Vital Signs (72 hours) 08/19/17 08/19/17 15:05 17:14 Temperature 97.8 F 102.2 F H Pulse Rate 89 Respiratory 18 Rate Blood Pressure 114/73 O2 Sat by Pulse 97 Oximetry (%) GEN: NAD, resting in bed, Awake and Alert HEENT: NCAT, PERRL, throat without erythema or exudates CARD: RRR S1, S2 RESP: Decreased breath sounds at bases bilaterally ABD: BSx4, NTD to palpation EXT: - C/C/E CBCD WBC 22.1 K/mm3 (4.0-10.0) H D 08/19/17 16:55 RBC 3.08 M/mm3 (3.60-5.2) L 08/19/17 16:55 Hgb 10.6 GM/dL (10.7-15.3) L D 08/19/17 16:55 Hct 32.0 % (32.4-45.2) L 08/19/17 16:55 MCV 103.8 fl (80-96) H 08/19/17 16:55 MCHC 33.1 g/dl (32.0-36.0) 08/19/17 16:55 RDW 17.4 % (11.6-15.6) H D 08/19/17 16:55 Plt Count 344 K/MM3 (134-434) D 08/19/17 16:55 MPV 7.5 fl (7.5-11.1) 08/19/17 16:55 CMP Sodium 136 mmol/L (136-145) 08/19/17 16:55 Potassium 4.2 mmol/L (3.5-5.1) 08/19/17 16:55 Chloride 97 mmol/L (98-107) L 08/19/17 16:55 Carbon Dioxide 30 mmol/L (21-32) 08/19/17 16:55 Anion Gap 9 (8-16) 08/19/17 16:55 BUN 17 mg/dL (7-18) 08/19/17 16:55 Creatinine 1.2 mg/dL (0.55-1.02) H 08/19/17 16:55 Creat Clearance w eGFR 47.95 (>60) 08/19/17 16:55 Random Glucose 104 mg/dL (74-106) 08/19/17 16:55 Calcium 7.5 mg/dL (8.5-10.1) L 08/19/17 16:55 Total Bilirubin 0.3 mg/dL (0.2-1.0) 08/19/17 16:55 AST 28 U/L (15-37) 08/19/17 16:55 ALT 38 U/L (12-78) 08/19/17 16:55 Alkaline Phosphatase 124 U/L (45-117) H 08/19/17 16:55 Total Protein 6.4 g/dl (6.4-8.2) 08/19/17 16:55 Albumin 2.7 g/dl (3.4-5.0) L 08/19/17 16:55 Ambulatory Orders Budesonide [Pulmicort] 0.5 mg NEB BID 11/28/12 Calcium Carb, Citrate/Vit D3 [Citracal + D ER Tablet] 1 tab PO BID 11/28/12 Escitalopram Oxalate [Lexapro -] 20 mg PO DAILY 11/28/12 Levothyroxine [Synthroid -] 125 mcg PO DAILY 11/28/12 Omeprazole Magnesium [Prilosec (OTC)] 20 mg PO BID 11/28/12 Fexofenadine HCl [Purvi] 180 mg PO HS 01/10/15 Cholecalciferol (Vitamin D3) [Vitamin D3] 400 unit PO DAILY 06/13/17 Ferrous Sulfate 325 mg PO DAILY 06/13/17 Folic Acid/Mv,Iron,Min/Lutein [Certa Plus Tablet] 1 each PO DAILY 06/13/17 Albuterol 2.5/Ipratropium 0.5 [Duoneb -] 1 neb IH QID PRN #100 vial.neb. Amoxicillin/Potassium Clav [Augmentin 875-125 Tablet] 1 each PO Q12H #5 tablet 06/20/17 Lactobacillus Acidophilus [Bacid -] 1 tab PO DAILY #30 tab 06/20/17 Prednisone See Taper PO ASDIR #62 tablet 06/20/17 Urine Test Results Urine Color Yellow 08/20/17 04:00 Urine Appearance Slcloudy 08/20/17 04:00 Urine pH 7.0 (5.0-8.0) 08/20/17 04:00 Ur Specific [place] 1.011 (1.001-1.035) 08/20/17 04:00 Urine Protein Negative (NEGATIVE) 08/20/17 04:00 Urine Glucose (UA) Negative (NEGATIVE) 08/20/17 04:00 Urine Ketones Negative (NEGATIVE) 08/20/17 04:00 Urine Blood Negative (NEGATIVE) 08/20/17 04:00 Urine Nitrite Positive (NEGATIVE) 08/20/17 04:00 Urine Bilirubin Negative (NEGATIVE) 08/20/17 04:00 Ur Leukocyte Esterase 3+ (NEGATIVE) H 08/20/17 04:00 Urine Bacteria Rare /hpf (NONE SEEN) 08/20/17 04:00 Urine Mucus Rare 08/20/17 04:00 CXR_ R. Infilterate ASSESSMENT AND PLAN: 47 F From [facility] with CKD III, Hypothyriodism, ZAMORA, HLDm GERD COPD, Down's Syndrome with valentín KEANE to be septic due to pneumonia 1.) Sepsis- HCAP - Most likely due to Pneumonia/UTI - Romero Cx - IVF - REPEAT LA - Vanco/Azithro/Aztreonam - UCX 2.) Hypothyriodism - C/W Synthriod 3.) CKD III - Renally dose all meds 4.) Hypothyriodism - C/W Synthriod 5.) GERD - C/W Prilosec 6.) Macrocytic Anemia - Check. B12/Folate 7.) COPD - Not in Exacebation 8.) Dvt ppx - Heparin [address] in Med-Sx
[2017-08-19] MEDS ORDERED: PIPERACILLIN/TAZOB 2.25 GM/50 ML PREMIX BAG IVPB ONE (20:13)
[2017-08-19] MEDS ORDERED: SODIUM CHLORIDE 1,000 ML IV SCH (20:15)
[2017-08-19] MEDS ORDERED: VANCOMYCIN 1,000 MG in DEXTROSE 5%-WATER - 250 ML IVPB ONE (20:15)
[2017-08-19] MEDS ORDERED: AZITHROMYCIN IVPB 500 MG in DEXTROSE 5%-WATER - 250 ML IVPB ONE (20:17)
[2017-08-19] MEDS ORDERED: AZTREONAM 2 GM in DEXTROSE 5%-WATER - 100 ML IVPB ONE (20:18)
[2017-08-19] MEDS ORDERED: PIPERACILLIN/TAZOB 3.375 GM/50 ML PRE-DOCKED IVPB SCH (21:00)
[2017-08-19 21:11] LABS: MACROCYTOSIS 1+; PLATELET ESTIMATE ADEQUATE
[2017-08-19 23:02] LABS: ARTERIAL BLD GAS O2 SATURATION 87.4 % (90-98.9); ARTERIAL BLOOD GAS BASE EXCESS 5.6 meq/l (-2-2); ARTERIAL BLOOD GAS PCO2 43.6 mmHg (35-45); ARTERIAL BLOOD GAS PO2 51.7 mmHg (80-100); ARTERIAL BLOOD GAS pH 7.45 (7.35-7.45)
[2017-08-20] MEDS ORDERED: ACETAMINOPHEN 650 MG SUPP.RECT PR PRN (00:37)
[2017-08-20 04:28] LABS: VENOUS PC02 50.1 mmHg (38-52); VENOUS PH 7.41 (7.32-7.42); VENOUS PO2 20.8 mmHg (28-48)
[2017-08-20] MEDS ORDERED: ACETAMINOPHEN 650 MG SUPP.RECT ONE (04:38)
[2017-08-20] MEDS ORDERED: VANCOMYCIN 1 GRAM (PRE-DOCKED) 1,000 MG/250 ML BAG IVPB ONE (04:50)
[2017-08-20] MEDS: HEPARIN NA (PORCINE) 5,000 UNITS/ML 1ML VIAL SQ SCH ×2 (04:59→14:21)
[2017-08-20 05:14] LABS: URINE APPEARANCE SLCLOUDY; URINE BILIRUBIN NEGATIVE (NEGATIVE); URINE BLOOD NEGATIVE (NEGATIVE); URINE COLOR YELLOW; URINE GLUCOSE (UA) NEGATIVE (NEGATIVE); URINE KETONE NEGATIVE (NEGATIVE); URINE NITRITE POSITIVE (NEGATIVE); URINE PROTEIN NEGATIVE (NEGATIVE); URINE UROBILINOGEN NEGATIVE mg/dL (0.2-1.0)
[2017-08-20 05:15] LABS: URINE LEUK ESTERASE 3+ (NEGATIVE)
[2017-08-20] MEDS: ACETAMINOPHEN 1000 MG/100 ML VIAL (NON FORMULARY) IVPB ONE (05:15)
[2017-08-20] MEDS ORDERED: HEPARIN NA (PORCINE) 5,000 UNITS/ML 1ML VIAL ONE (05:17)
[2017-08-20 05:19] LABS: URINE BACTERIA RARE /hpf (NONE SEEN); URINE HYALINE CAST 1 /lpf; URINE MUCUS RARE
[2017-08-20] MEDS: LEVOTHYROXINE NA 125 MCG TABLET (FP) PO SCH (07:05)
[2017-08-20 07:28] LABS: BASO % 0.3 % (0-2.0); HEMATOCRIT 31.7 % (32.4-45.2); HEMOGLOBIN 10.3 GM/dL (10.7-15.3); LYMPH % 8.7 % (8-40); MCH 33.5 pg (25.7-33.7); MCHC 32.6 g/dl (32.0-36.0); MEAN PLT VOLUME 7.4 fl (7.5-11.1); PLATELET COUNT 353 K/MM3 (134-434); RBC 3.08 M/mm3 (3.60-5.2); RDW 16.8 % (11.6-15.6); WHITE BLOOD COUNT 20.9 K/mm3 (4.0-10.0)
[2017-08-20 07:33] LABS: INR 1.21 (0.82-1.09); PROTHROMBIN TIME (PATIENT) 13.7 SEC (9.98-11.88)
[2017-08-20 07:36] LABS: ACTIVATED PTT 30.2 SECONDS (26.9-34.4)
[2017-08-20 07:48] LABS: CHLORIDE 100 mmol/L (98-107); POTASSIUM 3.7 mmol/L (3.5-5.1); SODIUM 137 mmol/L (136-145)
[2017-08-20 08:16] LABS: ALBUMIN 2.5 g/dl (3.4-5.0); ALK PHOS 139 U/L (45-117); ANION GAP 11 (8-16); BILIRUBIN,TOTAL 0.4 mg/dL (0.2-1.0); BLOOD UREA NITROGEN 15 mg/dL (7-18); CALCIUM 7.8 mg/dL (8.5-10.1); CO2 26 mmol/L (21-32); CREATININE 0.9 mg/dL (0.55-1.02); GLUCOSE,RANDOM 123 mg/dL (74-106); SGOT/AST 21 U/L (15-37); SGPT/ALT 37 U/L (12-78); TOT PROT 6.6 g/dl (6.4-8.2)
[2017-08-20 09:16] LABS: MAGNESIUM 2.2 mg/dL (1.8-2.4); PHOSPHOROUS 2.8 mg/dL (2.5-4.9)
--- NOTE | 2017-08-20 11:04 | EKG ---
Test Reason : Blood Pressure : / mmHG Vent. Rate : 098 BPM Atrial Rate : 098 BPM P-R Int : 138 ms QRS Dur : 072 ms QT Int : 352 ms P-R-T Axes : 072 042 043 degrees QTc Int : 449 ms POOR DATA QUALITY, INTERPRETATION MAY BE ADVERSELY AFFECTED NORMAL SINUS RHYTHM NORMAL ECG WHEN COMPARED WITH ECG OF 20-JUN-2017 09:27, NO SIGNIFICANT CHANGE WAS FOUND Confirmed by PLACIDO ZAMBRANO, KAYKAY ([id number]) on 08/20/2017 11:04:36 AM Referred By: Confirmed By:KAYKAY CUMMINS MD
--- NOTE | 2017-08-20 11:55 | CONSULT ---
Admitting History and Physical - Primary Care Physician PCP: Kush Coto - Admission History of Present Illness: Per EMR: 47 year old non verbal F from [facility] with PMHx of profound MR, Down's syndrome, CKD (stage 3), COPD (3L home oxygen), PICA, Gerd, OCD, hypothyroidism , non-alcoholic fatty disease, HLD, osteopenia, lactose intolerance, presenting today with fever -Tmax- 102.5, tachypnea and tachycardia and found to have chest infiltrates after recent treatment for PNA and UTI 06/22. This is my first consult with this pt. Pt receives chopped food/thin liquid at her adult home. Her corrosion technician reports that she does not chew, just swallows it whole. History Source: Caregiver - Smoking History Smoking history: Never smoked Have you smoked in the past 12 months: No Aproximately how many cigarettes per day: 0 - Alcohol/Substance Use Hx Alcohol Use: No History - Admission Reason For Visit: SEPSIS - Diagnostics X-ray: Report Reviewed - General Mental Status: Confused Attention: Mild Impairment, Moderate Impairment Ability to Follow Directions: Poor Head/Neck Control: Good Speech Evaluation - Communication Primary Language: UNKNOWN Communication: Yes: Non-Communicable - Swallow Evaluation/Bedside Assessment Current Nutritional Intake: NPO, Other (Pt seen being fed chicken and string beens and thin liquid by corrosion technician from Adult home.coughing. Vocal wetness.) Facial Symmetry at Rest: Symmetrical Laryngeal Elevation: Impaired Laryngeal Movement: Labored,delay initiation, Other (at times no swallow was triggered.) Labial Seal: Impaired Bilaterally Chewing: Impaired (no mastication observed as fed solid, somewhat mashed food.) Timing of Swallow: Delayed (at times absent) Coughing/Throat Clear: Yes Change in Voice: Yes Recommendations - Speech Evaluation, Impression/Plan Impression: Diet order NPO. Pt seen being fed chicken and string beens and thin liquid by corrosion technician from Adult home.No mastication, dumping food liquid into pharynx.Intermittent swallow generated.Pt coughing with vocal wetness, c/w aspiration. - Dysphagia Impressions/Plan Swallowing Skills: Impaired Dysphagia Impressions: Severe Impairment, Suspect Aspiration *Silent aspiration: cannot be R/O at bedside Recommendations: Modified Barium Swallow - Recommendations Diet Consistency: NPO, Other (npo9 including medication.) Liquids: NPO
[2017-08-20] MEDS: DEXTROSE 5%-NORMAL SALINE 1,000 ML IV SCH (12:00)
--- NOTE | 2017-08-20 14:04 | CON.ID ---
Consult Consult Specialty:: infectious disease Referred by:: hospitalist Reason for Consultation:: fever - History of Present Illness Chief Complaint: fever History of Present Illness: 47 yo female with profound MR sent from [facility] with fever and cough she was found to have an elevated WBC and fever to 102 cxray with bibasilar infiltrates no nausea or vomiting no diarrhea ate breakfast well per aide received vancomycin/azithromyxin and azactam last night in ED - History Source History Provided By: Medical Record - Past Medical History DOCUMENT IMPROVEMENT SPECIALIST: Yes: Other (mental retardation) Cardio/Vascular: Yes: Hyperlipdemia Pulmonary: Yes: COPD, O2 Dependent Gastrointestinal: Yes: GERD, Other (fatty liver) Renal/: Yes: Renal Inusuff Endocrine: Yes: Hypothyroidism Additional Medical History: RSV in 06/2017, history of uti - Alcohol/Substance Use Hx Alcohol Use: No - Smoking History Smoking history: Never smoked Have you smoked in the past 12 months: No Aproximately how many cigarettes per day: 0 - Social History Usual Living Arrangement: Other ([facility]) ADL: Support Services Place of : [facility] History of Recent Travel: No Home Medications - Allergies Allergies/Adverse Reactions: Allergies Allergy/AdvReac Type Severity Reaction Status Date / Time cefuroxime axetil Allergy Mild Rash Verified 08/19/17 15:04 [From Ceftin] Cephalosporins Allergy Mild Rash Verified 08/19/17 15:04 lactose AdvReac Verified 08/19/17 15:04 - Home Medications Home Medications: Ambulatory Orders Budesonide [Pulmicort] 0.5 mg NEB BID 11/28/12 Calcium Carb, Citrate/Vit D3 [Citracal + D ER Tablet] 1 tab PO BID 11/28/12 Escitalopram Oxalate [Lexapro -] 20 mg PO DAILY 11/28/12 Levothyroxine [Synthroid -] 125 mcg PO DAILY 11/28/12 Omeprazole Magnesium [Prilosec (OTC)] 20 mg PO BID 11/28/12 Fexofenadine HCl [Purvi] 180 mg PO HS 01/10/15 Cholecalciferol (Vitamin D3) [Vitamin D3] 400 unit PO DAILY 06/13/17 Ferrous Sulfate 325 mg PO DAILY 06/13/17 Folic Acid/Mv,Iron,Min/Lutein [Certa Plus Tablet] 1 each PO DAILY 06/13/17 Albuterol 2.5/Ipratropium 0.5 [Duoneb -] 1 neb IH QID PRN #100 vial.neb. Amoxicillin/Potassium Clav [Augmentin 875-125 Tablet] 1 each PO Q12H #5 tablet 06/20/17 Lactobacillus Acidophilus [Bacid -] 1 tab PO DAILY #30 tab 06/20/17 Prednisone See Taper PO ASDIR #62 tablet 06/20/17 Physical Exam Vital Signs: Vital Signs Temperature 102.3 F H 08/20/17 04:59 Pulse Rate 93 H 08/20/17 13:32 Respiratory Rate 18 08/20/17 13:32 Blood Pressure 111/50 08/20/17 13:32 O2 Sat by Pulse Oximetry (%) 97 08/20/17 13:32 Constitutional: Yes: Well Nourished, Calm HENT: Yes: Atraumatic, Normocephalic Neck: Yes: Supple Cardiovascular: Yes: Regular Rate and Rhythm Respiratory: Yes: Regular, Rhonchi Gastrointestinal: Yes: Normal Bowel Sounds, Soft, Abdomen, Obese. No: Tenderness Extremities: Yes: WNL Edema: No Psychiatric: Yes: Alert Labs: CBC, BMP 08/20/17 06:57 08/20/17 06:57 pneumococcal antigen POSITIVE Imaging - Results Chest X-ray: Report Reviewed, Image Reviewed Problem List - Problems (1) Pneumonia Code(s): J18.9 - PNEUMONIA, UNSPECIFIED ORGANISM Qualifiers: Pneumonia type: due to Pneumococcus Laterality: bilateral Lung location: lower lobe of lung Qualified Code(s): J13 - Pneumonia due to Streptococcus pneumoniae (2) COPD (chronic obstructive pulmonary disease) Code(s): J44.9 - CHRONIC OBSTRUCTIVE PULMONARY DISEASE, UNSPECIFIED (3) Down's syndrome Code(s): Q90.9 - DOWN SYNDROME, UNSPECIFIED Assessment/Plan BILATERAL pneumonia COPD Down's syndrome positive pneumococcal antigen await cultures cephalosporin allergy plan vancomycin and levaquin
--- NOTE | 2017-08-20 14:39 | PN ---
Teaching Attending Note Name of Resident: Jyoti Law ATTENDING PHYSICIAN STATEMENT Time of evaluation: 9:30 AM I saw and evaluated the patient. I reviewed the resident's note and discussed the case with the resident. I agree with the resident's findings and plan as documented. SUBJECTIVE: Patient seen and examined. pleasant, non verbal, looks comfortable but unable to assess for ROS. OBJECTIVE: Vital Signs Period Temp Pulse Resp BP Sys/Houser Pulse Ox Last 24 Hr 97.8 F-102.3 F 89-101 17-18 111-132/50-89 97-99 Intake & Output 08/17/17 08/18/17 08/19/17 08/20/17 23:59 23:59 23:59 23:59 Weight 137 lb 136 lb 15.994 oz General: sitting in bed, smiling, in no acute distress Abdomen: distended, no grimacing on deep palpation but pulls hand away repeatedly on exam, unable to appreciate bowel sounds extremities: no edema Chest: poor effort, scattered rhonchi Home Medication List Medication Instructions Recorded Confirmed Type Budesonide [Pulmicort] 0.5 mg NEB BID 11/28/12 08/20/17 History Calcium Carb, Citrate/Vit D3 2 tab PO BID 11/28/12 08/20/17 History [Citracal + D ER Tablet] Escitalopram Oxalate [Lexapro -] 20 mg PO DAILY 11/28/12 08/20/17 History Levothyroxine [Synthroid -] 125 mcg PO DAILY 11/28/12 08/20/17 History Omeprazole Magnesium [Prilosec 20 mg PO BID 11/28/12 08/20/17 History (OTC)] Cholecalciferol (Vitamin D3) 400 unit PO DAILY 06/13/17 08/20/17 History [Vitamin D3] Ferrous Sulfate 325 mg PO DAILY 06/13/17 08/20/17 History Folic Acid/Mv,Iron,Min/Lutein 1 each PO DAILY 06/13/17 08/20/17 History [Certa Plus Tablet] Albuterol 0.083% Nebulizer Michelle 1 neb NEB Q4H PRN 08/20/17 08/20/17 History [Ventolin 0.083%] Bacitracin - [Bacitracin Topical 1 applic TP BID 08/20/17 08/20/17 History Ointment -] Bisacodyl Suppository [Dulcolax 10 mg RC ASDIR PRN 08/20/17 08/20/17 History Suppository -] Fluticasone Prop 0.05% Nasal 1 - 2 spray NS DAILY 08/20/17 08/20/17 History [Flonase -] Fluticasone Prop 0.05% Nasal 1 spray NS DAILY 08/20/17 08/20/17 History [Flonase -] Ipratropium 0.02% Nebulizer 1 neb NEB TID 08/20/17 08/20/17 History [Atrovent] Ipratropium 0.02% Nebulizer 1 neb NEB TID 08/20/17 08/20/17 History [Atrovent] Loratadine [Claritin] 10 mg PO DAILY 08/20/17 08/20/17 History Loratadine [Claritin] 10 mg PO DAILY 08/20/17 08/20/17 History Sodium Chloride [Saline Mist] 2 sprays NS BID 08/20/17 08/20/17 History Active Medications Generic Name Dose Route Start Last Admin Trade Name Freq PRN Reason Stop Dose Admin Acetaminophen 650 mg 08/20/17 00:37 08/20/17 04:59 Tylenol Suppository - [place] 650 mg Q4H PRN Administration FEVER Albuterol/Ipratropium 1 amp 08/19/17 20:46 Duoneb - NEB Q4H PRN SHORTNESS OF BREATH Budesonide amp 08/20/17 22:00 Pulmicort 0.5 Mg Nebulizer - NEB BID ACRLOS Escitalopram Oxalate 20 mg 08/20/17 14:30 Lexapro - PO DAILY CARLOS Fluticasone Propionate 1 - 2 spray 08/20/17 14:30 Flonase - NS DAILY CAR[facility] Heparin Sodium (Porcine) 5,000 unit 08/20/17 06:00 08/20/17 14:21 Heparin - SQ 5,000 unit TID CARLOS Administration Dextrose/Sodium Chloride 1,000 mls @ 83 mls/hr 08/20/17 09:45 08/20/17 12:00 D5-Ns - IV 83 mls/hr ASDIR CARLOS Administration Vancomycin HCl 1,000 mg/ 250 mls @ 250 mls/hr 08/20/17 14:15 Dextrose IVPB Q12H [facility] Protocol Levofloxacin 500 mg in 100 mls @ 100 mls/hr 08/20/17 14:15 08/20/17 14:28 Levaquin 500 Mg Premixed Ivpb - IVPB 100 mls/hr DAILY CRALOS Administration Lactobacillus Acidophilus 1 tab 08/20/17 14:30 Bacid - PO DAILY CARLOS Levothyroxine Sodium 125 mcg 08/20/17 07:00 08/20/17 07:05 Synthroid - PO 125 mcg DAILY@0700 CARLOS Administration Loratadine 10 mg 08/20/17 14:30 Claritin - PO DAILY CARLOS Non-Formulary Medication 325 mg 08/20/17 14:30 Ferrous Sulfate [Ferrous Sulfate] PO DAILY CARLOS Non-Formulary Medication 180 mg 08/20/17 22:00 Fexofenadine Hcl [Purvi] PO HS CARLOS Non-Formulary Medication 20 mg 08/20/17 22:00 Omeprazole Magnesium [Prilosec (Otc)] PO BID [facility] Laboratory Results - last 24 hr 08/19/17 08/19/17 08/19/17 16:55 16:55 16:55 WBC 22.1 H D RBC 3.08 L Hgb 10.6 L D Hct 32.0 L MCV 103.8 H MCH 34.4 H MCHC 33.1 RDW 17.4 H D Plt Count 344 D MPV 7.5 Total Counted 100 Neutrophils % No Result Required. Neutrophils % (Manual) 87.0 H Band Neutrophils % 1.0 Lymphocytes % No Result Required. Lymphocytes % (Manual) 8.0 D Monocytes % Monocytes % (Manual) 4 Eosinophils % Basophils % Platelet Estimate Adequate Macrocytosis 1+ PT with INR INR PTT (Actin FS) Anticoagulation Therapy Puncture Site ABG pH ABG pCO2 at Pt Temp ABG pO2 at Pt Temp ABG HCO3 ABG O2 Sat (Measured) ABG O2 Content ABG Base Excess Donta Test VBG pH POC VBG pCO2 POC VBG pO2 Mixed VBG HCO3 O2 Delivery Device Oxygen Flow Rate Vent Mode Vent Rate Mechanical Rate Pressure Support Vent Sodium 136 Potassium 4.2 Chloride 97 L Carbon Dioxide 30 Anion Gap 9 BUN 17 Creatinine 1.2 H Creat Clearance w eGFR 47.95 Random Glucose 104 Lactic Acid 1.4 Calcium 7.5 L Phosphorus Magnesium Total Bilirubin 0.3 AST 28 ALT 38 Alkaline Phosphatase 124 H Total Protein 6.4 Albumin 2.7 L Vitamin B12 Serum Folate Urine Color Urine Appearance Urine pH Ur Specific [place] Urine Protein Urine Glucose (UA) Urine Ketones Urine Blood Urine Nitrite Urine Bilirubin Urine Urobilinogen Ur Leukocyte Esterase Urine WBC (Auto) Urine RBC (Auto) Urine Bacteria Hyaline Casts Urine Mucus 08/19/17 08/19/17 08/20/17 20:48 22:43 04:00 WBC RBC Hgb Hct MCV MCH MCHC RDW Plt Count MPV Total Counted Neutrophils % Neutrophils % (Manual) Band Neutrophils % Lymphocytes % Lymphocytes % (Manual) Monocytes % Monocytes % (Manual) Eosinophils % Basophils % Platelet Estimate Macrocytosis PT with INR INR PTT (Actin FS) Anticoagulation Therapy No Result Required. Puncture Site Right brachial ABG pH 7.45 ABG pCO2 at Pt Temp 43.6 ABG pO2 at Pt Temp 51.7 L ABG HCO3 29.8 H ABG O2 Sat (Measured) 87.4 L ABG O2 Content 12.7 L ABG Base Excess 5.6 H Donta Test No Result Required. VBG pH POC VBG pCO2 POC VBG pO2 Mixed VBG HCO3 O2 Delivery Device Room air Oxygen Flow Rate No Vent Mode No Result Required. Vent Rate No Result Required. Mechanical Rate No Result Required. Pressure Support Vent No Result Required. Sodium Potassium Chloride Carbon Dioxide Anion Gap BUN Creatinine Creat Clearance w eGFR Random Glucose Lactic Acid 1.5 Calcium Phosphorus Magnesium Total Bilirubin AST ALT Alkaline Phosphatase Total Protein Albumin Vitamin B12 Serum Folate Urine Color Yellow Urine Appearance Slcloudy Urine pH 7.0 Ur Specific [place] 1.011 Urine Protein Negative Urine Glucose (UA) Negative Urine Ketones Negative Urine Blood Negative Urine Nitrite Positive Urine Bilirubin Negative Urine Urobilinogen Negative Ur Leukocyte Esterase 3+ H Urine WBC (Auto) 65 Urine RBC (Auto) <1 Urine Bacteria Rare Hyaline Casts 1 Urine Mucus Rare 08/20/17 08/20/17 08/20/17 04:20 06:57 06:57 WBC 20.9 H RBC 3.08 L Hgb 10.3 L Hct 31.7 L MCV 103.0 H MCH 33.5 MCHC 32.6 RDW 16.8 H Plt Count 353 MPV 7.4 L Total Counted Neutrophils % 88.0 H Neutrophils % (Manual) Band Neutrophils % Lymphocytes % 8.7 D Lymphocytes % (Manual) Monocytes % 3.0 L Monocytes % (Manual) Eosinophils % 0.0 D Basophils % 0.3 Platelet Estimate Macrocytosis PT with INR 13.70 H INR 1.21 H PTT (Actin FS) 30.2 Anticoagulation Therapy Puncture Site ABG pH ABG pCO2 at Pt Temp ABG pO2 at Pt Temp ABG HCO3 ABG O2 Sat (Measured) ABG O2 Content ABG Base Excess Donta Test VBG pH 7.41 POC VBG pCO2 50.1 POC VBG pO2 20.8 L Mixed VBG HCO3 31.4 H O2 Delivery Device Oxygen Flow Rate Vent Mode Vent Rate Mechanical Rate Pressure Support Vent Sodium Potassium Chloride Carbon Dioxide Anion Gap BUN Creatinine Creat Clearance w eGFR Random Glucose Lactic Acid Calcium Phosphorus Magnesium Total Bilirubin AST ALT Alkaline Phosphatase Total Protein Albumin Vitamin B12 Serum Folate Urine Color Urine Appearance Urine pH Ur Specific [place] Urine Protein Urine Glucose (UA) Urine Ketones Urine Blood Urine Nitrite Urine Bilirubin Urine Urobilinogen Ur Leukocyte Esterase Urine WBC (Auto) Urine RBC (Auto) Urine Bacteria Hyaline Casts Urine Mucus 08/20/17 08/20/17 08/20/17 06:57 06:57 09:20 WBC RBC Hgb Hct MCV MCH MCHC RDW Plt Count MPV Total Counted Neutrophils % Neutrophils % (Manual) Band Neutrophils % Lymphocytes % Lymphocytes % (Manual) Monocytes % Monocytes % (Manual) Eosinophils % Basophils % Platelet Estimate Macrocytosis PT with INR INR PTT (Actin FS) Anticoagulation Therapy Puncture Site ABG pH ABG pCO2 at Pt Temp ABG pO2 at Pt Temp ABG HCO3 ABG O2 Sat (Measured) ABG O2 Content ABG Base Excess Donta Test VBG pH POC VBG pCO2 POC VBG pO2 Mixed VBG HCO3 O2 Delivery Device Oxygen Flow Rate Vent Mode Vent Rate Mechanical Rate Pressure Support Vent Sodium 137 Potassium 3.7 Chloride 100 Carbon Dioxide 26 Anion Gap 11 BUN 15 Creatinine 0.9 Creat Clearance w eGFR > 60 Random Glucose 123 H Lactic Acid Calcium 7.8 L Phosphorus 2.8 Magnesium 2.2 Total Bilirubin 0.4 D AST 21 ALT 37 Alkaline Phosphatase 139 H Total Protein 6.6 Albumin 2.5 L Vitamin B12 698 Serum Folate 48 H Urine Color Urine Appearance Urine pH Ur Specific [place] Urine Protein Urine Glucose (UA) Urine Ketones Urine Blood Urine Nitrite Urine Bilirubin Urine Urobilinogen Ur Leukocyte Esterase Urine WBC (Auto) Urine RBC (Auto) Urine Bacteria Hyaline Casts Urine Mucus Microbiology 08/20/17 04:00 Urine For Antigen Detection Legionella Antigen - Final 08/20/17 04:00 Urine For Antigen Detection Streptococcus pneumoniae Antigen (M - Final CXR - bibasilar infiltrates ASSESSMENT AND PLAN: 47 year old non verbal F from [facility] with PMHx of profound MR, Down's syndrome, COPD (3L home oxygen), PICA, Gerd, OCD, hypothyroidism, non-alcoholic fatty disease, HLD, osteopenia, lactose intolerance, recently admitted 06/13- with PNA, likely aspiration readmitted with sepsis, likely from Aspiration PNA, found with abdominal distension. -Sepsis, likely secondary to Aspiration PNA -Abdominal distension -IRENA, mild resolved -Profound MR/Down's syndrome -?COPD, 3 l oxygen dependent (mainly at nights, with meals and activity -PICA -GERD -OCD -Hypothyroidim -HLD Plan: NPO, aspiration precautions, ID input appreciated. Levaquin/vancomycin day 1. Pneumoccal antigen positive, retrieve history from [facility] if recently vaccinated. Sputum cultures. Gentle hydration. FOllow up blood cultures. recently had positive RSV antigen. Repeat flu swab, continues to have sick contacts at [place] as discussed with aide. Speech/swallow input Abdomen distended, though passing gas and BM this AM. Check Abdominal xray. Gentle hydration while NPO, change IVF to D5NS. IRENA resolved. Oxygen suppl, at home oxygen requirements currently, Nebs prn, budesonide. DVTPPx with heparin. Dispo - likely d/c back to [facility] once improved.
--- NOTE | 2017-08-20 17:28 | PN ---
Physical Exam: SUBJECTIVE: Patient seen and examined. Pt is nonverbal, appears comfortable. OBJECTIVE: Vital Signs Period Temp Pulse Resp BP Sys/Houser Pulse Ox Last 24 Hr 102.3 F 93-101 17-18 111-132/50-89 97-99 GENERAL: The patient is awake, alert, in no acute distress. LUNGS: diffuse danny wheezing and scattered rhonchi appreciated. HEART: Regular rate and rhythm, S1, S2 without murmur, rub or gallop. ABDOMEN: Soft, distended, nontender based on absence of facial grimace to palpation. EXTREMITIES: Warm, well-perfused, no edema. SKIN: Warm, dry, normal turgor, no rashes or lesions noted Laboratory Results - last 24 hr 08/19/17 08/19/17 08/19/17 16:55 16:55 16:55 WBC 22.1 H D RBC 3.08 L Hgb 10.6 L D Hct 32.0 L MCV 103.8 H MCH 34.4 H MCHC 33.1 RDW 17.4 H D Plt Count 344 D MPV 7.5 Total Counted 100 Neutrophils % No Result Required. Neutrophils % (Manual) 87.0 H Band Neutrophils % 1.0 Lymphocytes % No Result Required. Lymphocytes % (Manual) 8.0 D Monocytes % Monocytes % (Manual) 4 Eosinophils % Basophils % Platelet Estimate Adequate Macrocytosis 1+ PT with INR INR PTT (Actin FS) Anticoagulation Therapy Puncture Site ABG pH ABG pCO2 at Pt Temp ABG pO2 at Pt Temp ABG HCO3 ABG O2 Sat (Measured) ABG O2 Content ABG Base Excess Donta Test VBG pH POC VBG pCO2 POC VBG pO2 Mixed VBG HCO3 O2 Delivery Device Oxygen Flow Rate Vent Mode Vent Rate Mechanical Rate Pressure Support Vent Sodium 136 Potassium 4.2 Chloride 97 L Carbon Dioxide 30 Anion Gap 9 BUN 17 Creatinine 1.2 H Creat Clearance w eGFR 47.95 Random Glucose 104 Lactic Acid 1.4 Calcium 7.5 L Phosphorus Magnesium Total Bilirubin 0.3 AST 28 ALT 38 Alkaline Phosphatase 124 H Total Protein 6.4 Albumin 2.7 L Vitamin B12 Serum Folate Urine Color Urine Appearance Urine pH Ur Specific [place] Urine Protein Urine Glucose (UA) Urine Ketones Urine Blood Urine Nitrite Urine Bilirubin Urine Urobilinogen Ur Leukocyte Esterase Urine WBC (Auto) Urine RBC (Auto) Urine Bacteria Hyaline Casts Urine Mucus 08/19/17 08/19/1708/20/18 20:48 22:43 04:00 WBC RBC Hgb Hct MCV MCH MCHC RDW Plt Count MPV Total Counted Neutrophils % Neutrophils % (Manual) Band Neutrophils % Lymphocytes % Lymphocytes % (Manual) Monocytes % Monocytes % (Manual) Eosinophils % Basophils % Platelet Estimate Macrocytosis PT with INR INR PTT (Actin FS) Anticoagulation Therapy No Result Required. Puncture Site Right brachial ABG pH 7.45 ABG pCO2 at Pt Temp 43.6 ABG pO2 at Pt Temp 51.7 L ABG HCO3 29.8 H ABG O2 Sat (Measured) 87.4 L ABG O2 Content 12.7 L ABG Base Excess 5.6 H Donta Test No Result Required. VBG pH POC VBG pCO2 POC VBG pO2 Mixed VBG HCO3 O2 Delivery Device Room air Oxygen Flow Rate No Vent Mode No Result Required. Vent Rate No Result Required. Mechanical Rate No Result Required. Pressure Support Vent No Result Required. Sodium Potassium Chloride Carbon Dioxide Anion Gap BUN Creatinine Creat Clearance w eGFR Random Glucose Lactic Acid 1.5 Calcium Phosphorus Magnesium Total Bilirubin AST ALT Alkaline Phosphatase Total Protein Albumin Vitamin B12 Serum Folate Urine Color Yellow Urine Appearance Slcloudy Urine pH 7.0 Ur Specific [place] 1.011 Urine Protein Negative Urine Glucose (UA) Negative Urine Ketones Negative Urine Blood Negative Urine Nitrite Positive Urine Bilirubin Negative Urine Urobilinogen Negative Ur Leukocyte Esterase 3+ H Urine WBC (Auto) 65 Urine RBC (Auto) <1 Urine Bacteria Rare Hyaline Casts 1 Urine Mucus Rare 08/20/17 08/20/17 08/20/17 04:20 06:57 06:57 WBC 20.9 H RBC 3.08 L Hgb 10.3 L Hct 31.7 L MCV 103.0 H MCH 33.5 MCHC 32.6 RDW 16.8 H Plt Count 353 MPV 7.4 L Total Counted Neutrophils % 88.0 H Neutrophils % (Manual) Band Neutrophils % Lymphocytes % 8.7 D Lymphocytes % (Manual) Monocytes % 3.0 L Monocytes % (Manual) Eosinophils % 0.0 D Basophils % 0.3 Platelet Estimate Macrocytosis PT with INR 13.70 H INR 1.21 H PTT (Actin FS) 30.2 Anticoagulation Therapy Puncture Site ABG pH ABG pCO2 at Pt Temp ABG pO2 at Pt Temp ABG HCO3 ABG O2 Sat (Measured) ABG O2 Content ABG Base Excess Donta Test VBG pH 7.41 POC VBG pCO2 50.1 POC VBG pO2 20.8 L Mixed VBG HCO3 31.4 H O2 Delivery Device Oxygen Flow Rate Vent Mode Vent Rate Mechanical Rate Pressure Support Vent Sodium Potassium Chloride Carbon Dioxide Anion Gap BUN Creatinine Creat Clearance w eGFR Random Glucose Lactic Acid Calcium Phosphorus Magnesium Total Bilirubin AST ALT Alkaline Phosphatase Total Protein Albumin Vitamin B12 Serum Folate Urine Color Urine Appearance Urine pH Ur Specific [place] Urine Protein Urine Glucose (UA) Urine Ketones Urine Blood Urine Nitrite Urine Bilirubin Urine Urobilinogen Ur Leukocyte Esterase Urine WBC (Auto) Urine RBC (Auto) Urine Bacteria Hyaline Casts Urine Mucus 08/20/17 08/20/17 08/20/17 06:57 06:57 09:20 WBC RBC Hgb Hct MCV MCH MCHC RDW Plt Count MPV Total Counted Neutrophils % Neutrophils % (Manual) Band Neutrophils % Lymphocytes % Lymphocytes % (Manual) Monocytes % Monocytes % (Manual) Eosinophils % Basophils % Platelet Estimate Macrocytosis PT with INR INR PTT (Actin FS) Anticoagulation Therapy Puncture Site ABG pH ABG pCO2 at Pt Temp ABG pO2 at Pt Temp ABG HCO3 ABG O2 Sat (Measured) ABG O2 Content ABG Base Excess Donta Test VBG pH POC VBG pCO2 POC VBG pO2 Mixed VBG HCO3 O2 Delivery Device Oxygen Flow Rate Vent Mode Vent Rate Mechanical Rate Pressure Support Vent Sodium 137 Potassium 3.7 Chloride 100 Carbon Dioxide 26 Anion Gap 11 BUN 15 Creatinine 0.9 Creat Clearance w eGFR > 60 Random Glucose 123 H Lactic Acid Calcium 7.8 L Phosphorus 2.8 Magnesium 2.2 Total Bilirubin 0.4 D AST 21 ALT 37 Alkaline Phosphatase 139 H Total Protein 6.6 Albumin 2.5 L Vitamin B12 698 Serum Folate 48 H Urine Color Urine Appearance Urine pH Ur Specific [place] Urine Protein Urine Glucose (UA) Urine Ketones Urine Blood Urine Nitrite Urine Bilirubin Urine Urobilinogen Ur Leukocyte Esterase Urine WBC (Auto) Urine RBC (Auto) Urine Bacteria Hyaline Casts Urine Mucus Active Medications Generic Name Dose Route Start Last Admin Trade Name Freq PRN Reason Stop Dose Admin Acetaminophen 650 mg 08/20/17 00:37 08/20/17 04:59 Tylenol Suppository - [place] 650 mg Q4H PRN Administration FEVER Albuterol/Ipratropium 1 amp 08/19/17 20:46 Duoneb - NEB Q4H PRN SHORTNESS OF BREATH Budesonide 1 amp 08/20/17 20:00 Pulmicort 0.5 Mg Nebulizer - NEB RBID [facility] Escitalopram Oxalate 20 mg 08/20/17 15:30 Lexapro - PO DAILY [facility] Ferrous Sulfate 325 mg 08/20/17 14:30 Feosol - PO DAILY [facility] Fluticasone Propionate 1 spray 08/20/17 14:30 Flonase - NS DAILY [facility] Heparin Sodium (Porcine) 5,000 unit 08/20/17 06:00 08/20/17 14:21 Heparin - SQ 5,000 unit TID CARLOS Administration Dextrose/Sodium Chloride 1,000 mls @ 83 mls/hr 08/20/17 09:45 08/20/17 12:00 D5-Ns - IV 83 mls/hr ASDIR CARLOS Administration Vancomycin HCl 1,000 mg/ 250 mls @ 166.667 mls/hr 08/20/17 15:45 Dextrose IVPB Q12H [facility] Protocol Levofloxacin 500 mg in 100 mls @ 100 mls/hr 08/20/17 14:15 08/20/17 14:28 Levaquin 500 Mg Premixed Ivpb - IVPB 100 mls/hr DAILY CARLOS Administration Lactobacillus Acidophilus 1 tab 08/20/17 15:30 Bacid - PO DAILY [facility] Levothyroxine Sodium 125 mcg 08/20/17 07:00 08/20/17 07:05 Synthroid - PO 125 mcg DAILY@0700 CARLOS Administration Loratadine 10 mg 08/20/17 15:45 Claritin - PO DAILY CARLOS Pantoprazole Sodium 20 mg 08/20/17 22:00 Protonix - PO BID [facility] IMAGIN08/19/17 CXR -> bibasilar infiltrates ASSESSMENT/PLAN: 47F from [facility] with PMH of profound MR, Down's Syndrome, COPD (3L home oxygen), PICA, admitted for sepsis likely 2/2 asp pneumonia. # sepsis - likely 2/2 aspiration pna - IVFs - ID (Dr. Farooq) recs appreciated: Day 1 of IV Levofloxacin and Vancomycin - aspiration precautions - strep pneumo antigen (+) - f/u blood, urine and sputum cultures - f/u flu swab # abdominal distention - (+) flatus and regular bowel movements - f/u abdominal xray # IRENA on CKD III - resolved # COPD - supplemental oxygen - continue duonebs, Budesonide # Hypothyroidism - continue home med of Synthroid # FEN - Fluids: D5-NS @ 83 ml/hr - Electrolytes: wnl, continue to monitor - Nutrition: npo, pending Speech Eval # Prophylaxis - DVT ppx with Heparin TID - GI ppx with Omeprazole - deconditioning ppx with PT Visit type - Emergency Visit Emergency Visit: Yes ED Registration Date: 08/19/17 Care time: The patient presented to the Emergency Department on the above date and was hospitalized for further evaluation of their emergent condition. - New Patient This patient is new to me today: Yes Date on this admission: 08/20/17 - Critical Care Critical Care patient: No
[2017-08-20] MEDS ORDERED: ESCITALOPRAM OXALATE 10 MG TABLET (FP) ONE (17:55)
[2017-08-20] MEDS ORDERED: FERROUS SO4 325 MG TABLET (FP) ONE (17:56)
[2017-08-20] MEDS ORDERED: LORATADINE 10 MG TABLET ONE (17:56)
[2017-08-20] MEDS: VANCOMYCIN 1,000 MG in DEXTROSE 5%-WATER - 250 ML IVPB SCH (18:09)
[2017-08-20] MEDS: FLUTICASONE PROP 0.05% 16 GM NASAL SPRAY NS SCH (18:09)
[2017-08-20] MEDS: FERROUS SO4 325 MG TABLET (FP) PO SCH (18:09)
[2017-08-20] MEDS: LORATADINE 10 MG TABLET PO SCH (18:10)
[2017-08-20] MEDS: ESCITALOPRAM OXALATE 20 MG TABLET (FP) PO SCH (18:10)
[2017-08-20] MEDS: LACTOBACILLUS ACIDOPHILUS 1 EACH TAB (FP) PO SCH (18:10)
[2017-08-20] MEDS ORDERED: BUDESONIDE 0.5 MG/2 ML INH SUSP VIAL NEB SCH (20:00)
[2017-08-20] MEDS ORDERED: FEXOFENADINE HCL 180 MG PO SCH (22:00)
[2017-08-21] MEDS: HEPARIN NA (PORCINE) 5,000 UNITS/ML 1ML VIAL SQ SCH ×4 (00:35→21:43)
[2017-08-21] MEDS: PANTOPRAZOLE 20 MG TABLET (FP) PO SCH ×3 (00:35→22:35)
[2017-08-21] MEDS: VANCOMYCIN 1,000 MG in DEXTROSE 5%-WATER - 250 ML IVPB SCH ×2 (04:34→15:44)
[2017-08-21] MEDS: LEVOTHYROXINE NA 125 MCG TABLET (FP) PO SCH (06:14)
[2017-08-21] MEDS: DEXTROSE 5%-NORMAL SALINE 1,000 ML IV SCH ×3 (07:05→19:07)
--- NOTE | 2017-08-21 08:17 | PN ---
<Jytoi Law - Last Filed: 08/21/17 14:25> Physical Exam: SUBJECTIVE: Patient seen and examined. Pt is nonverbal, appears comfortable, tolerating nasal cannula. No events overnight. OBJECTIVE: Vital Signs Period Temp Pulse Resp BP Sys/Houser Pulse Ox Last 24 Hr 97.5 F-100.1 F 83-94 18-20 95-111/50-59 97-99 GENERAL: The patient is awake, alert, in no acute distress. LUNGS: diffuse scattered danny rhonchi appreciated. HEART: Regular rate and rhythm, S1, S2 without murmur, rub or gallop. ABDOMEN: Soft, distended, nontender, normoactive bowel sounds. EXTREMITIES: Warm, well-perfused, no edema. SKIN: Warm, dry, normal turgor, no rashes or lesions noted Laboratory Results - last 24 hr 08/20/17 08/21/17 08/21/17 09:20 08:15 08:15 WBC 8.0 D RBC 3.05 L Hgb 10.6 L Hct 31.6 L MCV 103.6 H MCH 34.9 H MCHC 33.7 RDW 17.2 H Plt Count 332 MPV 7.6 Neutrophils % 76.2 Lymphocytes % 15.2 D Monocytes % 6.1 D Eosinophils % 1.6 D Basophils % 0.9 Sodium 140 Potassium 3.7 Chloride 104 Carbon Dioxide 31 Anion Gap 5 L BUN 9 Creatinine 0.8 Creat Clearance w eGFR > 60 Random Glucose 98 Calcium 7.6 L Total Bilirubin 0.5 D AST 16 ALT 32 Alkaline Phosphatase 132 H Total Protein 6.3 L Albumin 2.5 L Vitamin B12 698 Active Medications Generic Name Dose Route Start Last Admin Trade Name Freq PRN Reason Stop Dose Admin Acetaminophen 650 mg 08/20/17 00:37 08/20/17 04:59 Tylenol Suppository - [place] 650 mg Q4H PRN Administration FEVER Albuterol/Ipratropium 1 amp 08/19/17 20:46 Duoneb - NEB Q4H PRN SHORTNESS OF BREATH Budesonide 1 amp 08/21/17 08:00 Pulmicort 0.5 Mg Nebulizer - NEB RBID CARLOS Escitalopram Oxalate 20 mg 08/20/17 15:30 08/20/17 18:10 Lexapro - PO Not Given DAILY [facility] Ferrous Sulfate 325 mg 08/20/17 14:30 02/14/18 18:09 Feosol - PO Not Given DAILY [facility] Fluticasone Propionate 1 spray 08/20/17 14:30 08/20/17 18:09 Flonase - NS Not Given DAILY [facility] Heparin Sodium (Porcine) 5,000 unit 08/20/17 06:00 08/21/17 06:14 Heparin - SQ 5,000 unit TID CARLOS Administration Dextrose/Sodium Chloride 1,000 mls @ 83 mls/hr 08/20/17 09:45 08/21/17 07:05 D5-Ns - IV 83 mls/hr ASDIR CARLOS Administration Vancomycin HCl 1,000 mg/ 250 mls @ 166.667 mls/hr 08/20/17 15:45 08/21/17 04: 34 Dextrose IVPB 166.667 mls/hr Q12H CARLOS Administration Protocol Levofloxacin 500 mg in 100 mls @ 100 mls/hr 08/20/17 14:15 08/20/17 14:28 Levaquin 500 Mg Premixed Ivpb - IVPB 100 mls/hr DAILY [facility] Administration Lactobacillus Acidophilus 1 tab 08/20/17 15:30 08/20/17 18:10 Bacid - PO Not Given DAILY [facility] Levothyroxine Sodium 125 mcg 08/20/17 07:00 08/21/17 06:14 Synthroid - PO 125 mcg DAILY@0700 [facility] Administration Loratadine 10 mg 08/20/17 15:45 08/20/17 18:10 Claritin - PO Not Given DAILY [facility] Pantoprazole Sodium 20 mg 08/20/17 22:00 08/21/17 00:35 Protonix - PO 20 mg BID CARLOS Administration IMAGIN08/20/17 ab xray -> no sign of gross obstruction ASSESSMENT/PLAN: 47F from [facility] with PMH of profound MR, Down's Syndrome, COPD (3L home oxygen), PICA, admitted for sepsis likely 2/2 asp pneumonia. # sepsis - likely 2/2 aspiration pna - IVFs, additional 500cc bolus given for lower BP - Day 2 of IV Levofloxacin and Vancomycin - aspiration precautions - strep pneumo antigen (+), will continue trying to contact [facility] for hx of recent vaccination - blood culture (-) x 24 hrs - urine culture (+) for non lactose fermenting Gnb - Influenza A&B (-) # abdominal distention - (+) flatus and regular bowel movements - f/u abdominal xray -> no SBO # COPD - supplemental oxygen - continue duonebs, Budesonide # Hypothyroidism - continue home med of Synthroid # OCD - continue home med of Lexapro # FEN - Fluids: D5-NS @ 83 ml/hr - Electrolytes: wnl, continue to monitor - Nutrition: npo, Speech Therapy rec MBS tomorrow # Prophylaxis - DVT ppx with Heparin TID - GI ppx with Omeprazole - deconditioning ppx with PT Visit type - Emergency Visit Emergency Visit: Yes ED Registration Date: 08/19/17 Care time: The patient presented to the Emergency Department on the above date and was hospitalized for further evaluation of their emergent condition. - New Patient This patient is new to me today: No - Critical Care Critical Care patient: No <Kush Coto - Last Filed: 08/21/17 15:34> Physical Exam: patient seen and examined with resident. Agree with above findings and plan of care. O/E: Abdomen: soft, today, NT, positive bowel sounds chest: bilateral rhoncherous breath sounds, positive air entry. Assessment/plan: -Sepsis, likely secondary to Aspiration PNA -Abdominal distension -IRENA, mild resolved -Profound MR/Down's syndrome -?COPD, 3 l oxygen dependent (mainly at nights, with meals and activity -PICA -GERD -OCD -Hypothyroidim -HLD Levaquin/vancomycin day 2, monitor vanco levels. Retrieve Pneumococcal vaccination history from [place]. Follow up with ID. Speech/swallow eval noted. MBS. resume diet accordingly. IVF, additional IVF and monitor BP. Dispo to [place] as improved.
[2017-08-21 08:41] LABS: BASO % 0.9 % (0-2.0); EOS % 1.6 % (0-4.5); HEMATOCRIT 31.6 % (32.4-45.2); HEMOGLOBIN 10.6 GM/dL (10.7-15.3); LYMPH % 15.2 % (8-40); MCH 34.9 pg (25.7-33.7); MCHC 33.7 g/dl (32.0-36.0); MEAN CELL VOLUME 103.6 fl (80-96); MEAN PLT VOLUME 7.6 fl (7.5-11.1); MONO % 6.1 % (3.8-10.2); NEUT % 76.2 % (42.8-82.8); PLATELET COUNT 332 K/MM3 (134-434); RBC 3.05 M/mm3 (3.60-5.2); RDW 17.2 % (11.6-15.6)
[2017-08-21] MEDS ORDERED: PT OWN MED DRAWER 7, Y5N ONE ×3 (08:57→15:04)
[2017-08-21] MEDS: BUDESONIDE 0.5 MG/2 ML INH SUSP VIAL NEB SCH ×2 (09:04→21:05)
[2017-08-21 09:06] LABS: ALBUMIN 2.5 g/dl (3.4-5.0); ANION GAP 5 (8-16); BLOOD UREA NITROGEN 9 mg/dL (7-18); CALCIUM 7.6 mg/dL (8.5-10.1); CHLORIDE 104 mmol/L (98-107); CO2 31 mmol/L (21-32); CREATININE 0.8 mg/dL (0.55-1.02); GLUCOSE,RANDOM 98 mg/dL (74-106); POTASSIUM 3.7 mmol/L (3.5-5.1); SGOT/AST 16 U/L (15-37); SGPT/ALT 32 U/L (12-78); SODIUM 140 mmol/L (136-145)
[2017-08-21 09:08] LABS: ALK PHOS 132 U/L (45-117); BILIRUBIN,TOTAL 0.5 mg/dL (0.2-1.0); TOT PROT 6.3 g/dl (6.4-8.2)
[2017-08-21] MEDS: LORATADINE 10 MG TABLET PO SCH (09:48)
[2017-08-21] MEDS: LACTOBACILLUS ACIDOPHILUS 1 EACH TAB (FP) PO SCH (09:48)
[2017-08-21] MEDS: FERROUS SO4 325 MG TABLET (FP) PO SCH (09:49)
[2017-08-21] MEDS: ESCITALOPRAM OXALATE 20 MG TABLET (FP) PO SCH (09:49)
[2017-08-21] MEDS ORDERED: SODIUM CHLORIDE 1,000 ML IV STA (10:22)
[2017-08-21] MEDS ORDERED: SODIUM CHLORIDE 500 ML IV STA (10:37)
[2017-08-21] MEDS: FLUTICASONE PROP 0.05% 16 GM NASAL SPRAY NS SCH (11:39)
--- NOTE | 2017-08-21 11:49 | EKG ---
Test Reason : Blood Pressure : / mmHG Vent. Rate : 088 BPM Atrial Rate : 088 BPM P-R Int : 148 ms QRS Dur : 074 ms QT Int : 382 ms P-R-T Axes : 073 058 044 degrees QTc Int : 462 ms NORMAL SINUS RHYTHM NORMAL ECG WHEN COMPARED WITH ECG OF 19-AUG-2017 16:16, NO SIGNIFICANT CHANGE WAS FOUND Confirmed by DARWIN HUMPHREYS MD ([id number]) on 08/21/2017 11:49:15 AM Referred By: Confirmed By:DARWIN HUMPHREYS MD
--- NOTE | 2017-08-21 13:38 | PN ---
Progress Note, SERVICE MEMBER - Note Progress Note: Selected Entries 08/19/17 08/19/17 08/20/17 15:05 17:14 04:59 Lunch Temperature 97.8 F 102.2 F H 102.3 F H 08/20/17 08/21/17 08/21/17 20:51 02:10 06:45 Lunch Temperature 100.1 F H 98.1 F 97.5 F L 08/21/17 12:02 Lunch NPO Temperature Laboratory Tests 08/19/17 08/20/17 08/21/17 16:55 06:57 08:15 WBC 22.1 H D 20.9 H 8.0 D Pt NPO. Bilateral Pneumonia. Audible upper airway congestion. Pt's STUD MASTER/MISTRESS from correction reports that pt is on chopped foods, including rice, and thin liquid. She "always sounds like this." She stopped being able to walk because she became breathless. She now requires supplemental o2/24 hours, and therefore can no longer go to school. Swallow reflex is delayed but fairly brisk once triggered. Intake is very impulsive,slurping puree rapidly of of the spoon, and throwing her head back to drink water. No consistent cough response. Silent aspiration is suspected. Ideally, NPO and mbs tomorrow. (Fluoroscopy equip is down). If PO trial is ordered, dys puree and honey thick liquid on tsp, not from cup. However, risk of aspiration persists.
--- NOTE | 2017-08-21 14:31 | PN ---
Progress Note, Physician History of Present Illness: Not conversant Breathing non-labored Temps down Afebrile WBC improved- WNL Urine c/s NLF - Current Medication List Current Medications: Active Medications Acetaminophen (Tylenol Suppository -) [address] Q4H PRN PRN Reason: FEVER Last Admin: 08/20/17 04:59 Dose: 650 mg Albuterol/Ipratropium (Duoneb -) 1 amp NEB Q4H PRN PRN Reason: SHORTNESS OF BREATH Budesonide (Pulmicort 0.5 Mg Nebulizer -) 1 amp NEB RBID [facility] Last Admin: 08/21/17 09:04 Dose: 1 amp Escitalopram Oxalate (Lexapro -) 20 mg PO DAILY [facility] Last Admin: 08/21/17 09:49 Dose: 20 mg Ferrous Sulfate (Feosol -) 325 mg PO DAILY [facility] Last Admin: 08/21/17 09:49 Dose: 325 mg Fluticasone Propionate (Flonase -) 1 spray NS DAILY [facility] Last Admin: 08/21/17 11:39 Dose: 1 spray Heparin Sodium (Porcine) (Heparin -) 5,000 unit SQ TID [facility] Last Admin: 08/21/17 14:26 Dose: 5,000 unit Dextrose/Sodium Chloride (D5-Ns -) 1,000 mls @ 83 mls/hr IV ASDIR [facility] Last Admin: 08/21/17 09:48 Dose: Not Given Vancomycin HCl 1,000 mg/ (Dextrose) 250 mls @ 166.667 mls/hr IVPB Q12H CARLOS PRN Reason: Protocol Last Admin: 08/21/17 04:34 Dose: 166.667 mls/hr Levofloxacin (Levaquin 500 Mg Premixed Ivpb -) 500 mg in 100 mls @ 100 mls/hr IVPB DAILY [facility] Last Admin: 08/21/17 12:45 Dose: 100 mls/hr Lactobacillus Acidophilus (Bacid -) 1 tab PO DAILY [facility] Last Admin: 08/21/17 09:48 Dose: 1 tab Levothyroxine Sodium (Synthroid -) 125 mcg PO DAILY@0700 [facility] Last Admin: 08/21/17 06:14 Dose: 125 mcg Loratadine (Claritin -) 10 mg PO DAILY [facility] Last Admin: 08/21/17 09:48 Dose: 10 mg Pantoprazole Sodium (Protonix -) 20 mg PO BID [facility] Last Admin: 08/21/17 09:49 Dose: 20 mg - Objective Vital Signs: Vital Signs Temperature 97.5 F L 08/21/17 06:45 Pulse Rate 88 08/21/17 09:41 Respiratory Rate 20 08/21/17 09:41 Blood Pressure 93/57 08/21/17 09:41 O2 Sat by Pulse Oximetry (%) 99 08/20/17 22:40 Constitutional: Yes: No Distress, Obese Cardiovascular: Yes: Regular Rate and Rhythm, S1, S2 Respiratory: Yes: Rhonchi Gastrointestinal: Yes: Normal Bowel Sounds, Soft, Abdomen, Obese. No: Tenderness Edema: No Labs: CBC, BMP 08/21/17 08:15 08/21/17 08:15 INR, PTT INR 1.21 (0.82-1.09) H 08/20/17 06:57 Assessment/Plan Fever/ leukocytosis- improved Pneumonia UTI Cephalosporin allergy Down's Syndrome Continue vancomycin/levaquin
[2017-08-22] MEDS: VANCOMYCIN 1,000 MG in DEXTROSE 5%-WATER - 250 ML IVPB SCH ×2 (03:03→16:03)
[2017-08-22] MEDS: HEPARIN NA (PORCINE) 5,000 UNITS/ML 1ML VIAL SQ SCH ×2 (06:17→14:22)
[2017-08-22] MEDS: LEVOTHYROXINE NA 125 MCG TABLET (FP) PO SCH (06:17)
[2017-08-22] MEDS ORDERED: PT OWN MED DRAWER 7, Y5N ONE ×3 (07:24→14:19)
[2017-08-22] MEDS: BUDESONIDE 0.5 MG/2 ML INH SUSP VIAL NEB SCH ×2 (07:35→22:41)
[2017-08-22 07:49] LABS: ANION GAP 7 (8-16); BLOOD UREA NITROGEN 5 mg/dL (7-18); CALCIUM 7.7 mg/dL (8.5-10.1); CHLORIDE 107 mmol/L (98-107); CO2 30 mmol/L (21-32); CREATININE 0.7 mg/dL (0.55-1.02); GLUCOSE,RANDOM 96 mg/dL (74-106); SODIUM 144 mmol/L (136-145)
[2017-08-22 07:59] LABS: HEMATOCRIT 33.4 % (32.4-45.2); MCHC 32.8 g/dl (32.0-36.0); MEAN CELL VOLUME 103.7 fl (80-96); MEAN PLT VOLUME 7.6 fl (7.5-11.1); PLATELET COUNT 373 K/MM3 (134-434); RBC 3.22 M/mm3 (3.60-5.2); RDW 16.6 % (11.6-15.6); WHITE BLOOD COUNT 5.7 K/mm3 (4.0-10.0)
[2017-08-22] MEDS: DEXTROSE 5%-NORMAL SALINE 1,000 ML IV SCH (10:33)
[2017-08-22] MEDS: FLUTICASONE PROP 0.05% 16 GM NASAL SPRAY NS SCH (10:39)
[2017-08-22] MEDS: LORATADINE 10 MG TABLET PO SCH (10:39)
[2017-08-22] MEDS: LACTOBACILLUS ACIDOPHILUS 1 EACH TAB (FP) PO SCH (10:39)
[2017-08-22] MEDS: FERROUS SO4 325 MG TABLET (FP) PO SCH (10:39)
[2017-08-22] MEDS: ESCITALOPRAM OXALATE 20 MG TABLET (FP) PO SCH (10:40)
[2017-08-22] MEDS: PANTOPRAZOLE 20 MG TABLET (FP) PO SCH (10:40)
[2017-08-22] MEDS ORDERED: SODIUM CHLORIDE 500 ML IV STA (11:09)
--- NOTE | 2017-08-22 14:14 | PN ---
Progress Note, Physician History of Present Illness: Not conversant Slightly tachypneic at rest on nasal cannula O2 Temps down Afebrile WBC improved- WNL Urine c/s E. coli MBS result pending - Current Medication List Current Medications: Active Medications Acetaminophen (Tylenol Suppository -) 650 mg [place] Q4H PRN PRN Reason: FEVER Last Admin: 08/20/17 04:59 Dose: 650 mg Albuterol/Ipratropium (Duoneb -) 1 amp NEB Q4H PRN PRN Reason: SHORTNESS OF BREATH Budesonide (Pulmicort 0.5 Mg Nebulizer -) 1 amp NEB RBID [facility] Last Admin: 08/22/17 07:35 Dose: 1 amp Escitalopram Oxalate (Lexapro -) 20 mg PO DAILY [facility] Last Admin: 08/22/17 10:40 Dose: 20 mg Ferrous Sulfate (Feosol -) 325 mg PO DAILY [facility] Last Admin: 08/22/17 10:39 Dose: 325 mg Fluticasone Propionate (Flonase -) 1 spray NS DAILY [facility] Last Admin: 08/22/17 10:39 Dose: 1 spray Heparin Sodium (Porcine) (Heparin -) 5,000 unit SQ TID [facility] Last Admin: 08/22/17 06:17 Dose: 5,000 unit Dextrose/Sodium Chloride (D5-Ns -) 1,000 mls @ 83 mls/hr IV ASDIR [facility] Last Admin: 08/22/17 10:33 Dose: Not Given Vancomycin HCl 1,000 mg/ (Dextrose) 250 mls @ 166.667 mls/hr IVPB Q12H [facility] PRN Reason: Protocol Last Admin: 08/22/17 03:03 Dose: 166.667 mls/hr Levofloxacin (Levaquin 500 Mg Premixed Ivpb -) 500 mg in 100 mls @ 100 mls/hr IVPB DAILY [facility] Last Admin: 08/22/17 10:39 Dose: 100 mls/hr Lactobacillus Acidophilus (Bacid -) 1 tab PO DAILY [facility] Last Admin: 08/22/17 10:39 Dose: 1 tab Levothyroxine Sodium (Synthroid -) 125 mcg PO DAILY@0700 [facility] Last Admin: 08/22/17 06:17 Dose: Not Given Loratadine (Claritin -) 10 mg PO DAILY [facility] Last Admin: 08/22/17 10:39 Dose: 10 mg Pantoprazole Sodium (Protonix -) 20 mg PO BID [facility] Last Admin: 08/22/17 10:40 Dose: 20 mg - Objective Vital Signs: Vital Signs Temperature 98.2 F 08/22/17 06:00 Pulse Rate 80 08/22/17 10:32 Respiratory Rate 20 08/22/17 10:32 Blood Pressure 94/59 08/22/17 10:32 O2 Sat by Pulse Oximetry (%) 93 L 08/21/17 21:00 Constitutional: Yes: No Distress, Obese Cardiovascular: Yes: Regular Rate and Rhythm, S1, S2 Respiratory: Yes: Rhonchi Gastrointestinal: Yes: Normal Bowel Sounds, Soft, Abdomen, Obese. No: Tenderness Labs: CBC, BMP 08/22/17 06:00 08/22/17 06:00 INR, PTT INR 1.21 (0.82-1.09) H 08/20/17 06:57 Assessment/Plan Fever/ leukocytosis- improved Pneumonia UTI E. coli Cephalosporin allergy Down's Syndrome MBS done, results pending Follow up Continue vancomycin/levaquin Vancomycin trough
--- NOTE | 2017-08-22 17:26 | PN ---
Physical Exam: SUBJECTIVE: Patient seen and examined. Pt is nonverbal, appears comfortable, tolerating nasal cannula. Diet upgraded to dysphagia puree with thin liquids. Pt remains afebrile. OBJECTIVE: Vital Signs Period Temp Pulse Resp BP Sys/Houser Pulse Ox Last 24 Hr 97.6 F-98.6 F 80-90 18-20 88-126/42-85 93-93 GENERAL: The patient is awake, alert, in no acute distress. LUNGS: danny rhonchorous breath sounds, improved slightly from yesterday HEART: Regular rate and rhythm, S1, S2 without murmur, rub or gallop. ABDOMEN: Soft, distended, nontender, normoactive bowel sounds. EXTREMITIES: Warm, well-perfused, no edema. SKIN: Warm, dry, normal turgor, no rashes or lesions noted Laboratory Results - last 24 hr 08/22/17 08/22/17 08/22/17 06:00 06:00 14:00 WBC 5.7 RBC 3.22 L Hgb 11.0 Hct 33.4 MCV 103.7 H MCH 34.0 H MCHC 32.8 RDW 16.6 H Plt Count 373 MPV 7.6 Sodium 144 Potassium 4.0 Chloride 107 Carbon Dioxide 30 Anion Gap 7 L BUN 5 L Creatinine 0.7 Random Glucose 96 Calcium 7.7 L Vancomycin Pre-Dose 21.980 H* Active Medications Generic Name Dose Route Start Last Admin Trade Name Freq PRN Reason Stop Dose Admin Acetaminophen 650 mg 08/20/17 00:37 08/20/17 04:59 Tylenol Suppository - [place] 650 mg Q4H PRN Administration FEVER Albuterol/Ipratropium 1 amp 08/19/17 20:46 Duoneb - NEB Q4H PRN SHORTNESS OF BREATH Budesonide 1 amp 08/21/17 08:00 08/22/17 07:35 Pulmicort 0.5 Mg Nebulizer - NEB 1 amp RBID CARLOS Administration Escitalopram Oxalate 20 mg 08/20/17 15:30 08/22/17 10:40 Lexapro - PO 20 mg DAILY [facility] Administration Ferrous Sulfate 325 mg 08/20/17 14:30 08/22/17 10:39 Feosol - PO 325 mg DAILY [facility] Administration Fluticasone Propionate 1 spray 08/20/17 14:30 08/22/17 10:39 Flonase - NS 1 spray DAILY [facility] Administration Heparin Sodium (Porcine) 5,000 unit 08/20/17 06:00 08/22/17 14:22 Heparin - SQ 5,000 unit TID CARLOS Administration Dextrose/Sodium Chloride 1,000 mls @ 83 mls/hr 08/20/17 09:45 08/22/17 10:33 D5-Ns - IV Not Given ASDIR CARLOS Vancomycin HCl 1,000 mg/ 250 mls @ 166.667 mls/hr 08/20/17 15:45 08/22/17 16: 03 Dextrose IVPB 166.667 mls/hr Q12H CARLOS Administration Protocol Levofloxacin 500 mg in 100 mls @ 100 mls/hr 08/20/17 14:15 08/22/17 10:39 Levaquin 500 Mg Premixed Ivpb - IVPB 100 mls/hr DAILY [facility] Administration Lactobacillus Acidophilus 1 tab 08/20/17 15:30 08/22/17 10:39 Bacid - PO 1 tab DAILY [facility] Administration Levothyroxine Sodium 125 mcg 08/20/17 07:00 08/22/17 06:17 Synthroid - PO Not Given DAILY@0700 [facility] Loratadine 10 mg 08/20/17 15:45 08/22/17 10:39 Claritin - PO 10 mg DAILY [facility] Administration Pantoprazole Sodium 20 mg 08/20/17 22:00 08/22/17 10:40 Protonix - PO 20 mg BID CARLOS Administration ASSESSMENT/PLAN: 47F from [facility] with PMH of profound MR, Down's Syndrome, COPD (3L home oxygen), PICA, admitted for sepsis likely 2/2 asp pneumonia. # sepsis - likely 2/2 aspiration pna - IVFs, additional 500cc bolus given for lower BP - Day 3 of IV Levaquin and Vancomycin - Vanc trough elevated, tomorrow morning dose of Vanc will be held, f/u random vanc level tomorrow AM - strep pneumo (+), last Pneumovax in 2005 per [place] records - aspiration precautions - strep pneumo antigen (+), will continue trying to contact [facility] for hx of recent vaccination - blood culture (-) x 72 hrs - urine culture (+) for E. coli - ID input appreciated # COPD - supplemental oxygen - continue duonebs, Budesonide # Hypothyroidism - continue home med of Synthroid # OCD - continue home med of Lexapro # FEN - Fluids: D5-NS @ 83 ml/hr - Electrolytes: wnl, continue to monitor - Nutrition: dysphagia puree with thin liquids per Speech Therapy # Prophylaxis - DVT ppx with Heparin TID - GI ppx with Omeprazole - deconditioning ppx with PT Visit type - Emergency Visit Emergency Visit: Yes ED Registration Date: 08/19/17 Care time: The patient presented to the Emergency Department on the above date and was hospitalized for further evaluation of their emergent condition. - New Patient This patient is new to me today: No - Critical Care Critical Care patient: No
--- NOTE | 2017-08-22 18:38 | PN ---
Teaching Attending Note Name of Resident: Jyoti Law ATTENDING PHYSICIAN STATEMENT Time of evaluation: 11:35 AM I saw and evaluated the patient. I reviewed the resident's note and discussed the case with the resident. I agree with the resident's findings and plan as documented. SUBJECTIVE: patient seen and examined, sleeping comfortably but arousable, non verbal, unable to assess for ROS. OBJECTIVE: Vital Signs Period Temp Pulse Resp BP Sys/Houser Pulse Ox Last 24 Hr 97.2 F-98.6 F 78-90 18-20 94-126/59-85 93-93 Intake & Output 08/19/17 08/20/17 08/21/17 08/22/17 23:59 23:59 23:59 23:59 Intake Total 1250 Balance 1250 Weight 137 lb 136 lb 15.994 oz General: sitting in bed, sleeping comfortably but arousable Abdomen:soft, distension unchanged, NT, positive bowel sounds Chest: bilateral rhoncherous breath sounds, with some decrease than yesterday extremities: no edema. Home Medication List Medication Instructions Recorded Confirmed Type Budesonide [Pulmicort] 0.5 mg NEB BID 11/28/12 08/20/17 History Calcium Carb, Citrate/Vit D3 2 tab PO BID 11/28/12 08/20/17 History [Citracal + D ER Tablet] Escitalopram Oxalate [Lexapro -] 20 mg PO DAILY 11/28/12 08/20/17 History Levothyroxine [Synthroid -] 125 mcg PO DAILY 11/28/12 08/20/17 History Omeprazole Magnesium [Prilosec 20 mg PO BID 11/28/12 08/20/17 History (OTC)] Cholecalciferol (Vitamin D3) 400 unit PO DAILY 06/13/17 08/20/17 History [Vitamin D3] Ferrous Sulfate 325 mg PO DAILY 06/13/17 08/20/17 History Folic Acid/Mv,Iron,Min/Lutein 1 each PO DAILY 06/13/17 08/20/17 History [Certa Plus Tablet] Albuterol 0.083% Nebulizer Michelle 1 neb NEB Q4H PRN 08/20/17 08/20/17 History [Ventolin 0.083%] Bacitracin - [Bacitracin Topical 1 applic TP BID 08/20/17 08/20/17 History Ointment -] Bisacodyl Suppository [Dulcolax 10 mg RC ASDIR PRN 08/20/17 08/20/17 History Suppository -] Fluticasone Prop 0.05% Nasal 1 - 2 spray NS DAILY 08/20/17 08/20/17 History [Flonase -] Fluticasone Prop 0.05% Nasal 1 spray NS DAILY 08/20/17 08/20/17 History [Flonase -] Ipratropium 0.02% Nebulizer 1 neb NEB TID 08/20/17 08/20/17 History [Atrovent] Ipratropium 0.02% Nebulizer 1 neb NEB TID 08/20/17 08/20/17 History [Atrovent] Loratadine [Claritin] 10 mg PO DAILY 08/20/17 08/20/17 History Loratadine [Claritin] 10 mg PO DAILY 08/20/17 08/20/17 History Sodium Chloride [Saline Mist] 2 sprays NS BID 08/20/17 08/20/17 History Active Medications Generic Name Dose Route Start Last Admin Trade Name Freq PRN Reason Stop Dose Admin Acetaminophen 650 mg 08/20/17 00:37 08/20/17 04:59 Tylenol Suppository - [place] 650 mg Q4H PRN Administration FEVER Albuterol/Ipratropium 1 amp 08/19/17 20:46 Duoneb - NEB Q4H PRN SHORTNESS OF BREATH Budesonide 1 amp 08/21/17 08:00 08/22/17 07:35 Pulmicort 0.5 Mg Nebulizer - NEB 1 amp RBID CARLOS Administration Escitalopram Oxalate 20 mg 08/20/17 15:30 08/22/17 10:40 Lexapro - PO 20 mg DAILY [facility] Administration Ferrous Sulfate 325 mg 08/20/17 14:30 08/22/17 10:39 Feosol - PO 325 mg DAILY [facility] Administration Fluticasone Propionate 1 spray 08/20/17 14:30 08/22/17 10:39 Flonase - NS 1 spray DAILY [facility] Administration Heparin Sodium (Porcine) 5,000 unit 08/20/17 06:00 08/22/17 14:22 Heparin - SQ 5,000 unit TID [facility] Administration Dextrose/Sodium Chloride 1,000 mls @ 83 mls/hr 08/20/17 09:45 08/22/17 10:33 D5-Ns - IV Not Given ASDIR [facility] Levofloxacin 500 mg in 100 mls @ 100 mls/hr 08/20/17 14:15 08/22/17 10:39 Levaquin 500 Mg Premixed Ivpb - IVPB 100 mls/hr DAILY [facility] Administration Lactobacillus Acidophilus 1 tab 08/20/17 15:30 08/22/17 10:39 Bacid - PO 1 tab DAILY [facility] Administration Levothyroxine Sodium 125 mcg 08/20/17 07:00 08/22/17 06:17 Synthroid - PO Not Given DAILY@0700 [facility] Loratadine 10 mg 08/20/17 15:45 08/22/17 10:39 Claritin - PO 10 mg DAILY [facility] Administration Pantoprazole Sodium 20 mg 08/20/17 22:00 08/22/17 10:40 Protonix - PO 20 mg BID CARLOS Administration Laboratory Results - last 24 hr 08/22/17 08/22/17 08/22/17 06:00 06:00 14:00 WBC 5.7 RBC 3.22 L Hgb 11.0 Hct 33.4 MCV 103.7 H MCH 34.0 H MCHC 32.8 RDW 16.6 H Plt Count 373 MPV 7.6 Sodium 144 Potassium 4.0 Chloride 107 Carbon Dioxide 30 Anion Gap 7 L BUN 5 L Creatinine 0.7 Random Glucose 96 Calcium 7.7 L Vancomycin Pre-Dose 21.980 H* Microbiology 08/19/17 17:50 Blood - Peripheral Venous Blood Culture - Preliminary NO GROWTH OBTAINED AFTER 72 HOURS, INCUBATION TO CONTINUE FOR 2 DAYS. 08/19/17 17:50 Blood - Peripheral Venous Blood Culture - Preliminary NO GROWTH OBTAINED AFTER 72 HOURS, INCUBATION TO CONTINUE FOR 2 DAYS. 08/20/17 04:00 Urine - Urine Clean Catch Urine Culture - Final Escherichia Coli 08/21/17 06:55 Nasopharyngeal Swab Influenza Types A,B Antigen (GENESIS) - Preliminary 08/21/17 06:55 Nasopharyngeal Swab - Preliminary 08/20/17 04:00 Urine For Antigen Detection Legionella Antigen - Final 08/20/17 04:00 Urine For Antigen Detection Streptococcus pneumoniae Antigen (M - Final ASSESSMENT AND PLAN: 47 year old non verbal F from [facility] with PMHx of profound MR, Down's syndrome, COPD (3L home oxygen), PICA, Gerd, OCD, hypothyroidism, non-alcoholic fatty disease, HLD, osteopenia, lactose intolerance, recently admitted 06/13- with PNA, likely aspiration readmitted with sepsis, likely from Aspiration PNA, found with abdominal distension. -Sepsis, likely secondary to Aspiration PNA, positive Pneumococcal antigen -Abdominal distension -IRENA, mild resolved -Profound MR/Down's syndrome -?COPD, 3 l oxygen dependent (mainly at nights, with meals and activity -PICA -GERD -OCD -Hypothyroidim -HLD Plan: Levaquin/vancomycin day 3. Vanco trough noted. Discussed with Dr ferrer. Will d/c vanco and repeat random vanco level in AM. Pneumococcal antigen positive, last Pneumovax per records in 2005, follow up with ID. MBS noted, pureed diet with thin liquids, aspiration precautions. Sputum cultures not available. Gentle hydration. Blood cultures neg so far. Recently had positive RSV antigen. Flu swab neg, continues to have sick contacts at [place] as discussed with aide. IRENA resolved. Oxygen suppl, at home oxygen requirements currently, Nebs prn, budesonide. DVTPPx with heparin. Dispo - likely d/c back to [place] once improved.
[2017-08-22] MEDS: ALBUTEROL SO4 2.5/IPRATROPIUM 0.5 INH SOL 3 ML VIAL.NEB. NEB PRN (20:35)
[2017-08-23] MEDS: PANTOPRAZOLE 20 MG TABLET (FP) PO SCH ×3 (00:53→22:34)
[2017-08-23] MEDS: HEPARIN NA (PORCINE) 5,000 UNITS/ML 1ML VIAL SQ SCH ×4 (00:53→22:34)
[2017-08-23] MEDS ORDERED: PT OWN MED DRAWER 7, Y5N ONE ×3 (00:59→10:39)
[2017-08-23] MEDS: LEVOTHYROXINE NA 125 MCG TABLET (FP) PO SCH (06:25)
[2017-08-23] MEDS: BUDESONIDE 0.5 MG/2 ML INH SUSP VIAL NEB SCH ×2 (07:20→21:00)
--- NOTE | 2017-08-23 08:05 | PN ---
<LawJustineJyoti - Last Filed: 08/23/17 07:59> Physical Exam: SUBJECTIVE: Patient seen and examined. Pt is nonverbal, appears comfortable. Tolerating dysphagia puree diet. Pt remains afebrile. OBJECTIVE: Vital Signs Period Temp Pulse Resp BP Sys/Houser Pulse Ox Last 24 Hr 97.2 F-97.6 F 78-84 20-20 94-120/59-73 93 GENERAL: The patient is awake, alert, in no acute distress. LUNGS: scattered rhonchi, improved from yesterday HEART: Regular rate and rhythm, S1, S2 without murmur, rub or gallop. ABDOMEN: Soft, distended, nontender, no guarding. EXTREMITIES: Warm, well-perfused, no edema. SKIN: Warm, dry, normal turgor, no rashes or lesions noted Laboratory Results - last 24 hr 08/22/17 08/22/17 06:00 14:00 WBC 5.7 RBC 3.22 L Hgb 11.0 Hct 33.4 MCV 103.7 H MCH 34.0 H MCHC 32.8 RDW 16.6 H Plt Count 373 MPV 7.6 Vancomycin Pre-Dose 21.980 H* Active Medications Generic Name Dose Route Start Last Admin Trade Name Freq PRN Reason Stop Dose Admin Acetaminophen 650 mg 08/20/17 00:37 08/20/17 04:59 Tylenol Suppository - [place] 650 mg Q4H PRN Administration FEVER Albuterol/Ipratropium 1 amp 08/19/17 20:46 08/22/17 20:35 Duoneb - NEB 1 amp Q4H PRN Administration SHORTNESS OF BREATH Budesonide 1 amp 08/21/17 08:00 08/22/17 22:41 Pulmicort 0.5 Mg Nebulizer - NEB Not Given RBID CARLOS Escitalopram Oxalate 20 mg 08/20/17 15:30 08/22/17 10:40 Lexapro - PO 20 mg DAILY ACRLOS Administration Ferrous Sulfate 325 mg 08/20/17 14:30 08/22/17 10:39 Feosol - PO 325 mg DAILY CARLOS Administration Fluticasone Propionate 1 spray 08/20/17 14:30 08/22/17 10:39 Flonase - NS 1 spray DAILY CARLOS Administration Heparin Sodium (Porcine) 5,000 unit 08/20/17 06:00 08/23/17 06:25 Heparin - SQ 5,000 unit TID CARLOS Administration Dextrose/Sodium Chloride 1,000 mls @ 83 mls/hr 08/20/17 09:45 08/22/17 10:33 D5-Ns - IV Not Given ASDIR CARLOS Levofloxacin 500 mg in 100 mls @ 100 mls/hr 08/20/17 14:15 08/22/17 10:39 Levaquin 500 Mg Premixed Ivpb - IVPB 100 mls/hr DAILY CARLOS Administration Lactobacillus Acidophilus 1 tab 08/20/17 15:30 08/22/17 10:39 Bacid - PO 1 tab DAILY CARLOS Administration Levothyroxine Sodium 125 mcg 08/20/17 07:00 08/23/17 06:25 Synthroid - PO 125 mcg DAILY@0700 CARLOS Administration Loratadine 10 mg 08/20/17 15:45 08/22/17 10:39 Claritin - PO 10 mg DAILY CARLOS Administration Pantoprazole Sodium 20 mg 08/20/17 22:00 08/23/17 00:53 Protonix - PO 20 mg BID CARLOS Administration ASSESSMENT/PLAN: 47F from [facility] with PMH of profound MR, Down's Syndrome, COPD (3L home oxygen), PICA, admitted for sepsis likely 2/2 asp pneumonia. # sepsis - likely 2/2 aspiration pna - IVFs - Day 4 of IV Levaquin - f/u random Vanc level -> possibly resume Vanc at lower dose later today - strep pneumo (+), last Pneumovax in 2005 per [facility] records - aspiration precautions - blood culture (-) x 72 hrs - urine culture (+) for E. coli - ID (Dr. Farooq) input appreciated # COPD - supplemental oxygen - continue duonebs, Budesonide # Hypothyroidism - continue home med of Synthroid # OCD - continue home med of Lexapro # FEN - Fluids: D5-NS @ 83 ml/hr - Electrolytes: wnl, continue to monitor - Nutrition: dysphagia puree with thin liquids per Speech Therapy # Prophylaxis - DVT ppx with Heparin TID - GI ppx with Omeprazole - deconditioning ppx with PT Visit type - Emergency Visit Emergency Visit: Yes ED Registration Date: 08/19/17 Care time: The patient presented to the Emergency Department on the above date and was hospitalized for further evaluation of their emergent condition. - New Patient This patient is new to me today: No - Critical Care Critical Care patient: No <Kush Coto - Last Filed: 08/23/17 13:15> Physical Exam: Patient seen and examined. Agree with above findings and plan of care as documented by Dr. Law with exceptions mentioned below. Plan: -Sepsis, likely secondary to Aspiration PNA, positive Pneumococcal antigen -Abdominal distension -IRENA, mild resolved -Profound MR/Down's syndrome -?COPD, 3 l oxygen dependent (mainly at nights, with meals and activity -PICA -GERD -OCD -Hypothyroidim -HLD Plan levaquin day 4, ID input noted, d/c vancomycin. Blood cultures neg so far. Pneumococcal antigen positive. Unable to provide sputum cultures. MBS noted, Pureed diet with thin liquids, aspiration precautions. dispo planning back to [facility] in 1-2 days if continues to improve.
[2017-08-23] MEDS: DEXTROSE 5%-NORMAL SALINE 1,000 ML IV SCH (09:15)
[2017-08-23] MEDS: LACTOBACILLUS ACIDOPHILUS 1 EACH TAB (FP) PO SCH (10:43)
[2017-08-23] MEDS: LORATADINE 10 MG TABLET PO SCH (10:43)
[2017-08-23] MEDS: ESCITALOPRAM OXALATE 20 MG TABLET (FP) PO SCH (10:43)
[2017-08-23] MEDS: FERROUS SO4 325 MG TABLET (FP) PO SCH (10:43)
[2017-08-23] MEDS: FLUTICASONE PROP 0.05% 16 GM NASAL SPRAY NS SCH (10:44)
--- NOTE | 2017-08-23 11:34 | PN ---
Progress Note, Physician History of Present Illness: Not conversant Aide reports + cough Breathing non-labored Temps down Afebrile WBC improved- WNL Urine c/s E. coli + pneumococcal ag Vanco trough 16 - Current Medication List Current Medications: Active Medications Acetaminophen (Tylenol Suppository -) 650 mg [place] Q4H PRN PRN Reason: FEVER Last Admin: 08/20/17 04:59 Dose: 650 mg Albuterol/Ipratropium (Duoneb -) 1 amp NEB Q4H PRN PRN Reason: SHORTNESS OF BREATH Last Admin: 08/22/17 20:35 Dose: 1 amp Budesonide (Pulmicort 0.5 Mg Nebulizer -) 1 amp NEB RBID [facility] Last Admin: 08/23/17 07:20 Dose: 1 amp Escitalopram Oxalate (Lexapro -) 20 mg PO DAILY [facility] Last Admin: 08/23/17 10:43 Dose: 20 mg Ferrous Sulfate (Feosol -) 325 mg PO DAILY [facility] Last Admin: 08/23/17 10:43 Dose: 325 mg Fluticasone Propionate (Flonase -) 1 spray NS DAILY [facility] Last Admin: 08/23/17 10:44 Dose: 1 spray Heparin Sodium (Porcine) (Heparin -) 5,000 unit SQ TID [facility] Last Admin: 08/23/17 06:25 Dose: 5,000 unit Dextrose/Sodium Chloride (D5-Ns -) 1,000 mls @ 83 mls/hr IV ASDIR [facility] Last Admin: 08/23/17 09:15 Dose: 83 mls/hr Levofloxacin (Levaquin 500 Mg Premixed Ivpb -) 500 mg in 100 mls @ 100 mls/hr IVPB DAILY [facility] Last Admin: 08/23/17 10:44 Dose: 100 mls/hr Lactobacillus Acidophilus (Bacid -) 1 tab PO DAILY [facility] Last Admin: 08/23/17 10:43 Dose: 1 tab Levothyroxine Sodium (Synthroid -) 125 mcg PO DAILY@0700 [facility] Last Admin: 08/23/17 06:25 Dose: 125 mcg Loratadine (Claritin -) 10 mg PO DAILY [facility] Last Admin: 08/23/17 10:43 Dose: 10 mg Pantoprazole Sodium (Protonix -) 20 mg PO BID [facility] Last Admin: 08/23/17 10:43 Dose: 20 mg - Objective Vital Signs: Vital Signs Temperature 97.5 F L 08/23/17 06:41 Pulse Rate 82 08/23/17 06:41 Respiratory Rate 20 08/23/17 06:41 Blood Pressure 120/64 08/23/17 06:41 O2 Sat by Pulse Oximetry (%) 92 L 08/22/17 21:00 Constitutional: Yes: No Distress, Obese Cardiovascular: Yes: Regular Rate and Rhythm Respiratory: Yes: Rhonchi Gastrointestinal: Yes: Normal Bowel Sounds, Soft, Abdomen, Obese. No: Tenderness Edema: Yes Labs: CBC, BMP 08/22/17 06:00 08/22/17 06:00 INR, PTT INR 1.21 (0.82-1.09) H 08/20/17 06:57 Assessment/Plan Fever/ leukocytosis- improved Pneumonia + pneumococcal ag UTI E. coli Cephalosporin allergy Down's Syndrome Follow up CXR Continue levaquin. D/C vancomycin
[2017-08-23] MEDS: ALBUTEROL SO4 2.5/IPRATROPIUM 0.5 INH SOL 3 ML VIAL.NEB. NEB PRN (21:00)
[2017-08-24] MEDS: DEXTROSE 5%-NORMAL SALINE 1,000 ML IV SCH (02:47)
[2017-08-24] MEDS: LEVOTHYROXINE NA 125 MCG TABLET (FP) PO SCH (06:18)
[2017-08-24] MEDS: HEPARIN NA (PORCINE) 5,000 UNITS/ML 1ML VIAL SQ SCH ×3 (06:18→21:14)
[2017-08-24] MEDS ORDERED: PT OWN MED DRAWER 7, Y5N ONE ×2 (07:57→10:00)
[2017-08-24] MEDS: BUDESONIDE 0.5 MG/2 ML INH SUSP VIAL NEB SCH ×2 (08:15→20:38)
[2017-08-24] MEDS: LACTOBACILLUS ACIDOPHILUS 1 EACH TAB (FP) PO SCH (10:03)
[2017-08-24] MEDS: LORATADINE 10 MG TABLET PO SCH (10:04)
[2017-08-24] MEDS: FERROUS SO4 325 MG TABLET (FP) PO SCH (10:04)
[2017-08-24] MEDS: PANTOPRAZOLE 20 MG TABLET (FP) PO SCH ×2 (10:04→21:14)
[2017-08-24] MEDS: ESCITALOPRAM OXALATE 20 MG TABLET (FP) PO SCH (10:04)
[2017-08-24] MEDS: FLUTICASONE PROP 0.05% 16 GM NASAL SPRAY NS SCH (10:05)
[2017-08-24 11:41] LABS: ANION GAP 9 (8-16); BLOOD UREA NITROGEN 5 mg/dL (7-18); CALCIUM 7.9 mg/dL (8.5-10.1); CHLORIDE 103 mmol/L (98-107); CO2 29 mmol/L (21-32); CREATININE 0.8 mg/dL (0.55-1.02); GLUCOSE,RANDOM 158 mg/dL (74-106); SODIUM 141 mmol/L (136-145)
[2017-08-24 11:48] LABS: POTASSIUM 4.2 mmol/L (3.5-5.1)
--- NOTE | 2017-08-24 13:04 | PN ---
Progress Note, Physician History of Present Illness: Not conversant Lethargic Breathing non-labored, but audibly congested Temps down Afebrile WBC improved- WNL Urine c/s E. coli + pneumococcal ag CXR persistant lower lobe infiltrates - Current Medication List Current Medications: Active Medications Acetaminophen (Tylenol Suppository -) 650 mg [place] Q4H PRN PRN Reason: FEVER Last Admin: 08/20/17 04:59 Dose: 650 mg Albuterol/Ipratropium (Duoneb -) 1 amp NEB Q4H PRN PRN Reason: SHORTNESS OF BREATH Last Admin: 08/23/17 21:00 Dose: 1 amp Budesonide (Pulmicort 0.5 Mg Nebulizer -) 1 amp NEB RBID [facility] Last Admin: 08/24/17 08:15 Dose: 1 amp Escitalopram Oxalate (Lexapro -) 20 mg PO DAILY [facility] Last Admin: 08/24/17 10:04 Dose: 20 mg Ferrous Sulfate (Feosol -) 325 mg PO DAILY [facility] Last Admin: 08/24/17 10:04 Dose: 325 mg Fluticasone Propionate (Flonase -) 1 spray NS DAILY [facility] Last Admin: 08/24/17 10:05 Dose: 1 spray Heparin Sodium (Porcine) (Heparin -) 5,000 unit SQ TID [facility] Last Admin: 08/24/17 06:18 Dose: 5,000 unit Dextrose/Sodium Chloride (D5-Ns -) 1,000 mls @ 83 mls/hr IV ASDIR [facility] Last Admin: 08/24/17 02:47 Dose: 83 mls/hr Levofloxacin (Levaquin 500 Mg Premixed Ivpb -) 500 mg in 100 mls @ 100 mls/hr IVPB DAILY [facility] Last Admin: 08/24/17 10:04 Dose: 100 mls/hr Lactobacillus Acidophilus (Bacid -) 1 tab PO DAILY [facility] Last Admin: 08/24/17 10:03 Dose: 1 tab Levothyroxine Sodium (Synthroid -) 125 mcg PO DAILY@0700 [facility] Last Admin: 08/24/17 06:18 Dose: 125 mcg Loratadine (Claritin -) 10 mg PO DAILY [facility] Last Admin: 08/24/17 10:04 Dose: 10 mg Pantoprazole Sodium (Protonix -) 20 mg PO BID [facility] Last Admin: 08/24/17 10:04 Dose: 20 mg - Objective Vital Signs: Vital Signs Temperature 98 F 08/24/17 08:05 Pulse Rate 81 08/24/17 08:05 Respiratory Rate 18 08/24/17 08:05 Blood Pressure 110/73 08/24/17 08:05 O2 Sat by Pulse Oximetry (%) 95 08/24/17 09:00 Constitutional: Yes: No Distress Eyes: Yes: Conjunctiva Clear Cardiovascular: Yes: Regular Rate and Rhythm, S1, S2 Respiratory: Yes: Rhonchi Gastrointestinal: Yes: Normal Bowel Sounds, Soft, Abdomen, Obese. No: Tenderness Edema: No Labs: CBC, BMP 08/22/17 06:00 08/24/17 09:56 INR, PTT INR 1.21 (0.82-1.09) H 08/20/17 06:57 Assessment/Plan Fever/ leukocytosis- improved Pneumonia + pneumococcal ag UTI E. coli Cephalosporin allergy Down's Syndrome Continue levaquin
--- NOTE | 2017-08-24 13:46 | PN ---
Teaching Attending Note Name of Resident: Kush Coto SUBJECTIVE: patient seen and examined. looks comfortable, unable to assess for ROS. OBJECTIVE: Vital Signs Period Temp Pulse Resp BP Sys/Hosuer Pulse Ox Last 24 Hr 97.6 F-98.4 F 81-85 18-20 102-126/65-73 94-95 Intake & Output 08/21/17 08/22/17 08/23/17 08/24/17 23:59 23:59 23:59 23:59 Intake Total 1250 1065 1921 300 Balance 1250 1065 1921 300 General: sitting bed, audibly congested but no acute distress, improved today Chest: bilateral coarse rhoncherous sounds but improved from prior, better air entry Abdomen: Soft, obese, NT extremities: no edema Home Medication List Medication Instructions Recorded Confirmed Type Budesonide [Pulmicort] 0.5 mg NEB BID 11/28/12 08/20/17 History Calcium Carb, Citrate/Vit D3 2 tab PO BID 11/28/12 08/20/17 History [Citracal + D ER Tablet] Escitalopram Oxalate [Lexapro -] 20 mg PO DAILY 11/28/12 08/20/17 History Levothyroxine [Synthroid -] 125 mcg PO DAILY 11/28/12 08/20/17 History Omeprazole Magnesium [Prilosec 20 mg PO BID 11/28/12 08/20/17 History (OTC)] Cholecalciferol (Vitamin D3) 400 unit PO DAILY 06/13/17 08/20/17 History [Vitamin D3] Ferrous Sulfate 325 mg PO DAILY 06/13/17 08/20/17 History Folic Acid/Mv,Iron,Min/Lutein 1 each PO DAILY 06/13/17 08/20/17 History [Certa Plus Tablet] Albuterol 0.083% Nebulizer Michelle 1 neb NEB Q4H PRN 08/20/17 08/20/17 History [Ventolin 0.083%] Bacitracin - [Bacitracin Topical 1 applic TP BID 08/20/17 08/20/17 History Ointment -] Bisacodyl Suppository [Dulcolax 10 mg RC ASDIR PRN 08/20/17 08/20/17 History Suppository -] Fluticasone Prop 0.05% Nasal 1 - 2 spray NS DAILY 08/20/17 08/20/17 History [Flonase -] Fluticasone Prop 0.05% Nasal 1 spray NS DAILY 08/20/17 08/20/17 History [Flonase -] Ipratropium 0.02% Nebulizer 1 neb NEB TID 08/20/17 08/20/17 History [Atrovent] Ipratropium 0.02% Nebulizer 1 neb NEB TID 08/20/17 08/20/17 History [Atrovent] Loratadine [Claritin] 10 mg PO DAILY 08/20/17 08/20/17 History Loratadine [Claritin] 10 mg PO DAILY 08/20/17 08/20/17 History Sodium Chloride [Saline Mist] 2 sprays NS BID 08/20/17 08/20/17 History Active Medications Generic Name Dose Route Start Last Admin Trade Name Freq PRN Reason Stop Dose Admin Acetaminophen 650 mg 08/20/17 00:37 08/20/17 04:59 Tylenol Suppository - [place] 650 mg Q4H PRN Administration FEVER Albuterol/Ipratropium 1 amp 08/19/17 20:46 08/23/17 21:00 Duoneb - NEB 1 amp Q4H PRN Administration SHORTNESS OF BREATH Budesonide 1 amp 08/21/17 08:00 08/24/17 08:15 Pulmicort 0.5 Mg Nebulizer - NEB 1 amp RBID CARLOS Administration Escitalopram Oxalate 20 mg 08/20/17 15:30 08/24/17 10:04 Lexapro - PO 20 mg DAILY CARLOS Administration Ferrous Sulfate 325 mg 08/20/17 14:30 08/24/17 10:04 Feosol - PO 325 mg DAILY CARLOS Administration Fluticasone Propionate 1 spray 08/20/17 14:30 08/24/17 10:05 Flonase - NS 1 spray DAILY CARLOS Administration Heparin Sodium (Porcine) 5,000 unit 08/20/17 06:00 08/24/17 13:28 Heparin - SQ 5,000 unit TID CARLOS Administration Dextrose/Sodium Chloride 1,000 mls @ 83 mls/hr 08/20/17 09:45 08/24/17 02:47 D5-Ns - IV 83 mls/hr ASDIR CARLOS Administration Levofloxacin 500 mg in 100 mls @ 100 mls/hr 08/20/17 14:15 08/24/17 10:04 Levaquin 500 Mg Premixed Ivpb - IVPB 100 mls/hr DAILY CARLOS Administration Lactobacillus Acidophilus 1 tab 08/20/17 15:30 08/24/17 10:03 Bacid - PO 1 tab DAILY CARLOS Administration Levothyroxine Sodium 125 mcg 08/20/17 07:00 08/24/17 06:18 Synthroid - PO 125 mcg DAILY@0700 CARLOS Administration Loratadine 10 mg 08/20/17 15:45 08/24/17 10:04 Claritin - PO 10 mg DAILY CARLOS Administration Pantoprazole Sodium 20 mg 08/20/17 22:00 08/24/17 10:04 Protonix - PO 20 mg BID CARLOS Administration Laboratory Results - last 24 hr 08/24/17 09:56 Sodium 141 Potassium 4.2 Chloride 103 Carbon Dioxide 29 Anion Gap 9 BUN 5 L Creatinine 0.8 Random Glucose 158 H Calcium 7.9 L Microbiology 08/19/17 17:50 Blood - Peripheral Venous Blood Culture - Preliminary NO GROWTH OBTAINED AFTER 96 HOURS, INCUBATION TO CONTINUE FOR 1 DAYS. 08/19/17 17:50 Blood - Peripheral Venous Blood Culture - Preliminary NO GROWTH OBTAINED AFTER 96 HOURS, INCUBATION TO CONTINUE FOR 1 DAYS. 08/20/17 04:00 Urine - Urine Clean Catch Urine Culture - Final Escherichia Coli 08/21/17 06:55 Nasopharyngeal Swab Influenza Types A,B Antigen (GENESIS) - Preliminary 08/21/17 06:55 Nasopharyngeal Swab - Preliminary 08/20/17 04:00 Urine For Antigen Detection Legionella Antigen - Final 08/20/17 04:00 Urine For Antigen Detection Streptococcus pneumoniae Antigen (M - Final ASSESSMENT AND PLAN: 47 year old non verbal F from [facility] with PMHx of profound MR, Down's syndrome, COPD (3L home oxygen), PICA, Gerd, OCD, hypothyroidism, non-alcoholic fatty disease, HLD, osteopenia, lactose intolerance, recently admitted 06/13- with PNA, likely aspiration readmitted with sepsis, likely from Aspiration PNA, found with abdominal distension. -Sepsis, likely secondary to Aspiration PNA, positive Pneumococcal antigen -Abdominal distension -IRENA, mild resolved -Profound MR/Down's syndrome -?COPD, 3 l oxygen dependent (mainly at nights, with meals and activity -PICA -GERD -OCD -Hypothyroidim -HLD Plan: Improved, levaquin per ID. Off vancomycin. D/c IVF. IRENA resolved. Pureed diet with thin liquids and aspiration precautions. D/c back to [facility] in 24 hours if able to take her back tomorrow and no new events. To discuss with case management.
[2017-08-25] MEDS: HEPARIN NA (PORCINE) 5,000 UNITS/ML 1ML VIAL SQ SCH (06:10)
[2017-08-25] MEDS: LEVOTHYROXINE NA 125 MCG TABLET (FP) PO SCH (06:10)
[2017-08-25 07:09] VITALS: BP 110/76; PULSE 82; TEMP 97.4
[2017-08-25] MEDS: BUDESONIDE 0.5 MG/2 ML INH SUSP VIAL NEB SCH (07:30)
--- NOTE | 2017-08-25 09:35 | PN ---
Progress Note, Physician History of Present Illness: Not conversant. Lethargic Breathing non-labored Temps down Afebrile WBC improved- WNL Urine c/s E. coli + pneumococcal ag CXR shows improvement RLL infiltrate - Current Medication List Current Medications: Active Medications Acetaminophen (Tylenol Suppository -) 650 mg [place] Q4H PRN PRN Reason: FEVER Last Admin: 08/20/17 04:59 Dose: 650 mg Albuterol/Ipratropium (Duoneb -) 1 amp NEB Q4H PRN PRN Reason: SHORTNESS OF BREATH Last Admin: 08/23/17 21:00 Dose: 1 amp Budesonide (Pulmicort 0.5 Mg Nebulizer -) 1 amp NEB RBID [facility] Last Admin: 08/25/17 07:30 Dose: 1 amp Escitalopram Oxalate (Lexapro -) 20 mg PO DAILY [facility] Last Admin: 08/24/17 10:04 Dose: 20 mg Ferrous Sulfate (Feosol -) 325 mg PO DAILY [facility] Last Admin: 08/24/17 10:04 Dose: 325 mg Fluticasone Propionate (Flonase -) 1 spray NS DAILY [facility] Last Admin: 08/24/17 10:05 Dose: 1 spray Heparin Sodium (Porcine) (Heparin -) 5,000 unit SQ TID [facility] Last Admin: 08/25/17 06:10 Dose: 5,000 unit Levofloxacin (Levaquin 500 Mg Premixed Ivpb -) 500 mg in 100 mls @ 100 mls/hr IVPB DAILY [facility] Last Admin: 08/24/17 10:04 Dose: 100 mls/hr Lactobacillus Acidophilus (Bacid -) 1 tab PO DAILY [facility] Last Admin: 08/24/17 10:03 Dose: 1 tab Levothyroxine Sodium (Synthroid -) 125 mcg PO DAILY@0700 [facility] Last Admin: 08/25/17 06:10 Dose: 125 mcg Loratadine (Claritin -) 10 mg PO DAILY [facility] Last Admin: 08/24/17 10:04 Dose: 10 mg Pantoprazole Sodium (Protonix -) 20 mg PO BID [facility] Last Admin: 08/24/17 21:14 Dose: 20 mg - Objective Vital Signs: Vital Signs Temperature 97.4 F L 08/25/17 07:08 Pulse Rate 82 08/25/17 07:08 Respiratory Rate 18 08/25/17 07:08 Blood Pressure 110/76 08/25/17 07:08 O2 Sat by Pulse Oximetry (%) 95 08/24/17 21:00 Constitutional: Yes: No Distress, Obese Cardiovascular: Yes: Regular Rate and Rhythm, S1, S2 Respiratory: Yes: Rhonchi Gastrointestinal: Yes: Normal Bowel Sounds, Soft, Abdomen, Obese. No: Tenderness Edema: Yes Edema: LLE: 1+, RLE: 1+ Labs: CBC, BMP 08/22/17 06:00 08/24/17 09:56 INR, PTT INR 1.21 (0.82-1.09) H 08/20/17 06:57 Assessment/Plan Fever/ leukocytosis- improved Pneumonia + pneumococcal ag UTI E. coli Cephalosporin allergy Down's Syndrome Hospital Day # 7 Substitute levaquin 500mg po daily x 7d
[2017-08-25] MEDS ORDERED: PT OWN MED DRAWER 7, Y5N ONE (10:36)
[2017-08-25] MEDS: FERROUS SO4 325 MG TABLET (FP) PO SCH (10:43)
[2017-08-25] MEDS: LACTOBACILLUS ACIDOPHILUS 1 EACH TAB (FP) PO SCH (10:43)
[2017-08-25] MEDS: PANTOPRAZOLE 20 MG TABLET (FP) PO SCH (10:43)
[2017-08-25] MEDS: LORATADINE 10 MG TABLET PO SCH (10:43)
[2017-08-25] MEDS: ESCITALOPRAM OXALATE 20 MG TABLET (FP) PO SCH (10:43)
[2017-08-25] MEDS: FLUTICASONE PROP 0.05% 16 GM NASAL SPRAY NS SCH (10:44)
--- NOTE | 2017-08-25 13:48 | DS ---
Physical Exam: SUBJECTIVE: Patient seen and examined at bedside. Breathing is better. sitting comfortably. No complaints. OBJECTIVE: Vital Signs Period Temp Pulse Resp BP Sys/Houser Pulse Ox Last 24 Hr 97.3 F-97.7 F 82-91 18-18 98-110/63-76 95 PHYSICAL EXAM GENERAL: Awake and alert, NAD ENT: moist mucous membranes. LUNGS: coarse breath sounds bilaterally but significantly improved from admission. HEART: RRR, NL S1S2, No m/g/r ABDOMEN: soft, obese, NT EXTREMITIES: no edema. LABS CBC, BMP 08/22/17 06:00 08/24/17 09:56 HOSPITAL COURSE: 47 year old non verbal F from [facility] with PMHx of profound MR, Down's syndrome, CKD (stage 3), COPD (3L home oxygen), PICA, Gerd, OCD, hypothyroidism , non-alcoholic fatty disease, HLD, osteopenia, lactose intolerance, presented on 08/19/17 for agitation and fever of 102.5. CXR findings of LLL infiltrates. Blood and sputum cultures where sent. Patient found to be pneumococcal antigen positive. Patient was started on broad spectrum antibiotics which were then deescalated to Levaquin. She recieved a 6 day course in hospital and will continue LEvaquin 500mg PO for 5 days as per ID recommendations. She was evaluated by speech and swallow and placed on a puree diet with thin liquids. Aspiration precautions as this is a likely reason for continued PNA's. Instructed to continue home meds as previously prescribed. Continue home oxygen with 3L NC. She should follow up with primary doctor in one week. Date of Admission:08/19/17 Date of Discharge: 08/25/17 Minutes to complete discharge: 63 Discharge Summary Reason For Visit: SEPSIS Current Active Problems COPD (chronic obstructive pulmonary disease) (Acute) Sepsis (Acute) Condition: Stable - Instructions Diet, Activity, Other Instructions: You have been treat for Pneumonia You will need to continue antibiotics (Levaquin) for 7 days. Please increase your activity as tolerated You have been evaluated by speech and swallow specialist who recommends pureed diet with thin liquids. You can resume all other home meds as previously directed. Continue with home oxygen. Aspiration precautions, and 1 to 1 feeding. Disposition: LONG TERM FACILITY - Home Medications Comprehensive Discharge Medication List: Ambulatory Orders Budesonide [Pulmicort] 0.5 mg NEB BID 11/28/12 Calcium Carb, Citrate/Vit D3 [Citracal + D ER Tablet] 2 tab PO BID 11/28/12 Escitalopram Oxalate [Lexapro -] 20 mg PO DAILY 11/28/12 Levothyroxine [Synthroid -] 125 mcg PO DAILY 11/28/12 Omeprazole Magnesium [Prilosec (OTC)] 20 mg PO BID 11/28/12 Cholecalciferol (Vitamin D3) [Vitamin D3] 400 unit PO DAILY 06/13/17 Ferrous Sulfate 325 mg PO DAILY 06/13/17 Folic Acid/Mv,Iron,Min/Lutein [Certa Plus Tablet] 1 each PO DAILY 06/13/17 Albuterol 2.5/Ipratropium 0.5 [Duoneb -] 1 neb IH QID PRN #100 vial.neb. Albuterol 0.083% Nebulizer Michelle [Ventolin 0.083% Nebulizer Soln -] 1 neb NEB Q4H PRN 08/20/17 Bacitracin - [Bacitracin Topical Ointment -] 1 applic TP BID 08/20/17 Bisacodyl Suppository [Dulcolax Suppository -] 10 mg RC ASDIR PRN 08/20/17 Fluticasone Prop 0.05% Nasal [Flonase -] 1 - 2 spray NS DAILY 08/20/17 Fluticasone Prop 0.05% Nasal [Flonase -] 1 spray NS DAILY 08/20/17 Ipratropium 0.02% Nebulizer [Atrovent 0.02% Nebulizer -] 1 neb NEB TID 08/20/17 Ipratropium 0.02% Nebulizer [Atrovent 0.02% Nebulizer -] 1 neb NEB TID 08/20/17 Loratadine [Claritin] 10 mg PO DAILY 08/20/17 Loratadine [Claritin] 10 mg PO DAILY 08/20/17 Sodium Chloride [Saline Mist] 2 sprays NS BID 08/20/17 Levofloxacin [Levaquin] 500 mg PO DAILY #7 tablet 08/25/17 Problem List - Problems (1) Sepsis (2) Acute hypoxemic respiratory failure (3) Pneumonia This patient is new to me today: Yes Date on this admission: 08/25/17 Emergency Visit: No Critical Care patient: No - Discharge Referral Referred to [facility] No
--- NOTE | 2017-08-25 14:22 | PN ---
Teaching Attending Note Name of Resident: Gopal Monet ATTENDING PHYSICIAN STATEMENT Time of evaluation: 8:00 AM I saw and evaluated the patient. I reviewed the resident's note and discussed the case with the resident. I agree with the resident's findings and plan as documented. SUBJECTIVE: Patient seen and examined. Looks more comfortable, unable to assess for ROS. OBJECTIVE: Vital Signs Period Temp Pulse Resp BP Sys/Houser Pulse Ox Last 24 Hr 97.3 F-97.7 F 82-91 18-18 98-110/63-76 95 Intake & Output 08/22/17 08/23/17 08/24/17 08/25/17 23:59 23:59 23:59 23:59 Intake Total 1065 1921 1311 350 Balance 1065 1921 1311 350 general: sittting in bed, less rhoncherous Chest: improved air entry, less rhonchi (markedly improved from prior) Home Medication List Medication Instructions Recorded Confirmed Type Budesonide [Pulmicort] 0.5 mg NEB BID 11/28/12 08/20/17 History Calcium Carb, Citrate/Vit D3 2 tab PO BID 11/28/12 08/20/17 History [Citracal + D ER Tablet] Escitalopram Oxalate [Lexapro -] 20 mg PO DAILY 11/28/12 08/20/17 History Levothyroxine [Synthroid -] 125 mcg PO DAILY 11/28/12 08/20/17 History Omeprazole Magnesium [Prilosec 20 mg PO BID 11/28/12 08/20/17 History (OTC)] Cholecalciferol (Vitamin D3) 400 unit PO DAILY 06/13/17 08/20/17 History [Vitamin D3] Ferrous Sulfate 325 mg PO DAILY 06/13/17 08/20/17 History Folic Acid/Mv,Iron,Min/Lutein 1 each PO DAILY 06/13/17 08/20/17 History [Certa Plus Tablet] Albuterol 0.083% Nebulizer Michelle 1 neb NEB Q4H PRN 08/20/17 08/20/17 History [Ventolin 0.083% Nebulizer Soln -] Bacitracin - [Bacitracin Topical 1 applic TP BID 08/20/17 08/20/17 History Ointment -] Bisacodyl Suppository [Dulcolax 10 mg RC ASDIR PRN 08/20/17 08/20/17 History Suppository -] Fluticasone Prop 0.05% Nasal 1 - 2 spray NS DAILY 08/20/17 08/20/17 History [Flonase -] Fluticasone Prop 0.05% Nasal 1 spray NS DAILY 08/20/17 08/20/17 History [Flonase -] Ipratropium 0.02% Nebulizer 1 neb NEB TID 08/20/17 08/20/17 History [Atrovent 0.02% Nebulizer -] Ipratropium 0.02% Nebulizer 1 neb NEB TID 08/20/17 08/20/17 History [Atrovent 0.02% Nebulizer -] Loratadine [Claritin] 10 mg PO DAILY 08/20/17 08/20/17 History Loratadine [Claritin] 10 mg PO DAILY 08/20/17 08/20/17 History Sodium Chloride [Saline Mist] 2 sprays NS BID 08/20/17 08/20/17 History Active Medications Generic Name Dose Route Start Last Admin Trade Name Freq PRN Reason Stop Dose Admin Acetaminophen 650 mg 08/20/17 00:37 08/20/17 04:59 Tylenol Suppository - CA 650 mg Q4H PRN Administration FEVER Albuterol/Ipratropium 1 amp 08/19/17 20:46 08/23/17 21:00 Duoneb - NEB 1 amp Q4H PRN Administration SHORTNESS OF BREATH Budesonide 1 amp 08/21/17 08:00 08/25/17 07:30 Pulmicort 0.5 Mg Nebulizer - NEB 1 amp RBID CARLOS Administration Escitalopram Oxalate 20 mg 08/20/17 15:30 08/25/17 10:43 Lexapro - PO 20 mg DAILY CARLOS Administration Ferrous Sulfate 325 mg 08/20/17 14:30 08/25/17 10:43 Feosol - PO 325 mg DAILY CARLOS Administration Fluticasone Propionate 1 spray 08/20/17 14:30 08/25/17 10:44 Flonase - NS 1 spray DAILY CARLOS Administration Heparin Sodium (Porcine) 5,000 unit 08/20/17 06:00 08/25/17 06:10 Heparin - SQ 5,000 unit TID CARLOS Administration Levofloxacin 500 mg in 100 mls @ 100 mls/hr 08/20/17 14:15 08/25/17 10:43 Levaquin 500 Mg Premixed Ivpb - IVPB 100 mls/hr DAILY CARLOS Administration Lactobacillus Acidophilus 1 tab 08/20/17 15:30 08/25/17 10:43 Bacid - PO 1 tab DAILY CARLOS Administration Levothyroxine Sodium 125 mcg 08/20/17 07:00 08/25/17 06:10 Synthroid - PO 125 mcg DAILY@0700 CARLOS Administration Loratadine 10 mg 08/20/17 15:45 08/25/17 10:43 Claritin - PO 10 mg DAILY CARLOS Administration Pantoprazole Sodium 20 mg 08/20/17 22:00 08/25/17 10:43 Protonix - PO 20 mg BID CARLOS Administration Microbiology 08/19/17 17:50 Blood - Peripheral Venous Blood Culture - Final NO GROWTH AFTER 5 DAYS INCUBATION 08/19/17 17:50 Blood - Peripheral Venous Blood Culture - Final NO GROWTH AFTER 5 DAYS INCUBATION 08/20/17 04:00 Urine - Urine Clean Catch Urine Culture - Final Escherichia Coli 08/21/17 06:55 Nasopharyngeal Swab Influenza Types A,B Antigen (GENESIS) - Preliminary 08/21/17 06:55 Nasopharyngeal Swab - Preliminary 08/20/17 04:00 Urine For Antigen Detection Legionella Antigen - Final 08/20/17 04:00 Urine For Antigen Detection Streptococcus pneumoniae Antigen (M - Final ASSESSMENT AND PLAN: 47 year old non verbal F from [facility] with PMHx of profound MR, Down's syndrome, COPD (3L home oxygen), PICA, Gerd, OCD, hypothyroidism, non-alcoholic fatty disease, HLD, osteopenia, lactose intolerance, recently admitted 06/13- with PNA, likely aspiration readmitted with sepsis, likely from Aspiration PNA, found with abdominal distension. -Sepsis, likely secondary to Aspiration PNA, positive Pneumococcal antigen -Abdominal distension -IRENA, mild resolved -Profound MR/Down's syndrome -?COPD, 3 l oxygen dependent (mainly at nights, with meals and activity -PICA -GERD -OCD -Hypothyroidim -HLD Plan: Improved, ID input noted D/c on additional levaquin for 7 days Dysphagia pureed diet with thin liquids. Discussed with cardroom attendant at bedside.
== END 2017-08-25 17:12 | disposition home or self-care (01) | DRG 871 ==
LOC: JER 15:01 → JERBED 20:05 → J8W 08-20 22:04
PROVIDERS: ADMIT Internal Medicine; ATTEND Hospitalist
DX: A41.9 Sepsis, unspecified organism (principal); J69.0 Pneumonitis due to inhalation of food and vomit; J96.01 Acute respiratory failure with hypoxia; F73 Profound intellectual disabilities; N17.9 Acute kidney failure, unspecified; N39.0 Urinary tract infection, site not specified; Q90.9 Down syndrome, unspecified; N18.3 Chronic kidney disease, stage 3 (moderate); J44.9 Chronic obstructive pulmonary disease, unspecified; D64.9 Anemia, unspecified; E03.9 Hypothyroidism, unspecified; M85.80 Other specified disorders of bone density and structure, unspecified site; K21.9 Gastro-esophageal reflux disease without esophagitis; E78.5 Hyperlipidemia, unspecified; K76.0 Fatty (change of) liver, not elsewhere classified; D72.829 Elevated white blood cell count, unspecified; B96.20 Unspecified Escherichia coli [E. coli] as the cause of diseases classified elsewhere; D53.9 Nutritional anemia, unspecified
CPT/HCPCS: 36415; 36600; 71045-TC-FY; 74190-TC-FY; 74230-TC-FY; 80048; 80053; 81003; 81015; 82607; 82746; 82803; 83605; 83735; 84100; 85025; 85027; 85610; 85730; 87040; 87086; 87186; 87804; 87899; 92611-GN; 93005; 93010; 94640; 97161-GP; 99284-25; G0480; J1644

== ENCOUNTER 2020-10-13 11:49 | Inpatient (IN) | payer OTHER ==
[2020-10-13] MEDS ORDERED: LACTATED RINGERS SOLUTION 1000 ML INFUS.BAG IV ONE (12:25)
[2020-10-13 13:16] VITALS: BMI 33.4
[2020-10-13 13:26] LABS: BASO % 0.7 % (0-2.0); EOS % 1.2 % (0-4.5); HEMATOCRIT 27.5 % (32.4-45.2); HEMOGLOBIN 9.2 GM/dL (10.7-15.3); LYMPH % 12.4 % (8-40); MCH 33.4 pg (25.7-33.7); MCHC 33.5 g/dl (32.0-36.0); MEAN CELL VOLUME 99.6 fl (80-96); MEAN PLT VOLUME 7.2 fl (7.5-11.1); MONO % 5.9 % (3.8-10.2); NEUT % 79.8 % (42.8-82.8); PLATELET COUNT 431 K/MM3 (134-434); RBC 2.76 M/mm3 (3.60-5.2); RDW 18.3 % (11.6-15.6); WHITE BLOOD COUNT 9.8 K/mm3 (4.0-10.0)
[2020-10-13 13:27] LABS: VENOUS BASE EXCESS 5.4 mmol/L (-2-2); VENOUS O2 SATURATION 54.3 % (70-80); VENOUS PH 7.331 (7.310-7.410)
[2020-10-13 13:32] LABS: INR 0.97 (0.83-1.09); PROTHROMBIN TIME (PATIENT) 11.7 SEC (9.7-13.0)
[2020-10-13 13:35] LABS: ACTIVATED PTT 27.4 SECONDS (25.2-36.5)
[2020-10-13 13:48] LABS: CHLORIDE 101 mmol/L (98-107); SODIUM 139 mmol/L (136-145)
[2020-10-13 13:51] LABS: CALCIUM 8.6 mg/dL (8.5-10.1)
[2020-10-13 13:52] LABS: ALBUMIN 2.8 g/dl (3.4-5.0); ANION GAP 2 MMOL/L (8-16); BLOOD UREA NITROGEN 15.9 mg/dL (7-18); CO2 35 mmol/L (21-32); GLUCOSE,RANDOM 108 mg/dL (74-106)
[2020-10-13 13:55] LABS: BILIRUBIN,TOTAL 0.1 mg/dL (0.2-1); CREATININE 1.1 mg/dL (0.55-1.3); SGOT/AST 28 U/L (15-37); SGPT/ALT 86 U/L (13-61)
[2020-10-13 13:57] LABS: ALK PHOS 164 U/L (45-117); LDH 174 U/L (84-246); TOT PROT 6.5 g/dl (6.4-8.2)
[2020-10-13 14:10] LABS: EPI CELLS 3 /uL (0-25.1); HYALINE CASTS 0 /uL (0-3.1); URINE APPEARANCE CLEAR; URINE BACTERIA 3688 /uL (0-1359); URINE BILIRUBIN NEGATIVE (NEGATIVE); URINE COLOR YELLOW; URINE GLUCOSE (UA) NEGATIVE (NEGATIVE); URINE KETONE NEGATIVE (NEGATIVE); URINE LEUK ESTERASE NEGATIVE (NEGATIVE); URINE NITRITE POSITIVE (NEGATIVE); URINE PROTEIN NEGATIVE (NEGATIVE); URINE RBC 1 /uL (0-23.9); URINE UROBILINOGEN 0.2 mg/dL (0.2-1.0); URINE WBC 2 /uL (0-25.8)
[2020-10-13 14:10] LABS: ANISOCYTOSIS 1+; MACROCYTOSIS 1+; PLATELET ESTIMATE NORMAL
[2020-10-13] MEDS ORDERED: NITROFURANTOIN MACROCRYSTAL 50 MG CAPSULE (FP) PO ONE (14:30)
[2020-10-13] MEDS ORDERED: NITROFURANTOIN MACROCRYSTAL 50 MG CAPSULE (FP) ONE (15:19)
[2020-10-13] MEDS ORDERED: ENOXAPARIN NA (PORCINE) 40 MG/0.4 ML DISP.SYRIN SQ ONE (18:11)
[2020-10-13] MEDS: ENOXAPARIN NA (PORCINE) 40 MG/0.4 ML DISP.SYRIN SQ SCH (18:19)
[2020-10-13] MEDS ORDERED: AZTREONAM 1 GM in DEXTROSE 5%-WATER - 50 ML IVPB ONE (18:47)
[2020-10-13] MEDS ORDERED: AZTREONAM 1 GM VIAL (RESTRICTED TO ID) ONE (19:25)
[2020-10-13] MEDS ORDERED: LUTEIN PO SCH (22:00)
[2020-10-13] MEDS ORDERED: VIT D3 PO SCH (22:00)
[2020-10-13] MEDS ORDERED: CALCIUM CARB CITRATE PO SCH (22:00)
[2020-10-13] MEDS ORDERED: MV IRON MIN PO SCH (22:00)
[2020-10-13] MEDS ORDERED: [UNRECOGNIZED DRUG - OTHER] PO SCH (22:00)
[2020-10-13] MEDS ORDERED: [UNRECOGNIZED DRUG - OTHER] PO SCH (22:00)
[2020-10-13] MEDS ORDERED: FOLIC ACID PO SCH (22:00)
[2020-10-14] MEDS: ESCITALOPRAM OXALATE 20 MG TABLET PO SCH ×2 (02:48→12:46)
[2020-10-14] MEDS: DOCUSATE SODIUM 100 MG CAPSULE (FP) PO SCH ×3 (02:49→22:43)
[2020-10-14] MEDS: CALCIUM 500MG/VIT-D 200 UNITS COMBO TABLET (FP) PO SCH ×3 (02:56→22:42)
[2020-10-14] MEDS: FAMOTIDINE 20 MG TABLET PO SCH ×3 (02:57→22:43)
[2020-10-14] MEDS: MULTIVITAMINS (DAILY MVI) TABLET (FP) PO SCH ×2 (02:57→22:43)
[2020-10-14] MEDS: SENNOSIDES 8.6MG TABLET (FP) PO SCH ×4 (02:57→22:43)
[2020-10-14 06:03] LABS: ARTERIAL BLD GAS O2 SATURATION 94.9 mmHg (95-98); ARTERIAL BLOOD GAS BASE EXCESS 4.7 mmol/L (-2-2); ARTERIAL BLOOD GAS PO2 73.6 mmHg (80-100); ARTERIAL BLOOD GAS pH 7.416 (7.350-7.450)
[2020-10-14 06:04] LABS: ALLENS TEST POSITIVE
[2020-10-14] MEDS: LEVOTHYROXINE 100 MCG, LEVOTHYROXINE 75 MCG PO SCH (06:29)
[2020-10-14 08:20] LABS: HEMATOCRIT 26.2 % (32.4-45.2); HEMOGLOBIN 8.7 GM/dL (10.7-15.3); MCH 32.8 pg (25.7-33.7); MCHC 33.4 g/dl (32.0-36.0); MEAN CELL VOLUME 98.1 fl (80-96); MEAN PLT VOLUME 7.4 fl (7.5-11.1); PLATELET COUNT 475 K/MM3 (134-434); RBC 2.67 M/mm3 (3.60-5.2); RDW 17.9 % (11.6-15.6); WHITE BLOOD COUNT 12.9 K/mm3 (4.0-10.0)
[2020-10-14 08:38] LABS: CALCIUM 8.7 mg/dL (8.5-10.1)
[2020-10-14 08:40] LABS: ALBUMIN 2.9 g/dl (3.4-5.0); BLOOD UREA NITROGEN 15.2 mg/dL (7-18); MAGNESIUM 2.4 mg/dL (1.8-2.4)
[2020-10-14 08:41] LABS: BILIRUBIN,TOTAL 0.2 mg/dL (0.2-1); TOT PROT 6.8 g/dl (6.4-8.2)
[2020-10-14] MEDS ORDERED: LEVOTHYROXINE NA 125 MCG TABLET (FP) PO SCH (10:00)
[2020-10-14] MEDS: ENOXAPARIN NA (PORCINE) 40 MG/0.4 ML DISP.SYRIN SQ SCH (10:57)
[2020-10-14] MEDS ORDERED: ESCITALOPRAM OXALATE 10 MG TABLET ONE (12:34)
[2020-10-14] MEDS: FERROUS SO4 325 MG TABLET (FP) PO SCH (12:47)
[2020-10-14] MEDS: CHOLECALCIFEROL (VIT D3) 400 UNIT (10 MCG) TABLET PO SCH (12:50)
[2020-10-14] MEDS: VANCOMYCIN 1 GRAM (PRE-DOCKED) 1,000 MG/250 ML BAG IVPB SCH (20:16)
[2020-10-14] MEDS ORDERED: ALBUTEROL SO4 2.5/IPRATROPIUM 0.5 INH SOL 3 ML VIAL.NEB. NEB ONE (22:04)
[2020-10-15] MEDS ORDERED: ACETAMINOPHEN 1000 MG/100 ML VIAL (NON FORMULARY) IVPB ONE (01:48)
[2020-10-15] MEDS ORDERED: AZTREONAM 1 GM VIAL (RESTRICTED TO ID) ONE ×3 (02:20→17:58)
[2020-10-15] MEDS ORDERED: DEXTROSE 5%-WATER - 50 ML IVPB ONE ×3 (02:21→17:58)
[2020-10-15] MEDS: AZTREONAM 1 GM in DEXTROSE 5%-WATER - 50 ML IVPB SCH ×3 (02:25→18:05)
[2020-10-15] MEDS: VANCOMYCIN 1 GRAM (PRE-DOCKED) 1,000 MG/250 ML BAG IVPB SCH ×2 (06:07→19:26)
[2020-10-15] MEDS ORDERED: LEVOTHYROXINE NA 100 MCG TABLET (FP) ONE (06:10)
[2020-10-15] MEDS ORDERED: LEVOTHYROXINE NA 75 MCG TABLET (FP) ONE (06:10)
[2020-10-15] MEDS: LEVOTHYROXINE 100 MCG, LEVOTHYROXINE 75 MCG PO SCH (06:12)
[2020-10-15] MEDS ORDERED: ESCITALOPRAM OXALATE 10 MG TABLET ONE (08:21)
[2020-10-15 08:31] LABS: BASO % 0.4 % (0-2.0); EOS % 0.1 % (0-4.5); HEMATOCRIT 27.7 % (32.4-45.2); HEMOGLOBIN 9.1 GM/dL (10.7-15.3); MCH 32.6 pg (25.7-33.7); MEAN CELL VOLUME 98.9 fl (80-96); MEAN PLT VOLUME 7.2 fl (7.5-11.1); MONO % 4.4 % (3.8-10.2); NEUT % 89.1 % (42.8-82.8); PLATELET COUNT 471 K/MM3 (134-434); RDW 17.8 % (11.6-15.6); WHITE BLOOD COUNT 19.1 K/mm3 (4.0-10.0)
[2020-10-15 08:43] LABS: ALBUMIN 2.9 g/dl (3.4-5.0)
[2020-10-15 08:44] LABS: BLOOD UREA NITROGEN 16.1 mg/dL (7-18); CALCIUM 8.4 mg/dL (8.5-10.1); MAGNESIUM 2.5 mg/dL (1.8-2.4)
[2020-10-15 08:46] LABS: CREATININE 1.2 mg/dL (0.55-1.3); PHOSPHOROUS 3.9 mg/dL (2.5-4.9)
[2020-10-15 08:47] LABS: BILIRUBIN,TOTAL 0.3 mg/dL (0.2-1); TOT PROT 6.6 g/dl (6.4-8.2)
[2020-10-15] MEDS: ENOXAPARIN NA (PORCINE) 40 MG/0.4 ML DISP.SYRIN SQ SCH (10:22)
[2020-10-15] MEDS: ESCITALOPRAM OXALATE 20 MG TABLET PO SCH (10:22)
[2020-10-15] MEDS: CALCIUM 500MG/VIT-D 200 UNITS COMBO TABLET (FP) PO SCH ×2 (10:22→22:35)
[2020-10-15] MEDS: DOCUSATE SODIUM 100 MG CAPSULE (FP) PO SCH ×2 (10:22→22:34)
[2020-10-15] MEDS: FAMOTIDINE 20 MG TABLET PO SCH ×2 (10:22→22:34)
[2020-10-15] MEDS: CHOLECALCIFEROL (VIT D3) 400 UNIT (10 MCG) TABLET PO SCH (10:22)
[2020-10-15] MEDS: SENNOSIDES 8.6MG TABLET (FP) PO SCH ×2 (10:22→22:34)
[2020-10-15] MEDS: FERROUS SO4 325 MG TABLET (FP) PO SCH (10:22)
[2020-10-15] MEDS: methylPREDNISolone NA SUCC 40 MG/1 ML VIAL IVPUSH SCH ×2 (12:42→23:27)
[2020-10-15] MEDS: MULTIVITAMINS (DAILY MVI) TABLET (FP) PO SCH (22:34)
[2020-10-16] MEDS ORDERED: AZTREONAM 1 GM VIAL (RESTRICTED TO ID) ONE ×3 (01:09→17:14)
[2020-10-16] MEDS ORDERED: DEXTROSE 5%-WATER - 50 ML IVPB ONE ×3 (01:09→17:14)
[2020-10-16] MEDS: AZTREONAM 1 GM in DEXTROSE 5%-WATER - 50 ML IVPB SCH ×3 (01:17→17:34)
[2020-10-16] MEDS ORDERED: LEVOTHYROXINE NA 100 MCG TABLET (FP) ONE (06:29)
[2020-10-16] MEDS ORDERED: LEVOTHYROXINE NA 75 MCG TABLET (FP) ONE (06:30)
[2020-10-16] MEDS: LEVOTHYROXINE 100 MCG, LEVOTHYROXINE 75 MCG PO SCH (06:36)
[2020-10-16] MEDS: VANCOMYCIN 1 GRAM (PRE-DOCKED) 1,000 MG/250 ML BAG IVPB SCH ×2 (06:36→19:08)
[2020-10-16] MEDS ORDERED: ESCITALOPRAM OXALATE 10 MG TABLET ONE (10:20)
[2020-10-16] MEDS: ENOXAPARIN NA (PORCINE) 40 MG/0.4 ML DISP.SYRIN SQ SCH (10:40)
[2020-10-16] MEDS: CALCIUM 500MG/VIT-D 200 UNITS COMBO TABLET (FP) PO SCH ×2 (10:41→21:45)
[2020-10-16] MEDS: ESCITALOPRAM OXALATE 20 MG TABLET PO SCH (10:41)
[2020-10-16] MEDS: FERROUS SO4 325 MG TABLET (FP) PO SCH (10:41)
[2020-10-16] MEDS: DOCUSATE SODIUM 100 MG CAPSULE (FP) PO SCH ×2 (10:41→21:45)
[2020-10-16] MEDS: CHOLECALCIFEROL (VIT D3) 400 UNIT (10 MCG) TABLET PO SCH (10:41)
[2020-10-16] MEDS: SENNOSIDES 8.6MG TABLET (FP) PO SCH ×2 (10:42→21:45)
[2020-10-16] MEDS: FAMOTIDINE 20 MG TABLET PO SCH ×2 (10:42→21:45)
[2020-10-16] MEDS: methylPREDNISolone NA SUCC 40 MG/1 ML VIAL IVPUSH SCH (12:11)
[2020-10-16] MEDS: MULTIVITAMINS (DAILY MVI) TABLET (FP) PO SCH (21:45)
[2020-10-17] MEDS ORDERED: AZTREONAM 1 GM VIAL (RESTRICTED TO ID) ONE ×3 (00:06→17:13)
[2020-10-17] MEDS ORDERED: DEXTROSE 5%-WATER - 50 ML IVPB ONE ×3 (00:07→17:13)
[2020-10-17] MEDS: methylPREDNISolone NA SUCC 40 MG/1 ML VIAL IVPUSH SCH ×2 (00:16→13:03)
[2020-10-17] MEDS: AZTREONAM 1 GM in DEXTROSE 5%-WATER - 50 ML IVPB SCH ×3 (01:35→17:17)
[2020-10-17] MEDS ORDERED: LEVOTHYROXINE NA 100 MCG TABLET (FP) ONE (05:42)
[2020-10-17] MEDS ORDERED: LEVOTHYROXINE NA 75 MCG TABLET (FP) ONE (05:42)
[2020-10-17] MEDS: LEVOTHYROXINE 100 MCG, LEVOTHYROXINE 75 MCG PO SCH (06:23)
[2020-10-17] MEDS: VANCOMYCIN 1 GRAM (PRE-DOCKED) 1,000 MG/250 ML BAG IVPB SCH ×2 (06:23→18:12)
[2020-10-17 07:56] LABS: BASO % 0.3 % (0-2.0); HEMATOCRIT 27.8 % (32.4-45.2); HEMOGLOBIN 9.2 GM/dL (10.7-15.3); LYMPH % 8.9 % (8-40); MCH 32.6 pg (25.7-33.7); MEAN CELL VOLUME 98.9 fl (80-96); MEAN PLT VOLUME 7.8 fl (7.5-11.1); NEUT % 86.8 % (42.8-82.8); PLATELET COUNT 449 K/MM3 (134-434); RBC 2.82 M/mm3 (3.60-5.2); RDW 17.3 % (11.6-15.6); WHITE BLOOD COUNT 17.6 K/mm3 (4.0-10.0)
[2020-10-17 08:18] LABS: ALBUMIN 2.8 g/dl (3.4-5.0); BLOOD UREA NITROGEN 17.3 mg/dL (7-18); CALCIUM 9.1 mg/dL (8.5-10.1)
[2020-10-17 08:19] LABS: MAGNESIUM 2.6 mg/dL (1.8-2.4)
[2020-10-17 08:21] LABS: CREATININE 1.1 mg/dL (0.55-1.3); PHOSPHOROUS 4.6 mg/dL (2.5-4.9)
[2020-10-17 08:23] LABS: BILIRUBIN,TOTAL 0.2 mg/dL (0.2-1); TOT PROT 6.7 g/dl (6.4-8.2)
[2020-10-17] MEDS ORDERED: ESCITALOPRAM OXALATE 10 MG TABLET ONE (08:25)
[2020-10-17] MEDS: ENOXAPARIN NA (PORCINE) 40 MG/0.4 ML DISP.SYRIN SQ SCH (09:47)
[2020-10-17] MEDS: FERROUS SO4 325 MG TABLET (FP) PO SCH (09:47)
[2020-10-17] MEDS: SENNOSIDES 8.6MG TABLET (FP) PO SCH ×2 (09:47→21:29)
[2020-10-17] MEDS: CALCIUM 500MG/VIT-D 200 UNITS COMBO TABLET (FP) PO SCH ×2 (09:47→21:29)
[2020-10-17] MEDS: FAMOTIDINE 20 MG TABLET PO SCH ×2 (09:47→21:29)
[2020-10-17] MEDS: CHOLECALCIFEROL (VIT D3) 400 UNIT (10 MCG) TABLET PO SCH (09:47)
[2020-10-17] MEDS: ESCITALOPRAM OXALATE 20 MG TABLET PO SCH (09:47)
[2020-10-17] MEDS: DOCUSATE SODIUM 100 MG CAPSULE (FP) PO SCH ×2 (09:48→21:29)
[2020-10-17 12:11] LABS: ANISOCYTOSIS 1+; MACROCYTOSIS 1+; PLATELET ESTIMATE INCREASED
[2020-10-17] MEDS: MULTIVITAMINS (DAILY MVI) TABLET (FP) PO SCH (21:29)
[2020-10-18] MEDS ORDERED: DEXTROSE 5%-WATER - 50 ML IVPB ONE ×3 (01:02→16:56)
[2020-10-18] MEDS ORDERED: AZTREONAM 1 GM VIAL (RESTRICTED TO ID) ONE ×3 (01:02→16:55)
[2020-10-18] MEDS: AZTREONAM 1 GM in DEXTROSE 5%-WATER - 50 ML IVPB SCH ×3 (01:12→18:04)
[2020-10-18] MEDS: methylPREDNISolone NA SUCC 40 MG/1 ML VIAL IVPUSH SCH ×3 (01:12→18:05)
[2020-10-18] MEDS ORDERED: LEVOTHYROXINE NA 100 MCG TABLET (FP) ONE (05:23)
[2020-10-18] MEDS ORDERED: LEVOTHYROXINE NA 75 MCG TABLET (FP) ONE (05:24)
[2020-10-18] MEDS: VANCOMYCIN 1 GRAM (PRE-DOCKED) 1,000 MG/250 ML BAG IVPB SCH ×2 (06:28→18:43)
[2020-10-18] MEDS: LEVOTHYROXINE 100 MCG, LEVOTHYROXINE 75 MCG PO SCH (06:29)
[2020-10-18 07:42] LABS: BASO % 0.3 % (0-2.0); HEMATOCRIT 28.2 % (32.4-45.2); HEMOGLOBIN 9.5 GM/dL (10.7-15.3); LYMPH % 8.3 % (8-40); MCH 32.6 pg (25.7-33.7); MCHC 33.6 g/dl (32.0-36.0); MEAN PLT VOLUME 7.5 fl (7.5-11.1); MONO % 3.9 % (3.8-10.2); NEUT % 87.5 % (42.8-82.8); PLATELET COUNT 508 K/MM3 (134-434); RBC 2.91 M/mm3 (3.60-5.2); RDW 17.4 % (11.6-15.6); WHITE BLOOD COUNT 17.7 K/mm3 (4.0-10.0)
[2020-10-18 08:02] LABS: ALBUMIN 2.9 g/dl (3.4-5.0); BLOOD UREA NITROGEN 20.7 mg/dL (7-18); MAGNESIUM 2.6 mg/dL (1.8-2.4)
[2020-10-18 08:05] LABS: PHOSPHOROUS 5.1 mg/dL (2.5-4.9)
[2020-10-18 08:06] LABS: BILIRUBIN,TOTAL 0.4 mg/dL (0.2-1); TOT PROT 6.9 g/dl (6.4-8.2)
[2020-10-18] MEDS ORDERED: PT OWN MED DRAWER 7, Y5N ONE ×2 (09:21→09:23)
[2020-10-18] MEDS: DOCUSATE SODIUM 100 MG CAPSULE (FP) PO SCH ×2 (09:59→22:01)
[2020-10-18] MEDS: FAMOTIDINE 20 MG TABLET PO SCH ×2 (10:00→22:01)
[2020-10-18] MEDS: CHOLECALCIFEROL (VIT D3) 400 UNIT (10 MCG) TABLET PO SCH (10:00)
[2020-10-18] MEDS: ENOXAPARIN NA (PORCINE) 40 MG/0.4 ML DISP.SYRIN SQ SCH (10:00)
[2020-10-18] MEDS: ESCITALOPRAM OXALATE 20 MG TABLET PO SCH (10:00)
[2020-10-18] MEDS: CALCIUM 500MG/VIT-D 200 UNITS COMBO TABLET (FP) PO SCH ×2 (10:00→22:01)
[2020-10-18] MEDS: SENNOSIDES 8.6MG TABLET (FP) PO SCH ×2 (10:00→22:01)
[2020-10-18] MEDS: FERROUS SO4 325 MG TABLET (FP) PO SCH (10:00)
[2020-10-18 10:07] LABS: ANISOCYTOSIS 0; MACROCYTOSIS 0; PLATELET ESTIMATE INCREASED
[2020-10-18] MEDS: MULTIVITAMINS (DAILY MVI) TABLET (FP) PO SCH (22:01)
[2020-10-19] MEDS ORDERED: AZTREONAM 1 GM VIAL (RESTRICTED TO ID) ONE ×2 (01:22→10:13)
[2020-10-19] MEDS ORDERED: DEXTROSE 5%-WATER - 50 ML IVPB ONE ×2 (01:22→10:13)
[2020-10-19] MEDS: AZTREONAM 1 GM in DEXTROSE 5%-WATER - 50 ML IVPB SCH ×2 (02:01→10:24)
[2020-10-19] MEDS: methylPREDNISolone NA SUCC 40 MG/1 ML VIAL IVPUSH SCH ×3 (02:02→17:30)
[2020-10-19] MEDS ORDERED: LEVOTHYROXINE NA 75 MCG TABLET (FP) ONE (05:51)
[2020-10-19] MEDS ORDERED: LEVOTHYROXINE NA 100 MCG TABLET (FP) ONE (05:51)
[2020-10-19] MEDS: LEVOTHYROXINE 100 MCG, LEVOTHYROXINE 75 MCG PO SCH (06:54)
[2020-10-19 07:26] LABS: BASO % 0.1 % (0-2.0); HEMATOCRIT 30.2 % (32.4-45.2); HEMOGLOBIN 9.9 GM/dL (10.7-15.3); LYMPH % 9.4 % (8-40); MCH 32.1 pg (25.7-33.7); MEAN CELL VOLUME 97.5 fl (80-96); MEAN PLT VOLUME 7.8 fl (7.5-11.1); MONO % 3.6 % (3.8-10.2); NEUT % 86.9 % (42.8-82.8); PLATELET COUNT 522 K/MM3 (134-434); RDW 17.8 % (11.6-15.6); WHITE BLOOD COUNT 18.9 K/mm3 (4.0-10.0)
[2020-10-19 07:58] LABS: BLOOD UREA NITROGEN 23.2 mg/dL (7-18)
[2020-10-19 07:59] LABS: CALCIUM 9.6 mg/dL (8.5-10.1)
[2020-10-19 08:00] LABS: MAGNESIUM 2.7 mg/dL (1.8-2.4)
[2020-10-19 08:02] LABS: CREATININE 1.1 mg/dL (0.55-1.3); PHOSPHOROUS 6.1 mg/dL (2.5-4.9)
[2020-10-19 08:03] LABS: BILIRUBIN,TOTAL 0.2 mg/dL (0.2-1)
[2020-10-19 09:14] LABS: ANISOCYTOSIS 1+; MACROCYTOSIS 1+; PLATELET ESTIMATE INCREASED
[2020-10-19] MEDS ORDERED: ESCITALOPRAM OXALATE 10 MG TABLET ONE (10:14)
[2020-10-19] MEDS: DOCUSATE SODIUM 100 MG CAPSULE (FP) PO SCH ×2 (10:23→21:13)
[2020-10-19] MEDS: ENOXAPARIN NA (PORCINE) 40 MG/0.4 ML DISP.SYRIN SQ SCH (10:24)
[2020-10-19] MEDS: ESCITALOPRAM OXALATE 20 MG TABLET PO SCH (10:24)
[2020-10-19] MEDS: CHOLECALCIFEROL (VIT D3) 400 UNIT (10 MCG) TABLET PO SCH (10:25)
[2020-10-19] MEDS: FAMOTIDINE 20 MG TABLET PO SCH ×2 (10:25→21:13)
[2020-10-19] MEDS: FERROUS SO4 325 MG TABLET (FP) PO SCH (10:25)
[2020-10-19] MEDS: CALCIUM 500MG/VIT-D 200 UNITS COMBO TABLET (FP) PO SCH (10:25)
[2020-10-19] MEDS: SENNOSIDES 8.6MG TABLET (FP) PO SCH ×2 (10:25→21:13)
[2020-10-19] MEDS ORDERED: VANCOMYCIN 1 GRAM (PRE-DOCKED) 1,000 MG/250 ML BAG IVPB SCH (16:00)
[2020-10-19] MEDS: MULTIVITAMINS (DAILY MVI) TABLET (FP) PO SCH (21:13)
[2020-10-20] MEDS: methylPREDNISolone NA SUCC 40 MG/1 ML VIAL IVPUSH SCH ×3 (01:22→17:31)
[2020-10-20] MEDS ORDERED: LEVOTHYROXINE NA 100 MCG TABLET (FP) ONE (04:57)
[2020-10-20] MEDS ORDERED: LEVOTHYROXINE NA 75 MCG TABLET (FP) ONE (04:57)
[2020-10-20] MEDS: LEVOTHYROXINE 100 MCG, LEVOTHYROXINE 75 MCG PO SCH (06:03)
[2020-10-20 07:23] LABS: BASO % 0.6 % (0-2.0); HEMATOCRIT 30.5 % (32.4-45.2); HEMOGLOBIN 10.2 GM/dL (10.7-15.3); LYMPH % 7.8 % (8-40); MCHC 33.5 g/dl (32.0-36.0); MEAN CELL VOLUME 98.4 fl (80-96); MEAN PLT VOLUME 8.6 fl (7.5-11.1); MONO % 3.1 % (3.8-10.2); NEUT % 88.5 % (42.8-82.8); PLATELET COUNT 517 K/MM3 (134-434); RDW 17.8 % (11.6-15.6); WHITE BLOOD COUNT 19.6 K/mm3 (4.0-10.0)
[2020-10-20 07:49] LABS: ALBUMIN 3.2 g/dl (3.4-5.0); BLOOD UREA NITROGEN 25.6 mg/dL (7-18)
[2020-10-20 07:50] LABS: BILIRUBIN,TOTAL 0.2 mg/dL (0.2-1); TOT PROT 7.1 g/dl (6.4-8.2)
[2020-10-20 07:52] LABS: CREATININE 1.1 mg/dL (0.55-1.3); MAGNESIUM 2.6 mg/dL (1.8-2.4); PHOSPHOROUS 5.5 mg/dL (2.5-4.9)
[2020-10-20] MEDS: ENOXAPARIN NA (PORCINE) 40 MG/0.4 ML DISP.SYRIN SQ SCH (09:48)
[2020-10-20] MEDS: ESCITALOPRAM OXALATE 20 MG TABLET PO SCH (09:49)
[2020-10-20] MEDS: SENNOSIDES 8.6MG TABLET (FP) PO SCH ×2 (09:49→23:11)
[2020-10-20] MEDS: DOCUSATE SODIUM 100 MG CAPSULE (FP) PO SCH ×2 (09:49→23:11)
[2020-10-20] MEDS: FAMOTIDINE 20 MG TABLET PO SCH ×2 (09:49→23:11)
[2020-10-20] MEDS: FERROUS SO4 325 MG TABLET (FP) PO SCH (09:49)
[2020-10-20] MEDS: CHOLECALCIFEROL (VIT D3) 400 UNIT (10 MCG) TABLET PO SCH (09:49)
[2020-10-20 10:26] LABS: ANISOCYTOSIS 1+; MACROCYTOSIS 1+; PLATELET ESTIMATE INCREASED
[2020-10-20] MEDS: VANCOMYCIN 1 GRAM (PRE-DOCKED) 1,000 MG/250 ML BAG IVPB SCH (12:00)
[2020-10-20] MEDS: MULTIVITAMINS (DAILY MVI) TABLET (FP) PO SCH (23:11)
[2020-10-21] MEDS: methylPREDNISolone NA SUCC 40 MG/1 ML VIAL IVPUSH SCH ×3 (03:05→17:20)
[2020-10-21] MEDS ORDERED: LEVOTHYROXINE NA 100 MCG TABLET (FP) ONE (07:02)
[2020-10-21] MEDS ORDERED: LEVOTHYROXINE NA 75 MCG TABLET (FP) ONE (07:02)
[2020-10-21] MEDS: LEVOTHYROXINE 100 MCG, LEVOTHYROXINE 75 MCG PO SCH (07:05)
[2020-10-21] MEDS: ENOXAPARIN NA (PORCINE) 40 MG/0.4 ML DISP.SYRIN SQ SCH (09:01)
[2020-10-21] MEDS: FERROUS SO4 325 MG TABLET (FP) PO SCH (09:02)
[2020-10-21] MEDS: ESCITALOPRAM OXALATE 20 MG TABLET PO SCH (09:02)
[2020-10-21] MEDS: SENNOSIDES 8.6MG TABLET (FP) PO SCH ×2 (09:03→21:18)
[2020-10-21] MEDS: CHOLECALCIFEROL (VIT D3) 400 UNIT (10 MCG) TABLET PO SCH (09:03)
[2020-10-21] MEDS: DOCUSATE SODIUM 100 MG CAPSULE (FP) PO SCH ×2 (09:03→21:18)
[2020-10-21] MEDS: FAMOTIDINE 20 MG TABLET PO SCH ×2 (09:03→21:18)
[2020-10-21 09:27] LABS: BASO % 0.3 % (0-2.0); HEMATOCRIT 31.8 % (32.4-45.2); HEMOGLOBIN 10.2 GM/dL (10.7-15.3); LYMPH % 6.3 % (8-40); MEAN CELL VOLUME 99.9 fl (80-96); MEAN PLT VOLUME 7.8 fl (7.5-11.1); MONO % 3.7 % (3.8-10.2); NEUT % 89.7 % (42.8-82.8); PLATELET COUNT 485 K/MM3 (134-434); RBC 3.19 M/mm3 (3.60-5.2); WHITE BLOOD COUNT 18.7 K/mm3 (4.0-10.0)
[2020-10-21 10:13] LABS: ALBUMIN 3.1 g/dl (3.4-5.0); BLOOD UREA NITROGEN 26.5 mg/dL (7-18)
[2020-10-21 10:16] LABS: CALCIUM 8.7 mg/dL (8.5-10.1)
[2020-10-21 10:17] LABS: MAGNESIUM 2.8 mg/dL (1.8-2.4)
[2020-10-21 10:20] LABS: BILIRUBIN,TOTAL 0.2 mg/dL (0.2-1); PHOSPHOROUS 4.4 mg/dL (2.5-4.9)
[2020-10-21 10:21] LABS: TOT PROT 7.1 g/dl (6.4-8.2)
[2020-10-21 11:41] LABS: ANISOCYTOSIS 0; MACROCYTOSIS 2+; PLATELET ESTIMATE NORMAL
[2020-10-21] MEDS: VANCOMYCIN 1 GRAM (PRE-DOCKED) 1,000 MG/250 ML BAG IVPB SCH (12:48)
[2020-10-21] MEDS: MULTIVITAMINS (DAILY MVI) TABLET (FP) PO SCH (21:18)
[2020-10-22] MEDS: methylPREDNISolone NA SUCC 40 MG/1 ML VIAL IVPUSH SCH ×3 (03:08→17:06)
[2020-10-22] MEDS ORDERED: LEVOTHYROXINE NA 75 MCG TABLET (FP) ONE (05:02)
[2020-10-22] MEDS ORDERED: LEVOTHYROXINE NA 100 MCG TABLET (FP) ONE (05:02)
[2020-10-22] MEDS: LEVOTHYROXINE 100 MCG, LEVOTHYROXINE 75 MCG PO SCH (06:19)
[2020-10-22 08:08] LABS: BASO % 0.5 % (0-2.0); HEMATOCRIT 33.6 % (32.4-45.2); HEMOGLOBIN 10.9 GM/dL (10.7-15.3); LYMPH % 6.5 % (8-40); MCH 32.7 pg (25.7-33.7); MCHC 32.3 g/dl (32.0-36.0); MEAN CELL VOLUME 101.2 fl (80-96); MEAN PLT VOLUME 9.1 fl (7.5-11.1); PLATELET COUNT 395 K/MM3 (134-434); RBC 3.32 M/mm3 (3.60-5.2); RDW 17.7 % (11.6-15.6); WHITE BLOOD COUNT 17.9 K/mm3 (4.0-10.0)
[2020-10-22 08:10] LABS: CALCIUM 8.6 mg/dL (8.5-10.1)
[2020-10-22 08:11] LABS: ALBUMIN 2.9 g/dl (3.4-5.0); BLOOD UREA NITROGEN 23.3 mg/dL (7-18)
[2020-10-22 08:14] LABS: CREATININE 0.9 mg/dL (0.55-1.3)
[2020-10-22 08:16] LABS: BILIRUBIN,TOTAL 0.2 mg/dL (0.2-1); TOT PROT 6.8 g/dl (6.4-8.2)
[2020-10-22] MEDS: ESCITALOPRAM OXALATE 20 MG TABLET PO SCH (10:03)
[2020-10-22] MEDS: SENNOSIDES 8.6MG TABLET (FP) PO SCH ×2 (10:03→21:36)
[2020-10-22] MEDS: FERROUS SO4 325 MG TABLET (FP) PO SCH (10:03)
[2020-10-22] MEDS: CHOLECALCIFEROL (VIT D3) 400 UNIT (10 MCG) TABLET PO SCH (10:04)
[2020-10-22] MEDS: FAMOTIDINE 20 MG TABLET PO SCH ×2 (10:04→21:36)
[2020-10-22] MEDS: DOCUSATE SODIUM 100 MG CAPSULE (FP) PO SCH ×2 (10:04→21:36)
[2020-10-22] MEDS: ENOXAPARIN NA (PORCINE) 40 MG/0.4 ML DISP.SYRIN SQ SCH (10:04)
[2020-10-22 10:13] LABS: ANISOCYTOSIS 1+; MACROCYTOSIS 2+; PLATELET ESTIMATE NORMAL
[2020-10-22] MEDS: VANCOMYCIN 1 GRAM (PRE-DOCKED) 1,000 MG/250 ML BAG IVPB SCH (13:00)
[2020-10-22] MEDS: MULTIVITAMINS (DAILY MVI) TABLET (FP) PO SCH (21:36)
[2020-10-23] MEDS: methylPREDNISolone NA SUCC 40 MG/1 ML VIAL IVPUSH SCH ×3 (01:09→22:36)
[2020-10-23] MEDS ORDERED: LEVOTHYROXINE NA 100 MCG TABLET (FP) ONE (05:16)
[2020-10-23] MEDS ORDERED: LEVOTHYROXINE NA 75 MCG TABLET (FP) ONE (05:16)
[2020-10-23] MEDS: LEVOTHYROXINE 100 MCG, LEVOTHYROXINE 75 MCG PO SCH (06:55)
[2020-10-23] MEDS: ENOXAPARIN NA (PORCINE) 40 MG/0.4 ML DISP.SYRIN SQ SCH (09:36)
[2020-10-23] MEDS: FAMOTIDINE 20 MG TABLET PO SCH ×2 (09:37→22:36)
[2020-10-23] MEDS: FERROUS SO4 325 MG TABLET (FP) PO SCH (09:37)
[2020-10-23] MEDS: SENNOSIDES 8.6MG TABLET (FP) PO SCH ×2 (09:37→22:36)
[2020-10-23] MEDS: ESCITALOPRAM OXALATE 20 MG TABLET PO SCH (09:38)
[2020-10-23] MEDS: CHOLECALCIFEROL (VIT D3) 400 UNIT (10 MCG) TABLET PO SCH (09:38)
[2020-10-23] MEDS: DOCUSATE SODIUM 100 MG CAPSULE (FP) PO SCH ×2 (09:38→22:36)
[2020-10-23 10:45] LABS: HEMATOCRIT 33.2 % (32.4-45.2); HEMOGLOBIN 11.1 GM/dL (10.7-15.3); MCHC 33.3 g/dl (32.0-36.0); MEAN CELL VOLUME 99.1 fl (80-96); PLATELET COUNT 509 K/MM3 (134-434); RBC 3.36 M/mm3 (3.60-5.2); RDW 18.3 % (11.6-15.6); WHITE BLOOD COUNT 17.8 K/mm3 (4.0-10.0)
[2020-10-23 11:05] LABS: CALCIUM 8.4 mg/dL (8.5-10.1)
[2020-10-23 11:06] LABS: BLOOD UREA NITROGEN 25.6 mg/dL (7-18)
[2020-10-23] MEDS: VANCOMYCIN 1 GRAM (PRE-DOCKED) 1,000 MG/250 ML BAG IVPB SCH (11:07)
[2020-10-23] MEDS: ALBUTEROL SO4 2.5/IPRATROPIUM 0.5 INH SOL 3 ML VIAL.NEB. NEB SCH ×2 (15:55→20:27)
[2020-10-23] MEDS: MULTIVITAMINS (DAILY MVI) TABLET (FP) PO SCH (22:36)
[2020-10-24] MEDS ORDERED: LEVOTHYROXINE NA 100 MCG TABLET (FP) ONE (06:21)
[2020-10-24] MEDS ORDERED: LEVOTHYROXINE NA 75 MCG TABLET (FP) ONE (06:21)
[2020-10-24 07:14] LABS: BASO % 0.4 % (0-2.0); HEMATOCRIT 32.6 % (32.4-45.2); HEMOGLOBIN 10.8 GM/dL (10.7-15.3); LYMPH % 7.2 % (8-40); MCH 32.9 pg (25.7-33.7); MCHC 33.2 g/dl (32.0-36.0); MEAN CELL VOLUME 99.2 fl (80-96); MEAN PLT VOLUME 7.9 fl (7.5-11.1); MONO % 3.1 % (3.8-10.2); NEUT % 89.3 % (42.8-82.8); PLATELET COUNT 502 K/MM3 (134-434); RBC 3.29 M/mm3 (3.60-5.2); RDW 19.1 % (11.6-15.6); WHITE BLOOD COUNT 15.3 K/mm3 (4.0-10.0)
[2020-10-24 07:41] LABS: BLOOD UREA NITROGEN 26.7 mg/dL (7-18); CALCIUM 8.3 mg/dL (8.5-10.1)
[2020-10-24 07:42] LABS: ALBUMIN 3.1 g/dl (3.4-5.0); MAGNESIUM 2.7 mg/dL (1.8-2.4)
[2020-10-24 07:44] LABS: BILIRUBIN,TOTAL 0.4 mg/dL (0.2-1); TOT PROT 6.7 g/dl (6.4-8.2)
[2020-10-24 07:45] LABS: CREATININE 1.1 mg/dL (0.55-1.3); PHOSPHOROUS 4.8 mg/dL (2.5-4.9)
[2020-10-24] MEDS: ALBUTEROL SO4 2.5/IPRATROPIUM 0.5 INH SOL 3 ML VIAL.NEB. NEB SCH ×4 (08:25→20:56)
[2020-10-24] MEDS: LEVOTHYROXINE 100 MCG, LEVOTHYROXINE 75 MCG PO SCH (08:51)
[2020-10-24] MEDS: FAMOTIDINE 20 MG TABLET PO SCH ×2 (09:41→22:16)
[2020-10-24] MEDS: methylPREDNISolone NA SUCC 40 MG/1 ML VIAL IVPUSH SCH ×2 (09:41→22:16)
[2020-10-24] MEDS: DOCUSATE SODIUM 100 MG CAPSULE (FP) PO SCH ×2 (09:41→22:16)
[2020-10-24] MEDS: CHOLECALCIFEROL (VIT D3) 400 UNIT (10 MCG) TABLET PO SCH (09:41)
[2020-10-24] MEDS: ESCITALOPRAM OXALATE 20 MG TABLET PO SCH (09:41)
[2020-10-24] MEDS: FERROUS SO4 325 MG TABLET (FP) PO SCH (09:42)
[2020-10-24] MEDS: ENOXAPARIN NA (PORCINE) 40 MG/0.4 ML DISP.SYRIN SQ SCH (09:42)
[2020-10-24] MEDS: SENNOSIDES 8.6MG TABLET (FP) PO SCH ×2 (09:43→22:16)
[2020-10-24] MEDS: VANCOMYCIN 1 GRAM (PRE-DOCKED) 1,000 MG/250 ML BAG IVPB SCH (12:22)
[2020-10-24] MEDS: MULTIVITAMINS (DAILY MVI) TABLET (FP) PO SCH (22:16)
[2020-10-25] MEDS ORDERED: LEVOTHYROXINE NA 100 MCG TABLET (FP) ONE (05:55)
[2020-10-25] MEDS ORDERED: LEVOTHYROXINE NA 75 MCG TABLET (FP) ONE (05:56)
[2020-10-25] MEDS: LEVOTHYROXINE 100 MCG, LEVOTHYROXINE 75 MCG PO SCH (06:05)
[2020-10-25 08:24] LABS: BASO % 0.3 % (0-2.0); HEMATOCRIT 32.4 % (32.4-45.2); HEMOGLOBIN 10.7 GM/dL (10.7-15.3); LYMPH % 7.4 % (8-40); MCH 32.9 pg (25.7-33.7); MCHC 32.9 g/dl (32.0-36.0); MONO % 4.5 % (3.8-10.2); NEUT % 87.8 % (42.8-82.8); PLATELET COUNT 486 K/MM3 (134-434); RBC 3.24 M/mm3 (3.60-5.2); RDW 19.4 % (11.6-15.6); WHITE BLOOD COUNT 18.2 K/mm3 (4.0-10.0)
[2020-10-25] MEDS: ALBUTEROL SO4 2.5/IPRATROPIUM 0.5 INH SOL 3 ML VIAL.NEB. NEB SCH ×4 (08:35→20:46)
[2020-10-25 09:05] LABS: CALCIUM 8.7 mg/dL (8.5-10.1)
[2020-10-25 09:06] LABS: ALBUMIN 3.3 g/dl (3.4-5.0); BLOOD UREA NITROGEN 19.8 mg/dL (7-18); MAGNESIUM 2.8 mg/dL (1.8-2.4)
[2020-10-25 09:09] LABS: PHOSPHOROUS 3.5 mg/dL (2.5-4.9)
[2020-10-25 09:10] LABS: BILIRUBIN,TOTAL 0.2 mg/dL (0.2-1)
[2020-10-25 09:11] LABS: TOT PROT 7.2 g/dl (6.4-8.2)
[2020-10-25 11:27] LABS: ANISOCYTOSIS 1+; MACROCYTOSIS 1+; PLATELET ESTIMATE NORMAL; ROULEAU 1+
[2020-10-25] MEDS: DOCUSATE SODIUM 100 MG CAPSULE (FP) PO SCH ×2 (12:08→21:32)
[2020-10-25] MEDS: ENOXAPARIN NA (PORCINE) 40 MG/0.4 ML DISP.SYRIN SQ SCH (12:19)
[2020-10-25] MEDS: FERROUS SO4 325 MG TABLET (FP) PO SCH (12:19)
[2020-10-25] MEDS: ESCITALOPRAM OXALATE 20 MG TABLET PO SCH (12:19)
[2020-10-25] MEDS: SENNOSIDES 8.6MG TABLET (FP) PO SCH ×2 (12:19→21:32)
[2020-10-25] MEDS: methylPREDNISolone NA SUCC 40 MG/1 ML VIAL IVPUSH SCH ×2 (12:20→21:33)
[2020-10-25] MEDS: FAMOTIDINE 20 MG TABLET PO SCH ×2 (12:20→21:32)
[2020-10-25] MEDS: CHOLECALCIFEROL (VIT D3) 400 UNIT (10 MCG) TABLET PO SCH (12:21)
[2020-10-25] MEDS: VANCOMYCIN 1 GRAM (PRE-DOCKED) 1,000 MG/250 ML BAG IVPB SCH ×2 (12:21→17:14)
[2020-10-25] MEDS: MELATONIN 5 MG TABLETS PO SCH (21:32)
[2020-10-25] MEDS: MULTIVITAMINS (DAILY MVI) TABLET (FP) PO SCH (21:32)
[2020-10-25] MEDS: CALCIUM 500MG/VIT-D 200 UNITS COMBO TABLET (FP) PO SCH (21:40)
[2020-10-26] MEDS ORDERED: LEVOTHYROXINE NA 100 MCG TABLET (FP) ONE (05:11)
[2020-10-26] MEDS ORDERED: LEVOTHYROXINE NA 75 MCG TABLET (FP) ONE (05:11)
[2020-10-26] MEDS: LEVOTHYROXINE 100 MCG, LEVOTHYROXINE 75 MCG PO SCH (06:00)
[2020-10-26 07:29] LABS: BASO % 0.1 % (0-2.0); HEMATOCRIT 31.6 % (32.4-45.2); HEMOGLOBIN 10.3 GM/dL (10.7-15.3); LYMPH % 5.4 % (8-40); MCH 33.1 pg (25.7-33.7); MCHC 32.7 g/dl (32.0-36.0); MEAN CELL VOLUME 101.3 fl (80-96); MEAN PLT VOLUME 8.1 fl (7.5-11.1); MONO % 3.1 % (3.8-10.2); NEUT % 91.4 % (42.8-82.8); PLATELET COUNT 424 K/MM3 (134-434); RBC 3.12 M/mm3 (3.60-5.2); RDW 19.4 % (11.6-15.6); WHITE BLOOD COUNT 16.9 K/mm3 (4.0-10.0)
[2020-10-26] MEDS: ALBUTEROL SO4 2.5/IPRATROPIUM 0.5 INH SOL 3 ML VIAL.NEB. NEB SCH ×4 (07:55→21:00)
[2020-10-26 07:59] LABS: ALBUMIN 3.2 g/dl (3.4-5.0); CALCIUM 8.1 mg/dL (8.5-10.1)
[2020-10-26 08:00] LABS: BLOOD UREA NITROGEN 20.2 mg/dL (7-18); MAGNESIUM 2.7 mg/dL (1.8-2.4)
[2020-10-26 08:02] LABS: PHOSPHOROUS 4.5 mg/dL (2.5-4.9)
[2020-10-26 08:03] LABS: CREATININE 1.1 mg/dL (0.55-1.3)
[2020-10-26 08:04] LABS: BILIRUBIN,TOTAL 0.5 mg/dL (0.2-1)
[2020-10-26] MEDS: DOCUSATE SODIUM 100 MG CAPSULE (FP) PO SCH ×2 (11:28→22:39)
[2020-10-26] MEDS: CALCIUM 500MG/VIT-D 200 UNITS COMBO TABLET (FP) PO SCH ×2 (11:31→22:39)
[2020-10-26] MEDS: methylPREDNISolone NA SUCC 40 MG/1 ML VIAL IVPUSH SCH ×2 (11:31→22:41)
[2020-10-26] MEDS: FERROUS SO4 325 MG TABLET (FP) PO SCH (11:32)
[2020-10-26] MEDS: FAMOTIDINE 20 MG TABLET PO SCH ×2 (11:32→22:40)
[2020-10-26] MEDS: SENNOSIDES 8.6MG TABLET (FP) PO SCH ×2 (11:33→22:40)
[2020-10-26] MEDS: ENOXAPARIN NA (PORCINE) 40 MG/0.4 ML DISP.SYRIN SQ SCH (11:33)
[2020-10-26] MEDS: CHOLECALCIFEROL (VIT D3) 400 UNIT (10 MCG) TABLET PO SCH (11:33)
[2020-10-26] MEDS: ESCITALOPRAM OXALATE 20 MG TABLET PO SCH (11:33)
[2020-10-26 11:34] LABS: ANISOCYTOSIS 1+; MACROCYTOSIS 0; PLATELET ESTIMATE NORMAL; TEAR DROP CELLS 1+
[2020-10-26] MEDS: VANCOMYCIN 1 GRAM (PRE-DOCKED) 1,000 MG/250 ML BAG IVPB SCH (11:34)
[2020-10-26] MEDS ORDERED: PT OWN MED DRAWER 7, Y5N ONE (21:04)
[2020-10-26] MEDS: MULTIVITAMINS (DAILY MVI) TABLET (FP) PO SCH (22:39)
[2020-10-26] MEDS: MELATONIN 5 MG TABLETS PO SCH (22:40)
[2020-10-27] MEDS ORDERED: LEVOTHYROXINE NA 100 MCG TABLET (FP) ONE (05:53)
[2020-10-27] MEDS ORDERED: LEVOTHYROXINE NA 75 MCG TABLET (FP) ONE (05:53)
[2020-10-27] MEDS: LEVOTHYROXINE 100 MCG, LEVOTHYROXINE 75 MCG PO SCH (06:09)
[2020-10-27 07:50] LABS: BASO % 0.4 % (0-2.0); HEMOGLOBIN 10.7 GM/dL (10.7-15.3); LYMPH % 5.8 % (8-40); MCH 32.9 pg (25.7-33.7); MCHC 32.4 g/dl (32.0-36.0); MEAN CELL VOLUME 101.7 fl (80-96); MEAN PLT VOLUME 8.9 fl (7.5-11.1); MONO % 2.7 % (3.8-10.2); NEUT % 91.1 % (42.8-82.8); PLATELET COUNT 320 K/MM3 (134-434); RBC 3.24 M/mm3 (3.60-5.2); RDW 19.6 % (11.6-15.6)
[2020-10-27] MEDS: ALBUTEROL SO4 2.5/IPRATROPIUM 0.5 INH SOL 3 ML VIAL.NEB. NEB SCH ×4 (07:58→20:57)
[2020-10-27 08:09] LABS: ALBUMIN 3.2 g/dl (3.4-5.0); BLOOD UREA NITROGEN 20.7 mg/dL (7-18)
[2020-10-27 08:11] LABS: BILIRUBIN,TOTAL 0.2 mg/dL (0.2-1); TOT PROT 6.8 g/dl (6.4-8.2)
[2020-10-27 08:13] LABS: MAGNESIUM 2.5 mg/dL (1.8-2.4); PHOSPHOROUS 4.8 mg/dL (2.5-4.9)
[2020-10-27 08:15] LABS: CALCIUM 9.4 mg/dL (8.5-10.1)
[2020-10-27] MEDS: DOCUSATE SODIUM 100 MG CAPSULE (FP) PO SCH ×2 (10:42→22:33)
[2020-10-27] MEDS: CALCIUM 500MG/VIT-D 200 UNITS COMBO TABLET (FP) PO SCH ×2 (11:01→22:21)
[2020-10-27] MEDS: methylPREDNISolone NA SUCC 40 MG/1 ML VIAL IVPUSH SCH ×2 (11:01→22:21)
[2020-10-27] MEDS: CHOLECALCIFEROL (VIT D3) 400 UNIT (10 MCG) TABLET PO SCH (11:01)
[2020-10-27] MEDS: FERROUS SO4 325 MG TABLET (FP) PO SCH (11:01)
[2020-10-27] MEDS: ENOXAPARIN NA (PORCINE) 40 MG/0.4 ML DISP.SYRIN SQ SCH (11:01)
[2020-10-27 11:02] LABS: ANISOCYTOSIS 1+; MACROCYTOSIS 1+; PLATELET ESTIMATE NORMAL
[2020-10-27] MEDS: FAMOTIDINE 20 MG TABLET PO SCH ×2 (11:02→22:21)
[2020-10-27] MEDS: SENNOSIDES 8.6MG TABLET (FP) PO SCH ×2 (11:02→22:21)
[2020-10-27] MEDS: ESCITALOPRAM OXALATE 20 MG TABLET PO SCH (11:02)
[2020-10-27] MEDS: VANCOMYCIN 1 GRAM (PRE-DOCKED) 1,000 MG/250 ML BAG IVPB SCH (11:03)
[2020-10-27] MEDS: MELATONIN 5 MG TABLETS PO SCH (22:20)
[2020-10-27] MEDS: MULTIVITAMINS (DAILY MVI) TABLET (FP) PO SCH (22:21)
[2020-10-28] MEDS ORDERED: LEVOTHYROXINE NA 75 MCG TABLET (FP) ONE (05:58)
[2020-10-28] MEDS ORDERED: LEVOTHYROXINE NA 100 MCG TABLET (FP) ONE (05:58)
[2020-10-28] MEDS: LEVOTHYROXINE 100 MCG, LEVOTHYROXINE 75 MCG PO SCH (06:27)
[2020-10-28 07:59] LABS: BASO % 0.2 % (0-2.0); HEMATOCRIT 31.4 % (32.4-45.2); HEMOGLOBIN 10.3 GM/dL (10.7-15.3); LYMPH % 5.2 % (8-40); MCH 33.2 pg (25.7-33.7); MCHC 32.8 g/dl (32.0-36.0); MEAN CELL VOLUME 101.3 fl (80-96); MONO % 4.4 % (3.8-10.2); NEUT % 90.2 % (42.8-82.8); PLATELET COUNT 410 K/MM3 (134-434); RDW 19.3 % (11.6-15.6); WHITE BLOOD COUNT 15.6 K/mm3 (4.0-10.0)
[2020-10-28] MEDS: ALBUTEROL SO4 2.5/IPRATROPIUM 0.5 INH SOL 3 ML VIAL.NEB. NEB SCH ×2 (08:00→12:30)
[2020-10-28 08:23] LABS: ALBUMIN 3.2 g/dl (3.4-5.0); CALCIUM 9.3 mg/dL (8.5-10.1)
[2020-10-28 08:24] LABS: BLOOD UREA NITROGEN 22.6 mg/dL (7-18); MAGNESIUM 2.3 mg/dL (1.8-2.4)
[2020-10-28 08:26] LABS: CREATININE 1.1 mg/dL (0.55-1.3); PHOSPHOROUS 5.6 mg/dL (2.5-4.9)
[2020-10-28 08:28] LABS: BILIRUBIN,TOTAL 0.3 mg/dL (0.2-1)
[2020-10-28 08:30] LABS: TOT PROT 6.6 g/dl (6.4-8.2)
[2020-10-28] MEDS: ENOXAPARIN NA (PORCINE) 40 MG/0.4 ML DISP.SYRIN SQ SCH (10:13)
[2020-10-28] MEDS: ESCITALOPRAM OXALATE 20 MG TABLET PO SCH (10:13)
[2020-10-28] MEDS: CALCIUM 500MG/VIT-D 200 UNITS COMBO TABLET (FP) PO SCH ×2 (10:13→21:11)
[2020-10-28] MEDS: CHOLECALCIFEROL (VIT D3) 400 UNIT (10 MCG) TABLET PO SCH (10:13)
[2020-10-28] MEDS: FERROUS SO4 325 MG TABLET (FP) PO SCH (10:13)
[2020-10-28] MEDS: methylPREDNISolone NA SUCC 40 MG/1 ML VIAL IVPUSH SCH ×2 (10:13→21:10)
[2020-10-28] MEDS: DOCUSATE SODIUM 100 MG CAPSULE (FP) PO SCH ×2 (10:13→21:11)
[2020-10-28] MEDS: FAMOTIDINE 20 MG TABLET PO SCH ×2 (10:14→21:12)
[2020-10-28] MEDS: SENNOSIDES 8.6MG TABLET (FP) PO SCH ×2 (10:14→21:11)
[2020-10-28] MEDS: VANCOMYCIN 1 GRAM (PRE-DOCKED) 1,000 MG/250 ML BAG IVPB SCH (10:19)
[2020-10-28] MEDS ORDERED: PT OWN MED DRAWER 7, Y5N ONE (20:53)
[2020-10-28] MEDS: MULTIVITAMINS (DAILY MVI) TABLET (FP) PO SCH (21:10)
[2020-10-28] MEDS: MELATONIN 5 MG TABLETS PO SCH (21:11)
[2020-10-29] MEDS ORDERED: LEVOTHYROXINE NA 75 MCG TABLET (FP) ONE (05:52)
[2020-10-29] MEDS ORDERED: LEVOTHYROXINE NA 100 MCG TABLET (FP) ONE (05:52)
[2020-10-29] MEDS: LEVOTHYROXINE 100 MCG, LEVOTHYROXINE 75 MCG PO SCH (06:30)
[2020-10-29] MEDS: VANCOMYCIN 1 GRAM (PRE-DOCKED) 1,000 MG/250 ML BAG IVPB SCH (11:00)
[2020-10-29] MEDS: CALCIUM 500MG/VIT-D 200 UNITS COMBO TABLET (FP) PO SCH ×2 (11:01→21:27)
[2020-10-29] MEDS: methylPREDNISolone NA SUCC 40 MG/1 ML VIAL IVPUSH SCH (11:01)
[2020-10-29] MEDS: ENOXAPARIN NA (PORCINE) 40 MG/0.4 ML DISP.SYRIN SQ SCH (11:01)
[2020-10-29] MEDS: SENNOSIDES 8.6MG TABLET (FP) PO SCH ×2 (11:02→21:27)
[2020-10-29] MEDS: FERROUS SO4 325 MG TABLET (FP) PO SCH (11:02)
[2020-10-29] MEDS: ESCITALOPRAM OXALATE 20 MG TABLET PO SCH (11:02)
[2020-10-29] MEDS: FAMOTIDINE 20 MG TABLET PO SCH ×2 (11:03→21:27)
[2020-10-29] MEDS: CHOLECALCIFEROL (VIT D3) 400 UNIT (10 MCG) TABLET PO SCH (11:03)
[2020-10-29] MEDS: DOCUSATE SODIUM 100 MG CAPSULE (FP) PO SCH ×2 (11:03→21:27)
[2020-10-29] MEDS: MULTIVITAMINS (DAILY MVI) TABLET (FP) PO SCH (21:27)
[2020-10-29] MEDS: MELATONIN 5 MG TABLETS PO SCH (21:27)
[2020-10-30] MEDS ORDERED: LEVOTHYROXINE NA 100 MCG TABLET (FP) ONE (06:02)
[2020-10-30] MEDS ORDERED: LEVOTHYROXINE NA 75 MCG TABLET (FP) ONE (06:03)
[2020-10-30] MEDS: LEVOTHYROXINE 100 MCG, LEVOTHYROXINE 75 MCG PO SCH (06:24)
[2020-10-30 08:27] LABS: BASO % 0.3 % (0-2.0); EOS % 0.1 % (0-4.5); HEMATOCRIT 32.5 % (32.4-45.2); HEMOGLOBIN 10.8 GM/dL (10.7-15.3); LYMPH % 20.8 % (8-40); MCH 33.4 pg (25.7-33.7); MCHC 33.2 g/dl (32.0-36.0); MEAN CELL VOLUME 100.8 fl (80-96); MEAN PLT VOLUME 7.8 fl (7.5-11.1); MONO % 9.6 % (3.8-10.2); NEUT % 69.2 % (42.8-82.8); PLATELET COUNT 351 K/MM3 (134-434); RBC 3.22 M/mm3 (3.60-5.2); RDW 18.9 % (11.6-15.6); WHITE BLOOD COUNT 10.8 K/mm3 (4.0-10.0)
[2020-10-30 08:48] LABS: ALBUMIN 3.1 g/dl (3.4-5.0); CALCIUM 8.8 mg/dL (8.5-10.1)
[2020-10-30 08:53] LABS: TOT PROT 6.3 g/dl (6.4-8.2)
[2020-10-30 09:01] LABS: BILIRUBIN,TOTAL 0.3 mg/dL (0.2-1)
[2020-10-30] MEDS: FERROUS SO4 325 MG TABLET (FP) PO SCH (09:50)
[2020-10-30] MEDS: FAMOTIDINE 20 MG TABLET PO SCH ×2 (09:50→21:29)
[2020-10-30] MEDS: ESCITALOPRAM OXALATE 20 MG TABLET PO SCH (09:50)
[2020-10-30] MEDS: predniSONE 20 MG TABLET (UD) PO SCH (09:51)
[2020-10-30] MEDS: DOCUSATE SODIUM 100 MG CAPSULE (FP) PO SCH ×2 (09:51→21:28)
[2020-10-30] MEDS: CHOLECALCIFEROL (VIT D3) 400 UNIT (10 MCG) TABLET PO SCH (09:51)
[2020-10-30] MEDS: ENOXAPARIN NA (PORCINE) 40 MG/0.4 ML DISP.SYRIN SQ SCH (09:51)
[2020-10-30] MEDS: SENNOSIDES 8.6MG TABLET (FP) PO SCH ×2 (09:51→21:29)
[2020-10-30] MEDS: CALCIUM 500MG/VIT-D 200 UNITS COMBO TABLET (FP) PO SCH ×2 (09:51→21:28)
[2020-10-30] MEDS: VANCOMYCIN 1 GRAM (PRE-DOCKED) 1,000 MG/250 ML BAG IVPB SCH (10:25)
[2020-10-30] MEDS: MELATONIN 5 MG TABLETS PO SCH (21:28)
[2020-10-30] MEDS: MULTIVITAMINS (DAILY MVI) TABLET (FP) PO SCH (21:28)
[2020-10-31] MEDS ORDERED: LEVOTHYROXINE NA 75 MCG TABLET (FP) ONE (06:19)
[2020-10-31] MEDS ORDERED: LEVOTHYROXINE NA 100 MCG TABLET (FP) ONE (06:19)
[2020-10-31] MEDS: LEVOTHYROXINE 100 MCG, LEVOTHYROXINE 75 MCG PO SCH (06:42)
[2020-10-31 07:21] LABS: BASO % 0.2 % (0-2.0); EOS % 0.3 % (0-4.5); HEMOGLOBIN 11.6 GM/dL (10.7-15.3); LYMPH % 25.1 % (8-40); MCH 34.3 pg (25.7-33.7); MEAN CELL VOLUME 100.8 fl (80-96); MONO % 9.1 % (3.8-10.2); NEUT % 65.3 % (42.8-82.8); PLATELET COUNT 364 K/MM3 (134-434); RBC 3.38 M/mm3 (3.60-5.2); RDW 18.6 % (11.6-15.6); WHITE BLOOD COUNT 9.1 K/mm3 (4.0-10.0)
[2020-10-31 07:49] LABS: ALBUMIN 3.1 g/dl (3.4-5.0); BLOOD UREA NITROGEN 23.4 mg/dL (7-18); CALCIUM 8.9 mg/dL (8.5-10.1); MAGNESIUM 2.5 mg/dL (1.8-2.4)
[2020-10-31 07:50] LABS: BILIRUBIN,TOTAL 0.6 mg/dL (0.2-1); TOT PROT 6.4 g/dl (6.4-8.2)
[2020-10-31 07:52] LABS: CREATININE 1.1 mg/dL (0.55-1.3); PHOSPHOROUS 4.7 mg/dL (2.5-4.9)
[2020-10-31] MEDS: CHOLECALCIFEROL (VIT D3) 400 UNIT (10 MCG) TABLET PO SCH (09:09)
[2020-10-31] MEDS: predniSONE 20 MG TABLET (UD) PO SCH (09:10)
[2020-10-31] MEDS: ESCITALOPRAM OXALATE 20 MG TABLET PO SCH (09:10)
[2020-10-31] MEDS: FERROUS SO4 325 MG TABLET (FP) PO SCH (09:10)
[2020-10-31] MEDS: ENOXAPARIN NA (PORCINE) 40 MG/0.4 ML DISP.SYRIN SQ SCH (09:10)
[2020-10-31] MEDS: FAMOTIDINE 20 MG TABLET PO SCH ×2 (09:10→21:59)
[2020-10-31] MEDS: DOCUSATE SODIUM 100 MG CAPSULE (FP) PO SCH ×2 (09:10→21:59)
[2020-10-31] MEDS: SENNOSIDES 8.6MG TABLET (FP) PO SCH ×2 (09:10→21:59)
[2020-10-31] MEDS: CALCIUM 500MG/VIT-D 200 UNITS COMBO TABLET (FP) PO SCH ×2 (09:10→21:59)
[2020-10-31] MEDS: VANCOMYCIN 1 GRAM (PRE-DOCKED) 1,000 MG/250 ML BAG IVPB SCH (11:29)
[2020-10-31] MEDS: MULTIVITAMINS (DAILY MVI) TABLET (FP) PO SCH (21:59)
[2020-10-31] MEDS: MELATONIN 5 MG TABLETS PO SCH (21:59)
[2020-11-01] MEDS ORDERED: LEVOTHYROXINE NA 100 MCG TABLET (FP) ONE (06:15)
[2020-11-01] MEDS ORDERED: LEVOTHYROXINE NA 75 MCG TABLET (FP) ONE (06:15)
[2020-11-01] MEDS: LEVOTHYROXINE 100 MCG, LEVOTHYROXINE 75 MCG PO SCH (06:19)
[2020-11-01 07:44] LABS: BASO % 0.7 % (0-2.0); EOS % 0.1 % (0-4.5); HEMOGLOBIN 10.6 GM/dL (10.7-15.3); MCH 33.6 pg (25.7-33.7); MCHC 33.2 g/dl (32.0-36.0); MEAN CELL VOLUME 101.3 fl (80-96); MEAN PLT VOLUME 8.5 fl (7.5-11.1); MONO % 7.8 % (3.8-10.2); NEUT % 69.4 % (42.8-82.8); PLATELET COUNT 358 K/MM3 (134-434); RBC 3.16 M/mm3 (3.60-5.2); RDW 18.6 % (11.6-15.6)
[2020-11-01 08:20] LABS: CALCIUM 9.2 mg/dL (8.5-10.1)
[2020-11-01 08:21] LABS: BLOOD UREA NITROGEN 23.6 mg/dL (7-18); MAGNESIUM 2.6 mg/dL (1.8-2.4)
[2020-11-01 08:24] LABS: PHOSPHOROUS 4.4 mg/dL (2.5-4.9)
[2020-11-01 08:25] LABS: BILIRUBIN,TOTAL 0.4 mg/dL (0.2-1); TOT PROT 6.2 g/dl (6.4-8.2)
[2020-11-01] MEDS: ESCITALOPRAM OXALATE 20 MG TABLET PO SCH (12:04)
[2020-11-01] MEDS: CALCIUM 500MG/VIT-D 200 UNITS COMBO TABLET (FP) PO SCH ×2 (12:04→22:44)
[2020-11-01] MEDS: SENNOSIDES 8.6MG TABLET (FP) PO SCH ×2 (12:04→22:45)
[2020-11-01] MEDS: predniSONE 20 MG TABLET (UD) PO SCH (12:05)
[2020-11-01] MEDS: FERROUS SO4 325 MG TABLET (FP) PO SCH (12:06)
[2020-11-01] MEDS: FAMOTIDINE 20 MG TABLET PO SCH ×2 (12:06→22:44)
[2020-11-01] MEDS: CHOLECALCIFEROL (VIT D3) 400 UNIT (10 MCG) TABLET PO SCH (12:06)
[2020-11-01] MEDS: ENOXAPARIN NA (PORCINE) 40 MG/0.4 ML DISP.SYRIN SQ SCH (12:07)
[2020-11-01] MEDS: DOCUSATE SODIUM 100 MG CAPSULE (FP) PO SCH ×2 (12:08→22:45)
[2020-11-01] MEDS: VANCOMYCIN 1 GRAM (PRE-DOCKED) 1,000 MG/250 ML BAG IVPB SCH ×2 (14:13→23:18)
[2020-11-01] MEDS: MELATONIN 5 MG TABLETS PO SCH (22:44)
[2020-11-01] MEDS: MULTIVITAMINS (DAILY MVI) TABLET (FP) PO SCH (22:44)
[2020-11-02] MEDS ORDERED: LEVOTHYROXINE NA 100 MCG TABLET (FP) ONE (06:06)
[2020-11-02] MEDS ORDERED: LEVOTHYROXINE NA 75 MCG TABLET (FP) ONE (06:07)
[2020-11-02] MEDS ORDERED: predniSONE 20 MG TABLET (UD) PO SCH (06:40)
[2020-11-02] MEDS ORDERED: predniSONE 10 MG TABLET (UD) ONE ×2 (06:56→09:01)
[2020-11-02] MEDS ORDERED: predniSONE 20 MG TABLET (UD) ONE ×2 (06:57→09:01)
[2020-11-02] MEDS: LEVOTHYROXINE 100 MCG, LEVOTHYROXINE 75 MCG PO SCH (06:59)
[2020-11-02] MEDS: predniSONE 20 MG, predniSONE 10 MG PO SCH (06:59)
[2020-11-02 07:34] LABS: BASO % 0.9 % (0-2.0); EOS % 0.3 % (0-4.5); HEMATOCRIT 33.1 % (32.4-45.2); HEMOGLOBIN 10.8 GM/dL (10.7-15.3); LYMPH % 22.6 % (8-40); MCH 32.9 pg (25.7-33.7); MCHC 32.6 g/dl (32.0-36.0); MONO % 6.5 % (3.8-10.2); NEUT % 69.7 % (42.8-82.8); PLATELET COUNT 336 K/MM3 (134-434); RBC 3.28 M/mm3 (3.60-5.2); RDW 18.8 % (11.6-15.6)
[2020-11-02 07:57] LABS: BLOOD UREA NITROGEN 22.4 mg/dL (7-18); MAGNESIUM 2.6 mg/dL (1.8-2.4)
[2020-11-02 08:01] LABS: BILIRUBIN,TOTAL 0.3 mg/dL (0.2-1)
[2020-11-02] MEDS: FAMOTIDINE 20 MG TABLET PO SCH ×2 (09:20→21:37)
[2020-11-02] MEDS: ENOXAPARIN NA (PORCINE) 40 MG/0.4 ML DISP.SYRIN SQ SCH (09:20)
[2020-11-02] MEDS: CALCIUM 500MG/VIT-D 200 UNITS COMBO TABLET (FP) PO SCH ×2 (09:21→21:37)
[2020-11-02] MEDS: FERROUS SO4 325 MG TABLET (FP) PO SCH (09:22)
[2020-11-02] MEDS: ESCITALOPRAM OXALATE 20 MG TABLET PO SCH (09:22)
[2020-11-02] MEDS: CHOLECALCIFEROL (VIT D3) 400 UNIT (10 MCG) TABLET PO SCH (09:22)
[2020-11-02] MEDS: SENNOSIDES 8.6MG TABLET (FP) PO SCH ×2 (09:22→21:37)
[2020-11-02] MEDS: DOCUSATE SODIUM 100 MG CAPSULE (FP) PO SCH ×2 (09:22→21:37)
[2020-11-02] MEDS: VANCOMYCIN 1 GRAM (PRE-DOCKED) 1,000 MG/250 ML BAG IVPB SCH (11:16)
[2020-11-02] MEDS: MULTIVITAMINS (DAILY MVI) TABLET (FP) PO SCH (21:37)
[2020-11-02] MEDS: MELATONIN 5 MG TABLETS PO SCH (21:37)
[2020-11-03] MEDS ORDERED: LEVOTHYROXINE NA 100 MCG TABLET (FP) ONE (06:08)
[2020-11-03] MEDS ORDERED: LEVOTHYROXINE NA 75 MCG TABLET (FP) ONE (06:09)
[2020-11-03] MEDS: LEVOTHYROXINE 100 MCG, LEVOTHYROXINE 75 MCG PO SCH (06:11)
[2020-11-03 07:36] LABS: BASO % 0.4 % (0-2.0); EOS % 0.5 % (0-4.5); HEMATOCRIT 32.4 % (32.4-45.2); HEMOGLOBIN 10.9 GM/dL (10.7-15.3); LYMPH % 31.6 % (8-40); MCH 33.5 pg (25.7-33.7); MCHC 33.5 g/dl (32.0-36.0); MEAN CELL VOLUME 100.2 fl (80-96); MEAN PLT VOLUME 7.7 fl (7.5-11.1); MONO % 7.5 % (3.8-10.2); PLATELET COUNT 345 K/MM3 (134-434); RBC 3.24 M/mm3 (3.60-5.2); RDW 19.2 % (11.6-15.6); WHITE BLOOD COUNT 8.5 K/mm3 (4.0-10.0)
[2020-11-03 08:03] LABS: ALBUMIN 2.9 g/dl (3.4-5.0); CALCIUM 8.3 mg/dL (8.5-10.1); MAGNESIUM 2.5 mg/dL (1.8-2.4)
[2020-11-03 08:06] LABS: CREATININE 1.1 mg/dL (0.55-1.3); PHOSPHOROUS 4.5 mg/dL (2.5-4.9)
[2020-11-03 08:07] LABS: BILIRUBIN,TOTAL 0.5 mg/dL (0.2-1); TOT PROT 5.9 g/dl (6.4-8.2)
[2020-11-03] MEDS: CALCIUM 500MG/VIT-D 200 UNITS COMBO TABLET (FP) PO SCH ×2 (12:27→21:24)
[2020-11-03] MEDS: FAMOTIDINE 20 MG TABLET PO SCH ×2 (12:28→21:24)
[2020-11-03] MEDS: ENOXAPARIN NA (PORCINE) 40 MG/0.4 ML DISP.SYRIN SQ SCH (12:28)
[2020-11-03] MEDS: VANCOMYCIN 1 GRAM (PRE-DOCKED) 1,000 MG/250 ML BAG IVPB SCH (12:28)
[2020-11-03] MEDS: ESCITALOPRAM OXALATE 20 MG TABLET PO SCH (12:28)
[2020-11-03] MEDS: DOCUSATE SODIUM 100 MG CAPSULE (FP) PO SCH (12:28)
[2020-11-03] MEDS: SENNOSIDES 8.6MG TABLET (FP) PO SCH ×2 (12:29→21:24)
[2020-11-03] MEDS: CHOLECALCIFEROL (VIT D3) 400 UNIT (10 MCG) TABLET PO SCH (12:29)
[2020-11-03] MEDS: FERROUS SO4 325 MG TABLET (FP) PO SCH (12:30)
[2020-11-03] MEDS ORDERED: predniSONE 10 MG TABLET (UD) ONE (12:31)
[2020-11-03] MEDS ORDERED: predniSONE 20 MG TABLET (UD) ONE (12:31)
[2020-11-03] MEDS: predniSONE 20 MG, predniSONE 10 MG PO SCH (12:33)
[2020-11-03] MEDS: MULTIVITAMINS (DAILY MVI) TABLET (FP) PO SCH (21:24)
[2020-11-03] MEDS: MELATONIN 5 MG TABLETS PO SCH (21:24)
[2020-11-03] MEDS: DOCUSATE NA 100 MG/10 ML UNIT-DOSE CUPS PO SCH (21:25)
[2020-11-04] MEDS ORDERED: LEVOTHYROXINE NA 75 MCG TABLET (FP) ONE (05:08)
[2020-11-04] MEDS ORDERED: LEVOTHYROXINE NA 100 MCG TABLET (FP) ONE (05:08)
[2020-11-04] MEDS: LEVOTHYROXINE 100 MCG, LEVOTHYROXINE 75 MCG PO SCH (06:06)
[2020-11-04] MEDS ORDERED: predniSONE 20 MG TABLET (UD) ONE (09:28)
[2020-11-04] MEDS ORDERED: predniSONE 10 MG TABLET (UD) ONE (09:28)
[2020-11-04] MEDS ORDERED: PT OWN MED DRAWER 7, Y5N ONE (09:30)
[2020-11-04] MEDS: ENOXAPARIN NA (PORCINE) 40 MG/0.4 ML DISP.SYRIN SQ SCH (10:15)
[2020-11-04] MEDS: ESCITALOPRAM OXALATE 20 MG TABLET PO SCH (10:16)
[2020-11-04] MEDS: predniSONE 20 MG, predniSONE 10 MG PO SCH (10:16)
[2020-11-04] MEDS: SENNOSIDES 8.6MG TABLET (FP) PO SCH ×2 (10:16→21:26)
[2020-11-04] MEDS: FERROUS SO4 325 MG TABLET (FP) PO SCH (10:17)
[2020-11-04] MEDS: CHOLECALCIFEROL (VIT D3) 400 UNIT (10 MCG) TABLET PO SCH (10:17)
[2020-11-04] MEDS: DOCUSATE NA 100 MG/10 ML UNIT-DOSE CUPS PO SCH ×2 (10:17→21:26)
[2020-11-04] MEDS: CALCIUM 500MG/VIT-D 200 UNITS COMBO TABLET (FP) PO SCH ×2 (10:17→21:26)
[2020-11-04] MEDS: FAMOTIDINE 20 MG TABLET PO SCH ×2 (10:18→21:26)
[2020-11-04] MEDS: VANCOMYCIN 1 GRAM (PRE-DOCKED) 1,000 MG/250 ML BAG IVPB SCH (13:13)
[2020-11-04] MEDS: MELATONIN 5 MG TABLETS PO SCH (21:26)
[2020-11-04] MEDS: MULTIVITAMINS (DAILY MVI) TABLET (FP) PO SCH (21:26)
[2020-11-05] MEDS ORDERED: LEVOTHYROXINE NA 100 MCG TABLET (FP) ONE (04:04)
[2020-11-05] MEDS ORDERED: LEVOTHYROXINE NA 75 MCG TABLET (FP) ONE (04:05)
[2020-11-05] MEDS: LEVOTHYROXINE 100 MCG, LEVOTHYROXINE 75 MCG PO SCH (06:22)
[2020-11-05] MEDS: ENOXAPARIN NA (PORCINE) 40 MG/0.4 ML DISP.SYRIN SQ SCH (09:51)
[2020-11-05] MEDS: FERROUS SO4 325 MG TABLET (FP) PO SCH (09:52)
[2020-11-05] MEDS: ESCITALOPRAM OXALATE 20 MG TABLET PO SCH (09:52)
[2020-11-05] MEDS: SENNOSIDES 8.6MG TABLET (FP) PO SCH ×2 (09:52→21:36)
[2020-11-05] MEDS: CHOLECALCIFEROL (VIT D3) 400 UNIT (10 MCG) TABLET PO SCH (09:52)
[2020-11-05] MEDS: CALCIUM 500MG/VIT-D 200 UNITS COMBO TABLET (FP) PO SCH ×2 (09:52→21:35)
[2020-11-05] MEDS: FAMOTIDINE 20 MG TABLET PO SCH ×2 (09:52→21:35)
[2020-11-05] MEDS: predniSONE 20 MG TABLET (UD) PO SCH (09:53)
[2020-11-05] MEDS ORDERED: PT OWN MED DRAWER 7, Y5N ONE (09:55)
[2020-11-05] MEDS: DOCUSATE NA 100 MG/10 ML UNIT-DOSE CUPS PO SCH ×2 (09:56→21:35)
[2020-11-05] MEDS: VANCOMYCIN 1 GRAM (PRE-DOCKED) 1,000 MG/250 ML BAG IVPB SCH (12:56)
[2020-11-05] MEDS: MELATONIN 5 MG TABLETS PO SCH (21:35)
[2020-11-05] MEDS: MULTIVITAMINS (DAILY MVI) TABLET (FP) PO SCH (21:35)
[2020-11-06] MEDS ORDERED: LEVOTHYROXINE NA 75 MCG TABLET (FP) ONE (04:21)
[2020-11-06] MEDS ORDERED: LEVOTHYROXINE NA 100 MCG TABLET (FP) ONE (04:21)
[2020-11-06] MEDS: LEVOTHYROXINE 100 MCG, LEVOTHYROXINE 75 MCG PO SCH (06:03)
[2020-11-06 06:41] LABS: BASO % 0.8 % (0-2.0); EOS % 0.5 % (0-4.5); HEMATOCRIT 33.7 % (32.4-45.2); LYMPH % 32.7 % (8-40); MCH 33.3 pg (25.7-33.7); MCHC 32.8 g/dl (32.0-36.0); MEAN CELL VOLUME 101.5 fl (80-96); MEAN PLT VOLUME 7.9 fl (7.5-11.1); MONO % 9.3 % (3.8-10.2); NEUT % 56.7 % (42.8-82.8); PLATELET COUNT 315 K/MM3 (134-434); RBC 3.32 M/mm3 (3.60-5.2); RDW 18.7 % (11.6-15.6); WHITE BLOOD COUNT 5.9 K/mm3 (4.0-10.0)
[2020-11-06 07:03] LABS: CALCIUM 8.3 mg/dL (8.5-10.1)
[2020-11-06 07:04] LABS: BLOOD UREA NITROGEN 13.7 mg/dL (7-18); MAGNESIUM 2.7 mg/dL (1.8-2.4)
[2020-11-06 07:07] LABS: CREATININE 1.1 mg/dL (0.55-1.3); PHOSPHOROUS 4.9 mg/dL (2.5-4.9)
[2020-11-06 07:08] LABS: BILIRUBIN,TOTAL 0.3 mg/dL (0.2-1)
[2020-11-06 07:09] LABS: TOT PROT 6.1 g/dl (6.4-8.2)
[2020-11-06] MEDS: ENOXAPARIN NA (PORCINE) 40 MG/0.4 ML DISP.SYRIN SQ SCH (10:05)
[2020-11-06] MEDS: DOCUSATE NA 100 MG/10 ML UNIT-DOSE CUPS PO SCH ×2 (10:06→21:57)
[2020-11-06] MEDS: FERROUS SO4 325 MG TABLET (FP) PO SCH (10:06)
[2020-11-06] MEDS: FAMOTIDINE 20 MG TABLET PO SCH ×2 (10:06→21:57)
[2020-11-06] MEDS: CHOLECALCIFEROL (VIT D3) 400 UNIT (10 MCG) TABLET PO SCH (10:06)
[2020-11-06] MEDS: CALCIUM 500MG/VIT-D 200 UNITS COMBO TABLET (FP) PO SCH ×2 (10:06→21:57)
[2020-11-06] MEDS: SENNOSIDES 8.6MG TABLET (FP) PO SCH ×2 (10:06→21:57)
[2020-11-06] MEDS: predniSONE 20 MG TABLET (UD) PO SCH (10:06)
[2020-11-06] MEDS: ESCITALOPRAM OXALATE 20 MG TABLET PO SCH (10:06)
[2020-11-06] MEDS: VANCOMYCIN 1 GRAM (PRE-DOCKED) 1,000 MG/250 ML BAG IVPB SCH ×2 (10:22→11:43)
[2020-11-06] MEDS ORDERED: PT OWN MED DRAWER 7, Y5N ONE (21:54)
[2020-11-06] MEDS: MELATONIN 5 MG TABLETS PO SCH (21:57)
[2020-11-06] MEDS: MULTIVITAMINS (DAILY MVI) TABLET (FP) PO SCH (21:57)
[2020-11-07] MEDS ORDERED: LEVOTHYROXINE NA 100 MCG TABLET (FP) ONE (06:24)
[2020-11-07] MEDS ORDERED: LEVOTHYROXINE NA 75 MCG TABLET (FP) ONE (06:25)
[2020-11-07] MEDS: LEVOTHYROXINE 100 MCG, LEVOTHYROXINE 75 MCG PO SCH (06:27)
[2020-11-07 08:03] LABS: BASO % 0.7 % (0-2.0); EOS % 0.5 % (0-4.5); HEMATOCRIT 32.9 % (32.4-45.2); HEMOGLOBIN 10.9 GM/dL (10.7-15.3); LYMPH % 35.5 % (8-40); MCH 33.3 pg (25.7-33.7); MCHC 33.1 g/dl (32.0-36.0); MEAN CELL VOLUME 100.3 fl (80-96); MEAN PLT VOLUME 7.3 fl (7.5-11.1); MONO % 9.8 % (3.8-10.2); NEUT % 53.5 % (42.8-82.8); PLATELET COUNT 309 K/MM3 (134-434); RBC 3.27 M/mm3 (3.60-5.2); RDW 18.3 % (11.6-15.6); WHITE BLOOD COUNT 5.5 K/mm3 (4.0-10.0)
[2020-11-07 08:24] LABS: CALCIUM 8.3 mg/dL (8.5-10.1)
[2020-11-07 08:25] LABS: ALBUMIN 2.8 g/dl (3.4-5.0); BLOOD UREA NITROGEN 15.5 mg/dL (7-18); MAGNESIUM 2.6 mg/dL (1.8-2.4)
[2020-11-07 08:28] LABS: CREATININE 1.2 mg/dL (0.55-1.3); PHOSPHOROUS 4.6 mg/dL (2.5-4.9)
[2020-11-07 08:29] LABS: BILIRUBIN,TOTAL 0.3 mg/dL (0.2-1); TOT PROT 5.7 g/dl (6.4-8.2)
[2020-11-07] MEDS ORDERED: PT OWN MED DRAWER 7, Y5N ONE (10:07)
[2020-11-07] MEDS: ESCITALOPRAM OXALATE 20 MG TABLET PO SCH (10:26)
[2020-11-07] MEDS: FERROUS SO4 325 MG TABLET (FP) PO SCH (10:26)
[2020-11-07] MEDS: FAMOTIDINE 20 MG TABLET PO SCH ×2 (10:26→21:24)
[2020-11-07] MEDS: SENNOSIDES 8.6MG TABLET (FP) PO SCH ×2 (10:26→21:24)
[2020-11-07] MEDS: ENOXAPARIN NA (PORCINE) 40 MG/0.4 ML DISP.SYRIN SQ SCH (10:26)
[2020-11-07] MEDS: DOCUSATE NA 100 MG/10 ML UNIT-DOSE CUPS PO SCH ×2 (10:26→21:24)
[2020-11-07] MEDS: CALCIUM 500MG/VIT-D 200 UNITS COMBO TABLET (FP) PO SCH ×2 (10:26→21:24)
[2020-11-07] MEDS: predniSONE 20 MG TABLET (UD) PO SCH (10:26)
[2020-11-07] MEDS: CHOLECALCIFEROL (VIT D3) 400 UNIT (10 MCG) TABLET PO SCH (10:26)
[2020-11-07] MEDS ORDERED: predniSONE 20 MG TABLET (UD) PO SCH (10:45)
[2020-11-07] MEDS: VANCOMYCIN 1 GRAM (PRE-DOCKED) 1,000 MG/250 ML BAG IVPB SCH (16:43)
[2020-11-07] MEDS: MELATONIN 5 MG TABLETS PO SCH (21:24)
[2020-11-07] MEDS: MULTIVITAMINS (DAILY MVI) TABLET (FP) PO SCH (21:24)
[2020-11-08] MEDS ORDERED: LEVOTHYROXINE NA 100 MCG TABLET (FP) ONE (05:15)
[2020-11-08] MEDS ORDERED: LEVOTHYROXINE NA 75 MCG TABLET (FP) ONE (05:16)
[2020-11-08] MEDS: LEVOTHYROXINE 100 MCG, LEVOTHYROXINE 75 MCG PO SCH (05:59)
[2020-11-08 07:58] LABS: BASO % 0.6 % (0-2.0); EOS % 0.5 % (0-4.5); HEMATOCRIT 33.4 % (32.4-45.2); HEMOGLOBIN 11.1 GM/dL (10.7-15.3); LYMPH % 32.8 % (8-40); MCH 33.6 pg (25.7-33.7); MCHC 33.3 g/dl (32.0-36.0); MEAN CELL VOLUME 100.9 fl (80-96); MEAN PLT VOLUME 7.5 fl (7.5-11.1); MONO % 9.4 % (3.8-10.2); NEUT % 56.7 % (42.8-82.8); PLATELET COUNT 298 K/MM3 (134-434); RBC 3.31 M/mm3 (3.60-5.2); RDW 18.7 % (11.6-15.6); WHITE BLOOD COUNT 5.3 K/mm3 (4.0-10.0)
[2020-11-08 08:48] LABS: BLOOD UREA NITROGEN 16.2 mg/dL (7-18)
[2020-11-08 08:49] LABS: CALCIUM 8.3 mg/dL (8.5-10.1)
[2020-11-08 08:50] LABS: ALBUMIN 3.1 g/dl (3.4-5.0); MAGNESIUM 2.5 mg/dL (1.8-2.4)
[2020-11-08 08:51] LABS: CREATININE 1.2 mg/dL (0.55-1.3)
[2020-11-08 08:52] LABS: BILIRUBIN,TOTAL 0.3 mg/dL (0.2-1); TOT PROT 6.1 g/dl (6.4-8.2)
[2020-11-08] MEDS: DOCUSATE NA 100 MG/10 ML UNIT-DOSE CUPS PO SCH ×2 (10:33→22:22)
[2020-11-08] MEDS: CALCIUM 500MG/VIT-D 200 UNITS COMBO TABLET (FP) PO SCH ×2 (10:34→22:23)
[2020-11-08] MEDS: FAMOTIDINE 20 MG TABLET PO SCH ×2 (10:34→22:22)
[2020-11-08] MEDS: SENNOSIDES 8.6MG TABLET (FP) PO SCH ×2 (10:34→22:22)
[2020-11-08] MEDS: ESCITALOPRAM OXALATE 20 MG TABLET PO SCH (10:34)
[2020-11-08] MEDS: FERROUS SO4 325 MG TABLET (FP) PO SCH (10:34)
[2020-11-08] MEDS: CHOLECALCIFEROL (VIT D3) 400 UNIT (10 MCG) TABLET PO SCH (10:34)
[2020-11-08] MEDS: ENOXAPARIN NA (PORCINE) 40 MG/0.4 ML DISP.SYRIN SQ SCH (10:34)
[2020-11-08] MEDS: predniSONE 10 MG TABLET (UD) PO SCH (10:34)
[2020-11-08] MEDS: VANCOMYCIN 1 GRAM (PRE-DOCKED) 1,000 MG/250 ML BAG IVPB SCH (10:35)
[2020-11-08] MEDS ORDERED: PT OWN MED DRAWER 7, Y5N ONE (22:21)
[2020-11-08] MEDS: MULTIVITAMINS (DAILY MVI) TABLET (FP) PO SCH (22:22)
[2020-11-08] MEDS: MELATONIN 5 MG TABLETS PO SCH (22:23)
[2020-11-09] MEDS ORDERED: LEVOTHYROXINE NA 75 MCG TABLET (FP) ONE (06:50)
[2020-11-09] MEDS ORDERED: LEVOTHYROXINE NA 100 MCG TABLET (FP) ONE (06:50)
[2020-11-09] MEDS: LEVOTHYROXINE 100 MCG, LEVOTHYROXINE 75 MCG PO SCH (06:51)
[2020-11-09 07:29] LABS: BASO % 0.7 % (0-2.0); EOS % 0.8 % (0-4.5); HEMATOCRIT 34.2 % (32.4-45.2); HEMOGLOBIN 11.2 GM/dL (10.7-15.3); LYMPH % 32.4 % (8-40); MCH 33.1 pg (25.7-33.7); MCHC 32.7 g/dl (32.0-36.0); MEAN CELL VOLUME 101.2 fl (80-96); MEAN PLT VOLUME 7.6 fl (7.5-11.1); MONO % 9.6 % (3.8-10.2); NEUT % 56.5 % (42.8-82.8); PLATELET COUNT 287 K/MM3 (134-434); RBC 3.38 M/mm3 (3.60-5.2); RDW 18.3 % (11.6-15.6); WHITE BLOOD COUNT 4.2 K/mm3 (4.0-10.0)
[2020-11-09 07:55] LABS: CALCIUM 8.7 mg/dL (8.5-10.1)
[2020-11-09 07:56] LABS: ALBUMIN 3.1 g/dl (3.4-5.0); BLOOD UREA NITROGEN 16.1 mg/dL (7-18); MAGNESIUM 2.6 mg/dL (1.8-2.4)
[2020-11-09 07:59] LABS: CREATININE 1.2 mg/dL (0.55-1.3); PHOSPHOROUS 5.3 mg/dL (2.5-4.9)
[2020-11-09 08:00] LABS: BILIRUBIN,TOTAL 0.3 mg/dL (0.2-1); TOT PROT 6.1 g/dl (6.4-8.2)
[2020-11-09] MEDS ORDERED: PT OWN MED DRAWER 7, Y5N ONE ×2 (11:29→22:03)
[2020-11-09] MEDS: SENNOSIDES 8.6MG TABLET (FP) PO SCH ×2 (11:52→22:13)
[2020-11-09] MEDS: CALCIUM 500MG/VIT-D 200 UNITS COMBO TABLET (FP) PO SCH ×2 (11:53→22:12)
[2020-11-09] MEDS: CHOLECALCIFEROL (VIT D3) 400 UNIT (10 MCG) TABLET PO SCH (11:53)
[2020-11-09] MEDS: FERROUS SO4 325 MG TABLET (FP) PO SCH (11:53)
[2020-11-09] MEDS: ENOXAPARIN NA (PORCINE) 40 MG/0.4 ML DISP.SYRIN SQ SCH (11:53)
[2020-11-09] MEDS: FAMOTIDINE 20 MG TABLET PO SCH ×2 (11:53→22:13)
[2020-11-09] MEDS: ESCITALOPRAM OXALATE 20 MG TABLET PO SCH (11:53)
[2020-11-09] MEDS: predniSONE 10 MG TABLET (UD) PO SCH (11:53)
[2020-11-09] MEDS: VANCOMYCIN 1 GRAM (PRE-DOCKED) 1,000 MG/250 ML BAG IVPB SCH (11:54)
[2020-11-09] MEDS: DOCUSATE NA 100 MG/10 ML UNIT-DOSE CUPS PO SCH ×2 (14:44→22:13)
[2020-11-09] MEDS: MULTIVITAMINS (DAILY MVI) TABLET (FP) PO SCH (22:13)
[2020-11-09] MEDS: MELATONIN 5 MG TABLETS PO SCH (22:13)
[2020-11-10] MEDS ORDERED: LEVOTHYROXINE NA 75 MCG TABLET (FP) ONE (06:44)
[2020-11-10] MEDS ORDERED: LEVOTHYROXINE NA 100 MCG TABLET (FP) ONE (06:44)
[2020-11-10] MEDS: LEVOTHYROXINE 100 MCG, LEVOTHYROXINE 75 MCG PO SCH (06:46)
[2020-11-10] MEDS: FERROUS SO4 325 MG TABLET (FP) PO SCH (09:50)
[2020-11-10] MEDS: FAMOTIDINE 20 MG TABLET PO SCH ×2 (09:51→21:26)
[2020-11-10] MEDS: ENOXAPARIN NA (PORCINE) 40 MG/0.4 ML DISP.SYRIN SQ SCH (09:53)
[2020-11-10] MEDS: CALCIUM 500MG/VIT-D 200 UNITS COMBO TABLET (FP) PO SCH ×2 (09:53→21:26)
[2020-11-10] MEDS: ESCITALOPRAM OXALATE 20 MG TABLET PO SCH (09:53)
[2020-11-10] MEDS: predniSONE 10 MG TABLET (UD) PO SCH (09:54)
[2020-11-10] MEDS: CHOLECALCIFEROL (VIT D3) 400 UNIT (10 MCG) TABLET PO SCH (09:54)
[2020-11-10] MEDS: SENNOSIDES 8.6MG TABLET (FP) PO SCH ×2 (09:54→21:26)
[2020-11-10] MEDS: DOCUSATE NA 100 MG/10 ML UNIT-DOSE CUPS PO SCH ×2 (12:07→21:26)
[2020-11-10] MEDS: VANCOMYCIN 1 GRAM (PRE-DOCKED) 1,000 MG/250 ML BAG IVPB SCH (12:08)
[2020-11-10] MEDS ORDERED: PT OWN MED DRAWER 7, Y5N ONE (21:16)
[2020-11-10] MEDS: MELATONIN 5 MG TABLETS PO SCH (21:26)
[2020-11-10] MEDS: MULTIVITAMINS (DAILY MVI) TABLET (FP) PO SCH (21:26)
[2020-11-11] MEDS ORDERED: LEVOTHYROXINE NA 100 MCG TABLET (FP) ONE (06:20)
[2020-11-11] MEDS ORDERED: LEVOTHYROXINE NA 75 MCG TABLET (FP) ONE (06:20)
[2020-11-11] MEDS: LEVOTHYROXINE 100 MCG, LEVOTHYROXINE 75 MCG PO SCH (06:24)
[2020-11-11 06:49] LABS: HEMATOCRIT 34.9 % (32.4-45.2); HEMOGLOBIN 11.5 GM/dL (10.7-15.3); MCH 33.6 pg (25.7-33.7); MCHC 33.1 g/dl (32.0-36.0); MEAN CELL VOLUME 101.5 fl (80-96); MEAN PLT VOLUME 7.7 fl (7.5-11.1); PLATELET COUNT 228 K/MM3 (134-434); RBC 3.44 M/mm3 (3.60-5.2); RDW 18.3 % (11.6-15.6); WHITE BLOOD COUNT 4.4 K/mm3 (4.0-10.0)
[2020-11-11 06:55] LABS: CALCIUM 8.4 mg/dL (8.5-10.1)
[2020-11-11 06:56] LABS: ALBUMIN 3.1 g/dl (3.4-5.0); BLOOD UREA NITROGEN 17.3 mg/dL (7-18); MAGNESIUM 2.4 mg/dL (1.8-2.4)
[2020-11-11 06:59] LABS: CREATININE 1.3 mg/dL (0.55-1.3)
[2020-11-11 07:01] LABS: BILIRUBIN,TOTAL 0.2 mg/dL (0.2-1); TOT PROT 6.2 g/dl (6.4-8.2)
[2020-11-11] MEDS ORDERED: PT OWN MED DRAWER 7, Y5N ONE ×3 (09:52→22:09)
[2020-11-11] MEDS: CHOLECALCIFEROL (VIT D3) 400 UNIT (10 MCG) TABLET PO SCH (09:55)
[2020-11-11] MEDS: FAMOTIDINE 20 MG TABLET PO SCH ×2 (09:55→22:16)
[2020-11-11] MEDS: CALCIUM 500MG/VIT-D 200 UNITS COMBO TABLET (FP) PO SCH ×2 (09:55→22:16)
[2020-11-11] MEDS: ESCITALOPRAM OXALATE 20 MG TABLET PO SCH (09:55)
[2020-11-11] MEDS: SENNOSIDES 8.6MG TABLET (FP) PO SCH ×2 (09:55→22:16)
[2020-11-11] MEDS: FERROUS SO4 325 MG TABLET (FP) PO SCH (09:55)
[2020-11-11] MEDS: ENOXAPARIN NA (PORCINE) 40 MG/0.4 ML DISP.SYRIN SQ SCH (09:56)
[2020-11-11] MEDS: VANCOMYCIN 1 GRAM (PRE-DOCKED) 1,000 MG/250 ML BAG IVPB SCH (12:23)
[2020-11-11] MEDS: DOCUSATE NA 100 MG/10 ML UNIT-DOSE CUPS PO SCH ×2 (14:58→22:16)
[2020-11-11] MEDS: MULTIVITAMINS (DAILY MVI) TABLET (FP) PO SCH (22:16)
[2020-11-11] MEDS: MELATONIN 5 MG TABLETS PO SCH (22:16)
[2020-11-12] MEDS ORDERED: LEVOTHYROXINE NA 100 MCG TABLET (FP) ONE (06:00)
[2020-11-12] MEDS ORDERED: LEVOTHYROXINE NA 75 MCG TABLET (FP) ONE (06:01)
[2020-11-12] MEDS: LEVOTHYROXINE 100 MCG, LEVOTHYROXINE 75 MCG PO SCH (06:08)
[2020-11-12] MEDS ORDERED: PT OWN MED DRAWER 7, Y5N ONE ×2 (09:56→21:22)
[2020-11-12] MEDS: CALCIUM 500MG/VIT-D 200 UNITS COMBO TABLET (FP) PO SCH ×2 (10:02→21:28)
[2020-11-12] MEDS: FAMOTIDINE 20 MG TABLET PO SCH ×2 (10:02→21:27)
[2020-11-12] MEDS: ENOXAPARIN NA (PORCINE) 40 MG/0.4 ML DISP.SYRIN SQ SCH (10:03)
[2020-11-12] MEDS: FERROUS SO4 325 MG TABLET (FP) PO SCH (10:03)
[2020-11-12] MEDS: SENNOSIDES 8.6MG TABLET (FP) PO SCH ×2 (10:03→21:27)
[2020-11-12] MEDS: DOCUSATE NA 100 MG/10 ML UNIT-DOSE CUPS PO SCH ×2 (10:03→21:27)
[2020-11-12] MEDS: CHOLECALCIFEROL (VIT D3) 400 UNIT (10 MCG) TABLET PO SCH (10:03)
[2020-11-12] MEDS: ESCITALOPRAM OXALATE 20 MG TABLET PO SCH (10:03)
[2020-11-12] MEDS: VANCOMYCIN 1 GRAM (PRE-DOCKED) 1,000 MG/250 ML BAG IVPB SCH (11:53)
[2020-11-12] MEDS: MELATONIN 5 MG TABLETS PO SCH (21:27)
[2020-11-12] MEDS: MULTIVITAMINS (DAILY MVI) TABLET (FP) PO SCH (21:28)
[2020-11-13] MEDS ORDERED: LEVOTHYROXINE NA 100 MCG TABLET (FP) ONE (06:33)
[2020-11-13] MEDS ORDERED: LEVOTHYROXINE NA 75 MCG TABLET (FP) ONE (06:33)
[2020-11-13] MEDS: LEVOTHYROXINE 100 MCG, LEVOTHYROXINE 75 MCG PO SCH (06:36)
[2020-11-13 07:15] LABS: EOS % 0.9 % (0-4.5); HEMATOCRIT 33.7 % (32.4-45.2); HEMOGLOBIN 11.1 GM/dL (10.7-15.3); LYMPH % 30.3 % (8-40); MCH 33.5 pg (25.7-33.7); MCHC 32.9 g/dl (32.0-36.0); MEAN CELL VOLUME 101.8 fl (80-96); MEAN PLT VOLUME 7.6 fl (7.5-11.1); MONO % 11.2 % (3.8-10.2); NEUT % 56.6 % (42.8-82.8); PLATELET COUNT 270 K/MM3 (134-434); RBC 3.31 M/mm3 (3.60-5.2); WHITE BLOOD COUNT 4.8 K/mm3 (4.0-10.0)
[2020-11-13 07:38] LABS: CALCIUM 8.2 mg/dL (8.5-10.1)
[2020-11-13 07:39] LABS: ALBUMIN 3.1 g/dl (3.4-5.0); MAGNESIUM 2.4 mg/dL (1.8-2.4)
[2020-11-13 07:42] LABS: CREATININE 1.4 mg/dL (0.55-1.3); PHOSPHOROUS 4.8 mg/dL (2.5-4.9)
[2020-11-13 07:44] LABS: BILIRUBIN,TOTAL 0.3 mg/dL (0.2-1); TOT PROT 6.1 g/dl (6.4-8.2)
[2020-11-13] MEDS ORDERED: PT OWN MED DRAWER 7, Y5N ONE (09:13)
[2020-11-13] MEDS: CALCIUM 500MG/VIT-D 200 UNITS COMBO TABLET (FP) PO SCH (09:16)
[2020-11-13] MEDS: DOCUSATE NA 100 MG/10 ML UNIT-DOSE CUPS PO SCH (09:17)
[2020-11-13] MEDS: SENNOSIDES 8.6MG TABLET (FP) PO SCH (09:17)
[2020-11-13] MEDS: ENOXAPARIN NA (PORCINE) 40 MG/0.4 ML DISP.SYRIN SQ SCH (09:17)
[2020-11-13] MEDS: FAMOTIDINE 20 MG TABLET PO SCH (09:17)
[2020-11-13] MEDS: CHOLECALCIFEROL (VIT D3) 400 UNIT (10 MCG) TABLET PO SCH (09:17)
[2020-11-13] MEDS: ESCITALOPRAM OXALATE 20 MG TABLET PO SCH (09:17)
[2020-11-13] MEDS: FERROUS SO4 325 MG TABLET (FP) PO SCH (09:17)
[2020-11-13 15:32] VITALS: BP 135/72; PULSE 99; TEMP 97.8
== END 2020-11-13 15:46 | disposition home or self-care (01) | DRG 177 ==
LOC: JER 11:49 → JERBED 14:32 → J4S 10-14 01:43 → J7W 10-19 19:04
PROVIDERS: ADMIT Internal Medicine; ATTEND Internal Medicine
DX: J69.0 Pneumonitis due to inhalation of food and vomit (principal); J96.21 Acute and chronic respiratory failure with hypoxia; J44.1 Chronic obstructive pulmonary disease with (acute) exacerbation; N39.0 Urinary tract infection, site not specified; F73 Profound intellectual disabilities; R78.81 Bacteremia; J44.0 Chronic obstructive pulmonary disease with (acute) lower respiratory infection; N18.30 Chronic kidney disease, stage 3 unspecified; J44.9 Chronic obstructive pulmonary disease, unspecified; K21.9 Gastro-esophageal reflux disease without esophagitis; E03.9 Hypothyroidism, unspecified; Q90.9 Down syndrome, unspecified; F50.89 Other specified eating disorder; K76.0 Fatty (change of) liver, not elsewhere classified; F42.9 Obsessive-compulsive disorder, unspecified; E83.39 Other disorders of phosphorus metabolism; E83.41 Hypermagnesemia; B96.20 Unspecified Escherichia coli [E. coli] as the cause of diseases classified elsewhere; F32.9 Major depressive disorder, single episode, unspecified
CPT/HCPCS: 36415; 36600; 71045-TC-FY; 71250-TC; 74230-TC-FY; 80048; 80053; 81003; 82728; 82803; 82962; 83605; 83615; 83735; 84100; 84484; 85025; 85027; 85610; 85730; 86140; 87040; 87086; 87186; 87804; 87899; 92611-GN; 93005; 93010; 93306-TC; 94640; 94761; 97116-GP; 97161-GP; 99285-25; C9803; G0480; J0131; U0003; U0005

== ENCOUNTER 2021-07-09 10:24 | Inpatient (IN) | payer OTHER ==
[2021-07-09] MEDS ORDERED: methylPREDNISolone NA SUCC 125 MG/2 ML VIAL IVPUSH ONE (11:56)
[2021-07-09] MEDS ORDERED: ALBUTEROL SO4 2.5/IPRATROPIUM 0.5 INH SOL 3 ML VIAL.NEB. NEB ONE ×2 (11:56→13:18)
[2021-07-09] MEDS ORDERED: methylPREDNISolone NA SUCC 125 MG/2 ML VIAL ONE (14:10)
[2021-07-09 14:49] LABS: VENOUS BASE EXCESS 3.8 mmol/L (-2-2); VENOUS O2 SATURATION 37.6 % (70-80); VENOUS PCO2 65.9 mmHg (38-52); VENOUS PH 7.318 (7.310-7.410)
[2021-07-09 14:51] LABS: BASO % 0.8 % (0-2.0); EOS % 0.3 % (0-4.5); HEMATOCRIT 35.7 % (32.4-45.2); HEMOGLOBIN 11.6 GM/dL (10.7-15.3); LYMPH % 19.6 % (8-40); MCH 30.2 pg (25.7-33.7); MCHC 32.4 g/dl (32.0-36.0); MEAN CELL VOLUME 93.1 fl (80-96); MEAN PLT VOLUME 7.5 fl (7.5-11.1); MONO % 6.4 % (3.8-10.2); NEUT % 72.9 % (42.8-82.8); PLATELET COUNT 509 10^3/uL (134-434); RBC 3.83 M/mm3 (3.60-5.2); RDW 17.1 % (11.6-15.6)
[2021-07-09 14:55] LABS: INR 1.02 (0.83-1.09); PROTHROMBIN TIME (PATIENT) 11.9 SEC (9.7-13.0)
[2021-07-09 14:58] LABS: ACTIVATED PTT 29.8 SECONDS (25.2-36.5)
[2021-07-09] MEDS ORDERED: AZITHROMYCIN IVPB 500 MG in DEXTROSE 5%-WATER - 250 ML IVPB ONE (15:01)
[2021-07-09 15:07] LABS: CHLORIDE 103 mmol/L (98-107); SODIUM 142 mmol/L (136-145)
[2021-07-09] MEDS ORDERED: AZITHROMYCIN IVPB 500 MG/250 ML BAG IVPB ONE (15:08)
[2021-07-09 15:09] LABS: ALBUMIN 3.3 g/dl (3.4-5.0); ANION GAP 7 MMOL/L (8-16); BLOOD UREA NITROGEN 9.7 mg/dL (7-18); CALCIUM 9.3 mg/dL (8.5-10.1); CO2 32 mmol/L (21-32); GLUCOSE,RANDOM 85 mg/dL (74-106)
[2021-07-09 15:12] LABS: CREATININE 0.9 mg/dL (0.55-1.3); SGOT/AST 14 U/L (15-37); SGPT/ALT 18 U/L (13-61)
[2021-07-09 15:14] LABS: BILIRUBIN,TOTAL 0.2 mg/dL (0.2-1); TOT PROT 7.8 g/dl (6.4-8.2)
[2021-07-09 15:15] LABS: ALK PHOS 119 U/L (45-117)
[2021-07-09 16:20] LABS: EPI CELLS 9 /uL (0-25.1); HYALINE CASTS 2 /uL (0-3.1); PH,URINE 6.5 (5.0-8.0); URINE APPEARANCE CLEAR; URINE BACTERIA 1428 /uL (0-1359); URINE BILIRUBIN NEGATIVE (NEGATIVE); URINE COLOR YELLOW; URINE GLUCOSE (UA) NEGATIVE (NEGATIVE); URINE KETONE NEGATIVE (NEGATIVE); URINE LEUK ESTERASE TRACE (NEGATIVE); URINE NITRITE POSITIVE (NEGATIVE); URINE PROTEIN NEGATIVE (NEGATIVE); URINE RBC 1 /uL (0-23.9); URINE UROBILINOGEN 0.2 mg/dL (0.2-1.0); URINE WBC 19 /uL (0-25.8)
[2021-07-09] MEDS ORDERED: ALBUTEROL SO4 0.083% IH SOL 2.5 MG/3 ML VIAL.NEB. NEB PRN (20:48)
[2021-07-09] MEDS ORDERED: SODIUM CHLORIDE 1,000 ML IV SCH (21:00)
[2021-07-09] MEDS: SODIUM CHLORIDE 500 ML IV STA ×2 (21:18)
[2021-07-09] MEDS ORDERED: AZTREONAM 1 GM VIAL (RESTRICTED TO ID) IVPB ONE (21:20)
[2021-07-09] MEDS ORDERED: ENOXAPARIN NA (PORCINE) 40 MG/0.4 ML DISP.SYRIN SQ ONE (21:23)
[2021-07-09] MEDS ORDERED: methylPREDNISolone NA SUCC 40 MG/1 ML VIAL ONE (21:23)
[2021-07-09] MEDS: ENOXAPARIN NA (PORCINE) 40 MG/0.4 ML DISP.SYRIN SQ SCH (21:30)
[2021-07-09] MEDS: methylPREDNISolone NA SUCC 40 MG/1 ML VIAL IVPUSH SCH (21:30)
[2021-07-09] MEDS ORDERED: AZTREONAM 1 GM VIAL (RESTRICTED TO ID) ONE (21:35)
[2021-07-09] MEDS: BUDESONIDE/FORMETEROL FUMARATE 160/4.5 mcg INHALER IH SCH (22:40)
[2021-07-10 10:14] LABS: BASO % 0.1 % (0-2.0); HEMATOCRIT 31.5 % (32.4-45.2); HEMOGLOBIN 10.3 GM/dL (10.7-15.3); LYMPH % 13.2 % (8-40); MCH 30.3 pg (25.7-33.7); MCHC 32.6 g/dl (32.0-36.0); MEAN CELL VOLUME 92.8 fl (80-96); MEAN PLT VOLUME 7.5 fl (7.5-11.1); MONO % 7.1 % (3.8-10.2); NEUT % 79.6 % (42.8-82.8); PLATELET COUNT 449 10^3/uL (134-434); RDW 16.9 % (11.6-15.6); WHITE BLOOD COUNT 6.7 K/mm3 (4.0-10.0)
[2021-07-10 10:37] LABS: CALCIUM 8.7 mg/dL (8.5-10.1)
[2021-07-10 10:38] LABS: ALBUMIN 2.9 g/dl (3.4-5.0); BLOOD UREA NITROGEN 14.4 mg/dL (7-18)
[2021-07-10 10:41] LABS: CREATININE 0.9 mg/dL (0.55-1.3)
[2021-07-10 10:42] LABS: BILIRUBIN,TOTAL 0.5 mg/dL (0.2-1)
[2021-07-10] MEDS: BUDESONIDE/FORMETEROL FUMARATE 160/4.5 mcg INHALER IH SCH ×2 (16:12→22:29)
[2021-07-10] MEDS: methylPREDNISolone NA SUCC 40 MG/1 ML VIAL IVPUSH SCH ×3 (16:12→21:27)
[2021-07-10] MEDS ORDERED: ENOXAPARIN NA (PORCINE) 40 MG/0.4 ML DISP.SYRIN SQ ONE (16:15)
[2021-07-10] MEDS: ENOXAPARIN NA (PORCINE) 40 MG/0.4 ML DISP.SYRIN SQ SCH (16:19)
[2021-07-10] MEDS: ALBUTEROL SO4 2.5/IPRATROPIUM 0.5 INH SOL 3 ML VIAL.NEB. NEB SCH (20:09)
[2021-07-11] MEDS: methylPREDNISolone NA SUCC 40 MG/1 ML VIAL IVPUSH SCH ×3 (06:04→21:06)
[2021-07-11] MEDS: ALBUTEROL SO4 2.5/IPRATROPIUM 0.5 INH SOL 3 ML VIAL.NEB. NEB SCH ×3 (08:44→19:59)
[2021-07-11 10:01] LABS: BASO % 0.1 % (0-2.0); HEMOGLOBIN 10.2 GM/dL (10.7-15.3); LYMPH % 10.2 % (8-40); MCH 30.4 pg (25.7-33.7); MEAN CELL VOLUME 92.2 fl (80-96); MEAN PLT VOLUME 7.4 fl (7.5-11.1); MONO % 1.7 % (3.8-10.2); PLATELET COUNT 392 10^3/uL (134-434); RBC 3.37 M/mm3 (3.60-5.2); WHITE BLOOD COUNT 6.5 K/mm3 (4.0-10.0)
[2021-07-11 10:27] LABS: ALBUMIN 2.7 g/dl (3.4-5.0); BLOOD UREA NITROGEN 16.8 mg/dL (7-18); CALCIUM 8.9 mg/dL (8.5-10.1)
[2021-07-11 10:28] LABS: MAGNESIUM 2.5 mg/dL (1.8-2.4)
[2021-07-11 10:31] LABS: BILIRUBIN,TOTAL 0.2 mg/dL (0.2-1)
[2021-07-11] MEDS: ENOXAPARIN NA (PORCINE) 40 MG/0.4 ML DISP.SYRIN SQ SCH (13:37)
[2021-07-11] MEDS: BUDESONIDE/FORMETEROL FUMARATE 160/4.5 mcg INHALER IH SCH ×2 (13:37→21:16)
[2021-07-11 16:23] VITALS: BMI 24.8
[2021-07-12] MEDS: methylPREDNISolone NA SUCC 40 MG/1 ML VIAL IVPUSH SCH (05:53)
[2021-07-12] MEDS: ALBUTEROL SO4 2.5/IPRATROPIUM 0.5 INH SOL 3 ML VIAL.NEB. NEB SCH ×3 (08:58→20:55)
[2021-07-12] MEDS: ENOXAPARIN NA (PORCINE) 40 MG/0.4 ML DISP.SYRIN SQ SCH (12:37)
[2021-07-12] MEDS: BUDESONIDE/FORMETEROL FUMARATE 160/4.5 mcg INHALER IH SCH ×2 (12:37→21:06)
[2021-07-12] MEDS: predniSONE 20 MG TABLET (UD) PO SCH (17:41)
[2021-07-12 21:32] LABS: HEMATOCRIT 33.5 % (32.4-45.2); HEMOGLOBIN 11.3 GM/dL (10.7-15.3); MCH 31.2 pg (25.7-33.7); MCHC 33.6 g/dl (32.0-36.0); MEAN CELL VOLUME 92.8 fl (80-96); MEAN PLT VOLUME 8.3 fl (7.5-11.1); PLATELET COUNT 372 10^3/uL (134-434); RBC 3.61 M/mm3 (3.60-5.2); WHITE BLOOD COUNT 9.4 K/mm3 (4.0-10.0)
[2021-07-13 06:25] VITALS: BP 120/69; PULSE 73; TEMP 97.8
[2021-07-13] MEDS: ALBUTEROL SO4 2.5/IPRATROPIUM 0.5 INH SOL 3 ML VIAL.NEB. NEB SCH ×2 (07:58→14:50)
[2021-07-13] MEDS: predniSONE 20 MG TABLET (UD) PO SCH (10:41)
[2021-07-13] MEDS: BUDESONIDE/FORMETEROL FUMARATE 160/4.5 mcg INHALER IH SCH (10:42)
[2021-07-13] MEDS: ENOXAPARIN NA (PORCINE) 40 MG/0.4 ML DISP.SYRIN SQ SCH (10:42)
== END 2021-07-13 16:54 | disposition home or self-care (01) | DRG 178 ==
LOC: JER 10:24 → JERBED 19:40 → J8W 07-10 17:04
PROVIDERS: ADMIT Internal Medicine; ATTEND Nurse Practitioner Acute Care
DX: J69.0 Pneumonitis due to inhalation of food and vomit (principal); J44.1 Chronic obstructive pulmonary disease with (acute) exacerbation; F73 Profound intellectual disabilities; N39.0 Urinary tract infection, site not specified; Q90.9 Down syndrome, unspecified; E03.9 Hypothyroidism, unspecified; K21.9 Gastro-esophageal reflux disease without esophagitis; K76.0 Fatty (change of) liver, not elsewhere classified; F50.89 Other specified eating disorder; Z68.25 Body mass index [BMI] 25.0-25.9, adult; N18.30 Chronic kidney disease, stage 3 unspecified; K04.7 Periapical abscess without sinus; B96.1 Klebsiella pneumoniae [K. pneumoniae] as the cause of diseases classified elsewhere
CPT/HCPCS: 36415; 71045-TC-FY; 80053; 81003; 82803; 83605; 83735; 84484; 85025; 85027; 85610; 85730; 87040; 87086; 87186; 87804; 87807; 93005; 93010; 94640; 99285-25; C9803-CS; U0003; U0005

== ENCOUNTER 2021-09-28 08:47 | Inpatient (IN) | payer OTHER ==
[2021-09-28] MEDS ORDERED: ACETAMINOPHEN 1000 MG/100 ML BAG IVPB ONE (09:06)
[2021-09-28] MEDS ORDERED: SODIUM CHLORIDE 0.9% 500 ML INFUS.BAG IV ONE (09:25)
[2021-09-28] MEDS ORDERED: ACETAMINOPHEN INJECTION 100 ML IVPB ONE (10:43)
[2021-09-28] MEDS ORDERED: AZTREONAM 2 GM in DEXTROSE 5%-WATER 100 ML IVPB ONE ×3 (10:50→21:00)
[2021-09-28] MEDS ORDERED: VANCOMYCIN 1 GM in D5W (PRE-DOCKED) 1,000 MG/250 ML IVPB ONE (10:50)
[2021-09-28 10:57] LABS: VENOUS BASE EXCESS 4.7 mmol/L (-2-2); VENOUS O2 SATURATION 42.4 % (70-80); VENOUS PCO2 49.3 mmHg (38-52); VENOUS PH 7.404 (7.310-7.410)
[2021-09-28 11:02] LABS: BASO % 0.4 % (0-2.0); EOS % 0.2 % (0-4.5); HEMATOCRIT 29.3 % (32.4-45.2); HEMOGLOBIN 9.8 GM/dL (10.7-15.3); LYMPH % 14.7 % (8-40); MCHC 33.3 g/dl (32.0-36.0); MEAN CELL VOLUME 93.1 fl (80-96); MEAN PLT VOLUME 7.5 fl (7.5-11.1); MONO % 7.6 % (3.8-10.2); NEUT % 77.1 % (42.8-82.8); PLATELET COUNT 542 10^3/uL (134-434); RBC 3.15 M/mm3 (3.60-5.2); RDW 16.8 % (11.6-15.6); WHITE BLOOD COUNT 12.2 K/mm3 (4.0-10.0)
[2021-09-28 11:11] LABS: ALBUMIN 2.1 g/dl (3.4-5.0); BLOOD UREA NITROGEN 6.6 mg/dL (7-18); CALCIUM 8.4 mg/dL (8.5-10.1)
[2021-09-28 11:13] LABS: MAGNESIUM 2.4 mg/dL (1.8-2.4)
[2021-09-28 11:14] LABS: CREATININE 0.8 mg/dL (0.55-1.3)
[2021-09-28 11:16] LABS: BILIRUBIN,TOTAL 0.1 mg/dL (0.2-1); TOT PROT 6.5 g/dl (6.4-8.2)
[2021-09-28 11:25] LABS: EPI CELLS 9 /uL (0-25.1); HYALINE CASTS 1 /uL (0-3.1); URINE APPEARANCE CLEAR; URINE BACTERIA >9,000 /uL (0-1359); URINE BILIRUBIN NEGATIVE (NEGATIVE); URINE COLOR YELLOW; URINE GLUCOSE (UA) NEGATIVE (NEGATIVE); URINE KETONE NEGATIVE (NEGATIVE); URINE LEUK ESTERASE NEGATIVE (NEGATIVE); URINE NITRITE POSITIVE (NEGATIVE); URINE PROTEIN NEGATIVE (NEGATIVE); URINE RBC 2 /uL (0-23.9); URINE UROBILINOGEN 0.2 mg/dL (0.2-1.0); URINE WBC 17 /uL (0-25.8)
[2021-09-28] MEDS ORDERED: VANCOMYCIN/WATER FOR INJ (PEG) 1,000 MG/200 ML BAG IVPB SCH (13:30)
[2021-09-28] MEDS ORDERED: VANCOMYCIN 1 GRAM (PRE-DOCKED) 1,000 MG/250 ML BAG IVPB ONE (13:40)
[2021-09-28] MEDS ORDERED: VANCOMYCIN 1 GRAM (PRE-DOCKED) 1,000 MG/250 ML BAG IVPB SCH (13:45)
[2021-09-28] MEDS ORDERED: FLUTICASONE PROP 0.05% 16 GM NASAL SPRAY NS ONE (14:27)
[2021-09-28] MEDS ORDERED: SODIUM CHLORIDE 500 ML IV STA (17:30)
[2021-09-28] MEDS: AZTREONAM 2 GM in DEXTROSE 5%-WATER 100 ML IVPB SCH (20:19)
[2021-09-28] MEDS ORDERED: ALBUTEROL SO4 2.5/IPRATROPIUM 0.5 INH SOL 3 ML VIAL.NEB. NEB ONE (20:50)
[2021-09-28] MEDS: ALBUTEROL SO4 2.5/IPRATROPIUM 0.5 INH SOL 3 ML VIAL.NEB. NEB SCH (20:53)
[2021-09-28] MEDS: BUDESONIDE 0.25 MG/2ML INH SUSP VIAL NEB SCH (21:50)
[2021-09-29] MEDS ORDERED: AZTREONAM 2 GM VIAL (RESTRICTED TO ID) ONE ×3 (03:48→18:27)
[2021-09-29] MEDS: AZTREONAM 2 GM in DEXTROSE 5%-WATER 100 ML IVPB SCH ×3 (03:52→18:28)
[2021-09-29] MEDS: LEVOTHYROXINE NA 75 MCG TABLET (FP) PO SCH (06:37)
[2021-09-29] MEDS: ALBUTEROL SO4 2.5/IPRATROPIUM 0.5 INH SOL 3 ML VIAL.NEB. NEB SCH ×3 (08:20→19:59)
[2021-09-29] MEDS: BUDESONIDE 0.25 MG/2ML INH SUSP VIAL NEB SCH ×2 (08:30→20:00)
[2021-09-29] MEDS ORDERED: DEXTROSE 5%-WATER 100 ML IVPB ONE ×2 (09:37→18:27)
[2021-09-29] MEDS: ENOXAPARIN NA (PORCINE) 40 MG/0.4 ML DISP.SYRIN SQ SCH (09:41)
[2021-09-29] MEDS: FERROUS GLUCONATE 324 MG TAB (FP) PO SCH (09:41)
[2021-09-29] MEDS: VANCOMYCIN/WATER FOR INJ (PEG) 1,000 MG/200 ML BAG IVPB SCH (12:36)
[2021-09-29 12:56] LABS: HEMATOCRIT 28.3 % (32.4-45.2); HEMOGLOBIN 9.4 GM/dL (10.7-15.3); MCH 30.9 pg (25.7-33.7); MCHC 33.1 g/dl (32.0-36.0); MEAN CELL VOLUME 93.4 fl (80-96); MEAN PLT VOLUME 7.5 fl (7.5-11.1); PLATELET COUNT 540 10^3/uL (134-434); RBC 3.03 M/mm3 (3.60-5.2); RDW 16.6 % (11.6-15.6); WHITE BLOOD COUNT 6.9 K/mm3 (4.0-10.0)
[2021-09-29 13:37] LABS: BILIRUBIN,TOTAL 0.2 mg/dL (0.2-1); BLOOD UREA NITROGEN 9.1 mg/dL (7-18); CALCIUM 8.1 mg/dL (8.5-10.1); CREATININE 0.7 mg/dL (0.55-1.3); TOT PROT 6.2 g/dl (6.4-8.2)
[2021-09-29] MEDS ORDERED: VANCOMYCIN/WATER FOR INJ (PEG) 1,000 MG/200 ML BAG IVPB SCH (14:00)
[2021-09-30] MEDS ORDERED: DEXTROSE 5%-WATER 100 ML IVPB ONE ×3 (01:09→16:48)
[2021-09-30] MEDS ORDERED: AZTREONAM 2 GM VIAL (RESTRICTED TO ID) ONE ×3 (01:09→16:48)
[2021-09-30] MEDS: AZTREONAM 2 GM in DEXTROSE 5%-WATER 100 ML IVPB SCH ×3 (01:14→17:15)
[2021-09-30] MEDS: LEVOTHYROXINE NA 75 MCG TABLET (FP) PO SCH (06:56)
[2021-09-30] MEDS: ALBUTEROL SO4 2.5/IPRATROPIUM 0.5 INH SOL 3 ML VIAL.NEB. NEB SCH ×3 (07:52→19:53)
[2021-09-30] MEDS: BUDESONIDE 0.25 MG/2ML INH SUSP VIAL NEB SCH ×2 (07:53→19:53)
[2021-09-30] MEDS: FERROUS GLUCONATE 324 MG TAB (FP) PO SCH (09:43)
[2021-09-30] MEDS: ENOXAPARIN NA (PORCINE) 40 MG/0.4 ML DISP.SYRIN SQ SCH (09:43)
[2021-09-30 10:47] LABS: TOTAL IRON BINDING CAPACITY 181 ug/dL (250-450)
[2021-09-30 10:48] LABS: IRON SERUM 29 ug/dL (50-175)
[2021-09-30] MEDS: VANCOMYCIN/WATER FOR INJ (PEG) 1,000 MG/200 ML BAG IVPB SCH (13:03)
[2021-10-01] MEDS ORDERED: AZTREONAM 2 GM VIAL (RESTRICTED TO ID) ONE ×3 (01:12→17:36)
[2021-10-01] MEDS ORDERED: DEXTROSE 5%-WATER 100 ML IVPB ONE ×3 (01:12→17:36)
[2021-10-01] MEDS: AZTREONAM 2 GM in DEXTROSE 5%-WATER 100 ML IVPB SCH ×3 (01:28→17:47)
[2021-10-01] MEDS: LEVOTHYROXINE NA 75 MCG TABLET (FP) PO SCH (06:38)
[2021-10-01] MEDS: ALBUTEROL SO4 2.5/IPRATROPIUM 0.5 INH SOL 3 ML VIAL.NEB. NEB SCH ×3 (08:59→20:40)
[2021-10-01] MEDS: BUDESONIDE 0.25 MG/2ML INH SUSP VIAL NEB SCH ×2 (09:00→20:44)
[2021-10-01] MEDS: ENOXAPARIN NA (PORCINE) 40 MG/0.4 ML DISP.SYRIN SQ SCH (10:37)
[2021-10-01] MEDS: FERROUS GLUCONATE 324 MG TAB (FP) PO SCH (10:37)
[2021-10-01 13:01] LABS: BASO % 0.3 % (0-2.0); EOS % 2.8 % (0-4.5); HEMATOCRIT 27.2 % (32.4-45.2); LYMPH % 23.1 % (8-40); MCH 30.8 pg (25.7-33.7); MCHC 33.1 g/dl (32.0-36.0); MEAN CELL VOLUME 92.9 fl (80-96); MEAN PLT VOLUME 7.9 fl (7.5-11.1); MONO % 5.3 % (3.8-10.2); NEUT % 68.5 % (42.8-82.8); PLATELET COUNT 549 10^3/uL (134-434); RBC 2.92 M/mm3 (3.60-5.2); RDW 16.3 % (11.6-15.6); WHITE BLOOD COUNT 6.6 K/mm3 (4.0-10.0)
[2021-10-01 13:45] LABS: BLOOD UREA NITROGEN 11.8 mg/dL (7-18); CALCIUM 7.9 mg/dL (8.5-10.1)
[2021-10-01 13:46] LABS: ALBUMIN 1.9 g/dl (3.4-5.0)
[2021-10-01 13:48] LABS: CREATININE 0.8 mg/dL (0.55-1.3)
[2021-10-01 13:50] LABS: BILIRUBIN,TOTAL 0.1 mg/dL (0.2-1)
[2021-10-01] MEDS: VANCOMYCIN/WATER FOR INJ (PEG) 1,000 MG/200 ML BAG IVPB SCH (14:36)
[2021-10-01 23:52] VITALS: BMI 23.1
[2021-10-02] MEDS ORDERED: AZTREONAM 2 GM VIAL (RESTRICTED TO ID) ONE ×3 (01:17→17:46)
[2021-10-02] MEDS ORDERED: DEXTROSE 5%-WATER 100 ML IVPB ONE ×3 (01:18→17:46)
[2021-10-02] MEDS: AZTREONAM 2 GM in DEXTROSE 5%-WATER 100 ML IVPB SCH ×3 (01:50→17:48)
[2021-10-02] MEDS: LEVOTHYROXINE NA 75 MCG TABLET (FP) PO SCH (06:39)
[2021-10-02] MEDS: ALBUTEROL SO4 2.5/IPRATROPIUM 0.5 INH SOL 3 ML VIAL.NEB. NEB SCH ×3 (07:45→20:20)
[2021-10-02] MEDS: BUDESONIDE 0.25 MG/2ML INH SUSP VIAL NEB SCH ×2 (07:45→20:20)
[2021-10-02 09:07] LABS: HEMATOCRIT 27.3 % (32.4-45.2); MCH 30.7 pg (25.7-33.7); MEAN PLT VOLUME 7.6 fl (7.5-11.1); PLATELET COUNT 639 10^3/uL (134-434); RBC 2.94 M/mm3 (3.60-5.2); RDW 16.3 % (11.6-15.6); WHITE BLOOD COUNT 5.5 K/mm3 (4.0-10.0)
[2021-10-02] MEDS: FERROUS GLUCONATE 324 MG TAB (FP) PO SCH (09:32)
[2021-10-02] MEDS: ENOXAPARIN NA (PORCINE) 40 MG/0.4 ML DISP.SYRIN SQ SCH (09:32)
[2021-10-02 09:33] LABS: CALCIUM 8.4 mg/dL (8.5-10.1)
[2021-10-02 09:34] LABS: ALBUMIN 2.1 g/dl (3.4-5.0); BLOOD UREA NITROGEN 12.2 mg/dL (7-18)
[2021-10-02 09:37] LABS: CREATININE 0.8 mg/dL (0.55-1.3)
[2021-10-02 09:38] LABS: BILIRUBIN,TOTAL 0.4 mg/dL (0.2-1); TOT PROT 6.2 g/dl (6.4-8.2)
[2021-10-02 10:21] LABS: ANISOCYTOSIS 0; HELMET CELLS 0; HOWELL-JOLLY BODIES 0; MACROCYTOSIS 0; OVALOCYTE 0; ROULEAU 0; SICKELED CELLS 0; TARGET CELLS 0; TEAR DROP CELLS 0; TOXIC GRANULATION 0
[2021-10-02] MEDS: VANCOMYCIN/WATER FOR INJ (PEG) 1,000 MG/200 ML BAG IVPB SCH (14:24)
[2021-10-03] MEDS ORDERED: AZTREONAM 2 GM VIAL (RESTRICTED TO ID) ONE ×3 (01:01→17:58)
[2021-10-03] MEDS ORDERED: DEXTROSE 5%-WATER 100 ML IVPB ONE ×3 (01:01→17:58)
[2021-10-03] MEDS: AZTREONAM 2 GM in DEXTROSE 5%-WATER 100 ML IVPB SCH ×3 (01:30→18:09)
[2021-10-03] MEDS: LEVOTHYROXINE NA 75 MCG TABLET (FP) PO SCH (06:12)
[2021-10-03] MEDS: BUDESONIDE 0.25 MG/2ML INH SUSP VIAL NEB SCH ×2 (07:45→20:14)
[2021-10-03] MEDS: ALBUTEROL SO4 2.5/IPRATROPIUM 0.5 INH SOL 3 ML VIAL.NEB. NEB SCH ×3 (07:50→20:13)
[2021-10-03 08:55] LABS: HEMOGLOBIN 9.3 GM/dL (10.7-15.3); MCHC 33.4 g/dl (32.0-36.0); MEAN CELL VOLUME 92.8 fl (80-96); MEAN PLT VOLUME 7.3 fl (7.5-11.1); PLATELET COUNT 607 10^3/uL (134-434); RBC 3.01 M/mm3 (3.60-5.2); RDW 16.5 % (11.6-15.6); WHITE BLOOD COUNT 6.8 K/mm3 (4.0-10.0)
[2021-10-03 09:17] LABS: CALCIUM 8.1 mg/dL (8.5-10.1)
[2021-10-03 09:18] LABS: ALBUMIN 2.1 g/dl (3.4-5.0); BLOOD UREA NITROGEN 13.4 mg/dL (7-18)
[2021-10-03 09:21] LABS: CREATININE 0.8 mg/dL (0.55-1.3)
[2021-10-03 09:22] LABS: BILIRUBIN,TOTAL 0.2 mg/dL (0.2-1); TOT PROT 6.2 g/dl (6.4-8.2)
[2021-10-03 09:46] LABS: ANISOCYTOSIS 0; HELMET CELLS 0; HOWELL-JOLLY BODIES 0; MACROCYTOSIS 0; OVALOCYTE 0; ROULEAU 0; SICKELED CELLS 0; TARGET CELLS 0; TEAR DROP CELLS 0; TOXIC GRANULATION 0
[2021-10-03] MEDS: FERROUS GLUCONATE 324 MG TAB (FP) PO SCH (10:12)
[2021-10-03] MEDS: ENOXAPARIN NA (PORCINE) 40 MG/0.4 ML DISP.SYRIN SQ SCH (10:12)
[2021-10-03] MEDS: VANCOMYCIN/WATER FOR INJ (PEG) 1,000 MG/200 ML BAG IVPB SCH (14:28)
[2021-10-04] MEDS ORDERED: AZTREONAM 2 GM VIAL (RESTRICTED TO ID) ONE ×3 (02:05→18:12)
[2021-10-04] MEDS ORDERED: DEXTROSE 5%-WATER 100 ML IVPB ONE ×2 (02:06→09:29)
[2021-10-04] MEDS: AZTREONAM 2 GM in DEXTROSE 5%-WATER 100 ML IVPB SCH ×3 (02:13→18:14)
[2021-10-04] MEDS: LEVOTHYROXINE NA 75 MCG TABLET (FP) PO SCH (06:18)
[2021-10-04] MEDS: BUDESONIDE 0.25 MG/2ML INH SUSP VIAL NEB SCH ×2 (07:30→20:00)
[2021-10-04] MEDS: ALBUTEROL SO4 2.5/IPRATROPIUM 0.5 INH SOL 3 ML VIAL.NEB. NEB SCH ×3 (07:35→20:00)
[2021-10-04] MEDS: CHOLECALCIFEROL (VIT D3) 400 UNIT (10 MCG) TABLET PO SCH (09:30)
[2021-10-04] MEDS: ENOXAPARIN NA (PORCINE) 40 MG/0.4 ML DISP.SYRIN SQ SCH (09:30)
[2021-10-04] MEDS: CALCIUM 500MG/VIT-D 200 UNITS COMBO TABLET (FP) PO SCH ×2 (09:30→22:21)
[2021-10-04] MEDS: SENNOSIDES 8.6MG TABLET (FP) PO SCH ×2 (09:30→22:21)
[2021-10-04] MEDS: DOCUSATE SODIUM 100 MG CAPSULE (FP) PO SCH ×2 (09:30→22:29)
[2021-10-04] MEDS: FLUTICASONE PROP 0.05% 16 GM NASAL SPRAY NS SCH (11:25)
[2021-10-04] MEDS: VANCOMYCIN/WATER FOR INJ (PEG) 1,000 MG/200 ML BAG IVPB SCH (11:25)
[2021-10-04] MEDS: FERROUS GLUCONATE 324 MG TAB (FP) PO SCH (11:25)
[2021-10-04 12:23] LABS: HEMATOCRIT 29.5 % (32.4-45.2); HEMOGLOBIN 9.7 GM/dL (10.7-15.3); MCH 30.9 pg (25.7-33.7); MEAN CELL VOLUME 93.8 fl (80-96); MEAN PLT VOLUME 7.3 fl (7.5-11.1); PLATELET COUNT 673 10^3/uL (134-434); RBC 3.14 M/mm3 (3.60-5.2); RDW 16.6 % (11.6-15.6); WHITE BLOOD COUNT 8.3 K/mm3 (4.0-10.0)
[2021-10-04 12:46] LABS: ALBUMIN 2.3 g/dl (3.4-5.0); CALCIUM 8.6 mg/dL (8.5-10.1)
[2021-10-04 12:47] LABS: BLOOD UREA NITROGEN 14.5 mg/dL (7-18)
[2021-10-04 12:49] LABS: CREATININE 0.7 mg/dL (0.55-1.3)
[2021-10-04 12:51] LABS: BILIRUBIN,TOTAL 0.1 mg/dL (0.2-1); TOT PROT 6.8 g/dl (6.4-8.2)
[2021-10-04 13:04] LABS: ANISOCYTOSIS 1+; MACROCYTOSIS 1+
[2021-10-04] MEDS: MULTIVITAMINS THER W-MINERALS COMBO TABLET (FP) PO SCH (22:21)
[2021-10-05] MEDS ORDERED: AZTREONAM 2 GM VIAL (RESTRICTED TO ID) ONE ×2 (01:21→09:08)
[2021-10-05] MEDS ORDERED: DEXTROSE 5%-WATER 100 ML IVPB ONE ×2 (01:22→09:08)
[2021-10-05] MEDS: AZTREONAM 2 GM in DEXTROSE 5%-WATER 100 ML IVPB SCH ×2 (02:06→09:10)
[2021-10-05] MEDS: LEVOTHYROXINE NA 75 MCG TABLET (FP) PO SCH (06:48)
[2021-10-05] MEDS: ALBUTEROL SO4 2.5/IPRATROPIUM 0.5 INH SOL 3 ML VIAL.NEB. NEB SCH ×3 (08:10→20:28)
[2021-10-05] MEDS: DOCUSATE SODIUM 100 MG CAPSULE (FP) PO SCH ×2 (09:10→21:18)
[2021-10-05] MEDS: ENOXAPARIN NA (PORCINE) 40 MG/0.4 ML DISP.SYRIN SQ SCH (09:10)
[2021-10-05] MEDS: FERROUS GLUCONATE 324 MG TAB (FP) PO SCH (09:10)
[2021-10-05] MEDS: SENNOSIDES 8.6MG TABLET (FP) PO SCH ×2 (09:10→21:18)
[2021-10-05] MEDS: FLUTICASONE PROP 0.05% 16 GM NASAL SPRAY NS SCH (09:10)
[2021-10-05] MEDS: CHOLECALCIFEROL (VIT D3) 400 UNIT (10 MCG) TABLET PO SCH (09:10)
[2021-10-05] MEDS: CALCIUM 500MG/VIT-D 200 UNITS COMBO TABLET (FP) PO SCH ×2 (09:10→21:18)
[2021-10-05 09:35] LABS: HEMATOCRIT 29.5 % (32.4-45.2); HEMOGLOBIN 9.9 GM/dL (10.7-15.3); MCH 31.4 pg (25.7-33.7); MCHC 33.6 g/dl (32.0-36.0); MEAN CELL VOLUME 93.6 fl (80-96); MEAN PLT VOLUME 7.1 fl (7.5-11.1); PLATELET COUNT 654 10^3/uL (134-434); RBC 3.16 M/mm3 (3.60-5.2); RDW 16.7 % (11.6-15.6); WHITE BLOOD COUNT 6.5 K/mm3 (4.0-10.0)
[2021-10-05] MEDS: BUDESONIDE 0.25 MG/2ML INH SUSP VIAL NEB SCH ×2 (09:36→20:28)
[2021-10-05 10:03] LABS: CALCIUM 8.5 mg/dL (8.5-10.1)
[2021-10-05 10:04] LABS: ALBUMIN 2.2 g/dl (3.4-5.0); ANISOCYTOSIS 0; BLOOD UREA NITROGEN 13.2 mg/dL (7-18); HELMET CELLS 0; HOWELL-JOLLY BODIES 0; MACROCYTOSIS 0; OVALOCYTE 0; ROULEAU 0; SICKELED CELLS 0; TARGET CELLS 0; TEAR DROP CELLS 0; TOXIC GRANULATION 0
[2021-10-05 10:07] LABS: CREATININE 0.8 mg/dL (0.55-1.3)
[2021-10-05 10:11] LABS: BILIRUBIN,TOTAL 0.1 mg/dL (0.2-1); TOT PROT 6.5 g/dl (6.4-8.2)
[2021-10-05] MEDS: VANCOMYCIN/WATER FOR INJ (PEG) 1,000 MG/200 ML BAG IVPB SCH (12:41)
[2021-10-05] MEDS: POLYETHYLENE GLYCOL (HEALTHYLAX) 3350 17 GM PACKET PO SCH (17:03)
[2021-10-05] MEDS: MULTIVITAMINS THER W-MINERALS COMBO TABLET (FP) PO SCH (21:18)
[2021-10-06] MEDS ORDERED: MELATONIN 5 MG TABLETS PO ONE (01:09)
[2021-10-06] MEDS: LEVOTHYROXINE NA 75 MCG TABLET (FP) PO SCH (06:10)
[2021-10-06] MEDS: BUDESONIDE 0.25 MG/2ML INH SUSP VIAL NEB SCH ×2 (07:45→20:18)
[2021-10-06] MEDS: ALBUTEROL SO4 2.5/IPRATROPIUM 0.5 INH SOL 3 ML VIAL.NEB. NEB SCH ×3 (07:45→20:17)
[2021-10-06 09:24] LABS: HEMATOCRIT 29.2 % (32.4-45.2); HEMOGLOBIN 9.7 GM/dL (10.7-15.3); MCH 31.1 pg (25.7-33.7); MCHC 33.1 g/dl (32.0-36.0); MEAN CELL VOLUME 94.1 fl (80-96); MEAN PLT VOLUME 7.5 fl (7.5-11.1); PLATELET COUNT 629 10^3/uL (134-434); RBC 3.11 M/mm3 (3.60-5.2); WHITE BLOOD COUNT 6.7 K/mm3 (4.0-10.0)
[2021-10-06 10:06] LABS: CALCIUM 8.7 mg/dL (8.5-10.1)
[2021-10-06 10:07] LABS: ALBUMIN 2.4 g/dl (3.4-5.0)
[2021-10-06 10:10] LABS: CREATININE 0.8 mg/dL (0.55-1.3)
[2021-10-06 10:11] LABS: TOT PROT 6.6 g/dl (6.4-8.2)
[2021-10-06 10:12] LABS: BILIRUBIN,TOTAL 0.2 mg/dL (0.2-1)
[2021-10-06] MEDS: DOCUSATE SODIUM 100 MG CAPSULE (FP) PO SCH ×2 (10:21→22:41)
[2021-10-06] MEDS: SENNOSIDES 8.6MG TABLET (FP) PO SCH ×2 (10:21→22:41)
[2021-10-06] MEDS: FERROUS GLUCONATE 324 MG TAB (FP) PO SCH (10:21)
[2021-10-06] MEDS: CALCIUM 500MG/VIT-D 200 UNITS COMBO TABLET (FP) PO SCH ×2 (10:21→22:41)
[2021-10-06] MEDS: FLUTICASONE PROP 0.05% 16 GM NASAL SPRAY NS SCH (10:21)
[2021-10-06] MEDS: POLYETHYLENE GLYCOL (HEALTHYLAX) 3350 17 GM PACKET PO SCH (10:21)
[2021-10-06] MEDS: CHOLECALCIFEROL (VIT D3) 400 UNIT (10 MCG) TABLET PO SCH (10:22)
[2021-10-06 11:00] LABS: ANISOCYTOSIS 0; HELMET CELLS 0; HOWELL-JOLLY BODIES 0; MACROCYTOSIS 0; OVALOCYTE 0; ROULEAU 0; SICKELED CELLS 0; TARGET CELLS 0; TEAR DROP CELLS 0; TOXIC GRANULATION 0
[2021-10-06] MEDS: MULTIVITAMINS THER W-MINERALS COMBO TABLET (FP) PO SCH (22:41)
[2021-10-07] MEDS: LEVOTHYROXINE NA 75 MCG TABLET (FP) PO SCH (06:31)
[2021-10-07] MEDS: ALBUTEROL SO4 2.5/IPRATROPIUM 0.5 INH SOL 3 ML VIAL.NEB. NEB SCH ×3 (07:45→20:31)
[2021-10-07] MEDS: BUDESONIDE 0.25 MG/2ML INH SUSP VIAL NEB SCH ×2 (07:45→20:31)
[2021-10-07] MEDS: FERROUS GLUCONATE 324 MG TAB (FP) PO SCH (09:57)
[2021-10-07] MEDS: SENNOSIDES 8.6MG TABLET (FP) PO SCH ×2 (09:57→21:02)
[2021-10-07] MEDS: POLYETHYLENE GLYCOL (HEALTHYLAX) 3350 17 GM PACKET PO SCH (09:57)
[2021-10-07] MEDS: DOCUSATE SODIUM 100 MG CAPSULE (FP) PO SCH ×2 (09:57→21:02)
[2021-10-07] MEDS: FLUTICASONE PROP 0.05% 16 GM NASAL SPRAY NS SCH (09:57)
[2021-10-07] MEDS: CHOLECALCIFEROL (VIT D3) 400 UNIT (10 MCG) TABLET PO SCH (09:57)
[2021-10-07] MEDS: ENOXAPARIN NA (PORCINE) 30 MG/0.3 ML DISP.SYRIN SQ SCH (09:57)
[2021-10-07] MEDS: CALCIUM 500MG/VIT-D 200 UNITS COMBO TABLET (FP) PO SCH ×2 (09:57→21:02)
[2021-10-07] MEDS: MULTIVITAMINS THER W-MINERALS COMBO TABLET (FP) PO SCH (21:02)
[2021-10-08] MEDS: LEVOTHYROXINE NA 75 MCG TABLET (FP) PO SCH (06:03)
[2021-10-08] MEDS: ALBUTEROL SO4 2.5/IPRATROPIUM 0.5 INH SOL 3 ML VIAL.NEB. NEB SCH ×2 (08:40→14:47)
[2021-10-08] MEDS: BUDESONIDE 0.25 MG/2ML INH SUSP VIAL NEB SCH (08:45)
[2021-10-08] MEDS: ENOXAPARIN NA (PORCINE) 30 MG/0.3 ML DISP.SYRIN SQ SCH (10:33)
[2021-10-08] MEDS: POLYETHYLENE GLYCOL (HEALTHYLAX) 3350 17 GM PACKET PO SCH (10:34)
[2021-10-08] MEDS: FLUTICASONE PROP 0.05% 16 GM NASAL SPRAY NS SCH (10:34)
[2021-10-08] MEDS: DOCUSATE SODIUM 100 MG CAPSULE (FP) PO SCH (10:34)
[2021-10-08] MEDS: SENNOSIDES 8.6MG TABLET (FP) PO SCH (10:34)
[2021-10-08] MEDS: CALCIUM 500MG/VIT-D 200 UNITS COMBO TABLET (FP) PO SCH (10:34)
[2021-10-08] MEDS: FERROUS GLUCONATE 324 MG TAB (FP) PO SCH (10:34)
[2021-10-08] MEDS: CHOLECALCIFEROL (VIT D3) 400 UNIT (10 MCG) TABLET PO SCH (10:34)
[2021-10-08] MEDS ORDERED: SODIUM CHLORIDE 250 ML IV STA (13:16)
[2021-10-08 13:45] VITALS: BP 120/52; PULSE 79; TEMP 98.5
== END 2021-10-08 18:36 | disposition home or self-care (01) | DRG 177 ==
LOC: JER 08:47 → JERBED 12:35 → J6S 21:07
PROVIDERS: ADMIT Internal Medicine; ATTEND Internal Medicine
DX: J69.0 Pneumonitis due to inhalation of food and vomit (principal); J96.21 Acute and chronic respiratory failure with hypoxia; J44.0 Chronic obstructive pulmonary disease with (acute) lower respiratory infection; N39.0 Urinary tract infection, site not specified; J90 Pleural effusion, not elsewhere classified; J44.1 Chronic obstructive pulmonary disease with (acute) exacerbation; E03.9 Hypothyroidism, unspecified; D64.9 Anemia, unspecified; F79 Unspecified intellectual disabilities; J44.9 Chronic obstructive pulmonary disease, unspecified; Q90.9 Down syndrome, unspecified; K21.9 Gastro-esophageal reflux disease without esophagitis; N18.30 Chronic kidney disease, stage 3 unspecified; E78.5 Hyperlipidemia, unspecified; B96.20 Unspecified Escherichia coli [E. coli] as the cause of diseases classified elsewhere
CPT/HCPCS: 36415; 71045-TC-FY; 74230-TC-FY; 80053; 81003; 82272; 82728; 82803; 83540; 83550; 83605; 83735; 84484; 85025; 85027; 87040; 87086; 87186; 87804; 87807; 87899; 92611-GN; 93005; 93010; 94640; 99285-25; C9803-CS; G0480; U0003; U0005

== ENCOUNTER 2024-04-16 15:21 | Inpatient (IN) | payer OTHER ==
[2024-04-16] MEDS ORDERED: ALBUTEROL SO4 2.5/IPRATROPIUM 0.5 INH SOL 3 ML VIAL.NEB. NEB ONE (16:18)
[2024-04-16] MEDS: ALBUTEROL SO4 2.5/IPRATROPIUM 0.5 INH SOL 3 ML VIAL.NEB. NEB ONE (16:21)
[2024-04-16 16:53] LABS: BASO % 0.9 % (0-2.0); EOS % 0.3 % (0-4.5); HEMOGLOBIN 12.5 GM/dL (10.7-15.3); LYMPH % 21.8 % (8-40); MCH 33.9 pg (25.7-33.7); MCHC 33.7 g/dl (32.0-36.0); MEAN CELL VOLUME 100.6 fl (80-96); MEAN PLT VOLUME 6.2 fl (7.5-11.1); MONO % 8.1 % (3.8-10.2); NEUT % 68.9 % (42.8-82.8); PLATELET COUNT 352 10^3/uL (134-434); RBC 3.67 M/mm3 (3.60-5.2); WHITE BLOOD COUNT 8.7 K/mm3 (4.0-10.0)
[2024-04-16 17:19] LABS: POTASSIUM 4.1 mmol/L (3.5-5.1)
[2024-04-16 17:21] LABS: CALCIUM 8.4 mg/dL (8.5-10.1)
[2024-04-16 17:22] LABS: BLOOD UREA NITROGEN 5.8 mg/dL (7-18)
[2024-04-16 17:25] LABS: CREATININE 0.9 mg/dL (0.55-1.3)
[2024-04-16 17:26] LABS: BILIRUBIN,TOTAL 0.2 mg/dL (0.2-1); TOT PROT 6.8 g/dl (6.4-8.2)
[2024-04-16] MEDS ORDERED: VANCOMYCIN 1 GRAM (PRE-DOCKED) 1,000 MG/250 ML BAG IVPB ONE (20:15)
[2024-04-16] MEDS ORDERED: DOXYCYCLINE HYCLATE 100 MG VIAL ONE (20:18)
[2024-04-16] MEDS: VANCOMYCIN 1,000 MG in DEXTROSE 5%-WATER - 250 ML IVPB ONE (21:56)
[2024-04-16] MEDS ORDERED: methylPREDNISolone NA SUCC 40 MG/1 ML VIAL ONE (22:18)
[2024-04-16] MEDS: SODIUM CHLORIDE 1,000 ML IV STA (23:20)
[2024-04-16] MEDS: methylPREDNISolone NA SUCC 40 MG/1 ML VIAL IVPUSH SCH (23:20)
[2024-04-17] MEDS: DOXYCYCLINE INJECTION 100 MG in DEXTROSE 5%-WATER 100 ML IVPB ONE (01:17)
[2024-04-17] MEDS: LACTATED RINGERS SOLUTION 1,000 ML/1,000 ML INFUS.BAG IV SCH (01:17)
[2024-04-17] MEDS: LEVOTHYROXINE NA 100 MCG TABLET (FP) PO SCH (06:19)
[2024-04-17 08:07] LABS: HEMATOCRIT 36.8 % (32.4-45.2); HEMOGLOBIN 12.3 GM/dL (10.7-15.3); MCH 33.8 pg (25.7-33.7); MCHC 33.4 g/dl (32.0-36.0); MEAN CELL VOLUME 101.2 fl (80-96); MEAN PLT VOLUME 6.7 fl (7.5-11.1); PLATELET COUNT 358 10^3/uL (134-434); RBC 3.64 M/mm3 (3.60-5.2); RDW 13.7 % (11.6-15.6); WHITE BLOOD COUNT 10.6 K/mm3 (4.0-10.0)
[2024-04-17 08:11] LABS: POTASSIUM 4.8 mmol/L (3.5-5.1)
[2024-04-17 08:23] LABS: CALCIUM 8.6 mg/dL (8.5-10.1)
[2024-04-17 08:24] LABS: ALBUMIN 2.9 g/dl (3.4-5.0); BLOOD UREA NITROGEN 8.8 mg/dL (7-18); MAGNESIUM 2.4 mg/dL (1.8-2.4)
[2024-04-17 08:26] LABS: BILIRUBIN,TOTAL 0.2 mg/dL (0.2-1)
[2024-04-17 08:27] LABS: TOT PROT 6.8 g/dl (6.4-8.2)
[2024-04-17 08:41] LABS: LACTIC ACID 2.8 mmol/L (0.4-2.0)
[2024-04-17] MEDS: ESCITALOPRAM OXALATE 10 MG TABLET PO SCH (10:01)
[2024-04-17] MEDS: CHOLECALCIFEROL (VIT D3) 400 UNIT (10 MCG) TABLET PO SCH (10:01)
[2024-04-17] MEDS: ENOXAPARIN NA (PORCINE) 40 MG/0.4 ML DISP.SYRIN SQ SCH (10:03)
[2024-04-17] MEDS: VANCOMYCIN/WATER FOR INJ (PEG) 1,000 MG/200 ML BAG IVPB SCH (10:04)
[2024-04-17 10:42] LABS: ANISOCYTOSIS 0; MACROCYTOSIS 1+
[2024-04-17 12:59] LABS: LACTIC ACID 2.8 mmol/L (0.4-2.0)
[2024-04-17] MEDS: SODIUM CHLORIDE 0.9% 500 ML INFUS.BAG IV ONE (21:07)
[2024-04-17] MEDS: ALBUTEROL SO4 2.5/IPRATROPIUM 0.5 INH SOL 3 ML VIAL.NEB. NEB SCH (21:25)
[2024-04-18 09:15] LABS: BASO % 0.1 % (0-2.0); HEMATOCRIT 35.9 % (32.4-45.2); HEMOGLOBIN 12.3 GM/dL (10.7-15.3); LYMPH % 7.3 % (8-40); MCH 34.4 pg (25.7-33.7); MCHC 34.2 g/dl (32.0-36.0); MEAN CELL VOLUME 100.3 fl (80-96); MEAN PLT VOLUME 6.9 fl (7.5-11.1); MONO % 2.1 % (3.8-10.2); NEUT % 90.5 % (42.8-82.8); PLATELET COUNT 348 10^3/uL (134-434); RBC 3.58 M/mm3 (3.60-5.2); WHITE BLOOD COUNT 10.8 K/mm3 (4.0-10.0)
[2024-04-18 09:51] LABS: ALBUMIN 2.9 g/dl (3.4-5.0); BILIRUBIN,TOTAL 0.2 mg/dL (0.2-1); CALCIUM 8.5 mg/dL (8.5-10.1); POTASSIUM 4.3 mmol/L (3.5-5.1); TOT PROT 6.9 g/dl (6.4-8.2)
[2024-04-18 11:09] LABS: LACTIC ACID 3.8 mmol/L (0.4-2.0)
[2024-04-18] MEDS: SODIUM CHLORIDE 0.9% 500 ML INFUS.BAG IV ONE (12:36)
[2024-04-18 13:18] LABS: LACTIC ACID 2.6 mmol/L (0.4-2.0)
[2024-04-18] MEDS: VANCOMYCIN 1,000 MG in DEXTROSE 5%-WATER - 250 ML IVPB SCH (20:12)
[2024-04-19 10:53] LABS: HEMATOCRIT 35.2 % (32.4-45.2); MCH 34.3 pg (25.7-33.7); MCHC 34.2 g/dl (32.0-36.0); MEAN CELL VOLUME 100.5 fl (80-96); MEAN PLT VOLUME 7.8 fl (7.5-11.1); PLATELET COUNT 332 10^3/uL (134-434); RDW 13.7 % (11.6-15.6); WHITE BLOOD COUNT 11.4 K/mm3 (4.0-10.0)
[2024-04-19 11:15] LABS: POTASSIUM 4.1 mmol/L (3.5-5.1)
[2024-04-19 11:16] LABS: ANISOCYTOSIS 0; MACROCYTOSIS 1+
[2024-04-19 11:20] LABS: ALBUMIN 2.8 g/dl (3.4-5.0); BLOOD UREA NITROGEN 15.3 mg/dL (7-18)
[2024-04-19 11:23] LABS: CREATININE 0.9 mg/dL (0.55-1.3)
[2024-04-19 11:25] LABS: BILIRUBIN,TOTAL 0.1 mg/dL (0.2-1); TOT PROT 6.6 g/dl (6.4-8.2)
[2024-04-19 14:30] LABS: LACTIC ACID 2.9 mmol/L (0.4-2.0)
[2024-04-19] MEDS: SODIUM CHLORIDE 0.45% 1,000 ML IV SCH (15:32)
[2024-04-19] MEDS ORDERED: SIMETHICONE 40 MG/0.6 ML BOTTLE PO PRN (18:53)
[2024-04-19] MEDS: CALCIUM 500MG/VIT-D 200 UNITS COMBO TABLET (FP) PO SCH (21:01)
[2024-04-19] MEDS: POLYETHYLENE GLYCOL (HEALTHYLAX) 3350 17 GM PACKET PO SCH (23:30)
[2024-04-20 09:59] LABS: BASO % 0.3 % (0-2.0); HEMATOCRIT 36.2 % (32.4-45.2); HEMOGLOBIN 12.3 GM/dL (10.7-15.3); LYMPH % 9.9 % (8-40); MEAN PLT VOLUME 7.2 fl (7.5-11.1); MONO % 3.6 % (3.8-10.2); NEUT % 86.2 % (42.8-82.8); PLATELET COUNT 345 10^3/uL (134-434); RBC 3.62 M/mm3 (3.60-5.2); RDW 13.8 % (11.6-15.6); WHITE BLOOD COUNT 11.5 K/mm3 (4.0-10.0)
[2024-04-20 10:15] LABS: LACTIC ACID 2.6 mmol/L (0.4-2.0)
[2024-04-20] MEDS: DOCUSATE SODIUM 100 MG CAPSULE (FP) PO SCH (10:26)
[2024-04-20] MEDS: LORATADINE 10 MG TABLET PO SCH (10:26)
[2024-04-20 11:02] LABS: CHLORIDE 102 mmol/L (98-107); POTASSIUM 4.5 mmol/L (3.5-5.1); SODIUM 140 mmol/L (136-145)
[2024-04-20] MEDS: FLUTICASONE PROP 0.05% 16 GM NASAL SPRAY NS SCH (11:11)
[2024-04-20 11:16] LABS: ANION GAP 5 mmol/L (4-13); CALCIUM 9.1 mg/dL (8.5-10.1); CO2 34 mmol/L (21-32)
[2024-04-20 11:17] LABS: ALBUMIN 2.8 g/dl (3.4-5.0); BLOOD UREA NITROGEN 21.2 mg/dL (7-18); GLUCOSE,RANDOM 104 mg/dL (74-106); MAGNESIUM 2.2 mg/dL (1.8-2.4)
[2024-04-20 11:19] LABS: CREATININE 0.8 mg/dL (0.55-1.3); PHOSPHOROUS 4.2 mg/dL (2.5-4.9); SGOT/AST 11 U/L (15-37); SGPT/ALT 16 U/L (13-61)
[2024-04-20 11:21] LABS: BILIRUBIN,TOTAL 0.1 mg/dL (0.2-1); TOT PROT 6.6 g/dl (6.4-8.2)
[2024-04-20 11:23] LABS: ALK PHOS 83 U/L (45-117)
[2024-04-20 12:05] LABS: ERYTHROCYTE SEDIMENTATION RATE 38 mm/hr (0-30)
[2024-04-20 13:37] LABS: LACTIC ACID 2.1 mmol/L (0.4-2.0)
[2024-04-20] MEDS: SODIUM CHLORIDE NASAL SPRAY 44 ML BOTTLE NS SCH (13:49)
[2024-04-20 15:11] VITALS: RESP 18
[2024-04-20] MEDS: BUDESONIDE 0.5 MG/2 ML INH SUSP VIAL NEB SCH (20:28)
[2024-04-20] MEDS: methylPREDNISolone NA SUCC 40 MG/1 ML VIAL IVPUSH SCH (21:45)
[2024-04-21] MEDS: methylPREDNISolone NA SUCC 40 MG/1 ML VIAL IVPUSH SCH (09:08)
[2024-04-21 10:35] LABS: BASO % 0.1 % (0-2.0); HEMATOCRIT 38.5 % (32.4-45.2); HEMOGLOBIN 13.5 GM/dL (10.7-15.3); LYMPH % 13.5 % (8-40); MCH 34.9 pg (25.7-33.7); MCHC 34.9 g/dl (32.0-36.0); MEAN CELL VOLUME 99.9 fl (80-96); MEAN PLT VOLUME 7.1 fl (7.5-11.1); MONO % 5.6 % (3.8-10.2); NEUT % 80.8 % (42.8-82.8); PLATELET COUNT 364 10^3/uL (134-434); RBC 3.86 M/mm3 (3.60-5.2); RDW 14.1 % (11.6-15.6); WHITE BLOOD COUNT 10.7 K/mm3 (4.0-10.0)
[2024-04-21 10:41] LABS: POTASSIUM 4.4 mmol/L (3.5-5.1)
[2024-04-21 10:48] LABS: ALBUMIN 3.1 g/dl (3.4-5.0); BLOOD UREA NITROGEN 22.8 mg/dL (7-18); CALCIUM 9.1 mg/dL (8.5-10.1)
[2024-04-21 10:49] LABS: MAGNESIUM 2.2 mg/dL (1.8-2.4)
[2024-04-21 10:52] LABS: CREATININE 0.9 mg/dL (0.55-1.3); PHOSPHOROUS 3.9 mg/dL (2.5-4.9)
[2024-04-21 10:53] LABS: BILIRUBIN,TOTAL 0.1 mg/dL (0.2-1); TOT PROT 6.9 g/dl (6.4-8.2)
[2024-04-21 10:54] LABS: LACTIC ACID 2.8 mmol/L (0.4-2.0)
[2024-04-21 12:06] LABS: LACTIC ACID 2.4 mmol/L (0.4-2.0)
[2024-04-21 13:49] LABS: LACTIC ACID 2.7 mmol/L (0.4-2.0)
[2024-04-21 14:38] VITALS: BMI 25.8
[2024-04-21 16:29] LABS: LACTIC ACID 3.4 mmol/L (0.4-2.0)
[2024-04-22] MEDS: predniSONE 20 MG TABLET (UD) PO ONE (12:14)
[2024-04-22 14:55] VITALS: BP 93/83; PULSE 92; TEMP 97.2
== END 2024-04-22 14:57 | disposition home or self-care (01) | DRG 190 ==
LOC: JER 15:21 → JERBED 20:13 → J6W 04-17 02:46 → J5S 04-21 10:03
PROVIDERS: ADMIT Internal Medicine; ATTEND Internal Medicine
DX: J44.0 Chronic obstructive pulmonary disease with (acute) lower respiratory infection (principal); J18.9 Pneumonia, unspecified organism; F73 Profound intellectual disabilities; J96.11 Chronic respiratory failure with hypoxia; E87.20 Acidosis, unspecified; I12.9 Hypertensive chronic kidney disease with stage 1 through stage 4 chronic kidney disease, or unspecified chronic kidney disease; N18.30 Chronic kidney disease, stage 3 unspecified; E03.9 Hypothyroidism, unspecified; K21.9 Gastro-esophageal reflux disease without esophagitis; K76.0 Fatty (change of) liver, not elsewhere classified; Q90.9 Down syndrome, unspecified; Z99.81 Dependence on supplemental oxygen; F42.9 Obsessive-compulsive disorder, unspecified; M85.80 Other specified disorders of bone density and structure, unspecified site; J44.1 Chronic obstructive pulmonary disease with (acute) exacerbation
CPT/HCPCS: 0241U-QW; 36415; 71045-TC-FY; 80053; 83605; 83735; 84100; 85025; 85651; 86140; 87040; 87081; 87635; 93005; 93010; 94640; 97116-GP; 97162-GP; 99285-25